=== PATIENT | male | born 1960 | race African-American/Black ===

== ENCOUNTER 2021-03-19 01:18 | Emergency (ER) | payer MEDICAID, SELFPAY ==
--- NOTE | ~2021-03-19 | XR_ITS ---
EXAMINATION: XR CHEST CLINICAL INFORMATION: Cough COMPARISON: 05/24/2020 TECHNIQUE: Frontal view of the chest was obtained. FINDINGS: Normal symmetric lung volumes. No parenchymal consolidation. No pleural effusion. No pneumothorax. Cardiomediastinal silhouette and pulmonary vascularity are within normal limits. No acute osseous abnormalities. XR/XR chest 1V IMPRESSION: Unremarkable examination.
--- NOTE | ~2021-03-19 | CT_ITS ---
EXAMINATION: CT HEAD WITHOUT CONTRAST CT CERVICAL SPINE WITHOUT CONTRAST CLINICAL INFORMATION: Fall COMPARISON: CT brain dated 05/24/2020 TECHNIQUE: Multidetector CT imaging of the head and cervical spine was performed without the use of intravenous contrast. Multiplanar reformats are reviewed. This CT examination was performed using dose optimization techniques as appropriate, variously including the following: *Automated exposure control *Adjustment of mA and/or kV according to patient size (this includes techniques or standardized protocols for targeted exams where dose is matched to indication/reason for exam; i.e. extremities or head) *Use of iterative reconstruction technique DLP: 1244 mGy-cm. FINDINGS: There is no evidence of acute intracranial hemorrhage or territorial infarction. No abnormal mass effect or midline shift is seen. Bach to white matter differentiation is well preserved. No extra-axial fluid collections are identified. The ventricles are normal in size. There is no abnormal attenuation within the brain parenchyma. The osseous structures and soft tissues are normal. The mastoid air cells and visualized portions of the paranasal sinuses are well-aerated. Atlantooccipital alignment is maintained. The vertebral bodies and posterior elements align normally. No acute fracture or subluxation. Vertebral body heights are maintained.Endplate osteophytes associated discogenic degenerative disease, loss of disc space height and sclerosis of the vertebral body endplates noted from C3 to C6. The cervicomedullary junction and spinal cord are grossly unremarkable. The paraspinal soft tissues are unremarkable. There is a bulla at the right lung apex. CT/CT cervical spine wo con IMPRESSION: No acute intracranial pathology. No cervical spine fracture or malalignment.
--- NOTE | ~2021-03-19 | CT_ITS ---
EXAMINATION: CT HEAD WITHOUT CONTRAST CT CERVICAL SPINE WITHOUT CONTRAST CLINICAL INFORMATION: Fall COMPARISON: CT brain dated 05/24/2020 TECHNIQUE: Multidetector CT imaging of the head and cervical spine was performed without the use of intravenous contrast. Multiplanar reformats are reviewed. This CT examination was performed using dose optimization techniques as appropriate, variously including the following: *Automated exposure control *Adjustment of mA and/or kV according to patient size (this includes techniques or standardized protocols for targeted exams where dose is matched to indication/reason for exam; i.e. extremities or head) *Use of iterative reconstruction technique DLP: 1244 mGy-cm. FINDINGS: There is no evidence of acute intracranial hemorrhage or territorial infarction. No abnormal mass effect or midline shift is seen. Bach to white matter differentiation is well preserved. No extra-axial fluid collections are identified. The ventricles are normal in size. There is no abnormal attenuation within the brain parenchyma. The osseous structures and soft tissues are normal. The mastoid air cells and visualized portions of the paranasal sinuses are well-aerated. Atlantooccipital alignment is maintained. The vertebral bodies and posterior elements align normally. No acute fracture or subluxation. Vertebral body heights are maintained.Endplate osteophytes associated discogenic degenerative disease, loss of disc space height and sclerosis of the vertebral body endplates noted from C3 to C6. The cervicomedullary junction and spinal cord are grossly unremarkable. The paraspinal soft tissues are unremarkable. There is a bulla at the right lung apex. CT/CT head/brain wo con IMPRESSION: No acute intracranial pathology. No cervical spine fracture or malalignment.
--- NOTE | 2021-03-19 01:25 | ECG_ITS ---
Test Reason : FALL Blood Pressure : / mmHG Vent. Rate : 064 BPM Atrial Rate : 064 BPM P-R Int : 212 ms QRS Dur : 104 ms QT Int : 394 ms P-R-T Axes : 065 059 077 degrees QTc Int : 406 ms Sinus rhythm with 1st degree A-V block with Premature atrial complexes Nonspecific ST and T wave abnormality Abnormal ECG When compared with ECG of 13-FEB-2015 17:28, Premature atrial complexes are now Present DC interval has increased Criteria for Septal infarct are no longer Present T wave inversion no longer evident in Lateral leads Referred By: Deirdre Neff Electronically Signed By:Sam Layne
[2021-03-19 01:36] VITALS: BP 134/70; BP 142/78; PULSE 60; PULSE 63; RESP 15; TEMP 36.6; O2SAT 95; O2SAT 97; BMI 21.9
[2021-03-19 02:05] LABS: MANUAL DIFF FLAG NO
[2021-03-19 02:06] LABS: Basophils Absolute Auto 0.1 X10*3/uL (0.0-0.2); Basophils Percent Auto 0.6 % (0-2); Eosinophils Absolute Auto 0.5 X10*3/uL (0.0-0.4); Eosinophils Percent Auto 5.6 % (0-4); Hematocrit 38.1 % (42-52); Hemoglobin 11.3 g/dl (14.0-18.0); Imm Gran Abs Auto 0.03 X10*3/uL (0.00-0.03); Imm Gran Pct Auto 0.4 % (0.0-0.4); Lymphocytes Absolute Auto 4.3 X10*3/uL (1.2-4.9); Lymphocytes Percent Auto 53.2 % (20-40); Mean Corpuscular HGB Conc 29.7 g/dl (31.0-36.0); Mean Corpuscular Hemoglobin 23.7 pg (27.0-33.0); Mean Corpuscular Volume 79.9 fL (80-98); Monocytes Absolute Auto 0.8 X10*3/uL (0.1-1.2); Monocytes Percent Auto 9.5 % (2-11); Neutrophils Absolute Auto 2.5 X10*3/uL (2.0-8.3); Neutrophils Percent Auto 30.7 % (45-73); Platelet Count 168 X10*3/uL (160-400); Red Blood Count 4.77 X10*6/uL (4.60-5.80); Red Cell Distribution Width 14.6 % (11.0-16.0)
[2021-03-19 02:12] LABS: Prothrombin Time 12.1 SEC (10.8-13.0)
[2021-03-19 02:30] VITALS: BP 122/86; PULSE 60; RESP 14; O2SAT 96
[2021-03-19 02:36] LABS: Magnesium 2.1 mg/dL (1.6-2.6)
[2021-03-19 02:38] LABS: Alanine Aminotransferase 9 U/L (0-40); Albumin Level 3.4 g/dL (3.5-5.0); Alkaline Phosphatase 46 U/L (39-117); Anion Gap 10 (12-20); Aspartate Amino Transferase 12 U/L (5-37); Bilirubin Total 0.4 mg/dL (0.0-1.0); Blood Urea Nitrogen 22 mg/dL (9-16); Calcium 8.9 mg/dL (8.4-10.2); Carbon Dioxide 30 mmol/L (22-29); Chloride 111 mmol/L (96-108); Creatinine Clr Calc Pharmacy 55.6; Estimated Glomerular Filt Rate 49; Glucose Random 89 mg/dL (60-115); Potassium 4.3 mmol/L (3.3-5.1); Sodium 147 mmol/L (135-145); Total Protein 6.1 g/dL (6.5-8.0)
--- NOTE | 2021-03-19 02:41 | ED.FALL ---
HPI - Fall General Chief Complaint: Fall Stated Complaint: SEIZURE AND FALL Time Seen by Provider: 03/19/21 01:25 Source: patient, EMS and other Mode of arrival: EMS History of Present Illness HPI Narrative: 60-year-old male brought in via EMS from [facility] with reports that patient fell and questionable seizure activity as they felt the patient was slow to respond although no abnormal movements are reported. Patient's roommate states that he was returning from the bathroom when the patient fell. On questioning, the patient is unable to recall the circumstances regarding the event and is known to have seizure history as well as baseline dementia. Currently, patient denies any headache, chest discomfort, abdominal pain. Related Data Allergies Allergy/AdvReac Type Severity Reaction Status Date / Time No Known Allergies Allergy Unverified 07/27/20 17:22 [No Known Allergies*] Review of Systems Review of Systems: Pertinent positives and negatives as stated in HPI. [facility] Past Medical History Source: nursing notes reviewed Medical History Anemia Cardiomegaly Chronic kidney disease Constipation Dementia Diabetes Eating disorder Extrapyramidal and movement disorder GERD (gastroesophageal reflux disease) Glaucoma Hyperlipemia Hypothyroid Schizophrenia Seizures Social History Social History Advance Directives: No Advance Directives Information Provided: No Physical Exam Vital Signs: Vital Signs: Last Vital Signs Temp 97.9 F 03/19/21 01:36 Pulse 60 03/19/21 02:30 Resp 14 03/19/21 02:30 BP 122/86 03/19/21 02:30 Pulse Ox 96 03/19/21 02:30 Body Mass Index 21.9 VITAL SIGNS: Reviewed. GENERAL: Chronically ill, in no acute distress. HEAD: Normocephalic/atraumatic EYES: PERRLA, EOMI NOSE: Nares patent bilateral OROPHARYNX: no oral lesions noted, posterior pharynx clear, dry mucosa NECK: C-collar in place, no adenopathy LUNGS: Normal breath sounds. No adventitious sounds or accessory muscle use. SpO2<95> CARDIOVASCULAR: Regular rate and rhythm without noted murmurs, no JVD or lower extremity edema. ABDOMEN: Soft, non-tender, non-distended with bowel sounds. MUSCULOSKELETAL: No tenderness, deformities, or effusions noted on gross inspection. EXTREMITIES: No cyanosis, clubbing or edema. SKIN: Inspection of the skin reveals no rashes, ulcerations, jaundice, pallor, or petechiae. NEUROLOGIC: Alert and oriented x 1. Strength and sensation to light touch were grossly intact x 4. Course Course Course Narrative: 60-year-old male with multiple comorbidities and clinical findings consistent with seizure-like activity as there are no noted injuries to extremities or intraoral findings. Patient does appear to be clinically dry. Of all investigations there are no acute findings to include CT scan of head and neck negative for acute injury. [facility] level remains subtherapeutic and this will be communicated with the [facility] facility. Otherwise, the valproic acid level is within therapeutic range. Suspect that patient has inadequate water intake and received 1 L of IV fluids. Patient subsequently discharged back to the [address] Reevaluation(s) Reevaluation #1: C-collar removed after review of CT c-spine imaging that demonstrated no acute findings and exam was without midline tenderness on palpation or on ROM. No focal neurological deficits to suggest spinal cord injury. Time: 03:05 MDM - Fall Lab Data Result diagrams: 03/19/21 02:01 03/19/21 02:01 Labs: Lab Results 03/19/21 03/19/21 03/19/21 Range/Units 02:01 02:01 02:02 WBC 8.0 (4.8-10.8) X10*3/uL RBC 4.77 (4.60-5.80) X10*6/uL Hgb 11.3 L (14.0-18.0) g/dl Hct 38.1 L (42-52) % MCV 79.9 L (80-98) fL MCH 23.7 L (27.0-33.0) pg MCHC 29.7 L (31.0-36.0) g/dl RDW 14.6 (11.0-16.0) % Plt Count 168 (160-400) X10*3/uL MPV 10.0 (9.4-12.4) fL Immature Gran % (Auto) 0.4 (0.0-0.4) % Neut % (Auto) 30.7 L (45-73) % Lymph % (Auto) 53.2 H (20-40) % [place] % (Auto) 9.5 (2-11) % Eos % (Auto) 5.6 H (0-4) % Baso % (Auto) 0.6 (0-2) % Lymph # (Auto) 4.3 (1.2-4.9) X10*3/uL [place] # (Auto) 0.8 (0.1-1.2) X10*3/uL Eos # (Auto) 0.5 H (0.0-0.4) X10*3/uL Baso # (Auto) 0.1 (0.0-0.2) X10*3/uL Abs Immat Gran (auto) 0.03 (0.00-0.03) X10*3/uL Absolute Neuts (auto) 2.5 (2.0-8.3) X10*3/uL Absolute Nucleated RBC 0.000 (0.0-0.012) X10*3/uL Nucleated RBC % (auto) 0.0 (0.0-0.2) /100WBC PT 12.1 (10.8-13.0) SEC INR 1.0 (0.9-1.1) Sodium 147 H (135-145) mmol/L Potassium 4.3 (3.3-5.1) mmol/L Chloride 111 H (96-108) mmol/L Carbon Dioxide 30 H (22-29) mmol/L Anion Gap 10 L (12-20) BUN 22 H (9-16) mg/dL Creatinine 1.45 H (0.5-1.4) mg/dL Estim Creat Clear Calc 55.6 Estimated GFR 49 Random Glucose 89 (60-115) mg/dL Calcium 8.9 (8.4-10.2) mg/dL Magnesium (1.6-2.6) mg/dL Total Bilirubin 0.4 (0.0-1.0) mg/dL AST 12 (5-37) U/L ALT 9 (0-40) U/L Alkaline Phosphatase 46 (39-117) U/L Total Protein 6.1 L (6.5-8.0) g/dL Albumin 3.4 L (3.5-5.0) g/dL TSH 2.89 (0.32-4.0) uIU/mL Urine Color Urine Appearance Urine pH (5.0-8.0) Ur Specific [place] (1.005-1.025) Urine Protein (NEG-TRACE) MG/DL Urine Glucose (UA) (NEG) MG/DL Urine Ketones (NEG) MG/DL Urine Blood (NEG) Urine Nitrite (NEG) Ur Leukocyte Esterase (NEG) Valproic Acid (50.0-100.0) mcg/mL [facility] (0.60-1.20) mmol/L 03/19/21 03/19/21 03/19/21 Range/Units 02:02 02:02 02:02 WBC (4.8-10.8) X10*3/uL RBC (4.60-5.80) X10*6/uL Hgb (14.0-18.0) g/dl Hct (42-52) % MCV (80-98) fL MCH (27.0-33.0) pg MCHC (31.0-36.0) g/dl RDW (11.0-16.0) % Plt Count (160-400) X10*3/uL MPV (9.4-12.4) fL Immature Gran % (Auto) (0.0-0.4) % Neut % (Auto) (45-73) % Lymph % (Auto) (20-40) % [place] % (Auto) (2-11) % Eos % (Auto) (0-4) % Baso % (Auto) (0-2) % Lymph # (Auto) (1.2-4.9) X10*3/uL [place] # (Auto) (0.1-1.2) X10*3/uL Eos # (Auto) (0.0-0.4) X10*3/uL Baso # (Auto) (0.0-0.2) X10*3/uL Abs Immat Gran (auto) (0.00-0.03) X10*3/uL Absolute Neuts (auto) (2.0-8.3) X10*3/uL Absolute Nucleated RBC (0.0-0.012) X10*3/uL Nucleated RBC % (auto) (0.0-0.2) /100WBC PT (10.8-13.0) SEC INR (0.9-1.1) Sodium (135-145) mmol/L Potassium (3.3-5.1) mmol/L Chloride (96-108) mmol/L Carbon Dioxide (22-29) mmol/L Anion Gap (12-20) BUN (9-16) mg/dL Creatinine (0.5-1.4) mg/dL Estim Creat Clear Calc Estimated GFR Random Glucose (60-115) mg/dL Calcium (8.4-10.2) mg/dL Magnesium 2.1 (1.6-2.6) mg/dL Total Bilirubin (0.0-1.0) mg/dL AST (5-37) U/L ALT (0-40) U/L Alkaline Phosphatase (39-117) U/L Total Protein (6.5-8.0) g/dL Albumin (3.5-5.0) g/dL TSH (0.32-4.0) uIU/mL Urine Color Urine Appearance Urine pH (5.0-8.0) Ur Specific [place] (1.005-1.025) Urine Protein (NEG-TRACE) MG/DL Urine Glucose (UA) (NEG) MG/DL Urine Ketones (NEG) MG/DL Urine Blood (NEG) Urine Nitrite (NEG) Ur Leukocyte Esterase (NEG) Valproic Acid 69.1 (50.0-100.0) mcg/mL [facility] 0.40 L (0.60-1.20) mmol/L 03/19/21 Range/Units 04:47 WBC (4.8-10.8) X10*3/uL RBC (4.60-5.80) X10*6/uL Hgb (14.0-18.0) g/dl Hct (42-52) % MCV (80-98) fL MCH (27.0-33.0) pg MCHC (31.0-36.0) g/dl RDW (11.0-16.0) % Plt Count (160-400) X10*3/uL MPV (9.4-12.4) fL Immature Gran % (Auto) (0.0-0.4) % Neut % (Auto) (45-73) % Lymph % (Auto) (20-40) % [place] % (Auto) (2-11) % Eos % (Auto) (0-4) % Baso % (Auto) (0-2) % Lymph # (Auto) (1.2-4.9) X10*3/uL [place] # (Auto) (0.1-1.2) X10*3/uL Eos # (Auto) (0.0-0.4) X10*3/uL Baso # (Auto) (0.0-0.2) X10*3/uL Abs Immat Gran (auto) (0.00-0.03) X10*3/uL Absolute Neuts (auto) (2.0-8.3) X10*3/uL Absolute Nucleated RBC (0.0-0.012) X10*3/uL Nucleated RBC % (auto) (0.0-0.2) /100WBC PT (10.8-13.0) SEC INR (0.9-1.1) Sodium (135-145) mmol/L Potassium (3.3-5.1) mmol/L Chloride (96-108) mmol/L Carbon Dioxide (22-29) mmol/L Anion Gap (12-20) BUN (9-16) mg/dL Creatinine (0.5-1.4) mg/dL Estim Creat Clear Calc Estimated GFR Random Glucose (60-115) mg/dL Calcium (8.4-10.2) mg/dL Magnesium (1.6-2.6) mg/dL Total Bilirubin (0.0-1.0) mg/dL AST (5-37) U/L ALT (0-40) U/L Alkaline Phosphatase (39-117) U/L Total Protein (6.5-8.0) g/dL Albumin (3.5-5.0) g/dL TSH (0.32-4.0) uIU/mL Urine Color YELLOW Urine Appearance CLEAR Urine pH 6.0 (5.0-8.0) Ur Specific [place] 1.015 (1.005-1.025) Urine Protein NEG (NEG-TRACE) MG/DL Urine Glucose (UA) NEG (NEG) MG/DL Urine Ketones NEG (NEG) MG/DL Urine Blood NEG (NEG) Urine Nitrite NEG (NEG) Ur Leukocyte Esterase NEG (NEG) Valproic Acid (50.0-100.0) mcg/mL [facility] (0.60-1.20) mmol/L ECG Data Attestation: I personally reviewed and interpreted this ECG as follows: Prior ECG tracings: available for review (02/13/2015 no acute changes on comparison) Interpretation: Sinus rhythm with first-degree AV block, HR-64, no evidence of acute ischemia, QTC within normal limits, GA-[id number] Discharge Plan Discharge Clinical Impression: Fall, Dehydration Patient Disposition: [facility] Instructions: Dehydration (ED), Fall Prevention for Older Adults (ED) Additional Instructions: 1. Recommend medication review for those that may contribute to increase risk of falls as there was no evidence of arrhythmia, infection, anemia noted on this workup. 2. Primary care provider should re-evaluate the patient within the next 1-2 days. Return to emergency department for any acute worsening of symptoms. Referrals: Celestine Beckman DO [Primary Care Provider] - 2 days (Re-evaluation in patient having frequent falls.)
[2021-03-19 02:42] LABS: Valproate 69.1 mcg/mL (50.0-100.0)
[2021-03-19 02:57] LABS: Thyroid Stimulating Hormone 2.89 uIU/mL (0.32-4.0)
[2021-03-19] MEDS: 0.9 % Sodium Chloride 1,000 ML 999 ML IV (03:18)
[2021-03-19 04:55] LABS: Appearance Urine CLEAR; Color Urine YELLOW; Glucose Urine UA NEG (NEG); Leukocyte Esterase Urine NEG (NEG); Nitrite Urine NEG (NEG); Specific Gravity - Urine 1.015 (1.005-1.025); UACC Culture Trigger NO; Urine Blood NEG (NEG); Urine Ketones NEG (NEG); Urine Protein NEG (NEG-TRACE)
[2021-03-19 05:02] VITALS: BP 122/74; PULSE 52; RESP 14; TEMP 36.6; O2SAT 99
--- NOTE | 2021-03-19 05:12 | PC.NURSE ---
Preparing for transfer back to [facility] via ambulance. Will continue to monitor.
== END 2021-03-19 06:23 | disposition skilled nursing facility (03) ==
PROVIDERS: Emergency Provider Student in an Organized Health Care Education/Training Program; PCP Hospitalist
DX: E86.0 Dehydration (principal); Z91.81 History of falling; E11.22 Type 2 diabetes mellitus with diabetic chronic kidney disease; N18.9 Chronic kidney disease, unspecified; E78.5 Hyperlipidemia, unspecified; F03.90 Unspecified dementia, unspecified severity, without behavioral disturbance, psychotic disturbance, mood disturbance, and anxiety
CPT/HCPCS: 36415; 70450; 71045; 72125; 80053; 80164; 80178; 81003; 83735; 84443; 85025; 85610; 93005; 96360; 99285

== ENCOUNTER 2021-04-30 13:50 | Emergency (ER) | payer MEDICAID, SELFPAY ==
--- NOTE | ~2021-04-30 | XR_ITS ---
EXAMINATION: XR CHEST CLINICAL INFORMATION: Fall. COMPARISON: Chest x-ray 03/19/2021 TECHNIQUE: Frontal view of the chest was obtained. FINDINGS: Lungs are clear. No pulmonary vascular congestion. There is no pleural effusion. The heart size is normal. The cardiac and mediastinal contours are normal. There are multilevel degenerative changes of dorsal spine. XR/XR chest 1V IMPRESSION: Unremarkable examination.
--- NOTE | ~2021-04-30 | XR_ITS ---
EXAMINATION: XR KNEE, RIGHT CLINICAL INFORMATION: Fall. COMPARISON: None TECHNIQUE: Four views of the right knee. FINDINGS: Bones and soft tissues are normal. No fracture or joint effusion. Alignment is anatomic. Joint spaces are well maintained. No abnormal soft tissue calcification. XR/XR knee RT 4V IMPRESSION: Normal right knee.
--- NOTE | ~2021-04-30 | CT_ITS ---
EXAMINATION: CT BRAIN AND CT CERVICAL SPINE WITHOUT CONTRAST. CLINICAL INFORMATION: Status post fall COMPARISON: None TECHNIQUE: 5 mm thin axial and reformatted 2 mm thin sagittal and coronal images of brain were obtained. 3 mm thin axial and 2 mm thin sagittal and coronal images of cervical spine were obtained. DLP [id number] FINDINGS: Brain: There is no acute intra-axial, extra-axial bleed, masses or midline shift. There is no acute infarction in evolution. The lateral ventricles are symmetrical in size and configuration without enlargement.. The green to white matter differentiation is maintained normal. Lung windows reveal no calvarial abnormality. There is mild mucoperiosteal thickening right frontal and middle ethmoid sinus.. The mastoid air cells are well-aerated. Cervical spine: There is mild straightening of cervical lordosis. The vertebral heights, alignment are normal. There is loss of C3-C4, C4-C5, C5-C6 disc heights. There is moderate ventral spondylosis. The craniovertebral junction and the C1-C2 alignment is normal. No visible acute fracture, dislocation or subluxation seen. Prevertebral and paravertebral soft tissues are normal. The lung apices are clear. The small bullae in the right upper lobe. CT/CT head/brain wo con IMPRESSION: No acute intracranial process seen. Mild central cerebral volume loss. Chronic right ethmoid and frontal sinusitis. No visible acute fracture, dislocation or lytic process seen. There are degenerative disc changes with endplate sclerosis and moderate ventral spondylosis C3-C4, C4-C5 and C5-C6 disc levels.
--- NOTE | ~2021-04-30 | CT_ITS ---
EXAMINATION: CT BRAIN AND CT CERVICAL SPINE WITHOUT CONTRAST. CLINICAL INFORMATION: Status post fall COMPARISON: None TECHNIQUE: 5 mm thin axial and reformatted 2 mm thin sagittal and coronal images of brain were obtained. 3 mm thin axial and 2 mm thin sagittal and coronal images of cervical spine were obtained. DLP 1318 FINDINGS: Brain: There is no acute intra-axial, extra-axial bleed, masses or midline shift. There is no acute infarction in evolution. The lateral ventricles are symmetrical in size and configuration without enlargement.. The green to white matter differentiation is maintained normal. Lung windows reveal no calvarial abnormality. There is mild mucoperiosteal thickening right frontal and middle ethmoid sinus.. The mastoid air cells are well-aerated. Cervical spine: There is mild straightening of cervical lordosis. The vertebral heights, alignment are normal. There is loss of C3-C4, C4-C5, C5-C6 disc heights. There is moderate ventral spondylosis. The craniovertebral junction and the C1-C2 alignment is normal. No visible acute fracture, dislocation or subluxation seen. Prevertebral and paravertebral soft tissues are normal. The lung apices are clear. The small bullae in the right upper lobe. CT/CT cervical spine wo con IMPRESSION: No acute intracranial process seen. Mild central cerebral volume loss. Chronic right ethmoid and frontal sinusitis. No visible acute fracture, dislocation or lytic process seen. There are degenerative disc changes with endplate sclerosis and moderate ventral spondylosis C3-C4, C4-C5 and C5-C6 disc levels.
--- NOTE | ~2021-04-30 | XR_ITS ---
EXAMINATION: XR HIP, RIGHT CLINICAL INFORMATION: Fall. COMPARISON: None TECHNIQUE: Frontal view of pelvis Two views of the right hip. FINDINGS: No fracture of pelvis. No fracture or dislocation of hips. Joint spaces of hips are normal. Sacroiliac joints and symphysis pubis are normal. XR/XR hip RT min 2V IMPRESSION: Normal pelvis and hips.
--- NOTE | 2021-04-30 13:51 | ED.AMS ---
HPI - Altered Mental Status General Chief Complaint: General Medical Stated Complaint: PT NOT ACTING LIKE SELF/A BIT OFF PER SNF Time Seen by Provider: 04/30/21 13:51 Source: patient and EMS Mode of arrival: EMS Limitations: altered mental status (dementia and schizophrenia) History of Present Illness MD complaint: altered mental status and decreased responsiveness Onset (ago): day(s) (?this weekend per staff to EMS) Timing confirmed by: caregiver Severity: moderate Consistency of symptoms: getting Worse Context: history of similar presentation and trauma (did reportedly fall and may have hurt R knee this ) Associated symptoms: other (decreased talking or asking for things) Related Data Home Medications Medication Instructions Recorded Confirmed acetaminophen 650 mg PO Q4H PRN 04/30/21 04/30/21 amlodipine 10 mg PO DAILY 04/30/21 04/30/21 aspirin 81 mg PO DAILY 04/30/21 04/30/21 bisacodyl 5 mg PO Q3H 04/30/21 04/30/21 carvedilol 25 mg PO BID 04/30/21 04/30/21 clozapine [Clozaril] 300 mg PO BEDTIME 04/30/21 04/30/21 divalproex 1,500 mg PO BEDTIME 04/30/21 04/30/21 ferrous sulfate 325 mg PO BID 04/30/21 04/30/21 hydralazine 100 mg PO TID 04/30/21 04/30/21 hydroxyzine HCl 50 mg IM Q6H PRN 04/30/21 04/30/21 insulin glargine [Lantus Solostar 8 unit SUBCUT BEDTIME 04/30/21 04/30/21 U-100 Insulin] lactulose 30 ml PO DAILY 04/30/21 04/30/21 lactulose 60 ml PO BEDTIME 04/30/21 04/30/21 levothyroxine 200 mcg PO DAILY@0630 04/30/21 04/30/21 lithium carbonate 225 mg PO DAILY 04/30/21 04/30/21 lithium carbonate 300 mg PO BEDTIME 04/30/21 04/30/21 pregabalin [Lyrica] 400 mg PO BID 04/30/21 04/30/21 sennosides-docusate sodium [Senna 1 tab-cap PO BID 04/30/21 04/30/21 Plus] trazodone 50 mg PO BEDTIME 04/30/21 04/30/21 Allergies Allergy/AdvReac Type Severity Reaction Status Date / Time NSAIDS (Non-Steroidal Allergy Unknown Verified 04/30/21 14:02 Anti-Inflamma Review of Systems Review of Systems: ROS unable to be obtained due to altered mental status FOR[facility]LY [facility] Past Medical History Attestation statement: The following information was validated with the patient. Medical History Anemia Cardiomegaly Chronic kidney disease Constipation Dementia Diabetes Eating disorder Extrapyramidal and movement disorder GERD (gastroesophageal reflux disease) Glaucoma Hyperlipemia Hypothyroid Schizophrenia Seizures Social History Social History Alcohol intake: unknown Patient Tobacco Use Status: Current everyday Tobacco user Use of substances other than those prescribed or required for medical reasons: Unknown Advance Directives: No Advance Directives Information Provided: No Physical Exam Vital Signs: Vital Signs: Last Vital Signs Temp 97.8 F 04/30/21 14:29 Pulse 78 04/30/21 14:29 Resp 20 04/30/21 14:29 BP 112/70 04/30/21 14:29 Pulse Ox 93 04/30/21 14:29 Body Mass Index 22.4 Appearance: Alert. Follows simple commands, grunts when asked questions. No acute distress. Eyes: Pupils equal, round and reactive to light. ENT: Pharynx normal. Neck: Normal inspection. Neck supple. CVS: Normal heart rate and rhythm. Pulses normal. Respiratory: No respiratory distress. Breath sounds normal. Abdomen: Soft and non-tender. Skin: Skin warm and dry. Normal skin color. Normal skin turgor. Extremities: No lower extremity edema. R knee cap appears deformed Neuro: follows commands makes noises like grunting. No motor deficit. No sensory deficit. Course Course Course Narrative: baseline CKD, no source of infection, no fracture, no ICH, tox reassuring - at this time no cause for his decline, he is now asking for food and talking to us, he seems at his baseline right now, no acute findings, stable for DC MDM - Altered Mental Status MDM Narrative Medical decision making narrative: 60 yo male with dementia, HTN, schizophrenia, seizures here with ?AMS and falls over weekend at this time will need labs, CXR, UA, CT head/neck for trauma, xrays of R knee and hip for fall, tox labs, dispo per results and findings after traumatic/toxic/infectious/metabolic workup Lab Data Result diagrams: 04/30/21 14:16 04/30/21 14:16 Labs: Lab Results 04/30/21 04/30/21 04/30/21 Range/Units 13:55 14:15 14:15 WBC (4.8-10.8) X10*3/uL RBC (4.60-5.80) X10*6/uL Hgb (14.0-18.0) g/dl Hct (42-52) % MCV (80-98) fL MCH (27.0-33.0) pg MCHC (31.0-36.0) g/dl RDW (11.0-16.0) % Plt Count (160-400) X10*3/uL MPV (9.4-12.4) fL Immature Gran % (Auto) (0.0-0.4) % Neut % (Auto) (45-73) % Lymph % (Auto) (20-40) % [place] % (Auto) (2-11) % Eos % (Auto) (0-4) % Baso % (Auto) (0-2) % Lymph # (Auto) (1.2-4.9) X10*3/uL [place] # (Auto) (0.1-1.2) X10*3/uL Eos # (Auto) (0.0-0.4) X10*3/uL Baso # (Auto) (0.0-0.2) X10*3/uL Abs Immat Gran (auto) (0.00-0.03) X10*3/uL Absolute Neuts (auto) (2.0-8.3) X10*3/uL Absolute Nucleated RBC (0.0-0.012) X10*3/uL Nucleated RBC % (auto) (0.0-0.2) /100WBC Sodium (135-145) mmol/L Potassium (3.3-5.1) mmol/L Chloride (96-108) mmol/L Carbon Dioxide (22-29) mmol/L Anion Gap (12-20) BUN (9-16) mg/dL Creatinine (0.5-1.4) mg/dL Estim Creat Clear Calc Estimated GFR POC Glucose 203 H (60-115) mg/dL Random Glucose (60-115) mg/dL Lactic Acid (0.5-2.0) mmol/L Calcium (8.4-10.2) mg/dL Magnesium (1.6-2.6) mg/dL Total Bilirubin (0.0-1.0) mg/dL Direct Bilirubin (0.0-0.5) mg/dL AST (5-37) U/L ALT (0-40) U/L Alkaline Phosphatase (39-117) U/L Ammonia 33 (13-55) umol/L Total Creatine Kinase (38-174) U/L Troponin I High Sens (<3.5-35.0) ng/L Total Protein (6.5-8.0) g/dL Albumin (3.5-5.0) g/dL Lipase (8-78) U/L TSH (0.32-4.0) uIU/mL Urine Color Urine Appearance Urine pH (5.0-8.0) Ur Specific [place] (1.005-1.025) Urine Protein (NEG-TRACE) MG/DL Urine Glucose (UA) (NEG) MG/DL Urine Ketones (NEG) MG/DL Urine Blood (NEG) Urine Nitrite (NEG) Ur Leukocyte Esterase (NEG) Urine RBC (0) /HPF Urine WBC (0-4) /HPF Ur Squamous Epith Cells /LPF Urine Bacteria /LPF Valproic Acid (50.0-100.0) mcg/mL Dubois 0.45 L (0.60-1.20) mmol/L COVID-19 (DAVIDSON) (Negative) COVID-19 Clin Com 04/30/21 04/30/21 04/30/21 Range/Units 14:16 14:16 14:16 WBC 7.7 (4.8-10.8) X10*3/uL RBC 5.03 (4.60-5.80) X10*6/uL Hgb 11.7 L (14.0-18.0) g/dl Hct 40.0 L (42-52) % MCV 79.5 L (80-98) fL MCH 23.3 L (27.0-33.0) pg MCHC 29.3 L (31.0-36.0) g/dl RDW 15.0 (11.0-16.0) % Plt Count 148 L (160-400) X10*3/uL MPV 12.1 (9.4-12.4) fL Immature Gran % (Auto) 0.4 (0.0-0.4) % Neut % (Auto) 50.9 (45-73) % Lymph % (Auto) 35.1 (20-40) % [place] % (Auto) 10.1 (2-11) % Eos % (Auto) 3.1 (0-4) % Baso % (Auto) 0.4 (0-2) % Lymph # (Auto) 2.7 (1.2-4.9) X10*3/uL [place] # (Auto) 0.8 (0.1-1.2) X10*3/uL Eos # (Auto) 0.2 (0.0-0.4) X10*3/uL Baso # (Auto) 0.0 (0.0-0.2) X10*3/uL Abs Immat Gran (auto) 0.03 (0.00-0.03) X10*3/uL Absolute Neuts (auto) 3.9 (2.0-8.3) X10*3/uL Absolute Nucleated RBC 0.000 (0.0-0.012) X10*3/uL Nucleated RBC % (auto) 0.0 (0.0-0.2) /100WBC Sodium 140 (135-145) mmol/L Potassium 5.1 (3.3-5.1) mmol/L Chloride 106 (96-108) mmol/L Carbon Dioxide 28 (22-29) mmol/L Anion Gap 11 L (12-20) BUN 29 H (9-16) mg/dL Creatinine 1.69 H (0.5-1.4) mg/dL Estim Creat Clear Calc 48.5 Estimated GFR 41 POC Glucose (60-115) mg/dL Random Glucose 179 H D (60-115) mg/dL Lactic Acid 1.2 (0.5-2.0) mmol/L Calcium 9.2 (8.4-10.2) mg/dL Magnesium 2.0 (1.6-2.6) mg/dL Total Bilirubin 0.3 (0.0-1.0) mg/dL Direct Bilirubin < 0.2 (0.0-0.5) mg/dL AST 11 (5-37) U/L ALT < 6 (0-40) U/L Alkaline Phosphatase 53 (39-117) U/L Ammonia (13-55) umol/L Total Creatine Kinase 64 (38-174) U/L Troponin I High Sens (<3.5-35.0) ng/L Total Protein 6.7 (6.5-8.0) g/dL Albumin 3.6 (3.5-5.0) g/dL Lipase 48 (8-78) U/L TSH 0.59 (0.32-4.0) uIU/mL Urine Color Urine Appearance Urine pH (5.0-8.0) Ur Specific [place] (1.005-1.025) Urine Protein (NEG-TRACE) MG/DL Urine Glucose (UA) (NEG) MG/DL Urine Ketones (NEG) MG/DL Urine Blood (NEG) Urine Nitrite (NEG) Ur Leukocyte Esterase (NEG) Urine RBC (0) /HPF Urine WBC (0-4) /HPF Ur Squamous Epith Cells /LPF Urine Bacteria /LPF Valproic Acid 62.3 (50.0-100.0) mcg/mL Dubois (0.60-1.20) mmol/L COVID-19 ([facility]VIDSON) (Negative) COVID-19 Clin Com 04/30/21 04/30/21 04/30/21 Range/Units 14:16 14:18 14:35 WBC (4.8-10.8) X10*3/uL RBC (4.60-5.80) X10*6/uL Hgb (14.0-18.0) g/dl Hct (42-52) % MCV (80-98) fL MCH (27.0-33.0) pg MCHC (31.0-36.0) g/dl RDW (11.0-16.0) % Plt Count (160-400) X10*3/uL MPV (9.4-12.4) fL Immature Gran % (Auto) (0.0-0.4) % Neut % (Auto) (45-73) % Lymph % (Auto) (20-40) % [place] % (Auto) (2-11) % Eos % (Auto) (0-4) % Baso % (Auto) (0-2) % Lymph # (Auto) (1.2-4.9) X10*3/uL [place] # (Auto) (0.1-1.2) X10*3/uL Eos # (Auto) (0.0-0.4) X10*3/uL Baso # (Auto) (0.0-0.2) X10*3/uL Abs Immat Gran (auto) (0.00-0.03) X10*3/uL Absolute Neuts (auto) (2.0-8.3) X10*3/uL Absolute Nucleated RBC (0.0-0.012) X10*3/uL Nucleated RBC % (auto) (0.0-0.2) /100WBC Sodium (135-145) mmol/L Potassium (3.3-5.1) mmol/L Chloride (96-108) mmol/L Carbon Dioxide (22-29) mmol/L Anion Gap (12-20) BUN (9-16) mg/dL Creatinine (0.5-1.4) mg/dL Estim Creat Clear Calc Estimated GFR POC Glucose (60-115) mg/dL Random Glucose (60-115) mg/dL Lactic Acid (0.5-2.0) mmol/L Calcium (8.4-10.2) mg/dL Magnesium (1.6-2.6) mg/dL Total Bilirubin (0.0-1.0) mg/dL Direct Bilirubin (0.0-0.5) mg/dL AST (5-37) U/L ALT (0-40) U/L Alkaline Phosphatase (39-117) U/L Ammonia (13-55) umol/L Total Creatine Kinase (38-174) U/L Troponin I High Sens 4.6 (<3.5-35.0) ng/L Total Protein (6.5-8.0) g/dL Albumin (3.5-5.0) g/dL Lipase (8-78) U/L TSH (0.32-4.0) uIU/mL Urine Color YELLOW Urine Appearance CLEAR Urine pH 6.0 (5.0-8.0) Ur Specific [place] 1.015 (1.005-1.025) Urine Protein 1+ H (NEG-TRACE) MG/DL Urine Glucose (UA) NEG (NEG) MG/DL Urine Ketones NEG (NEG) MG/DL Urine Blood NEG (NEG) Urine Nitrite NEG (NEG) Ur Leukocyte Esterase NEG (NEG) Urine RBC 0 (0) /HPF Urine WBC 0 (0-4) /HPF Ur Squamous Epith Cells NONE /LPF Urine Bacteria NONE /LPF Valproic Acid (50.0-100.0) mcg/mL Dubois (0.60-1.20) mmol/L COVID-19 (DAVIDSON) Negative (Negative) COVID-19 Clin Com See Note ECG Data ECG #1: Attestation: I personally reviewed and interpreted this ECG as follows: ECG interpretation date: 04/30/21 ECG interpretation time: 14:37 Interpretation: Rate: 77 Rhythm: NSR with 1st degree AVB Rose: normal LVH Normal P waves. 1st degree AVB Normal QRS complex. ST T wave : inverted I and aVL, V3-V6 no HAILEY qTC: normal prior studies: no acute ischemia no change from 2015 The study has been interpreted contemporaneously by me. . Discharge Plan Discharge Clinical Impression: Acute alteration in mental status Patient Disposition: Xfer SNF Transfer Details: [facility] Instructions: Altered Mental Status (ED) Additional Instructions: return to ED for any worsening symptoms or concerns HAD LABS, URINE, CHEST XRAY, RIGHT HIP AND RIGHT KNEE XRAYS, COVID SWAB, CT HEAD AND CT CERVICAL SPINE ALL WERE NEGATIVE DEPAKOTE LEVEL NORMAL LITHIUM LEVEL LOWER AT 0.45 IN OUR EMERGENCY DEPARTMENT HE STARTED TO ASK FOR FOOD, HE APPEARS AT HIS BASELINE NOW, AFEBRILE NO WBC COUNT, NO TRAUMATIC/INFECTIOUS/METABOLIC FINDINGS Prescriptions: No Action carvedilol 25 mg Tablet 25 mg PO BID RF: 0 acetaminophen 325 mg Tablet 650 mg PO Q4H PRN (Reason: Pain) RF: 0 trazodone 50 mg Tablet 50 mg PO BEDTIME RF: 0 clozapine [Clozaril] 100 mg Tablet 300 mg PO BEDTIME RF: 0 sennosides-docusate sodium [Senna Plus] 8.6-50 mg Tablet 1 tab-cap PO BID RF: 0 lithium carbonate 300 mg Tablet Extended Release 300 mg PO BEDTIME RF: 0 aspirin 81 mg Tablet,Delayed Release (Dr/Ec) 81 mg PO DAILY RF: 0 lithium carbonate 450 mg Tablet Extended Release 225 mg PO DAILY RF: 0 amlodipine 10 mg Tablet 10 mg PO DAILY RF: 0 hydralazine 100 mg Tablet 100 mg PO TID RF: 0 ferrous sulfate 325 mg (65 mg iron) Tablet 325 mg PO BID RF: 0 divalproex 500 mg Tablet Extended Release 24 Hr 1,500 mg PO BEDTIME RF: 0 levothyroxine 200 mcg Tablet 200 mcg PO DAILY@0630 RF: 0 bisacodyl 5 mg Tablet,Delayed Release (Dr/Ec) 5 mg PO Q3H RF: 0 hydroxyzine HCl 50 mg/mL Syringe 50 mg IM Q6H PRN (Reason: Agitation) RF: 0 lactulose 10 gram/15 mL Solution 60 ml PO BEDTIME RF: 0 lactulose 10 gram/15 mL Solution 30 ml PO DAILY RF: 0 pregabalin [Lyrica] 200 mg Capsule 400 mg PO BID RF: 0 Lantus Solostar U-100 Insulin 100 unit/mL (3 mL) Insulin Pen 8 unit SUBCUT BEDTIME RF: 0 Referrals: Celestine Beckman DO [Primary Care Provider] - 1 day
[2021-04-30 13:56] VITALS: BP 117/84; BP 141/78; PULSE 70; PULSE 78; RESP 16; TEMP 36.7; O2SAT 98; BMI 22.4
--- NOTE | 2021-04-30 14:06 | ECG_ITS ---
Test Reason : GENERAL MEDICINE Blood Pressure : / mmHG Vent. Rate : 077 BPM Atrial Rate : 077 BPM P-R Int : 202 ms QRS Dur : 092 ms QT Int : 360 ms P-R-T Axes : 050 051 098 degrees QTc Int : 407 ms Normal sinus rhythm Minimal voltage criteria for LVH, may be normal variant ST & T wave abnormality, consider anterolateral ischemia Abnormal ECG When compared with ECG of 19-MAR-2021 01:56, Premature atrial complexes are no longer Present T wave inversion now evident in Anterior leads Referred By: Kassidy Singh Electronically Signed By:Sam Layne
[2021-04-30 14:07] LABS: Glucose, Whole Blood 203 mg/dL (60-115)
[2021-04-30 14:24] LABS: MANUAL DIFF FLAG NO
[2021-04-30 14:29] VITALS: BP 112/70; PULSE 78; RESP 20; TEMP 36.6; O2SAT 93
[2021-04-30 14:33] LABS: Basophils Percent Auto 0.4 % (0-2); Eosinophils Absolute Auto 0.2 X10*3/uL (0.0-0.4); Eosinophils Percent Auto 3.1 % (0-4); Hemoglobin 11.7 g/dl (14.0-18.0); Imm Gran Abs Auto 0.03 X10*3/uL (0.00-0.03); Imm Gran Pct Auto 0.4 % (0.0-0.4); Lymphocytes Absolute Auto 2.7 X10*3/uL (1.2-4.9); Lymphocytes Percent Auto 35.1 % (20-40); Mean Corpuscular HGB Conc 29.3 g/dl (31.0-36.0); Mean Corpuscular Hemoglobin 23.3 pg (27.0-33.0); Mean Corpuscular Volume 79.5 fL (80-98); Mean Platelet Volume 12.1 fL (9.4-12.4); Monocytes Absolute Auto 0.8 X10*3/uL (0.1-1.2); Monocytes Percent Auto 10.1 % (2-11); Neutrophils Absolute Auto 3.9 X10*3/uL (2.0-8.3); Neutrophils Percent Auto 50.9 % (45-73); Platelet Count 148 X10*3/uL (160-400); Red Blood Count 5.03 X10*6/uL (4.60-5.80); White Blood Count 7.7 X10*3/uL (4.8-10.8)
--- NOTE | 2021-04-30 14:42 | PHA.MEDREC ---
Pharmacy Consult ? Medication Reconciliation Pharmacy has completed the medication reconciliation There are no remarkable issues to be addressed. Patient is on Clozaril and is active on the REM[facility] program. Confirmed with Mason Joseph patient last dose was 300mg at 1999 on 04/29/2021. Babs Webb, PharmD
[2021-04-30 14:43] LABS: IDNOW Serial# 9DD0AD1C
[2021-04-30 14:43] LABS: Glucose Urine UA NEG (NEG); Leukocyte Esterase Urine NEG (NEG); Nitrite Urine NEG (NEG); Specific Gravity - Urine 1.015 (1.005-1.025); Urine Blood NEG (NEG); Urine Ketones NEG (NEG); Urine Protein 1+ MG/DL (NEG-TRACE)
[2021-04-30 14:44] LABS: COVID-19 Test Negative (Negative)
[2021-04-30 14:45] LABS: Appearance Urine CLEAR; Color Urine YELLOW
[2021-04-30 14:47] LABS: Ammonia 33 umol/L (13-55)
[2021-04-30 14:49] LABS: Lithium 0.45 mmol/L (0.60-1.20)
[2021-04-30 14:51] LABS: Lactic Acid 1.2 mmol/L (0.5-2.0)
[2021-04-30 14:54] LABS: RBC Urine 0 /HPF (0); WBC Urine 0 /HPF (0-4)
[2021-04-30 14:57] LABS: Alanine Aminotransferase < 6 U/L (0-40); Albumin Level 3.6 g/dL (3.5-5.0); Alkaline Phosphatase 53 U/L (39-117); Anion Gap 11 (12-20); Aspartate Amino Transferase 11 U/L (5-37); Bilirubin Direct < 0.2 mg/dL (0.0-0.5); Bilirubin Total 0.3 mg/dL (0.0-1.0); Blood Urea Nitrogen 29 mg/dL (9-16); Calcium 9.2 mg/dL (8.4-10.2); Carbon Dioxide 28 mmol/L (22-29); Chloride 106 mmol/L (96-108); Creatinine Clr Calc Pharmacy 48.5; Estimated Glomerular Filt Rate 41; Glucose Random 179 mg/dL (60-115); Lipase 48 U/L (8-78); Potassium 5.1 mmol/L (3.3-5.1); Sodium 140 mmol/L (135-145); Total Protein 6.7 g/dL (6.5-8.0)
[2021-04-30 14:58] LABS: Valproate 62.3 mcg/mL (50.0-100.0)
[2021-04-30 14:59] LABS: Troponin-I High Sensitivity 4.6 ng/L (<3.5-35.0)
[2021-04-30] MEDS: 0.9 % Sodium Chloride 500 ML IV (15:08)
[2021-04-30 15:17] LABS: TSH reflex Free T4 0.59 uIU/mL (0.32-4.0)
--- NOTE | 2021-04-30 16:07 | PC.NURSE ---
Nurse to nurse given to [facility]- ambulance being booked by senior data warehouse developer. Patient ate a snack with no difficulties, denies any pain. Awaiting ambulance at this time.
== END 2021-04-30 16:36 | disposition skilled nursing facility (03) ==
PROVIDERS: Emergency Provider Emergency Medicine; PCP Hospitalist
DX: R41.82 Altered mental status, unspecified (principal); F20.9 Schizophrenia, unspecified; F03.90 Unspecified dementia, unspecified severity, without behavioral disturbance, psychotic disturbance, mood disturbance, and anxiety; E11.22 Type 2 diabetes mellitus with diabetic chronic kidney disease; N18.9 Chronic kidney disease, unspecified; Z79.4 Long term (current) use of insulin; Z79.899 Other long term (current) drug therapy; Z20.822 Contact with and (suspected) exposure to COVID-19
CPT/HCPCS: 36415; 51701; 70450; 71045; 72125; 73502; 73564; 80048; 80076; 80164; 80178; 81001; 82140; 82550; 82947; 83605; 83690; 83735; 84443; 84484; 85025; 87040; 87147; 87205; 87635; 93005; 96360; 99285

== ENCOUNTER 2021-09-19 07:46 | Outpatient (REF) | payer MEDICAID, SELFPAY ==
--- NOTE | ~2021-09-19 | CT_ITS ---
EXAMINATION: CT CHEST WITH CONTRAST CLINICAL INFORMATION: Pulmonary nodule COMPARISON: Previous chest x-ray most recent April 2021 TECHNIQUE: Multidetector volumetric CT imaging of the chest was obtained after the administration of 65 mL of Omnipaque 350 intravenous contrast without immediate adverse reactions. Axial MIP volume rendering provided. Sagittal and coronal reformatted images were obtained. This CT examination was performed using dose optimization techniques as appropriate, variously including the following: *Automated exposure control *Adjustment of mA and/or kV according to patient size (this includes techniques or standardized protocols for targeted exams where dose is matched to indication/reason for exam; i.e. extremities or head) *Use of iterative reconstruction technique DLP: 182 mGy-cm FINDINGS: LUNGS: Exam is limited due to artifact from respiratory motion. There is evidence of mild paraseptal emphysema. There is a 3 mm right upper lobe nodule axial image 47. There are small clustered peribronchial nodules in the left lower lobe likely related to bronchial soft tissue opacification for example measuring 2 and 3 mm axial image 101 and 102 series 7. Result 3 mm peripheral left lower lobe nodule axial image 149 series 7. MEDIASTINUM: There is mild wall thickening of the proximal and mid thoracic esophagus. The mediastinum is otherwise normal. PLEURA: There is no pleural effusion. No pleural mass or thickening. AXILLA: There are small bilateral axillary lymph nodes. No enlarged lymph nodes are seen. UPPER ABDOMEN: The liver may be low in attenuation. OSSEOUS STRUCTURES: There are degenerative changes of the spine. There are degenerative changes at the right first rib sternal articulation. CT/CT chest w con IMPRESSION: Very limited exam for pulmonary nodule identification due to artifact from respiratory motion. Mild emphysema. Small pulmonary nodules, largest measuring 3 mm or micronodules. According to the UPDATED 2017 Fleischner Society recommendations, the advised follow-up imaging for less than 6 mm nodule: Low risk, no chest CT follow-up and high risk, optional chest CT follow-up in one year. Wall thickening of the thoracic esophagus. Follow-up fluoroscopy exam or endoscopy should be considered if clinically indicated.
[2021-09-19] MEDS: iohexoL 350 MG/ML 100 ML INFUS..BTL IV (08:51)
== END 2021-09-19 07:47 | disposition home or self-care (01) ==
LOC: HO.CT 07:46
PROVIDERS: Visit Provider Hospitalist
DX: R91.1 Solitary pulmonary nodule (principal)
CPT/HCPCS: 71260; Q9967

== ENCOUNTER → 2022-07-24 11:55 | Outpatient (BNVA) | payer MEDICAID, SELFPAY | PROVIDERS: PCP Hospitalist; Referring Provider Hospitalist; Visit Provider Nurse Practitioner Family | DX: Z01.818 Encounter for other preprocedural examination (principal) | CPT/HCPCS: 99202 ==

== ENCOUNTER → 2022-12-11 13:51 | Outpatient (BNVA) | payer MEDICAID, SELFPAY | PROVIDERS: PCP Hospitalist; Visit Provider Internal Medicine | DX: I51.7 Cardiomegaly (principal); I51.89 Other ill-defined heart diseases; R94.31 Abnormal electrocardiogram [ECG] [EKG] | CPT/HCPCS: 93005; 99202 ==

== ENCOUNTER → 2022-12-23 11:04 | Outpatient (REF) | payer MEDICAID, SELFPAY ==
--- NOTE | 2022-12-23 11:09 | CA_ITS ---
Transthoracic Echocardiogram Patient (Last, First, Middle): Reza Arnold, Gender: Male Date of : 1960 Age: 62 Procedure Date: 12/23/2022 Procedure Type: Transthoracic Echocardiogram Location: OP Height: 182.88 cm Weight: kg BP: 134 / 78 mmHg Auctioneer Tobacco: LAUREN Referring MD: Fortino Hauser MD Symptoms: R94.31 - Abnormal electrocardiogram [ECG] [EKG] Study Quality: Technically Difficult ECG Rhythm: Undetermined-refused to leave electrodes on Conclusions: - LVEF probably normal based on limited images. - Valves poorly visualized. - Study markedly limited due to uncooperative patient. Findings Procedure Information The quality of the study was technically difficult. The study quality is limited by an uncooperative patient. Left Ventricle Normal left ventricular cavity size. There is normal left ventricular wall thickness. LVEF probably normal based on limited images. Right Ventricle The right ventricle was not well visualized. Atria Both atria are normal in size. Aortic Valve The aortic valve was not well visualized. Mitral Valve The mitral valve appears normal. There is no mitral valve stenosis. Pulmonic Valve The pulmonic valve is likely normal. Venous The inferior vena cava is normal in size and collapses greater than 50% with inspiration. Pericardium/Pleural There is no evidence of pericardial effusion. Prior Study Comparison No prior study available for comparison. Measurements 2D Linear Measurements IVSd: 0.99 0.6-0.9/0.6-1.0 cm LVIDd: 4.08 3.9-5.3/4.2-5.9 cm LVIDs: 2.50 2.0-3.6 cm LVPWd: 0.61 0.7-1.1 cm LA Diam: 2.60 2.7-3.8/3.0-4.0 cm LV Mass: 119.95 67-162/88-224 g LVOT Diam: 2.40 3.0+(-)1.3 cm LVOT LVOT Diam: 2.40 LVOT Area: 4.52 Tricuspid Valve RA Press: 3.00 Pulmonary Valve PV Pk Eliazar: 0.84 Peak PV Grad: 3.00 Updated in Other Vendor System with Status of Final Fortino Hauser MD electronically signed on 12/23/2022 4:47:03 PM with status of Final
== END ==
LOC: HO.CARD 11:04
PROVIDERS: Visit Provider Internal Medicine
DX: R94.31 Abnormal electrocardiogram [ECG] [EKG] (principal)
CPT/HCPCS: 93308

== ENCOUNTER 2023-01-23 07:45 | Outpatient (REF) | payer MEDICAID, SELFPAY ==
--- NOTE | ~2023-01-23 | CT_ITS ---
EXAMINATION: CT CHEST WITH CONTRAST CLINICAL INFORMATION: Solitary pulmonary nodule. COMPARISON: CT chest 09/19/2021. TECHNIQUE: Multidetector volumetric CT imaging of the chest was obtained after the administration of 65 mL of Omnipaque 350 intravenous contrast without immediate adverse reactions. Axial MIP volume rendering provided. Sagittal and coronal reformatted images were obtained. This CT examination was performed using dose optimization techniques as appropriate, variously including the following: *Automated exposure control *Adjustment of mA and/or kV according to patient size (this includes techniques or standardized protocols for targeted exams where dose is matched to indication/reason for exam; i.e. 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 LUNGS: The lungs are well expanded and clear of acute pneumonic process. There is a 3 mm nodule subpleural based right lower lobe axial image 81/6. No other pulmonary nodule visualized. Focal atelectatic changes are seen in the lingula. A few punctate calcifications measuring 1 mm are seen in right upper lobe. MEDIASTINUM: Heart size and the great vessels are normal caliber. The central trachea and the bronchi are widely patent. Thyroid lobes are symmetrical and unremarkable. No abnormal-sized mediastinal or hilar lymph node seen. PLEURA: There is no pleural effusion. No pleural mass or thickening. AXILLA: Small shotty lymph nodes are seen in bilateral axilla with the largest right axillary lymph node measuring 1 cm. The chest wall appears unremarkable. UPPER ABDOMEN: Visualized liver, spleen and pancreas is unremarkable. OSSEOUS STRUCTURES: There is mild exaggerated thoracic kyphosis with moderate ventral spondylosis in dorsal spine. No aggressive lytic or sclerotic process seen. CT/CT chest w IV con IMPRESSION: 3 mm nodule right lower lobe peripherally based. Previously described right upper lobe pulmonary nodule and clusters of nodules in the left lower lobe are not visualized at this time.3 Minimal atelectatic changes seen in the lingula.
[2023-01-23] MEDS: iohexoL 350 MG/ML 100 ML INFUS..BTL IV (08:31)
[2023-01-23 13:17] LABS: Creatinine POC 1.3 mg/dL (0.5-1.4); GFR POC > 60
== END 2023-01-23 07:46 | disposition home or self-care (01) ==
LOC: HO.CT 07:45
PROVIDERS: Visit Provider Hospitalist
DX: R91.1 Solitary pulmonary nodule (principal)
CPT/HCPCS: 71260; 82565; Q9967

== ENCOUNTER 2023-02-13 09:08 | Day surgery (SDC) | payer MEDICAID, SELFPAY ==
[2023-02-10 15:50] VITALS: BMI 23.6
--- NOTE | 2023-02-13 09:28 | MHC.SHP ---
Pre-Procedural Eval Section A Date of Service: 02/13/23 Section B Chief Complaint: Encounter for screening for malignant neoplasm of Relevant Family History (Specify if Yes): No Relevant Social History: Tobacco Use Present Medications: see Short Stay Collaborative assessment Medical History: Significant History (Anemia Cardiomegaly Chronic kidney disease Constipation Dementia Diabetes Eating disorder Extrapyramidal and movement disorder GERD (gastroesophageal reflux disease) Glaucoma Hyperlipemia Hypothyroid Schizophrenia Seizures) History of Previous Operations: No relevant previous surgery Allergies: Allergies Allergy/AdvReac Type Severity Reaction Status Date / Time NSAIDS (Non-Steroidal AdvReac Avoid-r/t Verified 02/10/23 15:49 Anti-Inflamma CKD Review of Systems Review of Systems Comment: unable to obtain due to dementia Exam Surgical H&P Exam: Normal: HEENT, Normal: Heart, Normal: Lungs, Normal: Extremities, Normal: Abdomen and Normal: Skin and Significant Findings: Neurological (dementia) Plan Diagnosis/Plan: Unchanged I have reviewed the history and physical and performed a pertinent physical examination on my patient. No changes have occurred unless specified. Time Spent With Patient Time: Total time managing care of this patient today ____ minutes.
[2023-02-13 09:56] VITALS: BP 132/72; PULSE 60; RESP 16; TEMP 36.4; O2SAT 100
--- NOTE | 2023-02-13 10:01 | W.PM.OPN ---
Operative Note Operative Note Date of Service: 02/13/23 Narrative: Operative Information Procedure Description: Colonoscopy Indication: screening Anesthesia: MAC COLONOSCOPY Instrument: Olympus variable stiffness pediatric scope 190L Colonoscopy Monitoring: Vital signs and clinical assessment, continuous EKG monitoring, Pulse oximetry, Carbon Dioxide monitoring and blood pressure monitoring were done throughout the procedure. Procedure: The patient was placed in the left lateral decubitis position and pre-procedure medications were administered. After a digital rectal examination of the ano-rectum, the video colonoscope was inserted into the rectum and advanced through the colon to the Rectum The rectum was full of solid stool so the procedure was aborted Impression and Post Procedure Diagnosis: unprepped colon Plan: reschedule, other option is cologuard if unable to do a prep, can also try osmoprep or solutab instead of PEG Above findings were reviewed with the patient and relevant handouts were provided if indicated.
[2023-02-13 10:03] LABS: Glucose, Whole Blood 179 mg/dL (60-115)
--- NOTE | 2023-02-13 10:05 | PC.NURSE ---
All intake completed via phone with Celena TILLMAN at [facility]. Celena verified patient has been NPO since midnight with medications taken today with a small sip of water only. No solid food all day yesterday, clear liquids only. Prep was finished yesterday and bowel output was last seen this morning by Celena which she stated was clear water . During intake, question of inverted T waves present on monitor. All VS WNL. Dr. Reyes made aware or rhythm and came to bedside. Last EKG and cardiac clearance note shown to him. Okay to proceed with procedure at this time, No new orders.
[2023-02-13] MEDS: Lactated Ringers 1,000 ML 80 ML IVCONT (10:25)
[2023-02-13 10:39] VITALS: BP 104/66; PULSE 58; RESP 24; TEMP 36.6; O2SAT 99
--- NOTE | 2023-02-13 10:39 | HO.ANESPROP2 ---
HPI - Anesthesia Eval Consult details Narrative: 62 M for [facility] Active Problems Active Problems: All Active Problems (Updated 02/07/23 @ 14:28 by Alicia Thurman RN) Abnormal EKG (Acute) Diastolic dysfunction (Acute) Cardiomegaly (Acute) Past Medical History Medical History Anemia Cardiomegaly Chronic kidney disease Constipation Dementia Diabetes Eating disorder Extrapyramidal and movement disorder GERD (gastroesophageal reflux disease) Glaucoma Hyperlipemia Hypothyroid Resides in intermediate facility Schizophrenia Seizures Family History Family history of problems with anesthesia: No Surgical History Surgical History Surgical history unknown History of Problems with Anesthesia: No Social History Social History Alcohol intake: unknown Patient Tobacco Use Status: Current everyday Tobacco user Are you DNR?: No Advance Directives: No Advance Directives Information Provided: Yes Advance Directives on File: No Meds Allergies Allergy/AdvReac Type Severity Reaction Status Date / Time NSAIDS (Non-Steroidal AdvReac Avoid-r/t Verified 02/13/23 09:45 Anti-Inflamma CKD Active Medications: Current Medications Lactated Ringer's (Lr) 1,000 mls @ 80 mls/hr IVCONT .[id number] OLLIE Last Admin: 02/13/23 10:25 Dose: 80 mls/hr Home Medications Medication Instructions Recorded Confirmed Last Taken Type acetaminophen 325 mg tablet 650 mg PO Q4H PRN Pain 04/30/21 02/10/23 Unknown History amlodipine 10 mg tablet 10 mg PO DAILY 04/30/21 02/10/23 02/13/23 07:30 History aspirin 81 mg tablet,delayed 81 mg PO DAILY 04/30/21 02/13/23 02/08/23 History release bisacodyl 5 mg tablet,delayed 5 mg PO .Q3DAYS PRN Constipation 04/30/21 02/10/23 Unknown History release carvedilol 25 mg tablet 25 mg PO BID 04/30/21 02/10/23 02/13/23 07:30 History clozapine 100 mg tablet (Clozaril) 200 mg PO BEDTIME 04/30/21 02/10/23 04/29/21 20:00 History divalproex 500 mg tablet,extended 1,500 mg PO BEDTIME 04/30/21 02/10/23 Unknown History release 24 hr ferrous sulfate 325 mg (65 mg 325 mg PO BID 04/30/21 02/13/23 02/08/23 History iron) tablet hydralazine 100 mg tablet 100 mg PO TID 04/30/21 02/10/23 02/13/23 07:30 History insulin glargine 100 unit/mL (3 8 unit subcut BEDTIME 04/30/21 02/13/23 02/11/23 History mL) subcutaneous pen (Lantus Solostar U-100 Insulin) lactulose 10 gram/15 mL oral 30 ml PO TID 04/30/21 02/10/23 Unknown History solution levothyroxine 200 mcg tablet 200 mcg PO DAILY@62904/30/21 02/10/23 02/13/23 07:30 History lithium carbonate 300 mg 300 mg PO BEDTIME 04/30/21 02/10/23 Unknown History tablet,extended release lithium carbonate 450 mg 225 mg PO DAILY@62904/30/21 02/10/23 02/13/23 07:30 History tablet,extended release pregabalin 200 mg capsule (Lyrica) 300 mg PO BID 04/30/21 02/10/23 02/13/23 07:30 History sennosides 8.6 mg-docusate sodium 1 tab-cap PO BID 04/30/21 02/10/23 Unknown History 50 mg tablet (Senna Plus) trazodone 50 mg tablet 50 mg PO BEDTIME 04/30/21 02/10/23 Unknown History dapagliflozin 10 mg tablet 10 mg PO QAM 12/11/22 02/10/23 Unknown History (Farxiga) glucagon 1 mg solution for 1 mg subcut Q15M PRN Hypoglycemia 12/11/22 02/10/23 Unknown History injection (GlucaGen HypoKit) sodium phosphates 19 gram-7 118 ml MS DAILY PRN Constipation 12/11/22 02/10/23 Unknown History gram/118 mL enema (Fleet Enema) atorvastatin 20 mg PO BEDTIME 02/10/23 02/10/23 Unknown History clozapine 100 mg tablet 100 mg PO DAILY@0630 02/10/23 02/10/23 02/13/23 07:30 History Exam Exam Date and Time: February 13, 2023 1039 Height,Weight and Vital Signs: Height 6 ft 1 in Weight 179 lb 0.75 oz Last Vital Signs Temp 97.6 F 02/13/23 09:56 Pulse 60 02/13/23 09:56 Resp 16 02/13/23 09:56 BP 132/72 02/13/23 09:56 Pulse Ox 100 02/13/23 09:56 O2 Del Method Room Air 02/13/23 09:56 Pertinent Lab Results Pertinent Lab Results: Laboratory Tests 02/13/23 10:00 POC Glucose 179 H Narrative Narrative: Secondary ST-T changes on EKG and rhythm strip. No new symptoms Airway Mallampati Class: Patient Non-Cooperative Denture: Upper and Lower Assessment and Plan Assessment Anesthesia Assessment: Anesthesia Plan Discussed and Chart Reviewed Final Anesthetic Review Family History of Problems with Anesthesia: No History of Problems with Anesthesia: No NPO: Yes ASA Class: III Final Preanesthetic Review: No Changes in Pt Med Stat, Meds/Allgs Chart Reviewed, Consent Obtained/Reviewed and Anes Risks/Benef Reviewed Patient Risk: Intermediate Procedure Risk: Low Anesthetic Plan Anesthetic Plan: MAC: Disposition: Standard PACU
[2023-02-13 10:55] VITALS: BP 137/82; PULSE 59; RESP 18; TEMP 36.4; O2SAT 99
== END 2023-02-13 11:08 | disposition home or self-care (01) ==
PROVIDERS: PCP Hospitalist; Visit Provider Internal Medicine Gastroenterology
PROC: 0DJD8ZZ Inspection of Lower Intestinal Tract, Via Natural or Artificial Opening Endoscopic (ICD-10-PCS; CPT 45378; principal; 2023-02-13 11:00)
DX: Z12.11 Encounter for screening for malignant neoplasm of colon (principal); E11.22 Type 2 diabetes mellitus with diabetic chronic kidney disease; N18.9 Chronic kidney disease, unspecified; Z53.09 Procedure and treatment not carried out because of other contraindication
CPT/HCPCS: 45378; 82947

== ENCOUNTER 2023-05-25 18:49 | Emergency (ER) | payer MEDICAID, SELFPAY ==
--- NOTE | ~2023-05-25 | XR_ITS ---
EXAMINATION: XR CHEST CLINICAL INFORMATION: Weakness COMPARISON: 04/30/2021 TECHNIQUE: Frontal view of the chest was obtained. FINDINGS: No significant abnormality is noted involving the heart, lungs, mediastinum, bony thorax or soft tissues. XR/XR chest 1V IMPRESSION: Unremarkable examination.
--- NOTE | ~2023-05-25 | CT_ITS ---
EXAMINATION: CT HEAD WITHOUT CONTRAST CLINICAL INFORMATION: Weakness. COMPARISON: CT head from 04/30/2021. TECHNIQUE: Contiguous axial imaging was performed from the skull base to vertex without intravenous administration of contrast. This CT examination was performed using dose optimization techniques as appropriate, variously including the following: *Automated exposure control. *Adjustment of mA and/or kV according to patient size (this includes techniques or standardized protocols for targeted exams where dose is matched to indication/reason for exam; i.e. extremities or head). *Use of iterative reconstruction technique. DLP: 615 mGy-cm FINDINGS: There is no evidence of acute intracranial hemorrhage or edematous territorial infarction. Bach-white matter differentiation is preserved. A few foci of hypoattenuation in the periventricular and deep white matter are consistent with mild microangiopathy. Proportional prominence of the ventricles and sulcal spaces without evidence of obstructive hydrocephalus. No abnormal mass effect or midline shift. No extra-axial fluid collections. No acute soft tissue or osseous abnormalities. The mastoid air cells and visualized paranasal sinuses are clear. CT/CT head/brain wo IV con IMPRESSION: 1. No evidence of acute intracranial hemorrhage or edematous territorial infarction. 2. Mild underlying microangiopathy and generalized cerebral volume loss.
[2023-05-25 19:09] VITALS: BP 150/80; PULSE 81; O2SAT 93
--- NOTE | 2023-05-25 19:14 | ECG_ITS ---
Test Reason : altered mental status Blood Pressure : / mmHG Vent. Rate : 074 BPM Atrial Rate : 074 BPM P-R Int : 208 ms QRS Dur : 092 ms QT Int : 356 ms P-R-T Axes : 057 050 099 degrees QTc Int : 395 ms Normal sinus rhythm Minimal voltage criteria for LVH, may be normal variant ( Sokolow-Joseph ) T wave abnormality, consider lateral ischemia Abnormal ECG When compared with ECG of 30-APR-2021 14:28, Biphasic T wave changes in the anteroseptal leads have improved. Referred By: Mireya Babcock Electronically Signed By:Sam Layne
[2023-05-25 19:15] VITALS: PULSE 78; RESP 18; O2SAT 98; BMI 23.1
[2023-05-25 19:51] LABS: MANUAL DIFF FLAG NO
[2023-05-25 19:56] LABS: Basophils Absolute Auto 0.1 X10*3/uL (0.0-0.2); Basophils Percent Auto 0.5 % (0-2); Eosinophils Absolute Auto 0.5 X10*3/uL (0.0-0.4); Hematocrit 43.1 % (42.0-52.0); Hemoglobin 12.6 g/dl (14.0-18.0); Imm Gran Abs Auto 0.03 X10*3/uL (0.00-0.03); Imm Gran Pct Auto 0.3 % (0.0-0.4); Lymphocytes Absolute Auto 3.7 X10*3/uL (1.2-4.9); Lymphocytes Percent Auto 35.4 % (20-40); Mean Corpuscular HGB Conc 29.2 g/dl (31.0-36.0); Mean Corpuscular Hemoglobin 23.1 pg (27.0-33.0); Mean Corpuscular Volume 79.1 fL (80.0-98.0); Mean Platelet Volume 10.7 fL (9.4-12.4); Monocytes Absolute Auto 1.1 X10*3/uL (0.1-1.2); Monocytes Percent Auto 10.4 % (2-11); Neutrophils Absolute Auto 5.1 x10*3/uL (2.0-8.3); Neutrophils Percent Auto 48.4 % (45-73); Platelet Count 141 X10*3/uL (160-400); Red Blood Count 5.45 X10*6/uL (4.60-5.80); Red Cell Distribution Width 15.9 % (11.0-16.0); White Blood Count 10.5 X10*3/uL (4.8-10.8)
[2023-05-25 20:47] LABS: Alanine Aminotransferase 11 U/L (0-40); Albumin Level 3.6 g/dL (3.5-5.0); Alkaline Phosphatase 45 U/L (39-117); Anion Gap 9 (12-20); Aspartate Amino Transferase 14 U/L (5-37); Bilirubin Direct < 0.2 mg/dL (0.0-0.5); Bilirubin Total 0.2 mg/dL (0.0-1.0); Blood Urea Nitrogen 14 mg/dL (9-16); Calcium 9.9 mg/dL (8.4-10.2); Carbon Dioxide 31 mmol/L (22-29); Chloride 109 mmol/L (96-108); Estimated Glomerular Filt Rate 47; Ethanol < 10 mg/dL; Glucose Random 143 mg/dL (60-115); Lipase 22 U/L (8-78); Magnesium 2.2 mg/dL (1.6-2.6); Potassium 4.2 mmol/L (3.3-5.1); Sodium 145 mmol/L (135-145); Total Protein 6.5 g/dL (6.5-8.0)
--- NOTE | 2023-05-25 20:50 | ED.GENADULT ---
HPI - General Adult General Chief complaint: Altered Mental Status Stated complaint: SI Time Seen by Provider: 05/25/23 20:02 Source: patient, RN notes reviewed, old records reviewed and other (assisted records from [facility]) Mode of arrival: EMS Limitations: other (Patient has dementia and is a very poor historian) History of Present Illness HPI narrative: 62-year-old male with past medical history significant for schizophrenia, type 2 diabetes, hypertension, hypothyroidism, hyper lipidemia, anemia, chronic kidney disease, dementia, congestive heart failure, GERD presents for evaluation of weakness. Patient arrives from [facility] for reports of weakness per care home staff. The patient offers no complaints and states that he feels well Apparently at his care home the patient has had increased weakness, poor balance and was seen talking to himself The patient specifically denies any pain, coughing, shortness of breath, nausea or vomiting He apparently had some recent medication changes but it is unclear which medications were changed Related Data Home Medications Medication Instructions Recorded Confirmed acetaminophen 325 mg tablet 650 mg PO Q4H PRN Pain 04/30/21 02/10/23 amlodipine 10 mg tablet 10 mg PO DAILY 04/30/21 02/10/23 aspirin 81 mg tablet,delayed 81 mg PO DAILY 04/30/21 02/13/23 release bisacodyl 5 mg tablet,delayed 5 mg PO .Q3DAYS PRN Constipation 04/30/21 02/10/23 release carvedilol 25 mg tablet 25 mg PO BID 04/30/21 02/10/23 clozapine 100 mg tablet (Clozaril) 200 mg PO BEDTIME 04/30/21 02/10/23 divalproex 500 mg tablet,extended 1,500 mg PO BEDTIME 04/30/21 02/10/23 release 24 hr ferrous sulfate 325 mg (65 mg 325 mg PO BID 04/30/21 02/13/23 iron) tablet hydralazine 100 mg tablet 100 mg PO TID 04/30/21 02/10/23 insulin glargine 100 unit/mL (3 8 unit subcut BEDTIME 04/30/21 02/13/23 mL) subcutaneous pen (Lantus Solostar U-100 Insulin) lactulose 10 gram/15 mL oral 30 ml PO TID 04/30/21 02/10/23 solution levothyroxine 200 mcg tablet 200 mcg PO DAILY@0630 21/21 04/03/23 lithium carbonate 300 mg 300 mg PO BEDTIME 04/30/21 02/10/23 tablet,extended release lithium carbonate 450 mg 225 mg PO DAILY@62904/30/21 02/10/23 tablet,extended release pregabalin 200 mg capsule (Lyrica) 300 mg PO BID 04/30/21 02/10/23 sennosides 8.6 mg-docusate sodium 1 tab-cap PO BID 04/30/21 02/10/23 50 mg tablet (Senna Plus) trazodone 50 mg tablet 50 mg PO BEDTIME 04/30/21 02/10/23 dapagliflozin propanediol 10 mg 10 mg PO QAM 12/11/22 02/10/23 tablet (Farxiga) glucagon 1 mg solution for 1 mg subcut Q15M PRN Hypoglycemia 12/11/22 02/10/23 injection (GlucaGen HypoKit) sodium phosphates 19 gram-7 118 ml ID DAILY PRN Constipation 12/11/22 02/10/23 gram/118 mL enema (Fleet Enema) atorvastatin 20 mg PO BEDTIME 02/10/23 02/10/23 clozapine 100 mg tablet 100 mg PO DAILY@62902/10/23 02/10/23 Allergies Allergy/AdvReac Type Severity Reaction Status Date / Time NSAIDS (Non-Steroidal AdvReac Avoid-r/t Verified 02/13/23 09:45 Anti-Inflamma CKD Review of Systems Constitutional: Constitutional: Reports as per HPI, Denies chills, Denies fatigue, Denies fever(s), Denies headache(s) and Reports weakness ENT: Denies headache(s) Cardiovascular: Cardiovascular: Denies chest pain and Denies dyspnea Respiratory: Respiratory: Denies cough and Denies dyspnea Gastrointestinal: Gastrointestinal: Denies abdominal pain, Denies constipation and Denies vomiting Genitourinary: Genitourinary: Denies difficulty urinating and Denies dysuria Neurologic: Denies headache(s), Denies focal weakness and Reports weakness Psychiatric: Psychiatric: Denies suicidal ideation Endocrine: Endocrine: Denies fatigue PMFSH Past Medical History Medical History Anemia Cardiomegaly Chronic kidney disease Constipation Dementia Diabetes Eating disorder Extrapyramidal and movement disorder GERD (gastroesophageal reflux disease) Glaucoma Hyperlipemia Hypothyroid Resides in group home facility Schizophrenia Seizures Surgical History Surgical history unknown Social History Social History Alcohol intake: unknown Patient Tobacco Use Status: Current everyday Tobacco user Use of substances other than those prescribed or required for medical reasons: Unknown Advance Directives: No Advance Directives Information Provided: No Physical Exam ED Vital Signs: Vital Signs - 24 hr 05/25/23 19:15 Pulse Rate 78 Respiratory Rate 18 Pulse Oximetry 98 Oxygen Delivery Method Room Air BMI result Body Mass Index 23.1 Const General: healthy appearing, comfortable, no acute distress, alert and awake Nutritional Appearance: well nourished HENNV Head: Yes normocephalic and Yes atraumatic Eyes Eyelids: Yes eyelids normal Conjunctivae: conjunctivae normal Sclerae: sclerae normal Corneas: corneas normal Pupils: Equal, round and reactive pupils present EOM: EOMs intact bilaterally Neck Neck: Yes full ROM Resp Effort & Inspection: normal respiratory effort, able to speak in complete sentences, no audible wheezes and not labored Auscultation: clear to auscultation bilaterally GI Inspection: No distended Palpation (GI): Soft to palpation, not firm, nontender, no guarding and not rigid Skin General skin exam: no rashes or lesions noted and elasticity normal Neuro Cranial nerves: Yes Equal, round and reactive pupils present and Yes Bilaterally intact EOM present Cognition (Neuro): normal cognition Extrem Other: Moving all extremities well without any obvious deformities Course Reevaluation(s) Reevaluation #1: Patient's workup is largely unremarkable, the patient has no complaints, still vital signs and an unremarkable workup. He is stable for discharge back to his nursing facility. Per nursing, the patient is also able to ambulate to the bathroom Time: 23:19 Medical Decision Making Medical Decision Making MDM Narrative: 62-year-old male with history of dementia among other the committees presents for evaluation reported weakness from his care home. He offers no complaints, but again is a poor historian. Will check basic labs, EKG, chest x-ray, UA and CT scan of brain to evaluate for metabolic pathology. Workup pending at this time Differential Diagnosis Weakness Failure to thrive UTI Dehydration DAKOTAH Pneumonia Metabolic abnormality Lab Data MDM Lab Attestation statement: I reviewed the patient's lab results. Patient has no leukocytosis with a white count 10.5, hemoglobin 12.6 and hematocrit 43.1 consistent his baseline no actually slightly above his baseline. His creatinine is 1.50 which is also consistent his baseline. Sodium potassium normal, chloride and CO2 of the slightly elevated above normal at 109 and 31 respectively. 05/25/23 19:47 05/25/23 19:47 Labs: Lab Results 05/25/23 05/25/23 05/25/23 Range/Units 19:47 19:47 23:01 WBC 10.5 (4.8-10.8) X10*3/uL RBC 5.45 (4.60-5.80) X10*6/uL Hgb 12.6 L (14.0-18.0) g/dl Hct 43.1 (42.0-52.0) % MCV 79.1 L (80.0-98.0) fL MCH 23.1 L (27.0-33.0) pg MCHC 29.2 L (31.0-36.0) g/dl RDW 15.9 (11.0-16.0) % Plt Count 141 L (160-400) X10*3/uL MPV 10.7 (9.4-12.4) fL Immature Gran % (Auto) 0.3 (0.0-0.4) % Neut % (Auto) 48.4 (45-73) % Lymph % (Auto) 35.4 (20-40) % [place] % (Auto) 10.4 (2-11) % Eos % (Auto) 5.0 H (0-4) % Baso % (Auto) 0.5 (0-2) % Lymph # (Auto) 3.7 (1.2-4.9) X10*3/uL [place] # (Auto) 1.1 (0.1-1.2) X10*3/uL Eos # (Auto) 0.5 H (0.0-0.4) X10*3/uL Baso # (Auto) 0.1 (0.0-0.2) X10*3/uL Abs Immat Gran (auto) 0.03 (0.00-0.03) X10*3/uL Absolute Neuts (auto) 5.1 (2.0-8.3) x10*3/uL Absolute Nucleated RBC 0.000 (0.0-0.012) X10*3/uL Nucleated RBC % (auto) 0.0 (0.0-0.2) /100WBC Sodium 145 (135-145) mmol/L Potassium 4.2 (3.3-5.1) mmol/L Chloride 109 H (96-108) mmol/L Carbon Dioxide 31 H (22-29) mmol/L Anion Gap 9 L (12-20) BUN 14 (9-16) mg/dL Creatinine 1.50 H (0.5-1.4) mg/dL Estim Creat Clear Calc TNP Estimated GFR 47 Random Glucose 143 H (60-115) mg/dL Calcium 9.9 D (8.4-10.2) mg/dL Magnesium 2.2 (1.6-2.6) mg/dL Total Bilirubin 0.2 (0.0-1.0) mg/dL Direct Bilirubin < 0.2 (0.0-0.5) mg/dL AST 14 (5-37) U/L ALT 11 (0-40) U/L Alkaline Phosphatase 45 (39-117) U/L Total Protein 6.5 (6.5-8.0) g/dL Albumin 3.6 (3.5-5.0) g/dL Lipase 22 (8-78) U/L Urine Color Yellow Urine Appearance Clear Urine pH 7.5 (5.0-9.0) Ur Specific [place] 1.010 (1.005-1.025) Urine Protein Negative (Neg-Trace) mg/dL Urine Glucose (UA) 500 H (Negative) mg/dL Urine Ketones Negative (Negative) mg/dL Urine Blood Negative (Negative) Urine Nitrite Negative (Negative) Ur Leukocyte Esterase Negative (Negative) Ethyl Alcohol < 10 mg/dL Discharge Plan Discharge Clinical Impression: Weakness Patient Disposition: Home, Self-Care Instructions: Weakness (ED) Additional Instructions: Your workup in the emergency department today was reassuring. This includes your CT scan, x-ray, EKG and blood work as well as a urine sample Follow-up with your primary doctor Prescriptions: No Action carvedilol 25 mg Tablet 25 mg PO BID acetaminophen 325 mg Tablet 650 mg PO Q4H PRN (Reason: Pain) trazodone 50 mg Tablet 50 mg PO BEDTIME clozapine [Clozaril] 100 mg Tablet 200 mg PO BEDTIME sennosides-docusate sodium [Senna Plus] 8.6-50 mg Tablet 1 tab-cap PO BID lithium carbonate 300 mg Tablet Extended Release 300 mg PO BEDTIME aspirin 81 mg Tablet,Delayed Release (Dr/Ec) 81 mg PO DAILY lithium carbonate 450 mg Tablet Extended Release 225 mg PO DAILY@0630 amlodipine 10 mg Tablet 10 mg PO DAILY hydralazine 100 mg Tablet 100 mg PO TID ferrous sulfate 325 mg (65 mg iron) Tablet 325 mg PO BID divalproex 500 mg Tablet Extended Release 24 Hr 1,500 mg PO BEDTIME levothyroxine 200 mcg Tablet 200 mcg PO DAILY@0630 bisacodyl 5 mg Tablet,Delayed Release (Dr/Ec) 5 mg PO .Q3DAYS PRN (Reason: Constipation) lactulose 10 gram/15 mL Solution 30 ml PO TID pregabalin [Lyrica] 200 mg Capsule 300 mg PO BID insulin glargine [Lantus Solostar U-100 Insulin] 100 unit/mL (3 mL) Insulin Pen 8 unit SUBCUT BEDTIME atorvastatin 20 mg PO BEDTIME clozapine 100 mg Tablet 100 mg PO DAILY@0630 Farxiga 10 mg tablet 10 mg PO QAM Fleet Enema 19-7 gram/118 mL enema 118 ml ID DAILY PRN (Reason: Constipation) GlucaGen HypoKit 1 mg recon soln 1 mg subcut Q15M PRN (Reason: Hypoglycemia) Rx Instructions: until target blood sugar attained
--- NOTE | 2023-05-25 21:27 | PC.NURSE ---
pt arrives via ems- per ems here for increased weakness/altered mental/med change. VSS here. airway intact. incontinent of urine- cleaned and new clothes/sheets.
--- NOTE | 2023-05-25 23:03 | PC.NURSE ---
Pt able to follow instructions, conversing with nursing. Pt urinating into urinal, aware of plan to await results. Pt denies pain/discomfort @ this time. [facility] updated regarding plan of care.
[2023-05-25 23:07] LABS: Appearance Urine Clear; Color Urine Yellow; Glucose Urine UA 500 mg/dL (Negative); Leukocyte Esterase Urine Negative (Negative); Nitrite Urine Negative (Negative); PH 7.5 (5.0-9.0); Urine Blood Negative (Negative); Urine Ketones Negative (Negative); Urine Protein Negative (Neg-Trace)
[2023-05-25 23:19] LABS: Amphetamine Screen Urine Not Detected (Not Detect); Barbiturates, Urine Not Detected (Not Detect); Benzodiazepines Screen Urine Not Detected (Not Detect); Cannabinoid Screen Urine Not Detected (Not Detect); Cocaine Screen Urine Not Detected (Not Detect); Fentanyl, urine Not Detected (Not Detect); Opiate Screen Urine Not Detected (Not Detect); Phencyclidine Screen Urine Not Detected (Not Detect)
[2023-05-25 23:21] VITALS: BP 159/91; PULSE 72; RESP 16; O2SAT 93
--- NOTE | 2023-05-25 23:43 | PC.NURSE ---
RN to RN report given to [facility]. Awaiting EMS transport.
--- NOTE | 2023-05-26 00:32 | MHC.EDTECH ---
call out to [facility] at 0100 to book BLS transport back to SNF
== END 2023-05-26 02:49 | disposition home or self-care (01) ==
PROVIDERS: Physician Assistant Medical; Emergency Provider Emergency Medicine; PCP Hospitalist
DX: R41.82 Altered mental status, unspecified (principal); R45.851 Suicidal ideations; F25.9 Schizoaffective disorder, unspecified; E11.9 Type 2 diabetes mellitus without complications; R94.31 Abnormal electrocardiogram [ECG] [EKG]; R30.0 Dysuria; Z79.899 Other long term (current) drug therapy; F17.200 Nicotine dependence, unspecified, uncomplicated; Z71.6 Tobacco abuse counseling
CPT/HCPCS: 36415; 51702; 70450; 71045; 80053; 80307; 81003; 82248; 83690; 83735; 85025; 93005; 99284

== ENCOUNTER → 2023-05-25 19:14 | Outpatient (BNV) | payer MEDICAID, SELFPAY | PROVIDERS: Emergency Provider Emergency Medicine; PCP Hospitalist; Visit Provider Internal Medicine Cardiovascular Disease | DX: R94.31 Abnormal electrocardiogram [ECG] [EKG] (principal) | CPT/HCPCS: 93010 ==

== ENCOUNTER 2023-09-19 06:54 | Inpatient (IN) | payer MEDICAID, SELFPAY ==
[2023-09-19] VITALS (13 sets, daily range): BP systolic 108–157; BP diastolic 50–86; PULSE 85–99; RESP 13–20; TEMP 36.4–38.4; O2SAT 94–100; BMI 21.1
--- NOTE | ~2023-09-19 | CT_ITS ---
EXAMINATION: CT HEAD WITHOUT CONTRAST CLINICAL INFORMATION: Minimally responsive COMPARISON: None available. TECHNIQUE: Contiguous axial imaging was performed from the skull base to vertex without intravenous administration of contrast. This CT examination was performed using dose optimization techniques as appropriate, variously including the following: *Automated exposure control *Adjustment of mA and/or kV according to patient size (this includes techniques or standardized protocols for targeted exams where dose is matched to indication/reason for exam; i.e. extremities or head) *Use of iterative reconstruction technique DLP: 719 mGy-cm FINDINGS: There is mild atrophy. No evolving infarct, mass lesion, mass effect, midline shift, hemorrhage or extra-axial fluid collections are identified. Intraorbital structures are unremarkable. Sinuses and mastoids are free of disease. Left nasal spur. Bony structures are intact. Question small left occipital/parietal soft tissue injury. CT/CT head/brain wo IV con IMPRESSION: No acute intracranial pathology. Volume loss. Question small posterior scalp soft tissue injury.
--- NOTE | ~2023-09-19 | XR_ITS ---
EXAMINATION: XR CHEST CLINICAL INFORMATION: Chest pain COMPARISON: 05/25/2023 TECHNIQUE: Frontal view of the chest was obtained. FINDINGS: Slightly elevated left hemidiaphragm is stable. Heart, mediastinum, pulmonary vessels and lung maria within normal limits. Multilevel osteophytes. XR/XR chest 1V IMPRESSION: No acute cardiopulmonary disease or interval change.
--- NOTE | ~2023-09-19 | NM_ITS ---
PULMONARY PERFUSION ONLY STUDY: CLINICAL INDICATION: Significant hypoxia. PROCEDURE: Following the intravenous administration of 4.0 millicuries technetium 99m MAA, images of the chest were obtained in multiple projections using a gamma scintiphotographic camera. Please note that the study is technically limited since both arms were by the patient's side seen on all the views (patient has history of dementia, unable to move the arms out of the field of view at the time of obtaining images). COMPARISON: Chest radiograph done on the same day. The chest radiograph done earlier today shows bilateral clear lung maria. PERFUSION IMAGES: There are no segmental perfusion defect identified on either side. NM/NM pul perfusion IMPRESSION: Based on perfusion only modified PIOPED 2 criteria, pulmonary thromboembolism is considered absent.
--- NOTE | 2023-09-19 07:07 | ECG_ITS ---
Test Reason : unresponsive Blood Pressure : / mmHG Vent. Rate : 085 BPM Atrial Rate : 085 BPM P-R Int : 188 ms QRS Dur : 084 ms QT Int : 374 ms P-R-T Axes : 059 057 111 degrees QTc Int : 445 ms Normal sinus rhythm Minimal voltage criteria for LVH, may be normal variant ( Sokolow-Joseph ) T wave abnormality, consider lateral ischemia Abnormal ECG When compared with ECG of 25-MAY-2023 19:24, Inverted T waves have replaced nonspecific T wave abnormality in Anterior leads Referred By: Didi Sharif Electronically Signed By:JUANITA VALADEZ MD
[2023-09-19] MEDS: 0.9 % Sodium Chloride 500 ML 999 ML IV (07:15)
[2023-09-19 07:36] LABS: Venous Blood Gas Refer to POC result
[2023-09-19 07:36] LABS: VBG Base Excess 4.4 mmol/L; VBG HCO3 31 mmol/L (22-26); VBG pCO2 58 mmHg; VBG pH 7.34 (7.32-7.43); VBG pO2 31 mmHg
[2023-09-19 07:36] LABS: Basophils Percent Auto 0.2 % (0-2); Hematocrit 44.3 % (42.0-52.0); Hemoglobin 13.1 g/dl (14.0-18.0); Imm Gran Abs Auto 0.13 X10*3/uL (0.00-0.03); Lymphocytes Absolute Auto 1.7 X10*3/uL (1.2-4.9); Lymphocytes Percent Auto 13.1 % (20-40); MANUAL DIFF FLAG SCAN; Mean Corpuscular HGB Conc 29.6 g/dl (31.0-36.0); Mean Corpuscular Hemoglobin 23.7 pg (27.0-33.0); Mean Corpuscular Volume 80.3 fL (80.0-98.0); Mean Platelet Volume 12.4 fL (9.4-12.4); Monocytes Absolute Auto 1.9 X10*3/uL (0.1-1.2); Monocytes Percent Auto 14.5 % (2-11); Neutrophils Absolute Auto 9.2 x10*3/uL (2.0-8.3); Neutrophils Percent Auto 71.2 % (45-73); Red Blood Count 5.52 X10*6/uL (4.60-5.80); Red Cell Distribution Width 15.1 % (11.0-16.0); SCAN SMEAR FLAG 1; White Blood Count 12.9 X10*3/uL (4.8-10.8)
[2023-09-19 07:37] LABS: Platelet Count 93 X10*3/uL (160-400)
--- NOTE | 2023-09-19 07:43 | ED_ITS ---
HPI - General Adult General Chief complaint: Altered Mental Status Stated complaint: unresponsive Time Seen by Provider: 09/19/23 07:05 Source: EMS Mode of arrival: EMS Limitations: altered mental status History of Present Illness HPI narrative: Male presents from [facility] unresponsive and oxygen of 79 on RA. Patient was given tylenol prior to arrival Onset (ago): hour(s) Severity: moderate Related Data Home Medications Medication Instructions Recorded Confirmed acetaminophen 325 mg tablet 650 mg PO Q4H PRN Pain 04/30/21 02/10/23 amlodipine 10 mg tablet 10 mg PO DAILY 04/30/21 02/10/23 aspirin 81 mg tablet,delayed 81 mg PO DAILY 04/30/21 02/13/23 release bisacodyl 5 mg tablet,delayed 5 mg PO .Q3DAYS PRN Constipation 04/30/21 02/10/23 release carvedilol 25 mg tablet 25 mg PO BID 04/30/21 02/10/23 clozapine 100 mg tablet (Clozaril) 200 mg PO BEDTIME 04/30/21 02/10/23 divalproex 500 mg tablet,extended 1,500 mg PO BEDTIME 04/30/21 02/10/23 release 24 hr ferrous sulfate 325 mg (65 mg 325 mg PO BID 04/30/21 02/13/23 iron) tablet hydralazine 100 mg tablet 100 mg PO TID 04/30/21 02/10/23 insulin glargine 100 unit/mL (3 8 unit subcut BEDTIME 04/30/21 02/13/23 mL) subcutaneous pen (Lantus Solostar U-100 Insulin) lactulose 10 gram/15 mL oral 30 ml PO TID 04/30/21 02/10/23 solution levothyroxine 200 mcg tablet 200 mcg PO DAILY@62904/30/21 02/10/23 lithium carbonate 300 mg 300 mg PO BEDTIME 04/30/21 02/10/23 tablet,extended release lithium carbonate 450 mg 225 mg PO DAILY@62904/30/21 02/10/23 tablet,extended release pregabalin 200 mg capsule (Lyrica) 300 mg PO BID 04/30/21 02/10/23 sennosides 8.6 mg-docusate sodium 1 tab-cap PO BID 04/30/21 02/10/23 50 mg tablet (Senna Plus) trazodone 50 mg tablet 50 mg PO BEDTIME 04/30/21 02/10/23 dapagliflozin propanediol 10 mg 10 mg PO QAM 12/11/22 02/10/23 tablet (Farxiga) glucagon 1 mg solution for 1 mg subcut Q15M PRN Hypoglycemia 12/11/22 02/10/23 injection (GlucaGen HypoKit) sodium phosphates 19 gram-7 118 ml [place] DAILY PRN Constipation 12/11/22 02/10/23 gram/118 mL enema (Fleet Enema) atorvastatin 20 mg PO BEDTIME 02/10/23 02/10/23 clozapine 100 mg tablet 100 mg PO DAILY@0630 02/10/23 02/10/23 Allergies Allergy/AdvReac Type Severity Reaction Status Date / Time NSAIDS (Non-Steroidal AdvReac Avoid-r/t Verified 09/19/23 07:11 Anti-Inflamma CKD Review of Systems 2 Review of Systems: Yes Unobtainable due to mental status PMFSH Past Medical History Medical History Resides in long term facility Constipation GERD (gastroesophageal reflux disease) Cardiomegaly Extrapyramidal and movement disorder Eating disorder Chronic kidney disease Glaucoma Schizophrenia Anemia Hyperlipemia Hypothyroid Seizures Diabetes Dementia Surgical History Hx of colonoscopy Surgical history unknown Social History Social History Alcohol intake: unknown Patient Tobacco Use Status: Current everyday Tobacco user Advance Directives: No Physical Exam ED Vital Signs: Vital Signs - 24 hr 09/19/23 07:07 09/19/23 08:19 Temperature 101.2 F H 98.6 F Pulse Rate 85 90 Respiratory Rate 20 18 Blood Pressure 109/73 127/78 Pulse Oximetry 100 98 Oxygen Delivery Method Non-Rebreather Mask Room Air BMI result Body Mass Index 21.1 Const Other: frail elderly male, minimally arousable Limitations: altered mental status HENMT Head: Yes normal to inspection Ears: external ears normal General nose exam: Normal external nose present Mouth: Normal oral and palatal mucosa present and oropharynx normal Throat: Yes posterior oropharynx normal Eyes General: appearance normal, both eyes and all related structures Neck Neck: Yes normal visual inspection Chest Chest palpation & inspection: normal inspection of the chest Resp Auscultation: clear to auscultation bilaterally Cardio Jugular venous distension: no JVD Rate: regular rate Rhythm: regular rhythm Heart sounds: S1 normal heart sound present and S2 normal heart sound present GI Inspection: Yes normal to inspection Palpation (GI): Soft to palpation, nontender and No hepatosplenomegaly present Auscultation: normal bowel sounds General: Yes no CVA tenderness Back/Spine/Pelvis Back: no CVA tenderness Skin General skin exam: no rashes or lesions noted Neuro Other: withdraws to pain Extrem General: Yes normal to inspection Psych Other: unable to assess due to lethargy Course Reevaluation(s) Reevaluation #1: Patient is not septic, he has a UTI and fever will admit Time: 08:29 Reevaluation #2: I spent 40 minutes of critical care, with interventions, assessments, speaking to patient, consultants, and family. Time: 08:29 Medications Administered Generic Name Dose Route Start Last Admin Trade Name Freq PRN Reason Stop Dose Admin Sodium Chloride 2,238 mls @ 2,238 mls/hr 09/19/23 07:35 09/19/23 08:02 Ns 30 ml/kg infuse over 1 hr (2238 ml) 09/19/23 08:34 2,238 mls/hr IV Administration .Q1H STA Discontinued Medications Generic Name Dose Route Start Last Admin Trade Name Freq PRN Reason Stop Dose Admin Sodium Chloride 500 mls @ 999 mls/hr 09/19/23 07:15 09/19/23 08:04 Ns IV 09/19/23 07:45 Infused .Q31M OLLIE Infusion Ceftriaxone Sodium 2 gm/ 50 mls @ 100 mls/hr 09/19/23 07:12 09/19/23 08:02 Sodium Chloride IV 09/19/23 07:41 100 mls/hr ONCE ONE Administration Medical Decision Making Differential Diagnosis Differential Diagnoses: The differential diagnosis associated with the presentation includes (sepsis, UTI, pneumonia, covid were all considered) Admission/Observation Consideration of admission/observation: Escalation of care including admission/observation considered (upon arrival patient was immediately considered for admission) Consult Healthcare Provider Management of the patient was discussed with: Hospitalist Lab Data MDM Lab Attestation statement: I reviewed the patient's lab results. (Elevated WBC, elevated BUN and creatinine, UTI) 09/19/23 07:26 09/19/23 07:26 Labs: Lab Results 09/19/23 09/19/23 09/19/23 Range/Units 07:26 07:31 07:38 WBC 12.9 H (4.8-10.8) X10*3/uL RBC 5.52 (4.60-5.80) X10*6/uL Hgb 13.1 L (14.0-18.0) g/dl Hct 44.3 (42.0-52.0) % MCV 80.3 (80.0-98.0) fL MCH 23.7 L (27.0-33.0) pg MCHC 29.6 L (31.0-36.0) g/dl RDW 15.1 (11.0-16.0) % Plt Count 93 L D (160-400) X10*3/uL MPV 12.4 (9.4-12.4) fL Immature Gran % (Auto) 1.0 H (0.0-0.4) % Neut % (Auto) 71.2 (45-73) % Lymph % (Auto) 13.1 L (20-40) % Nicholas % (Auto) 14.5 H (2-11) % Eos % (Auto) 0.0 (0-4) % Baso % (Auto) 0.2 (0-2) % Lymph # (Auto) 1.7 (1.2-4.9) X10*3/uL [place] # (Auto) 1.9 H (0.1-1.2) X10*3/uL Eos # (Auto) 0.0 (0.0-0.4) X10*3/uL Baso # (Auto) 0.0 (0.0-0.2) X10*3/uL Abs Immat Gran (auto) 0.13 H (0.00-0.03) X10*3/uL Absolute Neuts (auto) 9.2 H (2.0-8.3) x10*3/uL Absolute Nucleated RBC 0.000 (0.0-0.012) X10*3/uL Nucleated RBC % (auto) 0.0 (0.0-0.2) /100WBC Smear Tech's Comments VERIFIED Hold Blue Top SEE NOTE VBG pH 7.34 (7.32-7.43) VBG pCO2 58 mmHg VBG pO2 31 mmHg VBG HCO3 31 H (22-26) mmol/L VBG O2 Saturation 40.0 % VBG Base Excess 4.4 mmol/L Sodium 147 H (135-145) mmol/L Potassium 4.5 (3.3-5.1) mmol/L Chloride 109 H (96-108) mmol/L Carbon Dioxide 31 H (22-29) mmol/L Anion Gap 12 (12-20) BUN 29 H (9-16) mg/dL Creatinine 2.65 H (0.5-1.4) mg/dL Estim Creat Clear Calc 30.1 Estimated GFR 25 Random Glucose 120 H (60-115) mg/dL Lactic Acid 1.8 (0.5-2.0) mmol/L Calcium 9.7 (8.4-10.2) mg/dL Total Bilirubin 0.5 (0.0-1.0) mg/dL Direct Bilirubin 0.2 (0.0-0.5) mg/dL AST 30 (5-37) U/L ALT 20 (0-40) U/L Alkaline Phosphatase 49 (39-117) U/L Ammonia 21 (13-55) umol/L Troponin I High Sens 10.0 (<3.5-35.0) ng/L Total Protein 7.2 (6.5-8.0) g/dL Albumin 3.6 (3.5-5.0) g/dL Hold Yellow Top See Note Urine Color Urine Appearance Urine pH (5.0-9.0) Ur Specific [place] (1.005-1.025) Urine Protein (Neg-Trace) mg/dL Urine Glucose (UA) (Negative) mg/dL Urine Ketones (Negative) mg/dL Urine Blood (Negative) Urine Nitrite (Negative) Ur Leukocyte Esterase (Negative) Urine RBC (0-2) /HPF Urine WBC (0-5) /HPF Urine WBC Clumps Ur Squamous Epith Cells (0-2) /HPF Urine Bacteria (None Seen) Hyaline Casts (0-2) /LPF Urine Opiates Screen (Not Detect) Urine Fentanyl Screen (Not Detect) Ur Barbiturates Screen (Not Detect) Valproic Acid 84.2 (50.0-100.0) mcg/mL Ur Phencyclidine Scrn (Not Detect) Ur Amphetamines Screen (Not Detect) U Benzodiazepines Scrn (Not Detect) Urine Cocaine Screen (Not Detect) U Marijuana (THC) Screen (Not Detect) Influenza Type A (PCR) NEGATIVE (Negative) Influenza Type B (PCR) NEGATIVE (Negative) RSV RNA Qual (PCR) NEGATIVE (Negative) SARS-CoV-2 RNA (RT-PCR) NEGATIVE (Negative) 09/19/23 Range/Units 07:52 WBC (4.8-10.8) X10*3/uL RBC (4.60-5.80) X10*6/uL Hgb (14.0-18.0) g/dl Hct (42.0-52.0) % MCV (80.0-98.0) fL MCH (27.0-33.0) pg MCHC (31.0-36.0) g/dl RDW (11.0-16.0) % Plt Count (160-400) X10*3/uL MPV (9.4-12.4) fL Immature Gran % (Auto) (0.0-0.4) % Neut % (Auto) (45-73) % Lymph % (Auto) (20-40) % [place] % (Auto) (2-11) % Eos % (Auto) (0-4) % Baso % (Auto) (0-2) % Lymph # (Auto) (1.2-4.9) X10*3/uL [place] # (Auto) (0.1-1.2) X10*3/uL Eos # (Auto) (0.0-0.4) X10*3/uL Baso # (Auto) (0.0-0.2) X10*3/uL Abs Immat Gran (auto) (0.00-0.03) X10*3/uL Absolute Neuts (auto) (2.0-8.3) x10*3/uL Absolute Nucleated RBC (0.0-0.012) X10*3/uL Nucleated RBC % (auto) (0.0-0.2) /100WBC Smear Tech's Comments Hold Blue Top VBG pH (7.32-7.43) VBG pCO2 mmHg VBG pO2 mmHg VBG HCO3 (22-26) mmol/L VBG O2 Saturation % VBG Base Excess mmol/L Sodium (135-145) mmol/L Potassium (3.3-5.1) mmol/L Chloride (96-108) mmol/L Carbon Dioxide (22-29) mmol/L Anion Gap (12-20) BUN (9-16) mg/dL Creatinine (0.5-1.4) mg/dL Estim Creat Clear Calc Estimated GFR Random Glucose (60-115) mg/dL Lactic Acid (0.5-2.0) mmol/L Calcium (8.4-10.2) mg/dL Total Bilirubin (0.0-1.0) mg/dL Direct Bilirubin (0.0-0.5) mg/dL AST (5-37) U/L ALT (0-40) U/L Alkaline Phosphatase (39-117) U/L Ammonia (13-55) umol/L Troponin I High Sens (<3.5-35.0) ng/L Total Protein (6.5-8.0) g/dL Albumin (3.5-5.0) g/dL Hold Yellow Top Urine Color Yellow Urine Appearance Turbid Urine pH 5.5 (5.0-9.0) Ur Specific [place] 1.020 (1.005-1.025) Urine Protein 30 (1+) H (Neg-Trace) mg/dL Urine Glucose (UA) >=1000 H (Negative) mg/dL Urine Ketones Trace (Negative) mg/dL Urine Blood Small (1+) H (Negative) Urine Nitrite Negative (Negative) Ur Leukocyte Esterase Moderate (2+) H (Negative) Urine RBC 6-10 H (0-2) /HPF Urine WBC >50 H (0-5) /HPF Urine WBC Clumps Present Ur Squamous Epith Cells 3-5 (0-2) /HPF Urine Bacteria 4+ (None Seen) Hyaline Casts >20 (0-2) /LPF Urine Opiates Screen Not Detected (Not Detect) Urine Fentanyl Screen Not Detected (Not Detect) Ur Barbiturates Screen Not Detected (Not Detect) Valproic Acid (50.0-100.0) mcg/mL Ur Phencyclidine Scrn Not Detected (Not Detect) Ur Amphetamines Screen Not Detected (Not Detect) U Benzodiazepines Scrn Not Detected (Not Detect) Urine Cocaine Screen Not Detected (Not Detect) U Marijuana (THC) Screen Not Detected (Not Detect) Influenza Type A (PCR) (Negative) Influenza Type B (PCR) (Negative) RSV RNA Qual (PCR) (Negative) SARS-CoV-2 RNA (RT-PCR) (Negative) Independent Interpretation I performed an independent interpretation of an: EKG (sinus 85, LVH with correlating st twave changes laterally) and Plain X-Ray (non infiltrate) Independent Historian Clinical information obtained from an independent historian. History obtained from or confirmed by: EMS Tests considered The following testing was considered but not selected: Head CT considered due to lethargy but patient with likely encephalopathy secondary to infection Chronic Conditions Patient?s care impacted by: Other (CHF) Discharge Plan Discharge Clinical Impression: Fever, Altered mental status, Urinary tract infection Patient Disposition: Admitted As Inpatient
[2023-09-19 07:44] LABS: Ammonia 21 umol/L (13-55)
[2023-09-19 07:47] LABS: Lactic Acid 1.8 mmol/L (0.5-2.0)
[2023-09-19 07:52] LABS: Alanine Aminotransferase 20 U/L (0-40); Albumin Level 3.6 g/dL (3.5-5.0); Alkaline Phosphatase 49 U/L (39-117); Anion Gap 12 (12-20); Aspartate Amino Transferase 30 U/L (5-37); Bilirubin Direct 0.2 mg/dL (0.0-0.5); Bilirubin Total 0.5 mg/dL (0.0-1.0); Blood Urea Nitrogen 29 mg/dL (9-16); Calcium 9.7 mg/dL (8.4-10.2); Carbon Dioxide 31 mmol/L (22-29); Chloride 109 mmol/L (96-108); Creatinine Clr Calc Pharmacy 30.1; Estimated Glomerular Filt Rate 25; Glucose Random 120 mg/dL (60-115); Potassium 4.5 mmol/L (3.3-5.1); Sodium 147 mmol/L (135-145); Total Protein 7.2 g/dL (6.5-8.0)
[2023-09-19 07:53] LABS: Valproate 84.2 mcg/mL (50.0-100.0)
[2023-09-19 07:54] LABS: SLIDE REVIEW VERIFIED
[2023-09-19 08:02] LABS: Appearance Urine Turbid; Color Urine Yellow; Glucose Urine UA >=1000 mg/dL (Negative); Leukocyte Esterase Urine Moderate (2+) (Negative); Nitrite Urine Negative (Negative); PH 5.5 (5.0-9.0); UMIC TRIGGER UACC YES; Urine Blood Small (1+) (Negative); Urine Ketones Trace mg/dL (Negative); Urine Protein 30 (1+) mg/dL (Neg-Trace)
[2023-09-19] MEDS: cefTRIAXone sodium 2 GM in 0.9 % Sodium Chloride 50 ML IV (08:02)
[2023-09-19 08:09] LABS: Amphetamine Screen Urine Not Detected (Not Detect); Barbiturates, Urine Not Detected (Not Detect); Benzodiazepines Screen Urine Not Detected (Not Detect); Cannabinoid Screen Urine Not Detected (Not Detect); Cocaine Screen Urine Not Detected (Not Detect); Fentanyl, urine Not Detected (Not Detect); Opiate Screen Urine Not Detected (Not Detect); Phencyclidine Screen Urine Not Detected (Not Detect)
[2023-09-19 08:17] LABS: Bacteria Urine 4+ (None Seen); Hyaline Casts Urine >20 /LPF (0-2); UACC Culture Trigger YES; WBC Clumps Urine Present; WBC Urine >50 /HPF (0-5)
[2023-09-19 08:22] LABS: Influenza A PCR NEGATIVE (Negative); Influenza B PCR NEGATIVE (Negative); Resp Syncy Virus RNA Qual PCR NEGATIVE (Negative); SARS COV2 PCR INHOUSE NEGATIVE (Negative)
--- NOTE | 2023-09-19 10:57 | P.HPHOSP_ITS ---
History of Present Illness Date of Service: 09/19/23 Chief Complaint: found down This is a 62 year old male who is a resident of [facility] and is rome in by ambulance to the ED. The patient is currently altered and hence history is obtained from the ED phsycian, RN and notes sent from SNF. Apparently, the patient was found on the day of admission and was minimally resonsive, was hypoxic in the 70s with reported pin point pupils. Hence he was sent to ED. Per ED RN, the patient is conversant at baseline, otherwise rest of baseline unclear. Patients work up revealed DAKOTAH and UTI. He remains hypoxic but his cxr is without any acute findings. He has been given IV fluids, IV rocephin and tylenol. He remains on supplemental oxygen. Review of Systems 2 Review of Systems: unable to review due to mental status [facility] Medical History Resides in [place] [facility] Constipation GERD (gastroesophageal reflux disease) Cardiomegaly Extrapyramidal and movement disorder Eating disorder Chronic kidney disease Glaucoma Schizophrenia Anemia Hyperlipemia Hypothyroid Seizures Diabetes Dementia Surgical History Hx of colonoscopy Surgical history unknown Social History Alcohol intake: unknown Patient Tobacco Use Status: Tobacco use Unknown Advance Directives: No Nutrition Risks: No Nutritional Risk Meds Allergies Allergy/AdvReac Type Severity Reaction Status Date / Time NSAIDS (Non-Steroidal AdvReac Avoid-r/t Verified 09/19/23 07:11 Anti-Inflamma CKD Active Medications: Current Medications Sodium Chloride (Ns) 1,000 mls @ 200 mls/hr IVCONT .Q5H OLLIE Stop: 09/19/23 13:29 Home Medications Medication Instructions Recorded Confirmed Last Taken Type acetaminophen 325 mg tablet 650 mg PO Q4H PRN Fever Or Pain 04/30/21 09/19/23 Unknown History amlodipine 10 mg tablet 10 mg PO DAILY 04/30/21 09/19/23 02/13/23 07:30 History aspirin 81 mg tablet,delayed 81 mg PO DAILY 04/30/21 09/19/23 02/08/23 History release bisacodyl 5 mg tablet,delayed 5 mg PO .Q3DAYS PRN Constipation 04/30/21 09/19/23 Unknown History release carvedilol 25 mg tablet 25 mg PO BID 04/30/21 09/19/23 02/13/23 07:30 History clozapine 100 mg tablet (Clozaril) 200 mg PO BEDTIME 04/30/21 09/19/23 04/29/21 20:00 History divalproex 500 mg tablet,extended 1,000 mg PO BEDTIME 04/30/21 09/19/23 Unknown History release 24 hr ferrous sulfate 325 mg (65 mg 325 mg PO BID 04/30/21 09/19/23 02/08/23 History iron) tablet hydralazine 100 mg tablet 100 mg PO TID 04/30/21 09/19/23 02/13/23 07:30 History insulin glargine 100 unit/mL (3 8 unit subcut BEDTIME 04/30/21 09/19/23 02/11/23 History mL) subcutaneous pen (Lantus Solostar U-100 Insulin) lactulose 10 gram/15 mL oral 30 ml PO TID 04/30/21 09/19/23 Unknown History solution lithium carbonate 300 mg 300 mg PO BEDTIME 04/30/21 09/19/23 Unknown History tablet,extended release lithium carbonate 450 mg 225 mg PO DAILY@0630 04/30/21 09/19/23 02/13/23 07:30 History tablet,extended release pregabalin 200 mg capsule (Lyrica) 300 mg PO BID 04/30/21 09/19/23 02/13/23 07:30 History sennosides 8.6 mg-docusate sodium 1 tab PO BID 04/30/21 09/19/23 Unknown History 50 mg tablet (Senna Plus) trazodone 50 mg tablet 50 mg PO BEDTIME 04/30/21 09/19/23 Unknown History dapagliflozin propanediol 10 mg 10 mg PO QAM 12/11/22 09/19/23 Unknown History tablet (Farxiga) glucagon 1 mg solution for 1 mg subcut Q15M PRN Hypoglycemia 12/11/22 09/19/23 Unknown History injection (GlucaGen HypoKit) sodium phosphates 19 gram-7 118 ml [place] DAILY PRN Constipation 12/11/22 09/19/23 Unknown History gram/118 mL enema (Fleet Enema) atorvastatin 20 mg tablet 20 mg PO BEDTIME 02/10/23 09/19/23 Unknown History clozapine 100 mg tablet 100 mg PO QAM 02/10/23 09/19/23 02/13/23 07:30 History bisacodyl 10 mg rectal suppository 10 mg VA DAILY PRN Constipation 09/19/23 09/19/23 Unknown History divalproex 250 mg tablet,extended 250 mg PO BEDTIME 09/19/23 09/19/23 Unknown History release 24 hr levothyroxine 100 mcg tablet 100 mcg PO DAILY@0630 09/19/23 09/19/23 Unknown History sennosides 8.6 mg tablet (senna) 8.6 mg PO DAILY PRN Constipation 09/19/23 09/19/23 Unknown History Physical Exam 2 Vital Signs and Narrative: Vital Signs: Last Vital Signs Temp 98.6 F 09/19/23 08:19 Pulse 90 09/19/23 08:19 Resp 18 09/19/23 08:19 BP 127/78 09/19/23 08:19 Pulse Ox 98 09/19/23 08:19 O2 Del Method Room Air 09/19/23 08:19 Oxygen Flow Rate 15 09/19/23 07:07 BMI result Body Mass Index 21.1 Const: Other: Constitutional - lethargic but opens eyes and has garbled speech with verbal stimuli Eyes - PERRLA, EOMI Cardiovascular - S1S2, RRR, No edema Respiratory - coarse sounds; no incrased work of breathing Gastrointestinal - NT / ND; +BS; No rebound or guarding - No CVA tenderness Extremities - no calf tenderness bilaterally, no swelling Musculoskeletal - Normal inspection Skin - Warm/Dry Neurological - lethargic and opens eyes to verbal stimuli; unable to follow basic commands Results Labs 09/19/23 07:26 09/19/23 07:26 Labs: Laboratory Results - last 24 hr 09/19/23 09/19/23 09/19/23 07:26 07:31 07:38 MCV 80.3 MCH 23.7 L MCHC 29.6 L RDW 15.1 Plt Count 93 L D MPV 12.4 Immature Gran % (Auto) 1.0 H Neut % (Auto) 71.2 Lymph % (Auto) 13.1 L [place] % (Auto) 14.5 H Eos % (Auto) 0.0 Baso % (Auto) 0.2 Lymph # (Auto) 1.7 [place] # (Auto) 1.9 H Eos # (Auto) 0.0 Baso # (Auto) 0.0 Abs Immat Gran (auto) 0.13 H Absolute Neuts (auto) 9.2 H Absolute Nucleated RBC 0.000 Nucleated RBC % (auto) 0.0 Smear Tech's Comments VERIFIED Hold Blue Top SEE NOTE VBG pH 7.34 VBG pCO2 58 VBG pO2 31 VBG HCO3 31 H VBG O2 Saturation 40.0 VBG Base Excess 4.4 Anion Gap 12 Estim Creat Clear Calc 30.1 Estimated GFR 25 Random Glucose 120 H Lactic Acid 1.8 Calcium 9.7 Total Bilirubin 0.5 Direct Bilirubin 0.2 AST 30 ALT 20 Alkaline Phosphatase 49 Ammonia 21 Total Protein 7.2 Albumin 3.6 Hold Yellow Top See Note Urine Color Urine Appearance Urine pH Ur Specific [place] Urine Protein Urine Glucose (UA) Urine Ketones Urine Blood Urine Nitrite Ur Leukocyte Esterase Urine RBC Urine WBC Urine WBC Clumps Ur Squamous Epith Cells Urine Bacteria Hyaline Casts Urine Opiates Screen Urine Fentanyl Screen Ur Barbiturates Screen Valproic Acid 84.2 Ur Phencyclidine Scrn Ur Amphetamines Screen U Benzodiazepines Scrn Urine Cocaine Screen U Marijuana (THC) Screen Influenza Type A (PCR) NEGATIVE Influenza Type B (PCR) NEGATIVE RSV RNA Qual (PCR) NEGATIVE SARS-CoV-2 RNA (RT-PCR) NEGATIVE 09/19/23 07:52 MCV MCH MCHC RDW Plt Count MPV Immature Gran % (Auto) Neut % (Auto) Lymph % (Auto) [place] % (Auto) Eos % (Auto) Baso % (Auto) Lymph # (Auto) [place] # (Auto) Eos # (Auto) Baso # (Auto) Abs Immat Gran (auto) Absolute Neuts (auto) Absolute Nucleated RBC Nucleated RBC % (auto) Smear Tech's Comments Hold Blue Top VBG pH VBG pCO2 VBG pO2 VBG HCO3 VBG O2 Saturation VBG Base Excess Anion Gap Estim Creat Clear Calc Estimated GFR Random Glucose Lactic Acid Calcium Total Bilirubin Direct Bilirubin AST ALT Alkaline Phosphatase Ammonia Total Protein Albumin Hold Yellow Top Urine Color Yellow Urine Appearance Turbid Urine pH 5.5 Ur Specific [place] 1.020 Urine Protein 30 (1+) H Urine Glucose (UA) >=1000 H Urine Ketones Trace Urine Blood Small (1+) H Urine Nitrite Negative Ur Leukocyte Esterase Moderate (2+) H Urine RBC 6-10 H Urine WBC >50 H Urine WBC Clumps Present Ur Squamous Epith Cells 3-5 Urine Bacteria 4+ Hyaline Casts >20 Urine Opiates Screen Not Detected Urine Fentanyl Screen Not Detected Ur Barbiturates Screen Not Detected Valproic Acid Ur Phencyclidine Scrn Not Detected Ur Amphetamines Screen Not Detected U Benzodiazepines Scrn Not Detected Urine Cocaine Screen Not Detected U Marijuana (THC) Screen Not Detected Influenza Type A (PCR) Influenza Type B (PCR) RSV RNA Qual (PCR) SARS-CoV-2 RNA (RT-PCR) Imaging Radiologist's Impressions: Impressions Chest X-Ray 09/19/23 07:46 IMPRESSION: No acute cardiopulmonary disease or interval change. Assessment and Plan (1) Altered mental status: Status: Acute Plan 62 yo M with a PMH of schizophrenia, DM type 2, HNT, hypothyroidism, anxiety, CKD3, Epilepsy, cardiomegaly, GERD and multiple others who is BIBA to [facility] ED after he was found at SNF overnight. He was minimally responsive with cocurrent hypoia. He will be admitted for further work up. 1. Acute toxic/metabolic encephalopathy Supsected multifactorial including Sepsis/UTI, hypoxia, DAKOTAH, hyponatremia To rule out intracranial pathology -- will start with CT scan Treat underlying issues. 2. Severe Sepsis secondary to UTI Has fever and leukocytosis; sever features include DAKOTAH, hypoxia and mental status changes given Rocephin in the ED, will continue follow culture data 3. Acute respiratory failure with hypoxia CXR without acute findings will need to rule out PE given his presentation -- unfortunately, has Dakotah and hence will need VQ scan -- ordered 4. DAKOTAH on CKD3 Baseline SCr around 1.5, presenting with 2.65 likely due to sepsis IVF check lithium levels 5. HyperNa d5-/2 trend 6. HTN hold oral meds for now 7. DM hold meds, using sliding scale 8. Seizures check depakote levels may need to give IV meds if unable to take PO 9. Cardiomyopathy start homemeds once able 10. Mood hold meds for now Full Code DVT pptx, subcut. heparin Has jaimie Mack - [phone] Patient with multiple actives issues including respiratory failure, encephalopathy, DAKOTAH, UTI Quality Stroke Does the patient have a stroke diagnosis?: No VTE Prior VTE?: No VTE Risk Level:: Medical - moderate - high VTE Device Contraindication: Treatment Not Indicated VTE Drug Contraindication: N/A - Med Ordered
--- NOTE | 2023-09-19 11:13 | PHA.MEDREC ---
Pharmacy Consult ? Medication Reconciliation Pharmacy has completed the medication reconciliation. Received faxed medication list from [facility] at [place] [phone] and medication list was updated.
[2023-09-19] MEDS: 0.9 % Sodium Chloride Flush 3 ML SYRINGE IVFLUSH (14:16)
[2023-09-19] MEDS: Heparin Sodium,Porcine 5,000 UNIT/ML VIAL 5000 UNIT SUBCUT ×2 (14:16→20:09)
[2023-09-19] MEDS: Dextrose 5 % and 0.45 % NaCl 1,000 ML 80 ML IVCONT (14:16)
[2023-09-19 17:01] LABS: Glucose, Whole Blood 142 mg/dL (60-115)
--- NOTE | 2023-09-19 18:02 | PC.NURSE ---
Upon arrival from ED pt noted to have facial drooping, minimally responsive, opens eyes and maintains eye contact for short period of time, - commands, shallow respirations, all vitals WNL, pt would fall back asleep soon after awakening, MD informed and assessed pt
[2023-09-19 20:29] LABS: Glucose, Whole Blood 137 mg/dL (60-115)
[2023-09-19 20:35] LABS: Valproate 60.9 mcg/mL (50.0-100.0)
[2023-09-20] MEDS: Dextrose 5 % and 0.45 % NaCl 1,000 ML 80 ML IVCONT ×2 (00:12→14:05)
[2023-09-20] MEDS: OLANZapine 10 MG VIAL 5 MG IM (00:41)
--- NOTE | 2023-09-20 03:54 | PC.NURSE ---
at 2300 patient became combative, pulled out his IVs and was trying to get out of bed. MD made aware and medication was ordered to help promote patient safety. once the patient had returned to a calm state a new iv was inserted and the tele monitor was put back on. patient then ripped out IV again and IV fluids are paused until a new Iv is able to be obtained which patient is resistant to.
[2023-09-20 04:00] VITALS: BP 135/78; PULSE 102; RESP 18; TEMP 36.8; O2SAT 100
[2023-09-20 07:05] LABS: Hematocrit 43.9 % (42.0-52.0); Hemoglobin 13.1 g/dl (14.0-18.0); Mean Corpuscular HGB Conc 29.8 g/dl (31.0-36.0); Mean Corpuscular Hemoglobin 23.7 pg (27.0-33.0); Mean Corpuscular Volume 79.5 fL (80.0-98.0); Red Blood Count 5.52 X10*6/uL (4.60-5.80); White Blood Count 10.9 X10*3/uL (4.8-10.8)
[2023-09-20 07:30] LABS: Alanine Aminotransferase 29 U/L (0-40); Albumin Level 3.2 g/dL (3.5-5.0); Alkaline Phosphatase 58 U/L (39-117); Anion Gap 13 (12-20); Aspartate Amino Transferase 62 U/L (5-37); Bilirubin Total 0.4 mg/dL (0.0-1.0); Blood Urea Nitrogen 33 mg/dL (9-16); Calcium 9.7 mg/dL (8.4-10.2); Carbon Dioxide 23 mmol/L (22-29); Chloride 118 mmol/L (96-108); Creatinine Clr Calc Pharmacy 46.9; Estimated Glomerular Filt Rate 41; Glucose Random 118 mg/dL (60-115); Potassium 4.3 mmol/L (3.3-5.1); Sodium 150 mmol/L (135-145); Total Protein 6.8 g/dL (6.5-8.0)
[2023-09-20 07:34] VITALS: BP 109/70; PULSE 100; RESP 18; TEMP 37.2; O2SAT 95
[2023-09-20 07:43] LABS: Glucose, Whole Blood 117 mg/dL (60-115)
[2023-09-20 08:15] LABS: Platelet Count 83 X10*3/uL (160-400)
--- NOTE | 2023-09-20 08:28 | MHC.CM.PN ---
Pt a LTC resident at [facility]. This CM left voicemail for pts guardian Jass Vernon at [phone] as pt with AMS. PCP: Dr. Celestine Beckman
[2023-09-20] MEDS: Heparin Sodium,Porcine 5,000 UNIT/ML VIAL 5000 UNIT SUBCUT ×2 (10:08→20:03)
[2023-09-20] MEDS: cefTRIAXone sodium 1 GM in 0.9 % Sodium Chloride 50 ML IV (10:08)
[2023-09-20] MEDS: 0.9 % Sodium Chloride Flush 3 ML SYRINGE IVFLUSH ×2 (10:08→17:00)
[2023-09-20 11:19] LABS: Glucose, Whole Blood 131 mg/dL (60-115)
[2023-09-20 11:37] VITALS: BP 141/79; PULSE 97; RESP 18; TEMP 37.2; O2SAT 94
--- NOTE | 2023-09-20 11:51 | HO.PM.IMPN ---
Subjective Subjective Date of Service: 09/20/23 Review of Systems Follow-up toxic metabolic encephalopathy secondary to UTI Mostly nonverbal Physical Exam Vital Signs: Vital Signs: Last Vital Signs Temp 99.0 F 09/20/23 11:37 Pulse 97 09/20/23 11:37 Resp 18 09/20/23 11:37 BP 141/79 H 09/20/23 11:37 Pulse Ox 94 09/20/23 11:37 O2 Del Method Room Air 09/20/23 11:37 O2 Flow Rate 3.5 09/19/23 19:59 Oxygen Flow Rate 15 09/19/23 07:07 BMI result Body Mass Index 21.1 Appearing in no acute distress lung sounds are clear to auscultation heart regular rate rhythm, clear S1, S2 positive bowel sounds neuro patient is alert, nonverbal Objective Data Active Medications Acetaminophen (Acetaminophen Supp 650 Mg Supp.Rect) 650 mg [place] Q6H PRN PRN Reason: Pain, Mild (Pain Scale 1-3) Heparin Sodium (Porcine) (Heparin Sodium,Porcine 5,000 Unit/Ml Vial) 5,000 unit SUBCUT Q8H [facility] Last Admin: 09/20/23 10:08 Dose: 5,000 unit Documented By: STEVE Dextrose/Sodium Chloride (D51/2ns) 1,000 mls @ 80 mls/hr IVCONT .[id number] [facility] Last Infusion: 09/20/23 08:09 Dose: 80 mls/hr Documented By: LESLY Ceftriaxone Sodium 1 gm/ (Sodium Chloride) 50 mls @ 100 mls/hr IV Q24H [facility] Last Infusion: 09/20/23 11:24 Dose: Infused Documented By: STEVE Sodium Chloride (0.9 % Sodium Chloride Flush 3 Ml Syringe) 3 ml IVFLUSH QSHIFT [facility] Last Admin: 09/20/23 10:08 Dose: 3 ml Documented By: STEVE Labs 09/20/23 06:10 09/20/23 06:10 Labs: Laboratory Results - last 24 hr 09/19/23 09/19/23 09/19/23 16:55 19:58 20:20 MCV MCH MCHC RDW Plt Count MPV Absolute Nucleated RBC Nucleated RBC % (auto) Anion Gap Estim Creat Clear Calc Estimated GFR POC Glucose 142 H 137 H Random Glucose Calcium Total Bilirubin AST ALT Alkaline Phosphatase Total Protein Albumin Valproic Acid 60.9 [place] 0.60 09/20/23 09/20/23 09/20/23 06:10 07:34 11:11 MCV 79.5 L MCH 23.7 L MCHC 29.8 L RDW 15.0 Plt Count 83 L MPV Not Reportable Absolute Nucleated RBC 0.000 Nucleated RBC % (auto) 0.0 Anion Gap 13 Estim Creat Clear Calc 46.9 Estimated GFR 41 POC Glucose 117 H 131 H Random Glucose 118 H Calcium 9.7 Total Bilirubin 0.4 AST 62 H ALT 29 Alkaline Phosphatase 58 Total Protein 6.8 Albumin 3.2 L Valproic Acid [place] Microbiology Microbiology Results: Microbiology 09/19/23 Unknown Blood Culture - Preliminary Blood - Venous No growth after 24 hours. 09/19/23 07:26 Blood Culture - Preliminary Blood - Venous No growth after 24 hours. Assessment and Plan (1) Urinary tract infection: Status: Acute (2) Altered mental status: Status: Acute Plan 62 yo M with a PMH of schizophrenia, DM type 2, HNT, hypothyroidism, anxiety, CKD3, Epilepsy, cardiomegaly, GERD and multiple others who is [place] [facility] [place] he was found at SNF overnight. He was minimally responsive with cocurrent hypoia. He will be admitted for further work up. Acute toxic/metabolic encephalopathy secondary to UTI multifactorial including Sepsis/UTI, hypoxia, DAKOTAH, hyponatremia head CT negative for acute abnormality Continue IV Rocephin Follow urine cultures Speech and swallow evaluation pending Severe Sepsis secondary to UTI. Resolved fever and leukocytosis; severe features include DAKOTAH, hypoxia and mental status changes given Rocephin in the ED, will continue follow culture Acute respiratory failure with hypoxia. Resolved CXR without acute findings V/Q scan negative for pulmonary embolism DAKOTAH on CKD3 Baseline SCr around 1.5, presenting with 2.65 Creatinine 1.70 today likely due to sepsis continueIVF lithium level within normal limits HyperNa d5-1/2 trend HTN hold oral meds for now DM type 2 sliding scale Seizures check depakote levels may need to give IV meds if unable to take PO Cardiomyopathy start homemeds once able Mood hold meds for now Full Code Attending Dr. Haskins DVT pptx, subcut. heparin Has jaimie Mack - [phone] Patient with multiple actives issues including respiratory failure, encephalopathy, DAKOTAH, UTI Quality Stroke Does the patient have a stroke diagnosis?: No VTE Prior VTE?: No VTE Risk Level:: Medical - moderate - high VTE Device Contraindication: Treatment Not Indicated VTE Drug Contraindication: N/A - Med Ordered
[2023-09-20 15:17] VITALS: BP 150/72; PULSE 86; RESP 19; TEMP 36.3; O2SAT 94
[2023-09-20 16:11] LABS: Glucose, Whole Blood 133 mg/dL (60-115)
[2023-09-20 18:57] VITALS: BP 165/77; PULSE 87; RESP 19; TEMP 36.8; O2SAT 97
[2023-09-20 20:45] LABS: Glucose, Whole Blood 129 mg/dL (60-115)
[2023-09-20 23:39] VITALS: BP 148/62; PULSE 81; RESP 18; TEMP 36.2; O2SAT 92
[2023-09-21] VITALS (7 sets, daily range): BP systolic 114–177; BP diastolic 67–87; PULSE 65–82; RESP 16–20; TEMP 36.2–37; O2SAT 92–100
[2023-09-21] MEDS: Dextrose 5 % and 0.45 % NaCl 1,000 ML 80 ML IVCONT (01:14)
[2023-09-21] MEDS: 0.9 % Sodium Chloride Flush 3 ML SYRINGE IVFLUSH ×2 (01:14→21:38)
[2023-09-21] MEDS: Heparin Sodium,Porcine 5,000 UNIT/ML VIAL 5000 UNIT SUBCUT ×3 (03:02→21:21)
[2023-09-21 06:29] LABS: Anion Gap 11 (12-20); Blood Urea Nitrogen 33 mg/dL (9-16); Calcium 9.7 mg/dL (8.4-10.2); Carbon Dioxide 25 mmol/L (22-29); Chloride 120 mmol/L (96-108); Creatinine Clr Calc Pharmacy 49.2; Estimated Glomerular Filt Rate 43; Glucose Random 160 mg/dL (60-115); Potassium 4.1 mmol/L (3.3-5.1); Sodium 152 mmol/L (135-145)
--- NOTE | 2023-09-21 06:40 | PC.NURSE ---
Assumed care of patient midnight 11/12. See shift assessments for full details. High falls risk precautions in place including camera.
[2023-09-21] MEDS: Dextrose 5 % 1,000 ML 100 ML IVCONT ×2 (07:45→18:10)
[2023-09-21] MEDS: cefTRIAXone sodium 1 GM in 0.9 % Sodium Chloride 50 ML IV (07:45)
--- NOTE | 2023-09-21 10:17 | P.PNIM_ITS ---
Subjective Subjective Date of Service: 09/21/23 Review of Systems Follow-up toxic metabolic encephalopathy secondary to UTI Mostly nonverbal Physical Exam 2 Vital Signs: Vital Signs: Last Vital Signs Temp 97.1 F 09/21/23 08:00 Pulse 76 09/21/23 08:00 Resp 16 09/21/23 08:00 BP 155/83 H 09/21/23 08:00 Pulse Ox 94 09/21/23 08:00 O2 Del Method Room Air 09/21/23 03:08 O2 Flow Rate 3.5 09/19/23 19:59 Oxygen Flow Rate 15 09/19/23 07:07 BMI result Body Mass Index 21.1 Appearing in no acute distress lung sounds are clear to auscultation heart regular rate rhythm positive bowel sounds neuro patient is alert, nonverbal Objective Data Active Medications Acetaminophen (Acetaminophen Supp 650 Mg Supp.Rect) 650 mg [place] Q6H PRN PRN Reason: Pain, Mild (Pain Scale 1-3) Heparin Sodium (Porcine) (Heparin Sodium,Porcine 5,000 Unit/Ml Vial) 5,000 unit SUBCUT Q8H [facility] Last Admin: 09/21/23 03:02 Dose: 5,000 unit Documented By: AMINA Ceftriaxone Sodium 1 gm/ (Sodium Chloride) 50 mls @ 100 mls/hr IV Q24H [facility] Last Infusion: 09/21/23 08:30 Dose: Infused Documented By: OTIS Dextrose (D5w) 1,000 mls @ 100 mls/hr IVCONT .Q10H [facility] Last Admin: 09/21/23 07:45 Dose: 100 mls/hr Documented By: OTIS Sodium Chloride (0.9 % Sodium Chloride Flush 3 Ml Syringe) 3 ml IVFLUSH QSHIFT [facility] Last Admin: 09/21/23 07:44 Dose: Not Given Documented By: OTIS Non-Admin Reason: IV Running Labs 09/20/23 06:10 09/21/23 05:55 Labs: Laboratory Results - last 24 hr 09/20/23 09/20/23 09/20/23 11:11 16:07 20:41 Hold Purple Top Anion Gap Estim Creat Clear Calc Estimated GFR POC Glucose 131 H 133 H 129 H Random Glucose Calcium 09/21/23 05:55 Hold Purple Top SEE NOTE Anion Gap 11 L Estim Creat Clear Calc 49.2 Estimated GFR 43 POC Glucose Random Glucose 160 H Calcium 9.7 Microbiology Microbiology Results: Microbiology 09/19/23 07:26 Blood Culture - Preliminary Blood - Venous No growth after 48 hours. 09/19/23 Unknown Urine Culture - Final Urine Catheterized - Straight Catheter Klebsiella pneumoniae 09/19/23 Unknown Blood Culture - Preliminary Blood - Venous No growth after 24 hours. Assessment and Plan (1) Urinary tract infection: Status: Acute (2) Altered mental status: Status: Acute Plan 62 yo M with a PMH of schizophrenia, DM type 2, HNT, hypothyroidism, anxiety, CKD3, Epilepsy, cardiomegaly, GERD and multiple others who is BIB[place] to [facility] after he was found at SNF overnight. He was minimally responsive with concurrent hypoxia. He will be admitted for further work up. Acute toxic/metabolic encephalopathy multifactorial including Sepsis/UTI, hypoxia, DAKOTAH, hyponatremia head CT negative for acute abnormality Severe sepsis secondary to Klebsiella UTI fever and leukocytosis; severe features include DAKOTAH, hypoxia and mental status changes Continue IV Rocephin blood cx neg Possible dysphagia Nursing swallow evaluation>passed formal speech and swallow eval pending HyperNa Has been NPO, likely from hypovolemia D5W recheck Na this afternoon Acute respiratory failure with hypoxia. Resolved CXR without acute findings V/Q scan negative for pulmonary embolism DAKOTAH on CKD3 Baseline SCr around 1.5, presenting with 2.65 Creatinine 1.62 today likely due to sepsis continue IVF lithium level within normal limits HTN amlodipine DM type 2 sliding scale Seizures depakote level 60.9 continue home meds Cardiomyopathy bb, asa, statin Mood continue Full Code Attending Dr. Haskins DVT pptx, subcut. heparin [facility] [phone] Patient with multiple actives issues including respiratory failure, encephalopathy, DAKOTAH, UTI that cannot be treated at a less acute setting Quality Stroke Does the patient have a stroke diagnosis?: No VTE Prior VTE?: No VTE Risk Level:: Medical - moderate - high VTE Device Contraindication: Treatment Not Indicated VTE Drug Contraindication: N/A - Med Ordered
[2023-09-21 11:50] LABS: Glucose, Whole Blood 96 mg/dL (60-115)
[2023-09-21] MEDS: Levothyroxine Sodium 100 MCG TABLET PO (11:59)
[2023-09-21] MEDS: amLODIPine Besylate 10 MG TABLET PO (11:59)
[2023-09-21] MEDS: Aspirin Enteric Coated 81 MG TABLET.DR PO (11:59)
[2023-09-21] MEDS: Pregabalin 150 MG CAPSULE 300 MG PO ×2 (12:00→21:22)
[2023-09-21] MEDS: Sennosides/Docusate Sodium TABLET 1 TAB PO ×2 (12:00→21:23)
[2023-09-21] MEDS: carvediloL 25 MG TABLET PO ×2 (12:00→21:23)
[2023-09-21] MEDS: Lithium Carbonate ER 450 MG TABLET.ER 225 MG PO (12:00)
[2023-09-21] MEDS: hydrALAZINE HCl 50 MG TABLET 100 MG PO ×3 (12:00→21:23)
[2023-09-21] MEDS: Lactulose 20 GM/30 ML SOLUTION PO ×3 (12:01→21:23)
[2023-09-21 13:09] LABS: Sodium 152 mmol/L (135-145)
[2023-09-21] MEDS: cloZAPine 100 MG TABLET PO (14:31)
[2023-09-21 16:24] LABS: Glucose, Whole Blood 164 mg/dL (60-115)
[2023-09-21 20:28] LABS: Glucose, Whole Blood 146 mg/dL (60-115)
[2023-09-21] MEDS: Lithium Carbonate ER 300 MG TABLET.ER PO (21:21)
[2023-09-21] MEDS: Atorvastatin Calcium 20 MG TABLET PO (21:22)
[2023-09-21] MEDS: traZODone HCL 50 MG TABLET PO (21:23)
[2023-09-21] MEDS: Insulin Glargine,Hum.rec.anlog 100 UNIT/ML 10 ML VIAL 8 UNIT SUBCUT (21:23)
[2023-09-21] MEDS: cloZAPine 100 MG TABLET 200 MG PO (21:23)
[2023-09-21] MEDS: Ferrous Sulfate 324 MG TABLET.DR PO (21:23)
[2023-09-22 03:22] VITALS: BP 115/68; PULSE 71; RESP 17; TEMP 37.1; O2SAT 97
[2023-09-22] MEDS: Dextrose 5 % 1,000 ML 100 ML IVCONT (03:33)
[2023-09-22] MEDS: Heparin Sodium,Porcine 5,000 UNIT/ML VIAL 5000 UNIT SUBCUT (03:33)
[2023-09-22] MEDS: Lithium Carbonate ER 450 MG TABLET.ER 225 MG PO (05:39)
[2023-09-22] MEDS: Levothyroxine Sodium 100 MCG TABLET PO (05:39)
[2023-09-22 07:12] LABS: Glucose, Whole Blood 143 mg/dL (60-115)
[2023-09-22 07:19] VITALS: BP 141/76; PULSE 73; RESP 20; TEMP 36.8; O2SAT 93
[2023-09-22 07:32] LABS: Anion Gap 9 (12-20); Blood Urea Nitrogen 27 mg/dL (9-16); Calcium 9.5 mg/dL (8.4-10.2); Carbon Dioxide 29 mmol/L (22-29); Chloride 116 mmol/L (96-108); Creatinine Clr Calc Pharmacy 51.8; Estimated Glomerular Filt Rate 46; Glucose Random 172 mg/dL (60-115); Potassium 4.2 mmol/L (3.3-5.1); Sodium 150 mmol/L (135-145)
--- NOTE | 2023-09-22 08:52 | PM.DS ---
DS: Providers Provider Date of Service: 09/22/23 Date of admission: 09/19/23 11:23 Primary care physician: Celestine Beckman DO DS: Diagnosis Discharge Diagnosis (1) Urinary tract infection: Status: Acute (2) Altered mental status: Status: Acute DS: Summary Hospital Course Hospital Course: History and physical as per admitting provider. This is a 62 year old male who is a resident of [facility] and is rome in by ambulance to the ED. The patient is currently altered and hence history is obtained from the ED phsycian, RN and notes sent from SNF. Apparently, the patient was found on the day of admission and was minimally resonsive, was hypoxic in the 70s with reported pin point pupils. Hence he was sent to ED. Per ED RN, the patient is conversant at baseline, otherwise rest of baseline unclear. Patients work up revealed DAKOTAH and UTI. He remains hypoxic but his cxr is without any acute findings. He has been given IV fluids, IV rocephin and tylenol. He remains on supplemental oxygen. 62-year-old man presenting from [facility] with acute toxic metabolic encephalopathy secondary to severe sepsis from Klebsiella UTI. Patient initially was hypoxic but given supplemental oxygen and reversed fairly quickly. He was treated with IV Rocephin for Klebsiella UTI. Patient has had no further episodes of fever and blood cultures have been negative. He did have an episode of hypernatremia likely because he had been NPO due to the encephalopathy. Patient is now eating and drinking and he was treated with D5W and sodium is trending down. Plan is for patient to have sodium checked in 2 days at [facility]. He does have a history of CKD stage 3 and did have a bump in his creatinine initially presenting at 2.65 but creatinine did trend down to his baseline of 1.5. Plan will be to transfer patient back to [facility] today. Hypertension. Stable blood pressure. Continue amlodipine Diabetes mellitus type 2. Continue medications Seizure disorder. Depakote level 60.9. Continue home medications History of cardiomyopathy. Continue beta-winter, aspirin and statin Mental health. Continue medications Time Attestation Discharge coordination time: Greater than 30 minutes Quality: Safe Use of Opioids Does Pt have an Active Cancer Diagnosis on the Problem List?: No Quality: Stroke Does the patient have a stroke diagnosis?: No Physical Exam Vital Signs: Vital Signs: Last Vital Signs Temp 98.3 F 09/22/23 07:19 Pulse 73 09/22/23 07:19 Resp 20 09/22/23 07:19 BP 141/76 H 09/22/23 07:19 Pulse Ox 93 09/22/23 07:19 O2 Del Method Room Air 09/22/23 07:19 O2 Flow Rate 3.5 09/19/23 19:59 Oxygen Flow Rate 15 09/19/23 07:07 BMI result Body Mass Index 21.1 Appearing in no acute distress head is normocephalic atraumatic eyes pupils are PERRLA sclera is anicteric mouth throat mucous membranes are intact and moist neck is supple no lymphadenopathy, no JVD noted lung sounds are clear to auscultation heart regular rate rhythm, clear S1, S2 positive bowel sounds, abdomen is soft, nontender neuro patient is alert, some verbal communication but minimal, history of TBI DS: Data Data Completed and Pending Labs on day of discharge: Laboratory Results - last 24 hr 09/21/23 09/21/23 09/21/23 11:00 12:54 16:11 Hold Purple Top Sodium 152 H Potassium Chloride Carbon Dioxide Anion Gap BUN Creatinine Estim Creat Clear Calc Estimated GFR POC Glucose 96 164 H Random Glucose Calcium 09/21/23 09/22/23 09/22/23 20:12 07:03 07:06 Hold Purple Top Sodium 150 H Potassium 4.2 Chloride 116 H Carbon Dioxide 29 Anion Gap 9 L BUN 27 H Creatinine 1.54 H Estim Creat Clear Calc 51.8 Estimated GFR 46 POC Glucose 146 H 143 H Random Glucose 172 H Calcium 9.5 09/22/23 07:12 Hold Purple Top SEE NOTE Sodium Potassium Chloride Carbon Dioxide Anion Gap BUN Creatinine Estim Creat Clear Calc Estimated GFR POC Glucose Random Glucose Calcium Preliminary micro results at discharge 09/19/23 Unknown Blood Culture - Preliminary Blood - Venous No growth after 48 hours. 09/19/23 07:26 Blood Culture - Preliminary Blood - Venous No growth after 48 hours. Discharge Plan Discharge Anticipated Discharge Date/Time: 09/22/23 08:48 Patient Disposition: Xfer Other Discharge Diagnosis: Acute toxic metabolic encephalopathy Severe sepsis Klebsiella UTI Hypernatremia Acute respiratory failure with hypoxia DAKOTAH on CKD 3 Referrals: [facility] [Outside] - 1 Week Celestine Beckman DO [Primary Care Provider] - 1 Week Discharge Medications: New cefuroxime axetil 500 mg tablet 500 mg PO BID Qty: 10 0RF Continued carvedilol 25 mg Tablet 25 mg PO BID acetaminophen 325 mg Tablet 650 mg PO Q4H PRN (Reason: Fever Or Pain) trazodone 50 mg Tablet 50 mg PO BEDTIME clozapine [Clozaril] 100 mg Tablet 200 mg PO BEDTIME sennosides-docusate sodium [Senna Plus] 8.6-50 mg Tablet 1 tab PO BID lithium carbonate 300 mg Tablet Extended Release 300 mg PO BEDTIME aspirin 81 mg Tablet,Delayed Release (Dr/Ec) 81 mg PO DAILY lithium carbonate 450 mg Tablet Extended Release 225 mg PO DAILY@0630 amlodipine 10 mg Tablet 10 mg PO DAILY hydralazine 100 mg Tablet 100 mg PO TID ferrous sulfate 325 mg (65 mg iron) Tablet 325 mg PO BID divalproex 500 mg Tablet Extended Release 24 Hr 1,000 mg PO BEDTIME bisacodyl 5 mg Tablet,Delayed Release (Dr/Ec) 5 mg PO .Q3DAYS PRN (Reason: Constipation) lactulose 10 gram/15 mL Solution 30 ml PO TID pregabalin [Lyrica] 200 mg Capsule 300 mg PO BID insulin glargine [Lantus Solostar U-100 Insulin] 100 unit/mL (3 mL) Insulin Pen 8 unit SUBCUT BEDTIME atorvastatin 20 mg Tablet 20 mg PO BEDTIME clozapine 100 mg Tablet 100 mg PO QAM divalproex 250 mg Tablet Extended Release 24 Hr 250 mg PO BEDTIME Patient Comments: TOTAL DAILY DOSE IS 1250MG levothyroxine 100 mcg Tablet 100 mcg PO DAILY@0630 bisacodyl 10 mg Suppository 10 mg LA DAILY PRN (Reason: Constipation) sennosides [senna] 8.6 mg Tablet 8.6 mg PO DAILY PRN (Reason: Constipation) Farxiga 10 mg tablet 10 mg PO QAM Fleet Enema 19-7 gram/118 mL enema 118 ml LA DAILY PRN (Reason: Constipation) GlucaGen HypoKit 1 mg recon soln 1 mg subcut Q15M PRN (Reason: Hypoglycemia) Rx Instructions: until target blood sugar attained Discharge Orders: Discharge Order (Routine); Ordered 09/22/23 Ordered By: Cher Singer Diet: Advance to usual diet Activity on Discharge: As tolerated Stand Alone Forms: Patient Portal Discharge page Other Ambulatory Orders: Basic Metabolic Panel (Routine) Timeframe: 2 Days Facility: [facility] - Location: Laboratory Ordered By: Cher Singer Care Plan Goals: complete resolution of symptoms Health Concerns: Acute toxic metabolic encephalopathy Severe sepsis Klebsiella UTI Hypernatremia Acute respiratory failure with hypoxia DAKOTAH on CKD 3 Plan of Treatment: Transfer back to [facility] Take all medications as prescribed Assessment: see discharge summary
[2023-09-22] MEDS: cefTRIAXone sodium 1 GM in 0.9 % Sodium Chloride 50 ML IV (09:13)
[2023-09-22] MEDS: Lactulose 20 GM/30 ML SOLUTION PO (09:14)
[2023-09-22] MEDS: Pregabalin 150 MG CAPSULE 300 MG PO (09:16)
[2023-09-22] MEDS: Aspirin Enteric Coated 81 MG TABLET.DR PO (09:20)
[2023-09-22] MEDS: Sennosides/Docusate Sodium TABLET 1 TAB PO (09:20)
[2023-09-22] MEDS: carvediloL 25 MG TABLET PO (09:21)
[2023-09-22] MEDS: amLODIPine Besylate 10 MG TABLET PO (09:22)
[2023-09-22] MEDS: hydrALAZINE HCl 50 MG TABLET 100 MG PO (09:22)
[2023-09-22] MEDS: Ferrous Sulfate 324 MG TABLET.DR PO (09:24)
[2023-09-22] MEDS: Empagliflozin 10 MG TABLET PO (09:24)
--- NOTE | 2023-09-22 10:14 | MHC.CM.PN ---
Pt is medically cleared for discharged today, back to [facility]. Transport set up at 12pm via BLS today. Pts guardian Jass was called by this CM and notified.
[2023-09-22 10:54] LABS: Glucose, Whole Blood 203 mg/dL (60-115)
[2023-09-22 11:11] VITALS: BP 129/70; PULSE 76; RESP 18; TEMP 36.7; O2SAT 94
[2023-09-22] MEDS: cloZAPine 100 MG TABLET PO (12:00)
== END 2023-09-22 12:30 | disposition other institution (70) | DRG 720 ==
LOC: HO.ED 08:34 → HO.EDOVER 11:27 → HO.IMC 15:57
PROVIDERS: Emergency Medicine Emergency Medical Services; Admitting Provider Family Medicine; Emergency Provider Emergency Medicine; PCP Hospitalist; Visit Provider Nurse Practitioner Acute Care
DX: A41.9 Sepsis, unspecified organism (principal); J96.01 Acute respiratory failure with hypoxia; G92.8 Other toxic encephalopathy; N17.9 Acute kidney failure, unspecified; E03.9 Hypothyroidism, unspecified; N39.0 Urinary tract infection, site not specified; R65.20 Severe sepsis without septic shock; N18.30 Chronic kidney disease, stage 3 unspecified; E87.0 Hyperosmolality and hypernatremia; I12.9 Hypertensive chronic kidney disease with stage 1 through stage 4 chronic kidney disease, or unspecified chronic kidney disease; E11.22 Type 2 diabetes mellitus with diabetic chronic kidney disease; G40.909 Epilepsy, unspecified, not intractable, without status epilepticus; B96.1 Klebsiella pneumoniae [K. pneumoniae] as the cause of diseases classified elsewhere; F41.9 Anxiety disorder, unspecified; I42.9 Cardiomyopathy, unspecified; E86.1 Hypovolemia; E78.5 Hyperlipidemia, unspecified; F20.9 Schizophrenia, unspecified; Z20.822 Contact with and (suspected) exposure to COVID-19; Z79.4 Long term (current) use of insulin; Z79.82 Long term (current) use of aspirin; Z79.890 Hormone replacement therapy; Z79.899 Other long term (current) drug therapy
CPT/HCPCS: 0241U; 36415; 70450; 71045; 78580; 80048; 80053; 80076; 80164; 80178; 80307; 81001; 82140; 82803; 82947; 83605; 84295; 84484; 85025; 85027; 87040; 87086; 87088; 87186; 93005; 99285; A9540; C1758; J0696; J1644; J2359

== ENCOUNTER → 2023-09-19 11:23 | Outpatient (BNV) | payer MEDICAID, SELFPAY | PROVIDERS: Admitting Provider Family Medicine; Emergency Provider Emergency Medicine; PCP Hospitalist; Visit Provider Family Medicine | DX: R41.82 Altered mental status, unspecified (principal) | CPT/HCPCS: 99223; 99232; 99239 ==

== ENCOUNTER 2023-12-08 08:02 | Outpatient (REF) | payer MEDICAID, SELFPAY ==
--- NOTE | ~2023-12-08 | CT_ITS ---
EXAMINATION: CT CHEST WITH CONTRAST CLINICAL INFORMATION: 3 mm lung nodule COMPARISON: 01/23/2023, 09/19/2021 TECHNIQUE: Multidetector volumetric CT imaging of the chest was obtained after the administration of 50 mL of Omnipaque 350 intravenous contrast without immediate adverse reactions. Axial MIP volume rendering provided. Sagittal and coronal reformatted images were obtained. This CT examination was performed using dose optimization techniques as appropriate, variously including the following: *Automated exposure control *Adjustment of mA and/or kV according to patient size (this includes techniques or standardized protocols for targeted exams where dose is matched to indication/reason for exam; i.e. extremities or head) *Use of iterative reconstruction technique DLP: 147 mGy-cm FINDINGS: LUNGS: Right lower lobe subpleural 3 mm nodule is unchanged (8:80). No new or enlarging pulmonary nodule. Central airways are patent. PLEURA: No pleural effusion. MEDIASTINUM: No cardiomegaly. Aorta and pulmonary artery are normal in caliber. No mediastinal or hilar adenopathy. No hilar lymphadenopathy. CORONARY ARTERY CALCIFICATION: No coronary artery calcification appreciated. CHEST WALL/AXILLA: No axillary or internal mammary lymphadenopathy. UPPER ABDOMEN: Unremarkable. OSSEOUS STRUCTURES: Degenerative changes of the thoracic spine. CT/CT chest w IV con IMPRESSION: Right lower lobe subpleural 3 mm nodule is unchanged. No new or enlarging pulmonary nodule.
[2023-12-08] MEDS: iohexoL 350 MG/ML 100 ML INFUS..BTL 65 ML IV (09:03)
[2023-12-09 06:50] LABS: Creatinine POC 0.9 mg/dL (0.5-1.4); GFR POC > 60
== END 2023-12-08 08:03 | disposition home or self-care (01) ==
LOC: HO.CT 08:02
PROVIDERS: PCP Hospitalist; Visit Provider Hospitalist
DX: R91.1 Solitary pulmonary nodule (principal)
CPT/HCPCS: 71260; 82565; Q9967

== ENCOUNTER 2024-01-05 10:54 | Emergency (ER) | payer MEDICAID, SELFPAY ==
--- NOTE | ~2024-01-05 | CT_ITS ---
EXAMINATION: CT brain and CT cervical spine without contrast. CLINICAL INDICATION: Head strike on before meals. COMPARISON: CT brain 05/25/2023. TECHNIQUE: 5 mm thin axial and reformatted 2 mm thin sagittal coronal images of brain were obtained. Subsequently axial 3 minutes thin and reformatted 2 mm thin sagittal coronal images of cervical spine were obtained. DLP 2227. FINDINGS: BRAIN: There is no acute intra-axial, extra-axial bleed, masses or midline shift. There is no acute infarction in evolution. The lateral ventricles are symmetrical in size and configuration but moderately enlarged. There is mild periventricular hypodensity in both cerebral hemispheres. Bone windows reveal no calvarial abnormality. No scalp soft tissue abnormality seen. There is minimal mucoperiosteal thickening left maxillary sinus. Rest the paranasal sinuses are clear. Cervical spine: On sagittal reconstructed images there is maintained cervical lordosis. There is loss of C3-C4, C4-C5, C5-C6 disc level with irregular endplate changes and Schmorl's node. Rest the disc levels, cranial vertebral junction and the C1-C2 alignment is normal. There is no visible acute fracture, dislocation or subluxation seen. No bony erosive changes. No acute fracture or dislocation. The prevertebral and paravertebral soft tissues are normal. The airways widely patent. The lung apices are clear thyroid lobes are symmetrical and normal. CT/CT cervical spine wo IV con IMPRESSION: 1. No acute intracranial process seen. 2. Age-related cerebral volume loss with chronic small vessel ischemic changes. 3. There is no acute fracture, dislocation or subluxation in cervical spine. There are degenerative disc changes C3-C4 through C5-C6 disc levels.
--- NOTE | ~2024-01-05 | CT_ITS ---
EXAMINATION: CT brain and CT cervical spine without contrast. CLINICAL INDICATION: Head strike on before meals. COMPARISON: CT brain 05/25/2023. TECHNIQUE: 5 mm thin axial and reformatted 2 mm thin sagittal coronal images of brain were obtained. Subsequently axial 3 minutes thin and reformatted 2 mm thin sagittal coronal images of cervical spine were obtained. DLP 2227. FINDINGS: BRAIN: There is no acute intra-axial, extra-axial bleed, masses or midline shift. There is no acute infarction in evolution. The lateral ventricles are symmetrical in size and configuration but moderately enlarged. There is mild periventricular hypodensity in both cerebral hemispheres. Bone windows reveal no calvarial abnormality. No scalp soft tissue abnormality seen. There is minimal mucoperiosteal thickening left maxillary sinus. Rest the paranasal sinuses are clear. Cervical spine: On sagittal reconstructed images there is maintained cervical lordosis. There is loss of C3-C4, C4-C5, C5-C6 disc level with irregular endplate changes and Schmorl's node. Rest the disc levels, cranial vertebral junction and the C1-C2 alignment is normal. There is no visible acute fracture, dislocation or subluxation seen. No bony erosive changes. No acute fracture or dislocation. The prevertebral and paravertebral soft tissues are normal. The airways widely patent. The lung apices are clear thyroid lobes are symmetrical and normal. CT/CT head/brain wo IV con IMPRESSION: 1. No acute intracranial process seen. 2. Age-related cerebral volume loss with chronic small vessel ischemic changes. 3. There is no acute fracture, dislocation or subluxation in cervical spine. There are degenerative disc changes C3-C4 through C5-C6 disc levels.
--- NOTE | 2024-01-05 10:57 | ECG_ITS ---
Test Reason : FALL Blood Pressure : / mmHG Vent. Rate : 060 BPM Atrial Rate : 060 BPM P-R Int : 232 ms QRS Dur : 098 ms QT Int : 394 ms P-R-T Axes : 053 041 089 degrees QTc Int : 394 ms Sinus rhythm with 1st degree A-V block Minimal voltage criteria for LVH, may be normal variant ( Sokolow-Joseph ) Cannot rule out Anterior infarct , age undetermined Abnormal ECG When compared with ECG of 19-SEP-2023 08:01, IA interval has increased Nonspecific T wave abnormality has replaced inverted T waves in Anterior leads Referred By: Diana Patel Electronically Signed By:ANDRE LYN
[2024-01-05 11:05] VITALS: BP 132/90; PULSE 67; O2SAT 97
--- NOTE | 2024-01-05 11:06 | ED_ITS ---
HPI - Fall General Chief Complaint: Fall Stated Complaint: [facility]WIT FALL FROM [facility] PER EMS Time Seen by Provider: 01/05/24 10:57 Source: patient, EMS and RN notes reviewed Mode of arrival: ambulatory Limitations: no limitations History of Present Illness HPI Narrative: This is a 63-year-old male, with a past medical history of GERD, cardiomegaly, schizophrenia, anemia, hyperlipidemia, hypothyroidism, diabetes, and dementia who is a resident of [facility], who was brought in via EMS due to unwitnessed fall with head strike. Patient is alert and oriented to his self. Unable to report details of why he is here, he appears confused, which is his baseline. MD complaint: fall Onset (ago): hour(s) Prolonged down time: unclear Symptoms prior to fall: none Related Data Home Medications Medication Instructions Recorded Confirmed acetaminophen 325 mg tablet 650 mg PO Q4H PRN Fever Or Pain 04/30/21 09/19/23 amlodipine 10 mg tablet 10 mg PO DAILY 04/30/21 09/19/23 aspirin 81 mg tablet,delayed 81 mg PO DAILY 04/30/21 09/19/23 release bisacodyl 5 mg tablet,delayed 5 mg PO .Q3DAYS PRN Constipation 04/30/21 09/19/23 release carvedilol 25 mg tablet 25 mg PO BID 04/30/21 09/19/23 clozapine 100 mg tablet (Clozaril) 200 mg PO BEDTIME 04/30/21 09/19/23 divalproex 500 mg tablet,extended 1,000 mg PO BEDTIME 04/30/21 09/19/23 release 24 hr ferrous sulfate 325 mg (65 mg 325 mg PO BID 04/30/21 09/19/23 iron) tablet hydralazine 100 mg tablet 100 mg PO TID 04/30/21 09/19/23 insulin glargine 100 unit/mL (3 8 unit subcut BEDTIME 04/30/21 09/19/23 mL) subcutaneous pen (Lantus Solostar U-100 Insulin) lactulose 10 gram/15 mL oral 30 ml PO TID 04/30/21 09/19/23 solution lithium carbonate 300 mg 300 mg PO BEDTIME 04/30/21 09/19/23 tablet,extended release lithium carbonate 450 mg 225 mg PO DAILY@0630 04/30/21 09/19/23 tablet,extended release pregabalin 200 mg capsule (Lyrica) 300 mg PO BID 04/30/21 09/19/23 sennosides 8.6 mg-docusate sodium 1 tab PO BID 04/30/21 09/19/23 50 mg tablet (Senna Plus) trazodone 50 mg tablet 50 mg PO BEDTIME 04/30/21 09/19/23 dapagliflozin propanediol 10 mg 10 mg PO QAM 12/11/22 09/19/23 tablet (Farxiga) glucagon 1 mg solution for 1 mg subcut Q15M PRN Hypoglycemia 12/11/22 09/19/23 injection (GlucaGen HypoKit) sodium phosphates 19 gram-7 118 ml IN DAILY PRN Constipation 12/11/22 09/19/23 gram/118 mL enema (Fleet Enema) atorvastatin 20 mg tablet 20 mg PO BEDTIME 02/10/23 09/19/23 clozapine 100 mg tablet 100 mg PO QAM 02/10/23 09/19/23 bisacodyl 10 mg rectal suppository 10 mg IN DAILY PRN Constipation 09/19/23 09/19/23 divalproex 250 mg tablet,extended 250 mg PO BEDTIME 09/19/23 09/19/23 release 24 hr levothyroxine 100 mcg tablet 100 mcg PO DAILY@0630 09/19/23 09/19/23 sennosides 8.6 mg tablet (senna) 8.6 mg PO DAILY PRN Constipation 09/19/23 09/19/23 Previous Rx's Medication Instructions Recorded cefuroxime axetil 500 mg tablet 500 mg PO BID #10 tabs 09/22/23 Allergies Allergy/AdvReac Type Severity Reaction Status Date / Time NSAIDS (Non-Steroidal AdvReac Avoid-r/t Verified 09/19/23 07:11 Anti-Inflamma CKD Review of Systems 2 Review of Systems: Yes all other systems are reviewed and are negative Constitutional: Constitutional: Reports as per [facility] Past Medical History Medical History Resides in longterm facility Constipation GERD (gastroesophageal reflux disease) Cardiomegaly Extrapyramidal and movement disorder Eating disorder Chronic kidney disease Glaucoma Schizophrenia Anemia Hyperlipemia Hypothyroid Seizures Diabetes Dementia Surgical History Hx of colonoscopy Surgical history unknown Social History Social History Household Members: Unknown / Unable to assess Unable to assess alcohol history related to: Unknown Alcohol intake: unknown Patient Tobacco Use Status: Tobacco use Unknown Smoked in Last 30 Days: Yes Advance Directives: No Advance Directives Information Provided: No service: No Physical Exam 2 Vital Signs: Vital Signs: Last Vital Signs Temp 98.0 F 01/05/24 13:56 Pulse 88 01/05/24 13:56 Resp 16 01/05/24 13:56 BP 178/82 H 01/05/24 13:56 Pulse Ox 98 01/05/24 13:56 O2 Del Method Room Air 01/05/24 13:56 BMI result Body Mass Index 23.6 Const: General: cooperative, comfortable and no acute distress O rientation/consciousness: patient oriented x3 Limitations: no limitations HEENT: Head: Yes normal to inspection, Yes normocephalic and Yes atraumatic Ears: hearing grossly normal bilaterally General nose exam: Normal external nose present Face and sinus: Yes normal facial exam Mouth: Normal oral and palatal mucosa present, oropharynx normal and moist mucous membranes Throat: Yes posterior oropharynx normal Eyes: General: appearance normal, both eyes and all related structures E yelids: Yes eyelids normal Conjunctivae: conjunctivae normal Sclerae: s clerae normal Pupils: Equal, round and reactive pupils present EOM: EOMs intact bilaterally Neck: Neck: Yes normal visual inspection, Yes full ROM and Yes no lymphadenopathy Lymphatic: no lymphadenopathy noted Chest: Chest palpation & inspection: normal inspection of the chest Resp: Effort & Inspection: normal respiratory effort and able to speak in complete sentences Auscultation: clear to auscultation bilaterally, no crackles, no rales, no rhonchi and no wheezes Cardio: Rate: regular rate Rhythm: regular rhythm Heart sounds: S1 normal heart sound present and S2 normal heart sound present GI: Inspection: Yes normal to inspection Skin: General skin exam: no rashes or lesions noted Trauma: no lacerations or abrasions Wounds: no wounds Neuro: General: patient oriented x3 and moves all extremities Cranial nerves: Yes Equal, round and reactive pupils present Extrem: General: Yes normal to inspection Right upper extremity: normal to inspection Left upper extremity: normal to inspection Right lower extremity: normal to inspection Left lower extremity: normal to inspection Course Reevaluation(s) Reevaluation #1: CT head and neck revealing no acute intracranial process. Degenerative disc disease seen at C3-C4 through C5-C6. All other labs still pending at this time. Time: 12:17 Reevaluation #2: No leukocytosis, hemoglobin around his baseline, creatinine 1.48 which is around his baseline, BUN 18, anion gap 8. Troponin less than 2.7, lipase 25, albumin 3.7. Patient's workup today unremarkable, discussed case with Dr. Beckman,, patient may return back to [facility]. Transfer of care initiated. Time: 13:19 Medical Decision Making Medical Decision Making [facility] Narrative: This is a 63-year-old male, presenting to the emergency department from [facility] via EMS, with complaints of unwitnessed fall with head strike. Dr. Beckman called in this expect requesting basic labs, and CT head and neck. If workup is negative, can be dispositioned back to [facility]. On arrival, patient mildly hypertensive at 175/110, he is alert, oriented to self only. This appears to be his baseline. Is nontoxic appearing, speaking in full sentences under no acute distress. Will obtain basic labs, EKG, CT head and neck. Differential Diagnosis Differential Diagnoses: The differential diagnosis associated with the presentation includes ICH, subdural Admission/Observation Consideration of admission/observation: Escalation of care including admission/observation considered Lab Data [facility] Lab Attestation statement: I reviewed the patient's lab results. 01/05/24 12:12 01/05/24 11:54 Labs: Lab Results 01/05/24 01/05/24 Range/Units 11:54 12:12 WBC 7.5 (4.8-10.8) X10*3/uL RBC 5.79 (4.60-5.80) X10*6/uL Hgb 13.6 L (14.0-18.0) g/dl Hct 48.1 (42.0-52.0) % MCV 83.1 (80.0-98.0) fL MCH 23.5 L (27.0-33.0) pg MCHC 28.3 L (31.0-36.0) g/dl RDW 15.6 (11.0-16.0) % Plt Count TNP MPV TNP Immature Gran % (Auto) 0.3 (0.0-0.4) % Neut % (Auto) 45.3 (45-73) % Lymph % (Auto) 39.8 (20-40) % Barton % (Auto) 7.3 (2-11) % Eos % (Auto) 6.5 H (0-4) % Baso % (Auto) 0.8 (0-2) % Lymph # (Auto) 3.0 (1.2-4.9) X10*3/uL Barton # (Auto) 0.6 (0.1-1.2) X10*3/uL Eos # (Auto) 0.5 H (0.0-0.4) X10*3/uL Baso # (Auto) 0.1 (0.0-0.2) X10*3/uL Abs Immat Gran (auto) 0.02 (0.00-0.03) X10*3/uL Absolute Neuts (auto) 3.4 (2.0-8.3) x10*3/uL Absolute Nucleated RBC 0.000 (0.0-0.012) X10*3/uL Nucleated RBC % (auto) 0.0 (0.0-0.2) /100WBC Smear Tech's Comments VERIFIED PT 11.8 (11.1-13.3) SEC INR 1.0 (0.9-1.1) APTT 34.9 (26.0-36.8) SEC Sodium 142 (135-145) mmol/L Potassium 4.4 (3.3-5.1) mmol/L Chloride 111 H (96-108) mmol/L Carbon Dioxide 27 (22-29) mmol/L Anion Gap 8 L (12-20) BUN 18 H (9-16) mg/dL Creatinine 1.48 H (0.5-1.4) mg/dL Estim Creat Clear Calc 55.3 Estimated GFR 48 Random Glucose 129 H (60-115) mg/dL Calcium 9.3 (8.4-10.2) mg/dL Magnesium 2.3 (1.6-2.6) mg/dL Total Bilirubin 0.3 (0.0-1.0) mg/dL AST 13 (5-37) U/L ALT 11 (0-40) U/L Alkaline Phosphatase 61 (39-117) U/L Troponin I High Sens < 2.7 D (<3.5-35.0) ng/L Total Protein 7.3 (6.5-8.0) g/dL Albumin 3.7 (3.5-5.0) g/dL Lipase 25 (8-78) U/L Independent Interpretation I performed an independent interpretation of an: EKG Interpretation: EKG normal sinus rhythm at a ventricular rate of 85 beats per minute, first- degree AV block noted, this was also seen on previous. Similar appearing EKG from previous when compared to EKG performed on September 19, 2023 Radiology Impression Discussion of test interpretation with radiology: I have reviewed the radiologist's reading. Radiologist Impression: EXAMINATION: CT brain and CT cervical spine without contrast. CLINICAL INDICATION: Head strike on before meals. COMPARISON: CT brain 05/25/2023. TECHNIQUE: 5 mm thin axial and reformatted 2 mm thin sagittal coronal images of brain were obtained. Subsequently axial 3 minutes thin and reformatted 2 mm thin sagittal coronal images of cervical spine were obtained. DLP 2227. FINDINGS: BRAIN: There is no acute intra-axial, extra-axial bleed, masses or midline shift. There is no acute infarction in evolution. The lateral ventricles are symmetrical in size and configuration but moderately enlarged. There is mild periventricular hypodensity in both cerebral hemispheres. Bone windows reveal no calvarial abnormality. No scalp soft tissue abnormality seen. There is minimal mucoperiosteal thickening left maxillary sinus. Rest the paranasal sinuses are clear. Cervical spine: On sagittal reconstructed images there is maintained cervical lordosis. There is loss of C3-C4, C4-C5, C5-C6 disc level with irregular endplate changes and Schmorl's node. Rest the disc levels, cranial vertebral junction and the C1-C2 alignment is normal. There is no visible acute fracture, dislocation or subluxation seen. No bony erosive changes. No acute fracture or dislocation. The prevertebral and paravertebral soft tissues are normal. The airways widely patent. The lung apices are clear thyroid lobes are symmetrical and normal. CT/CT head/brain wo IV con IMPRESSION: 1. No acute intracranial process seen. 2. Age-related cerebral volume loss with chronic small vessel ischemic changes. 3. There is no acute fracture, dislocation or subluxation in cervical spine. There are degenerative disc changes C3-C4 through C5-C6 disc levels. Dictated By: Mickey Jones MD Independent Historian Clinical information obtained from an independent historian. History obtained from or confirmed by: EMS and Other (Dr. Beckman - [facility] Physician/Labeling Associate) Discharge Plan Discharge Clinical Impression: Fall, Closed head injury Patient Disposition: er [facility] Transfer Details: [facility] Instructions: Head Injury (ED), Fall Prevention (ED) Additional Instructions: Reza was seen in the emergency department after having an unwitnessed fall.. CT head and neck unremarkable. Labs are reassuring. If any new or worsening symptoms occur including but not limited to chest pain, shortness of breath, changes in mentation, please return for re-evaluation. Prescriptions: No Action carvedilol 25 mg Tablet 25 mg PO BID acetaminophen 325 mg Tablet 650 mg PO Q4H PRN (Reason: Fever Or Pain) trazodone 50 mg Tablet 50 mg PO BEDTIME clozapine [Clozaril] 100 mg Tablet 200 mg PO BEDTIME sennosides-docusate sodium [Senna Plus] 8.6-50 mg Tablet 1 tab PO BID lithium carbonate 300 mg Tablet Extended Release 300 mg PO BEDTIME aspirin 81 mg Tablet,Delayed Release (Dr/Ec) 81 mg PO DAILY lithium carbonate 450 mg Tablet Extended Release 225 mg PO DAILY@0630 amlodipine 10 mg Tablet 10 mg PO DAILY hydralazine 100 mg Tablet 100 mg PO TID ferrous sulfate 325 mg (65 mg iron) Tablet 325 mg PO BID divalproex 500 mg Tablet Extended Release 24 Hr 1,000 mg PO BEDTIME bisacodyl 5 mg Tablet,Delayed Release (Dr/Ec) 5 mg PO .Q3DAYS PRN (Reason: Constipation) lactulose 10 gram/15 mL Solution 30 ml PO TID pregabalin [Lyrica] 200 mg Capsule 300 mg PO BID insulin glargine [Lantus Solostar U-100 Insulin] 100 unit/mL (3 mL) Insulin Pen 8 unit SUBCUT BEDTIME atorvastatin 20 mg Tablet 20 mg PO BEDTIME clozapine 100 mg Tablet 100 mg PO QAM divalproex 250 mg Tablet Extended Release 24 Hr 250 mg PO BEDTIME Patient Comments: TOTAL DAILY DOSE IS 1250MG levothyroxine 100 mcg Tablet 100 mcg PO DAILY@0630 bisacodyl 10 mg Suppository 10 mg IN DAILY PRN (Reason: Constipation) sennosides [senna] 8.6 mg Tablet 8.6 mg PO DAILY PRN (Reason: Constipation) cefuroxime axetil 500 mg tablet 500 mg PO BID Qty: 10 0RF Farxiga 10 mg tablet 10 mg PO QAM Fleet Enema 19-7 gram/118 mL enema 118 ml IN DAILY PRN (Reason: Constipation) GlucaGen HypoKit 1 mg recon soln 1 mg subcut Q15M PRN (Reason: Hypoglycemia) Rx Instructions: until target blood sugar attained
[2024-01-05 11:34] VITALS: BP 175/110; PULSE 86; RESP 16; O2SAT 98; BMI 23.6
[2024-01-05 12:05] LABS: Prothrombin Time 11.8 SEC (11.1-13.3)
[2024-01-05 12:07] LABS: Partial Thromboplastin Time 34.9 SEC (26.0-36.8)
[2024-01-05 12:13] LABS: Alanine Aminotransferase 11 U/L (0-40); Albumin Level 3.7 g/dL (3.5-5.0); Alkaline Phosphatase 61 U/L (39-117); Anion Gap 8 (12-20); Aspartate Amino Transferase 13 U/L (5-37); Bilirubin Total 0.3 mg/dL (0.0-1.0); Blood Urea Nitrogen 18 mg/dL (9-16); Calcium 9.3 mg/dL (8.4-10.2); Carbon Dioxide 27 mmol/L (22-29); Chloride 111 mmol/L (96-108); Creatinine Clr Calc Pharmacy 55.3; Estimated Glomerular Filt Rate 48; Glucose Random 129 mg/dL (60-115); Lipase 25 U/L (8-78); Magnesium 2.3 mg/dL (1.6-2.6); Potassium 4.4 mmol/L (3.3-5.1); Sodium 142 mmol/L (135-145); Total Protein 7.3 g/dL (6.5-8.0)
[2024-01-05 12:19] LABS: Basophils Absolute Auto 0.1 X10*3/uL (0.0-0.2); Basophils Percent Auto 0.8 % (0-2); Eosinophils Absolute Auto 0.5 X10*3/uL (0.0-0.4); Eosinophils Percent Auto 6.5 % (0-4); Hematocrit 48.1 % (42.0-52.0); Hemoglobin 13.6 g/dl (14.0-18.0); Imm Gran Abs Auto 0.02 X10*3/uL (0.00-0.03); Imm Gran Pct Auto 0.3 % (0.0-0.4); Lymphocytes Percent Auto 39.8 % (20-40); MANUAL DIFF FLAG SCAN; Mean Corpuscular HGB Conc 28.3 g/dl (31.0-36.0); Mean Corpuscular Hemoglobin 23.5 pg (27.0-33.0); Mean Corpuscular Volume 83.1 fL (80.0-98.0); Monocytes Absolute Auto 0.6 X10*3/uL (0.1-1.2); Monocytes Percent Auto 7.3 % (2-11); Neutrophils Absolute Auto 3.4 x10*3/uL (2.0-8.3); Neutrophils Percent Auto 45.3 % (45-73); PLT CLUMP 1; Red Blood Count 5.79 X10*6/uL (4.60-5.80); Red Cell Distribution Width 15.6 % (11.0-16.0); SCAN SMEAR FLAG 1
[2024-01-05 12:56] LABS: White Blood Count 7.5 X10*3/uL (4.8-10.8)
[2024-01-05 12:57] LABS: SLIDE REVIEW VERIFIED
--- NOTE | 2024-01-05 13:00 | PC.NURSE ---
pt is alert but confused at baseline, was able to state that he was at [place] but not able to state the month or year, skin appropriate for ethnicity, respirations even and unlabored, pt coming from [facility] for a unwitnessed fall, pt is currently incontinent of urine, pt cleaned up and hospital attire applied, pt denies pain at this time
[2024-01-05 13:06] LABS: Troponin-I High Sensitivity < 2.7 ng/L (<3.5-35.0)
[2024-01-05 13:49] VITALS: RESP 18
[2024-01-05 13:56] VITALS: BP 178/82; PULSE 88; RESP 16; TEMP 36.7; O2SAT 98
--- NOTE | 2024-01-05 16:18 | PC.NURSE ---
report given to Sherri at [facility] facility, estimated eta for ems is 1830
--- NOTE | 2024-01-05 16:30 | PC.NURSE ---
pt was accompanied to the bathroom by Rn, while on the way back from the bathroom pt's right leg gave out and pt was assisted to the ground, no head strike, no loc. pt was assisted in to a wheelchair and back to bed, vs stable
[2024-01-05 16:39] VITALS: BP 148/92; PULSE 74; RESP 16; TEMP 36.8; O2SAT 92
== END 2024-01-05 18:51 ==
PROVIDERS: Physician Assistant Medical; Emergency Provider Emergency Medicine
DX: S09.90XA Unspecified injury of head, initial encounter (principal); E11.22 Type 2 diabetes mellitus with diabetic chronic kidney disease; N18.9 Chronic kidney disease, unspecified; F03.90 Unspecified dementia, unspecified severity, without behavioral disturbance, psychotic disturbance, mood disturbance, and anxiety; W19.XXXA Unspecified fall, initial encounter; Y93.9 Activity, unspecified; Y92.129 Unspecified place in nursing home as the place of occurrence of the external cause; Y99.9 Unspecified external cause status
CPT/HCPCS: 36415; 70450; 72125; 80053; 83690; 83735; 84484; 85025; 85610; 85730; 93005; 99284

== ENCOUNTER → 2024-01-05 10:57 | Outpatient (BNV) | payer MEDICAID, SELFPAY | PROVIDERS: Emergency Provider Emergency Medicine; Visit Provider Internal Medicine | DX: I44.0 Atrioventricular block, first degree (principal); R94.31 Abnormal electrocardiogram [ECG] [EKG] | CPT/HCPCS: 93010 ==

== ENCOUNTER 2024-01-12 09:10 | Inpatient (IN) | payer MEDICAID, SELFPAY ==
[2024-01-12] VITALS (10 sets, daily range): BP systolic 117–144; BP diastolic 83–100; PULSE 84–107; RESP 14–22; TEMP 36.6–38.8; O2SAT 92–100
--- NOTE | ~2024-01-12 | XR_ITS ---
EXAMINATION: XR CHEST CLINICAL INFORMATION: Weakness. COMPARISON: 09/19/2023 TECHNIQUE: Frontal view of the chest was obtained. FINDINGS: The lungs are moderately expanded. No focal consolidation. No pleural effusion. Cardiac silhouette is unchanged. XR/XR chest 1V IMPRESSION: No acute abnormality.
--- NOTE | ~2024-01-12 | CT_ITS ---
EXAMINATION: CT HEAD WITHOUT CONTRAST CLINICAL INFORMATION: Altered mental status. COMPARISON: 01/05/2024 and 09/19/2023 and 05/25/2023 TECHNIQUE: Contiguous axial imaging was performed from the skull base to vertex without intravenous administration of contrast. This CT examination was performed using dose optimization techniques as appropriate, variously including the following: *Automated exposure control *Adjustment of mA and/or kV according to patient size (this includes techniques or standardized protocols for targeted exams where dose is matched to indication/reason for exam; i.e. extremities or head) *Use of iterative reconstruction technique DLP: 752 mGy-cm FINDINGS: Limited study due to motion artifact. There is no evidence of acute intracranial hemorrhage or large territorial infarction. No mass effect or midline shift is seen. No extra-axial fluid collections are identified. The ventricles are sulci are prominent in keeping with involutional changes. Patchy periventricular and deep white matter hypoattenuation is consistent with mild small vessel ischemic changes. The calvarium is intact. Mucosal thickening of the left maxillary sinus. Mastoid air cells are clear. CT/CT head/brain wo IV con IMPRESSION: No acute intracranial pathology.
--- NOTE | 2024-01-12 09:13 | ECG_ITS ---
Test Reason : WEAKNESS Blood Pressure : / mmHG Vent. Rate : 106 BPM Atrial Rate : 106 BPM P-R Int : 160 ms QRS Dur : 076 ms QT Int : 314 ms P-R-T Axes : 060 038 175 degrees QTc Int : 417 ms Sinus tachycardia T wave abnormality, consider lateral ischemia Abnormal ECG When compared with ECG of 05-JAN-2024 12:16, MN interval has decreased Vent. rate has increased BY [address] no longer elevated in Anterior leads Inverted T waves have replaced nonspecific T wave abnormality in Anterior leads Referred By: Deloris Singh Electronically Signed By:Sam Layne
[2024-01-12 09:42] LABS: MANUAL DIFF FLAG NO
[2024-01-12] MEDS: Albuterol Sulfate 2.5 MG, Albuterol/Iprat 2.5/0.5MG 3 ML 3 ML INHALE (09:42)
--- NOTE | 2024-01-12 09:45 | PC.NURSE ---
Per MD Singh, no IVF bolus to be given at this time.
--- NOTE | 2024-01-12 09:46 | ED.NEUROSD ---
HPI - Neuro Symptoms/Deficit General Chief Complaint: Neuro Symptoms/Deficit Stated Complaint: AMS SINCE X5 DAYS,+COVID ,FROM SNF Time Seen by Provider: 01/12/24 09:12 Source: EMS and old records reviewed Mode of arrival: EMS Limitations: altered mental status History of Present Illness HPI Narrative: 63 yo male with PMH of klebsiella UTI, CKD, seizures, HTN, DM2, cardiomyopathy comes from [facility] facility after being diagnosed with COVID . Per staff he has been altered since then. He has a worsening cough and malodorous urine. EMS found him 80% on RA. He is pulling at lines and tubes he is squeezing hands on arrival and scratching his own nose but not speaking. RN at facility states no paxlovid started. He is a FULL CODE. Onset (ago): day(s) (5) Timing confirmed by: caregiver History of same: Yes Severity: moderate Quality: weak Relieving factors: none Exacerbating factors: none Context: gradual onset On Anticoagulants: No Associated symptoms: cough, loss of appetite, malaise and shortness of breath Treatments Prior to Arrival: none Related Data Home Medications Medication Instructions Recorded Confirmed acetaminophen 325 mg tablet 650 mg PO Q4H PRN Fever Or Pain 04/30/21 01/12/24 amlodipine 10 mg tablet 10 mg PO QAM 04/30/21 01/12/24 aspirin 81 mg tablet,delayed 81 mg PO QAM 04/30/21 01/12/24 release bisacodyl 5 mg tablet,delayed 5 mg PO Q72H PRN Constipation 04/30/21 01/12/24 release carvedilol 25 mg tablet 25 mg PO BID 04/30/21 01/12/24 clozapine 100 mg tablet (Clozaril) 200 mg PO DAILY 04/30/21 01/12/24 ferrous sulfate 325 mg (65 mg 325 mg PO BID 04/30/21 01/12/24 iron) tablet hydralazine 100 mg tablet 100 mg PO TID 04/30/21 01/12/24 insulin glargine 100 unit/mL (3 8 unit subcut BEDTIME 04/30/21 01/12/24 mL) subcutaneous pen (Lantus Solostar U-100 Insulin) lactulose 10 gram/15 mL oral 30 ml PO TID 04/30/21 01/12/24 solution lithium carbonate 300 mg 300 mg PO BEDTIME 04/30/21 01/12/24 tablet,extended release lithium carbonate 450 mg 225 mg PO DAILY@0630 04/30/21 01/12/24 tablet,extended release pregabalin 200 mg capsule (Lyrica) 300 mg PO BID 04/30/21 01/12/24 sennosides 8.6 mg-docusate sodium 1 tab PO BID 04/30/21 01/12/24 50 mg tablet (Senna Plus) trazodone 50 mg tablet 50 mg PO BEDTIME 04/30/21 01/12/24 dapagliflozin propanediol 10 mg 10 mg PO QAM 12/11/22 01/12/24 tablet (Farxiga) glucagon 1 mg solution for 1 mg subcut Q15M PRN Hypoglycemia 12/11/22 01/12/24 injection (GlucaGen HypoKit) sodium phosphates 19 gram-7 118 ml CA DAILY PRN Constipation 12/11/22 01/12/24 gram/118 mL enema (Fleet Enema) atorvastatin 20 mg tablet 20 mg PO BEDTIME 02/10/23 01/12/24 clozapine 100 mg tablet 100 mg PO QAM 02/10/23 01/12/24 bisacodyl 10 mg rectal suppository 10 mg CA DAILY PRN Constipation 09/19/23 01/12/24 divalproex 250 mg tablet,extended 500 mg PO BEDTIME 09/19/23 01/12/24 release 24 hr sennosides 8.6 mg tablet (senna) 8.6 mg PO DAILY PRN Constipation 09/19/23 01/12/24 levothyroxine 112 mcg tablet 112 mcg PO QAM 01/12/24 01/12/24 Allergies Allergy/AdvReac Type Severity Reaction Status Date / Time NSAIDS (Non-Steroidal AdvReac Avoid-r/t Verified 09/19/23 07:11 Anti-Inflamma CKD Review of Systems Review of Systems: ROS unable to be obtained due to altered mental status [facility] Past Medical History Source: old records reviewed Medical History Resides in residential facility Constipation GERD (gastroesophageal reflux disease) Cardiomegaly Extrapyramidal and movement disorder Eating disorder Chronic kidney disease Glaucoma Schizophrenia Anemia Hyperlipemia Hypothyroid Seizures Diabetes Dementia Surgical History Hx of colonoscopy Surgical history unknown Social History Social History Household Members: Unknown / Unable to assess Unable to assess alcohol history related to: Unknown Alcohol intake: unknown Patient Tobacco Use Status: Tobacco use Unknown Advance Directives: Yes Advance Directives on File: Yes Advance Directives Date on File: 04/30/21 service: No Physical Exam Vital Signs: Vital Signs: Last Vital Signs Temp 100.6 F H 01/12/24 14:53 Pulse 90 01/12/24 14:53 Resp 14 01/12/24 14:53 BP 134/83 01/12/24 14:53 Pulse Ox 99 01/12/24 14:53 O2 Del Method Nasal Cannula 01/12/24 14:53 O2 Flow Rate 4 01/12/24 14:53 BMI result Body Mass Index 0.0 Appearance: Somnolent squeezes hands, pulled off NRB from EMS, scratches nose on his own, withdraws from pain. Mild acute distress. Eyes: Pupils equal, round and reactive to light. ENT: Pharynx dry MM Neck: Normal inspection. Neck supple. CVS: tachycardic heart rate and rhythm. Pulses normal. Respiratory:Mild resp distress - retractions. He has coarse lung sounds throughout with very productive cough - deep suction by RT - 97% on 5L NC Abdomen: Soft and non-tender. Skin: Skin warm and dry. Normal skin color. Normal skin turgor. Extremities: No lower extremity edema. Neuro: not able to full participate but the patient is withdrawing from pain, uses both hands to scratch his nose, moans Medications Administered Discontinued Medications Generic Name Dose Route Start Last Admin Trade Name Freq PRN Reason Stop Dose Admin Acetaminophen 650 mg 01/12/24 10:38 01/12/24 11:43 Acetaminophen Supp 650 Mg Supp.Rect CA 01/12/24 10:39 650 mg ONCE ONE Administration Albuterol Sulfate 2.5 mg/ 0 mg 01/12/24 09:40 01/12/24 09:42 Albuterol/Ipratropium 3 ml INHALE 01/12/24 09:41 1 dose ONCE ONE Administration Dexamethasone Sodium Phosphate 6 mg 01/12/24 09:22 01/12/24 09:53 Dexamethasone Sod Phosphate 4 Mg/Ml Vial IVPUSH 01/12/24 09:23 6 mg ONCE ONE Administration Ceftriaxone Sodium 1 gm/ 50 mls @ 100 mls/hr 01/12/24 09:22 01/12/24 10:23 Sodium Chloride IV 01/12/24 09:51 Infused ONCE ONE Infusion Sodium Chloride 500 mls @ 500 mls/hr 01/12/24 09:45 01/12/24 10:23 Ns IV 01/12/24 10:44 Infused .Q1H OLLIE Infusion Sodium Chloride 1,000 mls @ 100 mls/hr 01/12/24 10:15 01/12/24 13:04 Ns IVCONT 100 mls/hr .Q10H OLLIE Administration Medical Decision Making Medical Decision Making [facility] Narrative: 63 yo male with PMH of klebsiella UTI, CKD, seizures, HTN, DM2, cardiomyopathy here with c/o COVID since now with encephalopathy coarse productive cough and was 80% on RA - we did deep suction and he is now 97% on 5L NC. He has hx of same in past with infections and needing admission - labs, CT head for ICH, cultures, empiric ceftriaxone, given hypoxia IV dexamethasone ordered, CXR for pneumonia, Planned admit Differential Diagnosis Differential Diagnoses: The differential diagnosis associated with the presentation includes COVID encephalopathy, UTI, pneumonia Admission/Observation Consideration of admission/observation: Escalation of care including admission/observation considered admit given encephalopathy and new O2 needs Consult Healthcare Provider Management of the patient was discussed with: Hospitalist Lab Data [facility] Lab Attestation statement: I reviewed the patient's lab results. 01/12/24 09:35 01/12/24 09:35 Labs: Lab Results 01/12/24 01/12/24 01/12/24 Range/Units 09:35 09:40 10:39 WBC 8.8 (4.8-10.8) X10*3/uL RBC 6.37 H (4.60-5.80) X10*6/uL Hgb 14.7 (14.0-18.0) g/dl Hct 51.0 (42.0-52.0) % MCV 80.1 (80.0-98.0) fL MCH 23.1 L (27.0-33.0) pg MCHC 28.8 L (31.0-36.0) g/dl RDW 14.6 (11.0-16.0) % Plt Count 100 L (160-400) X10*3/uL MPV 11.4 (9.4-12.4) fL Immature Gran % (Auto) 0.2 (0.0-0.4) % Neut % (Auto) 72.3 (45-73) % Lymph % (Auto) 13.6 L (20-40) % [place] % (Auto) 13.0 H (2-11) % Eos % (Auto) 0.7 (0-4) % Baso % (Auto) 0.2 (0-2) % Lymph # (Auto) 1.2 (1.2-4.9) X10*3/uL [place] # (Auto) 1.2 (0.1-1.2) X10*3/uL Eos # (Auto) 0.1 (0.0-0.4) X10*3/uL Baso # (Auto) 0.0 (0.0-0.2) X10*3/uL Abs Immat Gran (auto) 0.02 (0.00-0.03) X10*3/uL Absolute Neuts (auto) 6.4 (2.0-8.3) x10*3/uL Absolute Nucleated RBC 0.000 (0.0-0.012) X10*3/uL Nucleated RBC % (auto) 0.0 (0.0-0.2) /100WBC PT 12.9 (11.1-13.3) SEC INR 1.1 (0.9-1.1) VBG pH 7.33 (7.32-7.43) VBG pCO2 50 mmHg VBG pO2 37 mmHg VBG HCO3 27 H (22-26) mmol/L VBG O2 Saturation 53.0 % VBG Base Excess 0.4 mmol/L Sodium 152 H (135-145) mmol/L Potassium 4.7 (3.3-5.1) mmol/L Chloride 116 H (96-108) mmol/L Carbon Dioxide 29 (22-29) mmol/L Anion Gap 12 (12-20) BUN 57 H (9-16) mg/dL Creatinine 2.30 H (0.5-1.4) mg/dL Estim Creat Clear Calc TNP Estimated GFR 29 Random Glucose 162 H (60-115) mg/dL Lactic Acid 1.6 (0.5-2.0) mmol/L Calcium 9.4 (8.4-10.2) mg/dL Magnesium 2.7 H (1.6-2.6) mg/dL Total Bilirubin 0.4 (0.0-1.0) mg/dL Direct Bilirubin 0.2 (0.0-0.5) mg/dL AST 19 (5-37) U/L ALT 12 (0-40) U/L Alkaline Phosphatase 55 (39-117) U/L Total Creatine Kinase 539 H (38-174) U/L Troponin I High Sens 8.1 D (<3.5-35.0) ng/L B-Natriuretic Peptide < 10 (<100) pg/mL Total Protein 7.7 (6.5-8.0) g/dL Albumin 3.6 (3.5-5.0) g/dL Lipase 22 (8-78) U/L Procalcitonin 0.53 ng/mL TSH 0.22 L (0.32-4.0) uIU/mL Urine Color Yellow Urine Appearance Clear Urine pH 5.5 (5.0-9.0) Ur Specific [place] 1.020 (1.005-1.025) Urine Protein Trace (Neg-Trace) mg/dL Urine Glucose (UA) >=1000 H (Negative) mg/dL Urine Ketones Negative (Negative) mg/dL Urine Blood Negative (Negative) Urine Nitrite Negative (Negative) Ur Leukocyte Esterase Negative (Negative) Urine RBC 0-2 (0-2) /HPF Urine WBC 0-5 (0-5) /HPF Ur Squamous Epith Cells 0-2 (0-2) /HPF Urine Bacteria None Seen (None Seen) Hyaline Casts 0-2 (0-2) /LPF Valproic Acid 53.0 (50.0-100.0) mcg/mL [place] 0.98 (0.60-1.20) mmol/L COVID-19 (DAVIDSON) (Negative) COVID-19 Clin Com 01/12/24 Range/Units 10:40 WBC (4.8-10.8) X10*3/uL RBC (4.60-5.80) X10*6/uL Hgb (14.0-18.0) g/dl Hct (42.0-52.0) % MCV (80.0-98.0) fL MCH (27.0-33.0) pg MCHC (31.0-36.0) g/dl RDW (11.0-16.0) % Plt Count (160-400) X10*3/uL MPV (9.4-12.4) fL Immature Gran % (Auto) (0.0-0.4) % Neut % (Auto) (45-73) % Lymph % (Auto) (20-40) % [place] % (Auto) (2-11) % Eos % (Auto) (0-4) % Baso % (Auto) (0-2) % Lymph # (Auto) (1.2-4.9) X10*3/uL [place] # (Auto) (0.1-1.2) X10*3/uL Eos # (Auto) (0.0-0.4) X10*3/uL Baso # (Auto) (0.0-0.2) X10*3/uL Abs Immat Gran (auto) (0.00-0.03) X10*3/uL Absolute Neuts (auto) (2.0-8.3) x10*3/uL Absolute Nucleated RBC (0.0-0.012) X10*3/uL Nucleated RBC % (auto) (0.0-0.2) /100WBC PT (11.1-13.3) SEC INR (0.9-1.1) VBG pH (7.32-7.43) VBG pCO2 mmHg VBG pO2 mmHg VBG HCO3 (22-26) mmol/L VBG O2 Saturation % VBG Base Excess mmol/L Sodium (135-145) mmol/L Potassium (3.3-5.1) mmol/L Chloride (96-108) mmol/L Carbon Dioxide (22-29) mmol/L Anion Gap (12-20) BUN (9-16) mg/dL Creatinine (0.5-1.4) mg/dL Estim Creat Clear Calc Estimated GFR Random Glucose (60-115) mg/dL Lactic Acid (0.5-2.0) mmol/L Calcium (8.4-10.2) mg/dL Magnesium (1.6-2.6) mg/dL Total Bilirubin (0.0-1.0) mg/dL Direct Bilirubin (0.0-0.5) mg/dL AST (5-37) U/L ALT (0-40) U/L Alkaline Phosphatase (39-117) U/L Total Creatine Kinase (38-174) U/L Troponin I High Sens (<3.5-35.0) ng/L B-Natriuretic Peptide (<100) pg/mL Total Protein (6.5-8.0) g/dL Albumin (3.5-5.0) g/dL Lipase (8-78) U/L Procalcitonin ng/mL TSH (0.32-4.0) uIU/mL Urine Color Urine Appearance Urine pH (5.0-9.0) Ur Specific [place] (1.005-1.025) Urine Protein (Neg-Trace) mg/dL Urine Glucose (UA) (Negative) mg/dL Urine Ketones (Negative) mg/dL Urine Blood (Negative) Urine Nitrite (Negative) Ur Leukocyte Esterase (Negative) Urine RBC (0-2) /HPF Urine WBC (0-5) /HPF Ur Squamous Epith Cells (0-2) /HPF Urine Bacteria (None Seen) Hyaline Casts (0-2) /LPF Valproic Acid (50.0-100.0) mcg/mL [place] (0.60-1.20) mmol/L COVID-19 (DAVIDSON) Positive A (Negative) COVID-19 Clin Com See Note Independent Interpretation I performed an independent interpretation of an: EKG, Plain X-Ray (no pneumonia) and CT Scan (no ICH) Interpretation: Rate: 106 Rhythm: sinus tach [place]: normal Normal P waves. Normal TIFFANIE. Normal QRS complex. ST T wave : inverted t waves V3-V6, no HAILEY qTC: 417 prior studies: no change from priors The study has been interpreted contemporaneously by me. . Radiology Impression Discussion of test interpretation with radiology: I have reviewed the radiologist's reading. Independent Historian Clinical information obtained from an independent historian. History obtained from or confirmed by: EMS External Record Review External record reviewed: Inpatient record Critical Care Time Critical Care Time Critical Care Time: Yes Total Critical Care Time: 45 Attestation: sepsis protocol, hypoxia treatment, review of records I attest to this time spent taking care of the patient Discharge Plan Discharge Clinical Impression: COVID-19, Hypoxia, 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, Acute kidney injury superimposed on chronic kidney disease, Acute hypernatremia Patient Disposition: Admitted As Inpatient
[2024-01-12 09:47] LABS: VBG Base Excess 0.4 mmol/L; VBG HCO3 27 mmol/L (22-26); VBG pCO2 50 mmHg; VBG pH 7.33 (7.32-7.43); VBG pO2 37 mmHg
[2024-01-12 09:47] LABS: Venous Blood Gas Refer to POC result
[2024-01-12 09:47] LABS: Basophils Percent Auto 0.2 % (0-2); Eosinophils Absolute Auto 0.1 X10*3/uL (0.0-0.4); Eosinophils Percent Auto 0.7 % (0-4); Hemoglobin 14.7 g/dl (14.0-18.0); Imm Gran Abs Auto 0.02 X10*3/uL (0.00-0.03); Imm Gran Pct Auto 0.2 % (0.0-0.4); Lymphocytes Absolute Auto 1.2 X10*3/uL (1.2-4.9); Lymphocytes Percent Auto 13.6 % (20-40); Mean Corpuscular HGB Conc 28.8 g/dl (31.0-36.0); Mean Corpuscular Hemoglobin 23.1 pg (27.0-33.0); Mean Corpuscular Volume 80.1 fL (80.0-98.0); Mean Platelet Volume 11.4 fL (9.4-12.4); Monocytes Absolute Auto 1.2 X10*3/uL (0.1-1.2); Neutrophils Absolute Auto 6.4 x10*3/uL (2.0-8.3); Neutrophils Percent Auto 72.3 % (45-73); Platelet Count 100 X10*3/uL (160-400); Red Blood Count 6.37 X10*6/uL (4.60-5.80); Red Cell Distribution Width 14.6 % (11.0-16.0); White Blood Count 8.8 X10*3/uL (4.8-10.8)
[2024-01-12 09:48] LABS: INTERNATIONAL NORM RATIO 1.1 (0.9-1.1); Prothrombin Time 12.9 SEC (11.1-13.3)
[2024-01-12 09:51] LABS: Lithium 0.98 mmol/L (0.60-1.20)
[2024-01-12] MEDS: cefTRIAXone sodium 1 GM in 0.9 % Sodium Chloride 50 ML IV (09:53)
[2024-01-12] MEDS: dexAMETHasone sod phosphate 4 MG/ML VIAL 6 MG IVPUSH (09:53)
[2024-01-12] MEDS: 0.9 % Sodium Chloride 500 ML IV (09:53)
[2024-01-12 09:54] LABS: Lactic Acid 1.6 mmol/L (0.5-2.0)
[2024-01-12 10:03] LABS: B Type Natriuretic Peptide < 10 pg/mL (<100)
[2024-01-12 10:05] LABS: Alanine Aminotransferase 12 U/L (0-40); Albumin Level 3.6 g/dL (3.5-5.0); Alkaline Phosphatase 55 U/L (39-117); Anion Gap 12 (12-20); Aspartate Amino Transferase 19 U/L (5-37); Bilirubin Direct 0.2 mg/dL (0.0-0.5); Bilirubin Total 0.4 mg/dL (0.0-1.0); Blood Urea Nitrogen 57 mg/dL (9-16); Calcium 9.4 mg/dL (8.4-10.2); Carbon Dioxide 29 mmol/L (22-29); Chloride 116 mmol/L (96-108); Estimated Glomerular Filt Rate 29; Glucose Random 162 mg/dL (60-115); Lipase 22 U/L (8-78); Magnesium 2.7 mg/dL (1.6-2.6); Potassium 4.7 mmol/L (3.3-5.1); Sodium 152 mmol/L (135-145); Total Protein 7.7 g/dL (6.5-8.0); Troponin-I High Sensitivity 8.1 ng/L (<3.5-35.0)
[2024-01-12 10:20] LABS: Procalcitonin 0.53 ng/mL; Thyroid Stimulating Hormone 0.22 uIU/mL (0.32-4.0)
--- NOTE | 2024-01-12 10:46 | PC.NURSE ---
MD Singh made aware of rectal temp 101.7 and straight cath total of 700cc urine.
[2024-01-12 10:52] LABS: Appearance Urine Clear; Color Urine Yellow; Glucose Urine UA >=1000 mg/dL (Negative); Leukocyte Esterase Urine Negative (Negative); Nitrite Urine Negative (Negative); PH 5.5 (5.0-9.0); UMIC TRIGGER UACC YES; Urine Blood Negative (Negative); Urine Ketones Negative (Negative); Urine Protein Trace mg/dL (Neg-Trace)
[2024-01-12 10:58] LABS: Bacteria Urine None Seen (None Seen); Hyaline Casts Urine 0-2 /LPF (0-2); RBC Urine 0-2 /HPF (0-2); Squamous Epithelial Cell Urine 0-2 /HPF (0-2); WBC Urine 0-5 /HPF (0-5)
[2024-01-12 11:08] LABS: COVID-19 Test Positive (Negative); IDNOW Serial# 152EDE1D
[2024-01-12] MEDS: Acetaminophen Supp 650 MG SUPP.RECT PR (11:43)
[2024-01-12] MEDS: 0.9 % Sodium Chloride 1,000 ML 100 ML IVCONT (13:04)
--- NOTE | 2024-01-12 13:09 | P.HPHOSP_ITS ---
History of Present Illness Date of Service: 01/12/24 Attending physician on admission: Celestine Beckman Chief Complaint: ams 63 year old male with history of unspecified dementia nonverbal at baseline, schizophrenia, LOLI/movement disorder, hypothyroidism, insulin dependent type 2 diabetes, unspecified seizure, glaucoma, GERD presented to the ED from [facility] earlier today for evaluation of altered mental status, hypoxia. Pt was diagnosed with COVID-19 on . However, this morning found hypoxic in the 80s and transferred to ED for further evaluation. On arrival, pt febriel to 101.5, tachycardic to 106, tachypenic to 22. No hypotension. Weaned from nonrebreather to 4L supplemental O2 via NC. No leukocytosis. Creat 1.30, baseline around 1.6, BUN 57. Na 152, Cl 116. Glucose 162. Lactic acid 1.6. Toal CK 539. Trop 8.1, BNP below detectable limits. PCT 0.53. UA unremarkable. Valproic acid level 53. Ruma 0.98. Covid-19 positive. In the ED, started on IV NS, given 6mg decadron, 1g ctx and albtuerol. Review of Systems 2 Review of Systems: Yes Unobtainable due to mental status [facility] Medical History Resides in correction facility Constipation GERD (gastroesophageal reflux disease) Cardiomegaly Extrapyramidal and movement disorder Eating disorder Chronic kidney disease Glaucoma Schizophrenia Anemia Hyperlipemia Hypothyroid Seizures Diabetes Dementia Surgical History Hx of colonoscopy Surgical history unknown Social History Household Members: Unknown / Unable to assess Unable to assess alcohol history related to: Unknown Alcohol intake: unknown Patient Tobacco Use Status: Tobacco use Unknown Advance Directives: Yes Advance Directives on File: Yes Advance Directives Date on File: 04/30/21 service: No Meds Allergies Allergy/AdvReac Type Severity Reaction Status Date / Time NSAIDS (Non-Steroidal AdvReac Avoid-r/t Verified 09/19/23 07:11 Anti-Inflamma CKD Active Medications: Current Medications Acetaminophen (Acetaminophen Supp 650 Mg Supp.Rect) 650 mg RI Q6H PRN PRN Reason: Pain, Mild, fever Dexamethasone Sodium Phosphate (Dexamethasone Sod Phosphate 4 Mg/Ml Vial) 6 mg IVPUSH DAILY [facility] Guaifenesin (Guaifenesin 200 Mg/10 Ml 10 Ml Liquid) 10 ml PO Q4H PRN PRN Reason: Cough Heparin Sodium (Porcine) (Heparin Sodium,Porcine 5,000 Unit/Ml Vial) 5,000 unit SUBCUT Q12H [facility] Sodium Chloride (Ns) 1,000 mls @ 100 mls/hr IVCONT .Q10H [facility] Last Admin: 01/12/24 13:04 Dose: 100 mls/hr Ondansetron HCl (Ondansetron Hcl 4 Mg/2 Ml Vial) 4 mg IVPUSH Q8H PRN PRN Reason: Nausea and Vomiting Senna (Sennosides 8.6 Mg Tablet) 17.2 mg PO BEDTIME PRN PRN Reason: Constipation Sodium Chloride (0.9 % Sodium Chloride Flush 3 Ml Syringe) 3 ml IVFLUSH QSHIFT [facility] Home Medications Medication Instructions Recorded Confirmed Last Taken Type acetaminophen 325 mg tablet 650 mg PO Q4H PRN Fever Or Pain 04/30/21 09/19/23 Unknown History amlodipine 10 mg tablet 10 mg PO DAILY 04/30/21 09/19/23 02/13/23 07:30 History aspirin 81 mg tablet,delayed 81 mg PO DAILY 04/30/21 09/19/23 02/08/23 History release bisacodyl 5 mg tablet,delayed 5 mg PO .Q3DAYS PRN Constipation 04/30/21 09/19/23 Unknown History release carvedilol 25 mg tablet 25 mg PO BID 04/30/21 09/19/23 02/13/23 07:30 History clozapine 100 mg tablet (Clozaril) 200 mg PO BEDTIME 04/30/21 09/19/23 04/29/21 20:00 History divalproex 500 mg tablet,extended 1,000 mg PO BEDTIME 04/30/21 09/19/23 Unknown History release 24 hr ferrous sulfate 325 mg (65 mg 325 mg PO BID 04/30/21 09/19/23 02/08/23 History iron) tablet hydralazine 100 mg tablet 100 mg PO TID 04/30/21 09/19/23 02/13/23 07:30 History insulin glargine 100 unit/mL (3 8 unit subcut BEDTIME 04/30/21 09/19/23 02/11/23 History mL) subcutaneous pen (Lantus Solostar U-100 Insulin) lactulose 10 gram/15 mL oral 30 ml PO TID 04/30/21 09/19/23 Unknown History solution lithium carbonate 300 mg 300 mg PO BEDTIME 04/30/21 09/19/23 Unknown History tablet,extended release lithium carbonate 450 mg 225 mg PO DAILY@0604/30/21 09/19/23 02/13/23 07:30 History tablet,extended release pregabalin 200 mg capsule (Lyrica) 300 mg PO BID 04/30/21 09/19/23 02/13/23 07:30 History sennosides 8.6 mg-docusate sodium 1 tab PO BID 04/30/21 09/19/23 Unknown History 50 mg tablet (Senna Plus) trazodone 50 mg tablet 50 mg PO BEDTIME 04/30/21 09/19/23 Unknown History dapagliflozin propanediol 10 mg 10 mg PO QAM 12/11/22 09/19/23 Unknown History tablet (Farxiga) glucagon 1 mg solution for 1 mg subcut Q15M PRN Hypoglycemia 12/11/22 09/19/23 Unknown History injection (GlucaGen HypoKit) sodium phosphates 19 gram-7 118 ml RI DAILY PRN Constipation 12/11/22 09/19/23 Unknown History gram/118 mL enema (Fleet Enema) atorvastatin 20 mg tablet 20 mg PO BEDTIME 02/10/23 09/19/23 Unknown History clozapine 100 mg tablet 100 mg PO QAM 02/10/23 09/19/23 02/13/23 07:30 History bisacodyl 10 mg rectal suppository 10 mg RI DAILY PRN Constipation 09/19/23 09/19/23 Unknown History divalproex 250 mg tablet,extended 250 mg PO BEDTIME 09/19/23 09/19/23 Unknown History release 24 hr levothyroxine 100 mcg tablet 100 mcg PO DAILY@0630 09/19/23 09/19/23 Unknown History sennosides 8.6 mg tablet (senna) 8.6 mg PO DAILY PRN Constipation 09/19/23 09/19/23 Unknown History Physical Exam 2 Vital Signs and Narrative: Vital Signs: Last Vital Signs Temp 101.7 F H 01/12/24 10:24 Pulse 94 01/12/24 12:30 Resp 20 01/12/24 12:30 BP 140/87 H 01/12/24 12:30 Pulse Ox 100 01/12/24 12:30 O2 Del Method Nasal Cannula 01/12/24 12:30 O2 Flow Rate 2 01/12/24 12:30 BMI result Body Mass Index 0.0 Constitutional - Awake and weak appearing No apparent distress Eyes - PERRLA, EOMI Cardiovascular - S1S2, RRR, No edema Respiratory - Normal lung expansion, Normal respiratory effort, No respiratory distress, expiratory wheezing Gastrointestinal - NT / ND; +BS; No rebound or guarding Extremities - no calf tenderness bilaterally, no swelling Skin - Warm/Dry Neurological - Awake & disoriented, nonverbal Psychological - Appropriate affect Results Labs 01/12/24 09:35 01/12/24 09:35 Labs: Laboratory Results - last 24 hr 01/12/24 01/12/24 01/12/24 09:35 09:40 10:39 MCV 80.1 MCH 23.1 L MCHC 28.8 L RDW 14.6 Plt Count 100 L MPV 11.4 Immature Gran % (Auto) 0.2 Neut % (Auto) 72.3 Lymph % (Auto) 13.6 L [place] % (Auto) 13.0 H Eos % (Auto) 0.7 Baso % (Auto) 0.2 Lymph # (Auto) 1.2 [place] # (Auto) 1.2 Eos # (Auto) 0.1 Baso # (Auto) 0.0 Abs Immat Gran (auto) 0.02 Absolute Neuts (auto) 6.4 Absolute Nucleated RBC 0.000 Nucleated RBC % (auto) 0.0 PT 12.9 INR 1.1 VBG pH 7.33 VBG pCO2 50 VBG pO2 37 VBG HCO3 27 H VBG O2 Saturation 53.0 VBG Base Excess 0.4 Anion Gap 12 Estim Creat Clear Calc TNP Estimated GFR 29 Random Glucose 162 H Lactic Acid 1.6 Calcium 9.4 Magnesium 2.7 H Total Bilirubin 0.4 Direct Bilirubin 0.2 AST 19 ALT 12 Alkaline Phosphatase 55 Total Creatine Kinase 539 H Troponin I High Sens 8.1 D B-Natriuretic Peptide < 10 Total Protein 7.7 Albumin 3.6 Lipase 22 Procalcitonin 0.53 TSH 0.22 L Urine Color Yellow Urine Appearance Clear Urine pH 5.5 Ur Specific [place] 1.020 Urine Protein Trace Urine Glucose (UA) >=1000 H Urine Ketones Negative Urine Blood Negative Urine Nitrite Negative Ur Leukocyte Esterase Negative Urine RBC 0-2 Urine WBC 0-5 Ur Squamous Epith Cells 0-2 Urine Bacteria None Seen Hyaline Casts 0-2 Valproic Acid 53.0 Ruma 0.98 COVID-19 (DAVIDSON) COVID-19 Clin Com 01/12/24 10:40 MCV MCH MCHC RDW Plt Count MPV Immature Gran % (Auto) Neut % (Auto) Lymph % (Auto) [place] % (Auto) Eos % (Auto) Baso % (Auto) Lymph # (Auto) [place] # (Auto) Eos # (Auto) Baso # (Auto) Abs Immat Gran (auto) Absolute Neuts (auto) Absolute Nucleated RBC Nucleated RBC % (auto) PT INR VBG pH VBG pCO2 VBG pO2 VBG HCO3 VBG O2 Saturation VBG Base Excess Anion Gap Estim Creat Clear Calc Estimated GFR Random Glucose Lactic Acid Calcium Magnesium Total Bilirubin Direct Bilirubin AST ALT Alkaline Phosphatase Total Creatine Kinase Troponin I High Sens B-Natriuretic Peptide Total Protein Albumin Lipase Procalcitonin TSH Urine Color Urine Appearance Urine pH Ur Specific [place] Urine Protein Urine Glucose (UA) Urine Ketones Urine Blood Urine Nitrite Ur Leukocyte Esterase Urine RBC Urine WBC Ur Squamous Epith Cells Urine Bacteria Hyaline Casts Valproic Acid Ruma COVID-19 (DAVIDSON) Positive A COVID-19 Clin Com See Note Imaging Radiologist's Impressions: Impressions Chest X-Ray 01/12/24 09:25 IMPRESSION: No acute abnormality. Head CT 01/12/24 11:46 IMPRESSION: No acute intracranial pathology. Assessment and Plan (1) Acute hypernatremia: Status: Acute (2) Acute kidney injury superimposed on chronic kidney disease: Status: Acute (3) Hypoxia: Status: Acute (4) COVID-19: Status: Acute Plan 63 year old male with history of unspecified dementia nonverbal at baseline, schizophrenia, LOLI/movement disorder, hypothyroidism, insulin dependent type 2 diabetes, unspecified seizure, glaucoma, GERD presented to the ED from [facility] earlier today for evaluation of altered mental status, hypoxia. Pt will be admitted for management of COVID-19 with hypoxia, initially diagnosed . #COVID-19 with acute hypoxemic respiratory failure and viral sepsis -initial dx -febrile to 101.5, tachycardic, tachypneic. DAKOTAH due to hypovolemia not severe sepsis. No severe sepsis/shock -Initiate IV remdesivir (initiated 01/11) -6 mg IV decadron (initiated 01/11) -symptomatic management -Airborne contact precautions #Acute kidney injury- likely prerenal r/t poor PO intake -creat 2.3, baseline 1.6. BUN 57 -Continue IVF -avoid nephrotoxins -follow renal function/lytes #Acute hyperosmolar hypernatremia- due to hypovolemia -initiate hypotonic fluids -follow lytes #Unspecified dementia -discussed with Dr. Beckman, mentation appears baseline, no acute encephalopathy of admission #Insulin dependent type 2 diabetes without hyperglycemia -diabetic diet, poc glucose -dose adjusted basal insulin, humalog on ss #HTN hold oral meds for now #Unspecified seizure disorder -valproic acid level therapeutic -continue home meds #Hypothyroidism -continue synthroid #Unspecified Cardiomyopathy -continue home meds #schizophrenia/mood disorder -continue home meds Full Code DVT pptx, subcut. heparin [phone] Patient requires inpt stay for at least 2 midnights for management of COVID-19 with hypoxia and dakotah requiring iv remdesivir, supplemental O2, and IVF with close monitoring of renal function/lytes and vital signs Quality Stroke Does the patient have a stroke diagnosis?: No VTE Prior VTE?: No VTE Risk Level:: Medical - moderate - high VTE Device Contraindication: Treatment Not Indicated VTE Drug Contraindication: N/A - Med Ordered
--- NOTE | 2024-01-12 14:46 | PHA.MEDREC ---
Pharmacy Consult ? Medication Reconciliation Pharmacy has completed the medication reconciliation based on med list from [facility] in [place].
[2024-01-12] MEDS: Remdesivir 200 MG in 0.9 % Sodium Chloride 210 ML 105 MG IV (15:51)
[2024-01-12] MEDS: Heparin Sodium,Porcine 5,000 UNIT/ML VIAL 5000 UNIT SUBCUT (15:54)
--- NOTE | 2024-01-12 16:02 | PC.NURSE ---
Tool over care at 3pm from danny Moffett placed, pt had complete bed change, medicated per mar, new Iv placed. Pt placed on monitor.
--- NOTE | 2024-01-12 16:08 | PC.NURSE ---
pt full assist, unable to communicate, pt does not appear to be in any pain, no moaning or groaning, Ice pack placed in groin to decrease naveen temp, repositioned for comfort.
[2024-01-12 17:59] LABS: Glucose, Whole Blood 158 mg/dL (60-115)
[2024-01-12] MEDS: Insulin Lispro 100 UNIT/ML 3 ML VIAL SUBCUT ×2 (18:08→21:02)
[2024-01-12] MEDS: Dextrose 5 % 1,000 ML 150 ML IVCONT (18:09)
[2024-01-12 20:53] LABS: Glucose, Whole Blood 200 mg/dL (60-115)
[2024-01-12] MEDS: Ferrous Sulfate 324 MG TABLET.DR PO (21:00)
[2024-01-12] MEDS: Divalproex Sodium ER 500 MG TAB.ER.24H PO (21:00)
[2024-01-12] MEDS: hydrALAZINE HCl 50 MG TABLET 100 MG PO (21:00)
[2024-01-12] MEDS: Lactulose 20 GM/30 ML SOLUTION PO (21:01)
[2024-01-12] MEDS: Lithium Carbonate ER 300 MG TABLET.ER PO (21:01)
[2024-01-12] MEDS: traZODone HCL 50 MG TABLET PO (21:01)
[2024-01-12] MEDS: Sennosides/Docusate Sodium TABLET 1 TAB PO (21:01)
[2024-01-12] MEDS: carvediloL 25 MG TABLET PO (21:01)
[2024-01-12] MEDS: Atorvastatin Calcium 20 MG TABLET PO (21:01)
[2024-01-12] MEDS: Insulin Glargine,Hum.rec.anlog 100 UNIT/ML 10 ML VIAL 6 UNIT SUBCUT (21:01)
[2024-01-12] MEDS: Pregabalin 150 MG CAPSULE 300 MG PO (21:08)
--- NOTE | 2024-01-12 23:28 | PC.NURSE ---
Admit for management of Covid ( remdisivir) , hypoxia, supp 02, monitor renal function. ( DAKOTAH possible from poor PO intake). Came from [facility] with hypoxia ( sating 80s on RA upon arrival- on 4L 02) , AMS . Pt had temp 99.2 now afebrile. PMH- dementia, schizophrenia, DM2, seizures. 22 2 AC
[2024-01-13] VITALS (17 sets, daily range): BP systolic 114–166; BP diastolic 71–97; PULSE 62–78; RESP 10–18; TEMP 36.3–37.4; O2SAT 81–100
[2024-01-13] MEDS: Heparin Sodium,Porcine 5,000 UNIT/ML VIAL 5000 UNIT SUBCUT ×3 (01:07→23:12)
[2024-01-13] MEDS: Dextrose 5 % 1,000 ML 150 ML IVCONT ×2 (03:56→11:59)
[2024-01-13] MEDS: Lithium Carbonate ER 450 MG TABLET.ER 225 MG PO (05:51)
[2024-01-13] MEDS: Levothyroxine Sodium 112 MCG TABLET PO (05:51)
[2024-01-13 06:35] LABS: Hematocrit 48.6 % (42.0-52.0); Hemoglobin 14.1 g/dl (14.0-18.0); Mean Corpuscular Hemoglobin 23.3 pg (27.0-33.0); Mean Corpuscular Volume 80.3 fL (80.0-98.0); Red Blood Count 6.05 X10*6/uL (4.60-5.80); White Blood Count 6.6 X10*3/uL (4.8-10.8)
[2024-01-13 06:36] LABS: Platelet Count 91 X10*3/uL (160-400)
[2024-01-13 06:45] LABS: Anion Gap 11 (12-20); Blood Urea Nitrogen 57 mg/dL (9-16); Calcium 9.5 mg/dL (8.4-10.2); Carbon Dioxide 27 mmol/L (22-29); Chloride 117 mmol/L (96-108); Estimated Glomerular Filt Rate 36; Glucose Random 169 mg/dL (60-115); Sodium 150 mmol/L (135-145)
[2024-01-13 07:41] LABS: Glucose, Whole Blood 161 mg/dL (60-115)
[2024-01-13] MEDS: Lactulose 20 GM/30 ML SOLUTION PO ×3 (08:50→22:46)
[2024-01-13] MEDS: hydrALAZINE HCl 50 MG TABLET 100 MG PO ×3 (08:51→22:47)
[2024-01-13] MEDS: Sennosides/Docusate Sodium TABLET 1 TAB PO ×2 (08:52→22:46)
[2024-01-13] MEDS: Ferrous Sulfate 324 MG TABLET.DR PO ×2 (08:52→22:47)
[2024-01-13] MEDS: amLODIPine Besylate 10 MG TABLET PO (08:52)
[2024-01-13] MEDS: Aspirin Enteric Coated 81 MG TABLET.DR PO (08:52)
[2024-01-13] MEDS: carvediloL 25 MG TABLET PO ×2 (08:53→22:47)
[2024-01-13] MEDS: Pregabalin 150 MG CAPSULE 300 MG PO ×2 (08:53→22:46)
[2024-01-13] MEDS: Empagliflozin 10 MG TABLET PO (08:53)
[2024-01-13] MEDS: dexAMETHasone sod phosphate 4 MG/ML VIAL 6 MG IVPUSH (08:53)
[2024-01-13] MEDS: cloZAPine 100 MG TABLET PO (08:53)
--- NOTE | 2024-01-13 09:03 | PC.NURSE ---
Assumed care of patient at 0700, patient found to be without his o2 cannula on, IV removed. patient placed back on oxygen cannula, 20# IV placed in the right AC, patient has D5W running at 150ml/hr. patient medicated per JAN, takes meds whole with water, patient insulin held due to patient not wanting to eat breakfast. patient awake and alert, minimally verbal, able to ask for water. respirations equal and unlabored, currently on 4l nc, patient skin dry and intact, delgado in place. patient repositioned in bed
--- NOTE | 2024-01-13 10:12 | MHC.CM.PN ---
CM spoke with Guardian/Kira at listed # to be sure that Kira is aware of Patient's admission.Patient is a LTC Resident of [facility] and a [facility] bed hold. Returning to LTC is the goal and CM has initiated and will follow for dc planning.
--- NOTE | 2024-01-13 10:19 | PC.NURSE ---
patient placed in soft restraints, order obtained by inpatient provider due to patient ripping IVS out, taking oxygen off.
--- NOTE | 2024-01-13 12:03 | PC.NURSE ---
1000ml yellow clear urine emptied from delgado
[2024-01-13 13:20] LABS: Anion Gap 10 (12-20); Blood Urea Nitrogen 59 mg/dL (9-16); Carbon Dioxide 25 mmol/L (22-29); Chloride 114 mmol/L (96-108); Estimated Glomerular Filt Rate 38; Glucose Random 217 mg/dL (60-115); Potassium 4.6 mmol/L (3.3-5.1); Sodium 144 mmol/L (135-145)
[2024-01-13] MEDS: Remdesivir 100 MG in 0.9 % Sodium Chloride 230 ML 115 MG IV (14:10)
[2024-01-13 15:47] LABS: Glucose, Whole Blood 219 mg/dL (60-115)
[2024-01-13] MEDS: vancomycin HCL 1,000 MG, vancomycin HCL 750 MG in 0.9 % Sodium Chloride 500 ML 267.5 MG IV (16:53)
--- NOTE | 2024-01-13 16:56 | PM.EVENT ---
Event Note Date of Service: 01/15/24 Event Note: Chart reviewed Full consult to follow Time Spent With Patient Time: Total time managing care of this patient today ____ minutes.
--- NOTE | 2024-01-13 18:18 | P.PNIM_ITS ---
Subjective Subjective Date of Service: 01/14/24 Interval History: Nonverbal, hyponatremia,? Bacteremia Review of Systems Patient ask for water mostly and does not answer many questions no fevers Physical Exam 2 Vital Signs: Vital Signs: Last Vital Signs Temp 97.7 F 01/13/24 16:55 Pulse 65 01/13/24 16:55 Resp 10 L 01/13/24 16:55 BP 114/75 01/13/24 16:55 Pulse Ox 97 01/13/24 16:55 O2 Del Method Nasal Cannula 01/13/24 16:55 O2 Flow Rate 4 01/13/24 16:55 BMI result Body Mass Index 0.0 Appearance: awake , nonverbal. cvs: rrr, [id number] . res: air entry fair ,has few scattered cracles at bases. abd: no rebound or guarding ,nt, bs present. ext pulses present , no cyanosis . neuro: axo3 , nonfocal. Objective Data Active Medications Acetaminophen (Acetaminophen Supp 650 Mg Supp.Rect) 650 mg WA Q6H PRN PRN Reason: Pain, Mild, fever Amlodipine Besylate (Amlodipine Besylate 10 Mg Tablet) 10 mg PO DAILY [facility]; Protocol Last Admin: 01/13/24 08:52 Dose: 10 mg Documented By: JANENE Aspirin (Aspirin Enteric Coated 81 Mg Tablet.) 81 mg PO DAILY [facility] Last Admin: 01/13/24 08:52 Dose: 81 mg Documented By: JANENE Atorvastatin Calcium (Atorvastatin Calcium 20 Mg Tablet) 20 mg PO BEDTIME [facility] Last Admin: 01/12/24 21:01 Dose: 20 mg Documented By: QING Bisacodyl (Bisacodyl 5 Mg Tablet.) 5 mg PO Q72H PRN PRN Reason: Constipation Bisacodyl (Bisacodyl 10 Mg Supp.Rect) 10 mg WA DAILY PRN PRN Reason: Constipation Carvedilol (Carvedilol 25 Mg Tablet) 25 mg PO BID [facility]; Protocol Last Admin: 01/13/24 08:53 Dose: 25 mg Documented By: JANENE Clozapine (Clozapine 100 Mg Tablet) 100 mg PO DAILY [facility] Last Admin: 01/13/24 08:53 Dose: 100 mg Documented By: JANENE Clozapine (Clozapine 100 Mg Tablet) 200 mg PO BEDTIME [facility] Dexamethasone Sodium Phosphate (Dexamethasone Sod Phosphate 4 Mg/Ml Vial) 6 mg IVPUSH DAILY [facility] Last Admin: 01/13/24 08:53 Dose: 6 mg Documented By: JANENE Dextrose (Dextrose 50 % 25 Gm/50 Ml Syringe) 25 gm IVPUSH Q15M PRN; Protocol PRN Reason: per Hypoglycemia Standing Ord. Divalproex Sodium (Divalproex Sodium Er 500 Mg Tab.Er.24h) 500 mg PO BEDTIME [facility] Last Admin: 01/12/24 21:00 Dose: 500 mg Documented By: QING Empagliflozin (Empagliflozin 10 Mg Tablet) 10 mg PO DAILY [facility] Last Admin: 01/13/24 08:53 Dose: 10 mg Documented By: JANENE Ferrous Sulfate (Ferrous Sulfate 324 Mg Tablet.Dr) 324 mg PO BID [facility] Last Admin: 01/13/24 08:52 Dose: 324 mg Documented By: JANENE Glucose (Glucose Gel 15 Gm Gel..Gram.) 15 gm PO Q15M PRN; Protocol PRN Reason: per Hypoglycemia Standing Ord. Guaifenesin (Guaifenesin 200 Mg/10 Ml 10 Ml Liquid) 10 ml PO Q4H PRN PRN Reason: Cough Heparin Sodium (Porcine) (Heparin Sodium,Porcine 5,000 Unit/Ml Vial) 5,000 unit SUBCUT Q12H [facility] Last Admin: 01/13/24 15:34 Dose: 5,000 unit Documented By: JANENE Hydralazine HCl (Hydralazine Hcl 50 Mg Tablet) 100 mg PO TID [facility]; Protocol Last Admin: 01/13/24 15:33 Dose: 100 mg Documented By: JANENE Remdesivir 100 mg/ Sodium (Chloride) 230 mls @ 115 mls/hr IV Q24H [facility] Stop: 01/16/24 15:59 Last Infusion: 01/13/24 16:20 Dose: Infused Documented By: JANENE Vancomycin HCl 1,000 mg/ (Sodium Chloride) 270 mls @ 270 mls/hr IV Q24H [facility] Insulin Glargine (Insulin Glargine,Hum.Rec.Anlog 100 Unit/Ml 10 Ml Vial) 6 unit SUBCUT BEDTIME [facility] Last Admin: 01/12/24 21:01 Dose: 6 unit Documented By: QING Insulin Human Lispro (Insulin Lispro 100 Unit/Ml 3 Ml Vial) 0 unit SUBCUT QIDACHS [facility]; Protocol Lactulose (Lactulose 20 Gm/30 Ml Solution) 20 gm PO TID [facility] Last Admin: 01/13/24 15:33 Dose: 20 gm Documented By: JANENE Levothyroxine Sodium (Levothyroxine Sodium 112 Mcg Tablet) 112 mcg PO DAILY@0600 [facility] Last Admin: 01/13/24 05:51 Dose: 112 mcg Documented By: QING [place] Carbonate ([place] Carbonate Er 300 Mg Tablet.Er) 300 mg PO BEDTIME [facility] Last Admin: 01/12/24 21:01 Dose: 300 mg Documented By: QING [place] Carbonate ([place] Carbonate Er 450 Mg Tablet.Er) 225 mg PO DAILY@0630 [facility] Last Admin: 01/13/24 05:51 Dose: 225 mg Documented By: QING Ondansetron HCl (Ondansetron Hcl 4 Mg/2 Ml Vial) 4 mg IVPUSH Q8H PRN PRN Reason: Nausea and Vomiting Pharmacy Consult (Consult Rx Vancomycin Dosing) 1 each MISCELLANE DAILY PRN PRN Reason: Consult order Pregabalin (Pregabalin 150 Mg Capsule) 300 mg PO BID [facility] Last Admin: 01/13/24 08:53 Dose: 300 mg Documented By: JANENE Senna (Sennosides 8.6 Mg Tablet) 17.2 mg PO BEDTIME PRN PRN Reason: Constipation Senna (Sennosides 8.6 Mg Tablet) 8.6 mg PO DAILY PRN PRN Reason: Constipation Senna/Docusate Sodium (Sennosides/Docusate Sodium Tablet) 1 tab PO BID [facility] Last Admin: 01/13/24 08:52 Dose: 1 tab Documented By: JANENE Sodium Biphosphate/Sodium Phosphate (Sodium Phosphate,[place]-Dibasic 133 Ml Enema) 118 ml WA DAILY PRN PRN Reason: Constipation Sodium Chloride (0.9 % Sodium Chloride Flush 3 Ml Syringe) 3 ml IVFLUSH QSHIFT [facility] Last Admin: 01/13/24 16:03 Dose: Not Given Documented By: JANENE Non-Admin Reason: IV Running Trazodone HCl (Trazodone Hcl 50 Mg Tablet) 50 mg PO BEDTIME [facility] Last Admin: 01/12/24 21:01 Dose: 50 mg Documented By: QING Labs 01/13/24 05:45 01/14/24 05:21 Labs: Laboratory Results - last 24 hr 01/12/24 01/13/24 01/13/24 20:49 05:45 07:37 MCV 80.3 MCH 23.3 L MCHC 29.0 L RDW 15.0 Plt Count 91 L MPV Not Reportable Absolute Nucleated RBC 0.000 Nucleated RBC % (auto) 0.0 Anion Gap 11 L Estim Creat Clear Calc TNP Estimated GFR 36 POC Glucose 200 H 161 H Random Glucose 169 H Calcium 9.5 01/13/24 01/13/24 13:02 14:08 MCV MCH MCHC RDW Plt Count MPV Absolute Nucleated RBC Nucleated RBC % (auto) Anion Gap 10 L Estim Creat Clear Calc TNP Estimated GFR 38 POC Glucose 219 H Random Glucose 217 H Calcium 9.0 Microbiology Microbiology Results: Microbiology 01/12/24 09:52 Blood Culture - Preliminary Blood - Venous No growth after 24 hours. 01/12/24 09:36 Blood Culture - Preliminary Blood - Venous Prelim: GPC Gram Stain only Assessment and Plan (1) Acute hypernatremia: Status: Acute (2) Acute kidney injury superimposed on chronic kidney disease: Status: Acute Plan 63 year old male with history of unspecified dementia nonverbal at baseline, schizophrenia, LOLI/movement disorder, hypothyroidism, insulin dependent type 2 diabetes, unspecified seizure, glaucoma, GERD presented to the ED from [facility] earlier today for evaluation of altered mental status, hypoxia. Pt will be admitted for management of COVID-19 with hypoxia, initially diagnosed . COVID-19 with acute hypoxemic respiratory failure and viral sepsis -initial dx Initiate IV remdesivir and IV decadron (initiated 01/11) symptomatic management,Airborne contact precautions Acute kidney injury- likely prerenal r/t poor PO intake improved to baseline with hydration,avoid nephrotoxins -follow renal function/lytes Acute hyperosmolar hypernatremia- due to hypovolemia improved stop ivf moniter bmp in evening nephro eval Unspecified dementia-mentation appears baseline, no acute encephalopathy of admission Insulin dependent type 2 diabetes without hyperglycemia -diabetic diet, poc glucose -dose adjusted basal insulin, humalog on ss HTN-hold oral meds for now Unspecified seizure disorder -valproic acid level therapeutic -continue home meds Hypothyroidism-continue synthroid Unspecified Cardiomyopathy-continue home meds schizophrenia/mood disorder-continue home meds Full Code DVT pptx, subcut. heparin Has guardian - Kira Mack - [phone] ongoing inpatient need for management of COVID-19 with hypoxia and jaylen requiring iv remdesivir, supplemental O2, and IVF with close monitoring of renal function/lytes and vital signs Quality Stroke Does the patient have a stroke diagnosis?: No VTE Prior VTE?: No VTE Risk Level:: Medical - moderate - high VTE Device Contraindication: Treatment Not Indicated VTE Drug Contraindication: N/A - Med Ordered
[2024-01-13 18:56] LABS: Glucose, Whole Blood 148 mg/dL (60-115)
[2024-01-13 20:57] LABS: Glucose, Whole Blood 211 mg/dL (60-115)
[2024-01-13 21:34] LABS: Anion Gap 11 (12-20); Blood Urea Nitrogen 55 mg/dL (9-16); Calcium 9.4 mg/dL (8.4-10.2); Carbon Dioxide 27 mmol/L (22-29); Chloride 114 mmol/L (96-108); Estimated Glomerular Filt Rate 36; Glucose Random 198 mg/dL (60-115); Potassium 4.5 mmol/L (3.3-5.1); Sodium 147 mmol/L (135-145)
[2024-01-13] MEDS: Lithium Carbonate ER 300 MG TABLET.ER PO (22:47)
[2024-01-13] MEDS: Atorvastatin Calcium 20 MG TABLET PO (22:47)
[2024-01-13] MEDS: traZODone HCL 50 MG TABLET PO (22:48)
[2024-01-13] MEDS: Divalproex Sodium ER 500 MG TAB.ER.24H PO (22:48)
[2024-01-13] MEDS: Insulin Glargine,Hum.rec.anlog 100 UNIT/ML 10 ML VIAL 6 UNIT SUBCUT (22:48)
[2024-01-13] MEDS: Insulin Lispro 100 UNIT/ML 3 ML VIAL SUBCUT (22:48)
[2024-01-13] MEDS: 0.9 % Sodium Chloride Flush 3 ML SYRINGE IVFLUSH (22:49)
[2024-01-13] MEDS: cloZAPine 100 MG TABLET 200 MG PO (22:49)
[2024-01-14] MEDS: Dextrose 5 % 1,000 ML 75 ML IVCONT (01:46)
[2024-01-14 03:23] VITALS: BP 126/74; PULSE 62; RESP 16; TEMP 36.5; O2SAT 98
[2024-01-14] MEDS: Lithium Carbonate ER 450 MG TABLET.ER 225 MG PO (05:52)
[2024-01-14] MEDS: Levothyroxine Sodium 112 MCG TABLET PO (05:52)
[2024-01-14 06:10] LABS: Estimated Glomerular Filt Rate 43
[2024-01-14 07:22] VITALS: BP 127/71; PULSE 68; RESP 20; TEMP 36.3; O2SAT 99
[2024-01-14 07:34] LABS: Glucose, Whole Blood 143 mg/dL (60-115)
[2024-01-14 07:43] LABS: Sodium 145 mmol/L (135-145)
[2024-01-14] MEDS: Ferrous Sulfate 324 MG TABLET.DR PO ×2 (09:39→21:13)
[2024-01-14] MEDS: Sennosides/Docusate Sodium TABLET 1 TAB PO ×2 (09:39→21:13)
[2024-01-14] MEDS: hydrALAZINE HCl 50 MG TABLET 100 MG PO ×3 (09:39→21:13)
[2024-01-14] MEDS: dexAMETHasone sod phosphate 4 MG/ML VIAL 6 MG IVPUSH (09:40)
[2024-01-14] MEDS: carvediloL 25 MG TABLET PO ×2 (09:40→21:13)
[2024-01-14] MEDS: amLODIPine Besylate 10 MG TABLET PO (09:40)
[2024-01-14] MEDS: Pregabalin 150 MG CAPSULE 300 MG PO ×2 (09:40→21:13)
[2024-01-14] MEDS: Aspirin Enteric Coated 81 MG TABLET.DR PO (09:40)
[2024-01-14] MEDS: Empagliflozin 10 MG TABLET PO (09:40)
[2024-01-14] MEDS: cloZAPine 100 MG TABLET PO (09:40)
[2024-01-14] MEDS: 0.9 % Sodium Chloride Flush 3 ML SYRINGE IVFLUSH ×3 (09:41→21:15)
[2024-01-14] MEDS: Lactulose 20 GM/30 ML SOLUTION PO ×3 (09:42→21:13)
[2024-01-14 10:33] LABS: Osmolality, Serum 326 mosm/kg (281-305)
[2024-01-14 11:16] VITALS: BP 143/79; PULSE 69; RESP 18; TEMP 36.8; O2SAT 98
[2024-01-14 11:42] LABS: Glucose, Whole Blood 207 mg/dL (60-115)
[2024-01-14] MEDS: Insulin Lispro 100 UNIT/ML 3 ML VIAL SUBCUT ×3 (12:16→21:13)
[2024-01-14] MEDS: Heparin Sodium,Porcine 5,000 UNIT/ML VIAL 5000 UNIT SUBCUT (12:16)
[2024-01-14 13:14] LABS: Potassium Urine Random 14.8 mmol/L; Sodium Urine Random < 20.0 mmol/L
[2024-01-14 13:29] LABS: Osmolality Urine 435 mosm/kg (373-1093)
[2024-01-14] MEDS: Remdesivir 100 MG in 0.9 % Sodium Chloride 230 ML 115 MG IV (13:58)
--- NOTE | 2024-01-14 14:35 | P.PNIM_ITS ---
Subjective Subjective Date of Service: 01/14/24 Interval History: nonverbal, hypernatremia. Review of Systems seems somewhat improving more awake no fevers or chills Physical Exam 2 Vital Signs: Vital Signs: Last Vital Signs Temp 98.2 F 01/14/24 11:16 Pulse 69 01/14/24 11:16 Resp 18 01/14/24 11:16 BP 143/79 H 01/14/24 11:16 Pulse Ox 98 01/14/24 11:16 O2 Del Method Nasal Cannula 01/14/24 11:16 O2 Flow Rate 3 01/14/24 11:16 BMI result Body Mass Index 0.0 Appearance: awake , nonverbal. cvs: rrr, [id number] . res: air entry fair ,has few scattered cracles at bases. abd: no rebound or guarding ,nt, bs present. ext pulses present , no cyanosis . neuro: axo3 , nonfocal. Objective Data Active Medications Acetaminophen (Acetaminophen Supp 650 Mg Supp.Rect) 650 mg AL Q6H PRN PRN Reason: Pain, Mild, fever Amlodipine Besylate (Amlodipine Besylate 10 Mg Tablet) 10 mg PO DAILY [facility]; Protocol Last Admin: 01/14/24 09:40 Dose: 10 mg Documented By: STIVEN Aspirin (Aspirin Enteric Coated 81 Mg Tablet.) 81 mg PO DAILY [facility] Last Admin: 01/14/24 09:40 Dose: 81 mg Documented By: STIVEN Atorvastatin Calcium (Atorvastatin Calcium 20 Mg Tablet) 20 mg PO BEDTIME [facility] Last Admin: 01/13/24 22:47 Dose: 20 mg Documented By: STEVE Bisacodyl (Bisacodyl 5 Mg Tablet.) 5 mg PO Q72H PRN PRN Reason: Constipation Bisacodyl (Bisacodyl 10 Mg Supp.Rect) 10 mg AL DAILY PRN PRN Reason: Constipation Carvedilol (Carvedilol 25 Mg Tablet) 25 mg PO BID [facility]; Protocol Last Admin: 01/14/24 09:40 Dose: 25 mg Documented By: STIVEN Clozapine (Clozapine 100 Mg Tablet) 100 mg PO DAILY [facility] Last Admin: 01/14/24 09:40 Dose: 100 mg Documented By: STIVEN Clozapine (Clozapine 100 Mg Tablet) 200 mg PO BEDTIME [facility] Last Admin: 01/13/24 22:49 Dose: 200 mg Documented By: STEVE Dexamethasone Sodium Phosphate (Dexamethasone Sod Phosphate 4 Mg/Ml Vial) 6 mg IVPUSH DAILY [facility] Last Admin: 01/14/24 09:40 Dose: 6 mg Documented By: STIVEN Dextrose (Dextrose 50 % 25 Gm/50 Ml Syringe) 25 gm IVPUSH Q15M PRN; Protocol PRN Reason: per Hypoglycemia Standing Ord. Divalproex Sodium (Divalproex Sodium Er 500 Mg Tab.Er.24h) 500 mg PO BEDTIME [facility] Last Admin: 01/13/24 22:48 Dose: 500 mg Documented By: STEVE Empagliflozin (Empagliflozin 10 Mg Tablet) 10 mg PO DAILY [facility] Last Admin: 01/14/24 09:40 Dose: 10 mg Documented By: STIVEN Ferrous Sulfate (Ferrous Sulfate 324 Mg Tablet.Dr) 324 mg PO BID [facility] Last Admin: 01/14/24 09:39 Dose: 324 mg Documented By: STIVEN Glucose (Glucose Gel 15 Gm Gel..Gram.) 15 gm PO Q15M PRN; Protocol PRN Reason: per Hypoglycemia Standing Ord. Guaifenesin (Guaifenesin 200 Mg/10 Ml 10 Ml Liquid) 10 ml PO Q4H PRN PRN Reason: Cough Heparin Sodium (Porcine) (Heparin Sodium,Porcine 5,000 Unit/Ml Vial) 5,000 unit SUBCUT Q12H [facility] Last Admin: 01/14/24 12:16 Dose: 5,000 unit Documented By: STIVEN Hydralazine HCl (Hydralazine Hcl 50 Mg Tablet) 100 mg PO TID [facility]; Protocol Last Admin: 01/14/24 09:39 Dose: 100 mg Documented By: STIVEN Remdesivir 100 mg/ Sodium (Chloride) 230 mls @ 115 mls/hr IV Q24H [facility] Stop: 01/16/24 15:59 Last Admin: 01/14/24 13:58 Dose: 115 mls/hr Documented By: STIVEN Insulin Glargine (Insulin Glargine,Hum.Rec.Anlog 100 Unit/Ml 10 Ml Vial) 6 unit SUBCUT BEDTIME [facility] Last Admin: 01/13/24 22:48 Dose: 6 unit Documented By: STEVE Insulin Human Lispro (Insulin Lispro 100 Unit/Ml 3 Ml Vial) 0 unit SUBCUT QIDACHS [facility]; Protocol Last Admin: 01/14/24 12:16 Dose: 4 unit Documented By: STIVEN Lactulose (Lactulose 20 Gm/30 Ml Solution) 20 gm PO TID [facility] Last Admin: 01/14/24 09:42 Dose: 20 gm Documented By: STIVEN Levothyroxine Sodium (Levothyroxine Sodium 112 Mcg Tablet) 112 mcg PO DAILY@0600 [facility] Last Admin: 01/14/24 05:52 Dose: 112 mcg Documented By: STEVE [place] Carbonate ([place] Carbonate Er 300 Mg Tablet.Er) 300 mg PO BEDTIME [facility] Last Admin: 01/13/24 22:47 Dose: 300 mg Documented By: STEVE [place] Carbonate ([place] Carbonate Er 450 Mg Tablet.Er) 225 mg PO DAILY@0630 [facility] Last Admin: 01/14/24 05:52 Dose: 225 mg Documented By: STEVE Ondansetron HCl (Ondansetron Hcl 4 Mg/2 Ml Vial) 4 mg IVPUSH Q8H PRN PRN Reason: Nausea and Vomiting Pharmacy Consult (Consult Rx Vancomycin Dosing) 1 each MISCELLANE DAILY PRN PRN Reason: Consult order Pregabalin (Pregabalin 150 Mg Capsule) 300 mg PO BID [facility] Last Admin: 01/14/24 09:40 Dose: 300 mg Documented By: STIVEN Senna (Sennosides 8.6 Mg Tablet) 17.2 mg PO BEDTIME PRN PRN Reason: Constipation Senna (Sennosides 8.6 Mg Tablet) 8.6 mg PO DAILY PRN PRN Reason: Constipation Senna/Docusate Sodium (Sennosides/Docusate Sodium Tablet) 1 tab PO BID [facility] Last Admin: 01/14/24 09:39 Dose: 1 tab Documented By: STIVEN Sodium Biphosphate/Sodium Phosphate (Sodium Phosphate,[place]-Dibasic 133 Ml Enema) 118 ml AL DAILY PRN PRN Reason: Constipation Sodium Chloride (0.9 % Sodium Chloride Flush 3 Ml Syringe) 3 ml IVFLUSH QSHIFT [facility] Last Admin: 01/14/24 13:59 Dose: 3 ml Documented By: STIVEN Trazodone HCl (Trazodone Hcl 50 Mg Tablet) 50 mg PO BEDTIME [facility] Last Admin: 01/13/24 22:48 Dose: 50 mg Documented By: STEVE Labs 01/13/24 05:45 01/14/24 05:21 Labs: Laboratory Results - last 24 hr 01/13/24 01/13/24 01/13/24 14:08 18:52 20:49 Hold Purple Top Anion Gap Estim Creat Clear Calc Estimated GFR POC Glucose 219 H 148 H 211 H Random Glucose Osmolality Calcium Urine Osmolality Ur Random Sodium Ur Random Potassium 01/13/24 01/14/24 01/14/24 21:05 05:21 07:25 Hold Purple Top SEE NOTE Anion Gap 11 L Estim Creat Clear Calc TNP TNP Estimated GFR 36 43 POC Glucose 143 H Random Glucose 198 H Osmolality Calcium 9.4 Urine Osmolality Ur Random Sodium Ur Random Potassium 01/14/24 01/14/24 01/14/24 09:22 11:15 12:30 Hold Purple Top Anion Gap Estim Creat Clear Calc Estimated GFR POC Glucose 207 H Random Glucose Osmolality 326 H Calcium Urine Osmolality 435 Ur Random Sodium < 20.0 Ur Random Potassium 14.8 Microbiology Microbiology Results: Microbiology 01/12/24 09:52 Blood Culture - Preliminary Blood - Venous No growth after 48 hours. 01/12/24 09:36 Blood Culture - Preliminary Blood - Venous Coag negative Staphylococcus Assessment and Plan (1) Acute hypernatremia: Status: Acute (2) Acute kidney injury superimposed on chronic kidney disease: Status: Acute Plan 63 year old male with history of unspecified dementia nonverbal at baseline, schizophrenia, LOLI/movement disorder, hypothyroidism, insulin dependent type 2 diabetes, unspecified seizure, glaucoma, GERD presented to the ED from [facility] earlier today for evaluation of altered mental status, hypoxia. Pt will be admitted for management of COVID-19 with hypoxia, initially diagnosed . COVID-19 with acute hypoxemic respiratory failure and viral sepsis -initial dx Initiate IV remdesivir and IV decadron (initiated 01/11) symptomatic management,Airborne contact precautions Acute kidney injury- likely prerenal r/t poor PO intake improved to baseline with hydration,avoid nephrotoxins -follow renal function/lytes Acute hyperosmolar hypernatremia- due to hypovolemia improved on ivf moniter bmp in evening nephro eval Unspecified dementia-mentation appears near baseline, no acute encephalopathy of admission Insulin dependent type 2 diabetes without hyperglycemia -diabetic diet, poc glucose -dose adjusted basal insulin, humalog on ss HTN-hold oral meds for now Unspecified seizure disorder -valproic acid level therapeutic -continue home meds Hypothyroidism-continue synthroid Unspecified Cardiomyopathy-continue home meds schizophrenia/mood disorder-continue home meds Full Code DVT pptx, subcut. heparin Has guardian - Kira Saueradelina - [phone] ongoing inpatient need for management of COVID-19 with hypoxia and jaylen requiring iv remdesivir, supplemental O2, and IVF with close monitoring of renal function/lytes and vital signs Quality Stroke Does the patient have a stroke diagnosis?: No VTE Prior VTE?: No VTE Risk Level:: Medical - moderate - high VTE Device Contraindication: Treatment Not Indicated VTE Drug Contraindication: N/A - Med Ordered
--- NOTE | 2024-01-14 15:09 | MHC.CM.PN ---
EMR reviewed and per MD rounds, pt is not medically cleared for D/C due to management for covid-19 infection.
[2024-01-14 15:17] LABS: Chloride Urine Random < 20.0 mmol/L
[2024-01-14 15:31] VITALS: BP 119/77; PULSE 70; RESP 16; TEMP 36.2; O2SAT 99
[2024-01-14 15:49] LABS: Glucose, Whole Blood 207 mg/dL (60-115)
--- NOTE | 2024-01-14 17:15 | PC.NURSE ---
per MD order, delgado cath removed at 1715. due to void at 2315 today to 0115 01/15/24
[2024-01-14 19:11] VITALS: BP 121/75; PULSE 71; RESP 20; TEMP 36.3; O2SAT 97
--- NOTE | 2024-01-14 19:43 | P.CONNP_ITS ---
History of Present Illness Reason for Consult Consult date: 01/14/24 Chief Complaint Chief complaint: covid, hypoxia History of Present Illness Narrative: 63 year old male with history of unspecified dementia nonverbal at baseline, schizophrenia, LOLI/movement disorder, hypothyroidism, insulin dependent type 2 diabetes, unspecified seizure, glaucoma, GERD presented to the ED from [facility] for evaluation of altered mental status & hypoxia. He was admitted for management of COVID-19 with hypoxia, initially diagnosed . He was initiated on IV remdesivir and IV decadron (initiated 01/11), symptomatic management with Airborne contact precautions. He had hypernatremia and DAKOTAH. Nephrology was consulted to assist in his clinical care during his current hospital stay Review of Systems Review of Systems Yes Unobtainable due to mental condition PMFSH Past Medical History Medical History Resides in long-term facility Constipation GERD (gastroesophageal reflux disease) Cardiomegaly Extrapyramidal and movement disorder Eating disorder Chronic kidney disease Glaucoma Schizophrenia Anemia Hyperlipemia Hypothyroid Seizures Diabetes Dementia Surgical History Surgical History Hx of colonoscopy Surgical history unknown Social History Social History Household Members: Other Housing: [facility] Unable to assess alcohol history related to: Unable to respond Alcohol intake: unknown Patient Tobacco Use Status: Tobacco use Unknown Smoked in Last 30 Days: No Use of substances other than those prescribed or required for medical reasons: Unknown Currently Displaying Signs/Symptoms of Drug Intoxication Withdrawal: No Advance Directives: Yes Advance Directives on File: Yes Advance Directives Date on File: 04/30/21 Do you have thoughts of harming others: None Do you have a plan to hurt others: No Plan Recently lost weight without trying: Unsure How much weight loss: Unsure Nutrition Risks: On aspiration precautions Poor oral hygiene: Yes service: No Meds Allergies Allergy/AdvReac Type Severity Reaction Status Date / Time NSAIDS (Non-Steroidal AdvReac Avoid-r/t Verified 09/19/23 07:11 Anti-Inflamma CKD Active Medications: Current Medications Acetaminophen (Acetaminophen Supp 650 Mg Supp.Rect) 650 mg [place] Q6H PRN PRN Reason: Pain, Mild, fever Amlodipine Besylate (Amlodipine Besylate 10 Mg Tablet) 10 mg PO DAILY [facility]; Protocol Last Admin: 01/14/24 09:40 Dose: 10 mg Aspirin (Aspirin Enteric Coated 81 Mg Tablet.) 81 mg PO DAILY [facility] Last Admin: 01/14/24 09:40 Dose: 81 mg Atorvastatin Calcium (Atorvastatin Calcium 20 Mg Tablet) 20 mg PO BEDTIME [facility] Last Admin: 01/13/24 22:47 Dose: 20 mg Bisacodyl (Bisacodyl 5 Mg Tablet.) 5 mg PO Q72H PRN PRN Reason: Constipation Bisacodyl (Bisacodyl 10 Mg Supp.Rect) 10 mg [place] DAILY PRN PRN Reason: Constipation Carvedilol (Carvedilol 25 Mg Tablet) 25 mg PO BID [facility]; Protocol Last Admin: 01/14/24 09:40 Dose: 25 mg Clozapine (Clozapine 100 Mg Tablet) 100 mg PO DAILY [facility] Last Admin: 01/14/24 09:40 Dose: 100 mg Clozapine (Clozapine 100 Mg Tablet) 200 mg PO BEDTIME [facility] Last Admin: 01/13/24 22:49 Dose: 200 mg Dexamethasone Sodium Phosphate (Dexamethasone Sod Phosphate 4 Mg/Ml Vial) 6 mg IVPUSH DAILY [facility] Last Admin: 01/14/24 09:40 Dose: 6 mg Dextrose (Dextrose 50 % 25 Gm/50 Ml Syringe) 25 gm IVPUSH Q15M PRN; Protocol PRN Reason: per Hypoglycemia Standing Ord. Divalproex Sodium (Divalproex Sodium Er 500 Mg Tab.Er.24h) 500 mg PO BEDTIME [facility] Last Admin: 01/13/24 22:48 Dose: 500 mg Empagliflozin (Empagliflozin 10 Mg Tablet) 10 mg PO DAILY [facility] Last Admin: 01/14/24 09:40 Dose: 10 mg Ferrous Sulfate (Ferrous Sulfate 324 Mg Tablet.) 324 mg PO BID [facility] Last Admin: 01/14/24 09:39 Dose: 324 mg Glucose (Glucose Gel 15 Gm Gel..Gram.) 15 gm PO Q15M PRN; Protocol PRN Reason: per Hypoglycemia Standing Ord. Guaifenesin (Guaifenesin 200 Mg/10 Ml 10 Ml Liquid) 10 ml PO Q4H PRN PRN Reason: Cough Heparin Sodium (Porcine) (Heparin Sodium,Porcine 5,000 Unit/Ml Vial) 5,000 unit SUBCUT Q12H [facility] Last Admin: 01/14/24 12:16 Dose: 5,000 unit Hydralazine HCl (Hydralazine Hcl 50 Mg Tablet) 100 mg PO TID [facility]; Protocol Last Admin: 01/14/24 15:57 Dose: 100 mg Remdesivir 100 mg/ Sodium (Chloride) 230 mls @ 115 mls/hr IV Q24H [facility] Stop: 01/16/24 15:59 Last Infusion: 01/14/24 16:00 Dose: Infused Insulin Glargine (Insulin Glargine,Hum.Rec.Anlog 100 Unit/Ml 10 Ml Vial) 6 unit SUBCUT BEDTIME [facility] Last Admin: 01/13/24 22:48 Dose: 6 unit Insulin Human Lispro (Insulin Lispro 100 Unit/Ml 3 Ml Vial) 0 unit SUBCUT QIDACHS [facility]; Protocol Last Admin: 01/14/24 17:04 Dose: 4 unit Lactulose (Lactulose 20 Gm/30 Ml Solution) 20 gm PO TID [facility] Last Admin: 01/14/24 15:57 Dose: 20 gm Levothyroxine Sodium (Levothyroxine Sodium 112 Mcg Tablet) 112 mcg PO DAILY@0600 [facility] Last Admin: 01/14/24 05:52 Dose: 112 mcg [place] Carbonate ([place] Carbonate Er 300 Mg Tablet.Er) 300 mg PO BEDTIME [facility] Last Admin: 01/13/24 22:47 Dose: 300 mg [place] Carbonate ([place] Carbonate Er 450 Mg Tablet.Er) 225 mg PO DAILY@0630 [facility] Last Admin: 01/14/24 05:52 Dose: 225 mg Ondansetron HCl (Ondansetron Hcl 4 Mg/2 Ml Vial) 4 mg IVPUSH Q8H PRN PRN Reason: Nausea and Vomiting Pharmacy Consult (Consult Rx Vancomycin Dosing) 1 each [place]ISCE[place]ANE DAILY PRN PRN Reason: Consult order Pregabalin (Pregabalin 150 Mg Capsule) 300 mg PO BID [facility] Last Admin: 01/14/24 09:40 Dose: 300 mg Senna (Sennosides 8.6 Mg Tablet) 17.2 mg PO BEDTIME PRN PRN Reason: Constipation Senna (Sennosides 8.6 Mg Tablet) 8.6 mg PO DAILY PRN PRN Reason: Constipation Senna/Docusate Sodium (Sennosides/Docusate Sodium Tablet) 1 tab PO BID [facility] Last Admin: 01/14/24 09:39 Dose: 1 tab Sodium Biphosphate/Sodium Phosphate (Sodium Phosphate,[place]-Dibasic 133 Ml Enema) 118 ml [place] DAILY PRN PRN Reason: Constipation Sodium Chloride (0.9 % Sodium Chloride Flush 3 Ml Syringe) 3 ml IVFLUSH QSHIFT [facility] Last Admin: 01/14/24 13:59 Dose: 3 ml Trazodone HCl (Trazodone Hcl 50 Mg Tablet) 50 mg PO BEDTIME [facility] Last Admin: 01/13/24 22:48 Dose: 50 mg Home Medications Medication Instructions Recorded Confirmed Last Taken Type acetaminophen 325 mg tablet 650 mg PO Q4H PRN Fever Or Pain 04/30/21 01/12/24 Unknown History amlodipine 10 mg tablet 10 mg PO QAM 04/30/21 01/12/24 02/13/23 07:30 History aspirin 81 mg tablet,delayed 81 mg PO QAM 04/30/21 01/12/24 02/08/23 History release bisacodyl 5 mg tablet,delayed 5 mg PO Q72H PRN Constipation 04/30/21 01/12/24 Unknown History release carvedilol 25 mg tablet 25 mg PO BID 04/30/21 01/12/24 02/13/23 07:30 History clozapine 100 mg tablet (Clozaril) 200 mg PO DAILY 04/30/21 01/12/24 04/29/21 20:00 History ferrous sulfate 325 mg (65 mg 325 mg PO BID 04/30/21 01/12/24 02/08/23 History iron) tablet hydralazine 100 mg tablet 100 mg PO TID 04/30/21 01/12/24 02/13/23 07:30 History insulin glargine 100 unit/mL (3 8 unit subcut BEDTIME 04/30/21 01/12/24 02/11/23 History mL) subcutaneous pen (Lantus Solostar U-100 Insulin) lactulose 10 gram/15 mL oral 30 ml PO TID 04/30/21 01/12/24 Unknown History solution lithium carbonate 300 mg 300 mg PO BEDTIME 04/30/21 01/12/24 Unknown History tablet,extended release lithium carbonate 450 mg 225 mg PO DAILY@0630 04/30/21 01/12/24 02/13/23 07:30 History tablet,extended release pregabalin 200 mg capsule (Lyrica) 300 mg PO BID 04/30/21 01/12/24 02/13/23 07:30 History sennosides 8.6 mg-docusate sodium 1 tab PO BID 04/30/21 01/12/24 Unknown History 50 mg tablet (Senna Plus) trazodone 50 mg tablet 50 mg PO BEDTIME 04/30/21 01/12/24 Unknown History dapagliflozin propanediol 10 mg 10 mg PO QAM 12/11/22 01/12/24 Unknown History tablet (Farxiga) glucagon 1 mg solution for 1 mg subcut Q15M PRN Hypoglycemia 12/11/22 01/12/24 Unknown History injection (GlucaGen HypoKit) sodium phosphates 19 gram-7 118 ml [place] DAILY PRN Constipation 12/11/22 01/12/24 Unknown History gram/118 mL enema (Fleet Enema) atorvastatin 20 mg tablet 20 mg PO BEDTIME 02/10/23 01/12/24 Unknown History clozapine 100 mg tablet 100 mg PO QAM 02/10/23 01/12/24 02/13/23 07:30 History bisacodyl 10 mg rectal suppository 10 mg [place] DAILY PRN Constipation 09/19/23 01/12/24 Unknown History divalproex 250 mg tablet,extended 500 mg PO BEDTIME 09/19/23 01/12/24 Unknown History release 24 hr sennosides 8.6 mg tablet (senna) 8.6 mg PO DAILY PRN Constipation 09/19/23 01/12/24 Unknown History levothyroxine 112 mcg tablet 112 mcg PO QAM 01/12/24 01/12/24 Unknown History Physical Exam Vital Signs: Last Vital Signs Temp 97.4 F 01/14/24 19:11 Pulse 71 01/14/24 19:11 Resp 20 01/14/24 19:11 BP 121/75 01/14/24 19:11 Pulse Ox 97 01/14/24 19:11 O2 Del Method Nasal Cannula 01/14/24 19:11 O2 Flow Rate 3 01/14/24 19:11 BMI result Body Mass Index 0.0 Const General: no acute distress HEENT Head: Yes normocephalic Mouth: Normal oral and palatal mucosa present Eyes EOM: EOMs intact bilaterally Neck Neck: Yes supple Resp Auscultation: diminished lung sounds Cardio Jugular venous distension: no JVD Rate: regular rate Heart sounds: Murmur heart sound present GI Palpation (GI): Soft to palpation Auscultation: normal bowel sounds General: Yes no CVA tenderness Back/Spine/Pelvis Back: no CVA tenderness Skin General skin exam: no rashes or lesions noted Neuro General: moves all extremities Extrem General: Yes no pedal edema Results Lab Results 01/13/24 05:45 01/14/24 05:21 Lab results: Chemistry 01/12/24 01/13/24 01/13/24 09:35 05:45 13:02 Sodium 152 H 150 H 144 Potassium 4.7 5.0 4.6 Carbon Dioxide 29 27 25 BUN 57 H 57 H 59 H Creatinine 2.30 H 1.91 H 1.79 H Calcium 9.4 9.5 9.0 01/13/24 01/14/24 21:05 05:21 Sodium 147 H 145 Potassium 4.5 Carbon Dioxide 27 BUN 55 H Creatinine 1.89 H 1.63 H Calcium 9.4 Hematology 01/12/24 01/13/24 09:35 05:45 WBC 8.8 6.6 Hgb 14.7 14.1 Plt Count 100 L 91 L Urinalysis 01/12/24 10:39 Urine Color Yellow Urine Appearance Clear Urine pH 5.5 Ur Specific Levasy 1.020 Urine Protein Trace Urine Glucose (UA) >=1000 H Urine Ketones Negative Urine Blood Negative Urine Nitrite Negative Ur Leukocyte Esterase Negative Urine RBC 0-2 Urine WBC 0-5 Ur Squamous Epith Cells 0-2 Hyaline Casts 0-2 Urine Studies 01/14/24 12:30 Urine Osmolality 435 Assessment and Plan (1) Acute kidney injury superimposed on chronic kidney disease: Status: Acute Plan Had DAKOTAH due to compromise in renal perfusion and tubular injury. Has COVID now. Has CKD 3 at baseline. NO reason to suspect obstructive uropathy, AIN or GN. Serum sodium improved with free water. Renal function settling to his baseline. C/W current supportive care for now. Shall closely follow along during his current hospital stay. Procedures Date of Service Date of Service: 01/14/24
[2024-01-14 19:45] LABS: Glucose, Whole Blood 211 mg/dL (60-115)
[2024-01-14] MEDS: Lithium Carbonate ER 300 MG TABLET.ER PO (21:13)
[2024-01-14] MEDS: Atorvastatin Calcium 20 MG TABLET PO (21:13)
[2024-01-14] MEDS: Insulin Glargine,Hum.rec.anlog 100 UNIT/ML 10 ML VIAL 6 UNIT SUBCUT (21:14)
[2024-01-14] MEDS: cloZAPine 100 MG TABLET 200 MG PO (21:15)
[2024-01-14 23:18] VITALS: BP 127/73; PULSE 67; RESP 18; TEMP 36.4; O2SAT 98
[2024-01-14] MEDS: Divalproex Sodium Sprinkles 125 MG CAP.DR.SPR 250 MG PO (23:59)
[2024-01-15 03:12] VITALS: BP 126/74; PULSE 70; RESP 18; TEMP 36.2; O2SAT 96
[2024-01-15] MEDS: Levothyroxine Sodium 112 MCG TABLET PO (05:56)
[2024-01-15] MEDS: Lithium Carbonate ER 450 MG TABLET.ER 225 MG PO (05:56)
[2024-01-15 06:44] LABS: Creatinine Clr Calc Pharmacy 49.8; Estimated Glomerular Filt Rate 49
[2024-01-15 07:18] VITALS: BP 131/79; PULSE 65; RESP 20; TEMP 35.8; O2SAT 97
[2024-01-15 07:31] LABS: Glucose, Whole Blood 122 mg/dL (60-115)
[2024-01-15] MEDS: Empagliflozin 10 MG TABLET PO (07:34)
[2024-01-15] MEDS: dexAMETHasone sod phosphate 4 MG/ML VIAL 6 MG IVPUSH (07:34)
[2024-01-15] MEDS: Lactulose 20 GM/30 ML SOLUTION PO ×2 (07:34→14:41)
[2024-01-15] MEDS: Divalproex Sodium Sprinkles 125 MG CAP.DR.SPR 250 MG PO (07:35)
[2024-01-15] MEDS: carvediloL 25 MG TABLET PO (07:35)
[2024-01-15] MEDS: hydrALAZINE HCl 50 MG TABLET 100 MG PO ×2 (07:35→14:41)
[2024-01-15] MEDS: Pregabalin 150 MG CAPSULE 300 MG PO (07:35)
[2024-01-15] MEDS: Aspirin Enteric Coated 81 MG TABLET.DR PO (07:35)
[2024-01-15] MEDS: cloZAPine 100 MG TABLET PO (07:35)
[2024-01-15] MEDS: Sennosides/Docusate Sodium TABLET 1 TAB PO (07:35)
[2024-01-15] MEDS: amLODIPine Besylate 10 MG TABLET PO (07:35)
[2024-01-15] MEDS: Ferrous Sulfate 324 MG TABLET.DR PO (07:36)
[2024-01-15 07:58] VITALS: TEMP 36.7
[2024-01-15] MEDS: 0.9 % Sodium Chloride Flush 3 ML SYRINGE IVFLUSH ×2 (07:58→14:41)
--- NOTE | 2024-01-15 09:20 | P.PNNP_ITS ---
Subjective Subjective Date of Service: 01/15/24 Interval history: Events noted nonverbal, Physical Exam 2 Vital Signs: Vital Signs: Last Vital Signs Temp 98.0 F 01/15/24 07:58 Pulse 65 01/15/24 07:18 Resp 20 01/15/24 07:18 BP 131/79 01/15/24 07:18 Pulse Ox 97 01/15/24 07:18 O2 Del Method Nasal Cannula 01/15/24 07:18 O2 Flow Rate 3 01/15/24 07:18 BMI result Body Mass Index 0.0 Const: General: no acute distress HEENT: Head: Yes normocephalic Mouth: Normal oral and palatal mucosa present Eyes: EOM: EOMs intact bilaterally Neck: Neck: Yes supple Resp: Auscultation: diminished lung sounds Cardio: Jugular venous distension: no JVD Rate: regular rate Heart sounds: Murmur heart sound present GI: Palpation (GI): Soft to palpation Auscultation: normal bowel sounds : General: Yes no CVA tenderness Back/Spine/Pelvis: Back: no CVA tenderness Skin: General skin exam: no rashes or lesions noted Neuro: General: moves all extremities Extrem: General: Yes no pedal edema Objective Data Labs 01/13/24 05:45 01/15/24 05:33 Labs: Laboratory Results - last 24 hr 01/14/24 01/14/24 01/14/24 09:22 11:15 12:30 Hold Purple Top Creatinine Estim Creat Clear Calc Estimated GFR POC Glucose 207 H Osmolality 326 H Urine Osmolality 435 Ur Random Sodium < 20.0 Ur Random Potassium 14.8 Ur Random Chloride < 20.0 01/14/24 01/14/24 01/15/24 15:35 19:41 05:33 Hold Purple Top SEE NOTE Creatinine 1.44 H Estim Creat Clear Calc 49.8 Estimated GFR 49 POC Glucose 207 H 211 H Osmolality Urine Osmolality Ur Random Sodium Ur Random Potassium Ur Random Chloride 01/15/24 07:21 Hold Purple Top Creatinine Estim Creat Clear Calc Estimated GFR POC Glucose 122 H Osmolality Urine Osmolality Ur Random Sodium Ur Random Potassium Ur Random Chloride Microbiology Microbiology Results: Microbiology 01/12/24 09:36 Blood - Venous Blood Culture - Final Coag negative Staphylococcus 01/12/24 09:52 Blood - Venous Blood Culture - Preliminary No growth after 48 hours. Procedures Date of Service Date of Service: 01/15/24 Assessment & Plan Assessment and plan (1) Acute kidney injury superimposed on chronic kidney disease: Status: Acute Plan DAKOTAH due to compromise in renal perfusion and tubular injury. Has COVID now. Has CKD 3 at baseline. NO reason to suspect obstructive uropathy, AIN or GN. Serum sodium improved with free water. Renal function settling to his baseline. C/W current supportive care for now. Shall closely follow along during his current hospital stay. Time Spent With Patient Time: Total time managing care of this patient today ____ minutes. Progress Note: Quality Stroke Does the patient have a stroke diagnosis?: No
--- NOTE | 2024-01-15 10:32 | MHC.CM.PN ---
updated guardianship papers received and uploaded to chart and added to paper chart. Guardian is Kira Mack.
[2024-01-15 11:21] VITALS: BP 111/58; PULSE 65; RESP 18; TEMP 37.1; O2SAT 94
[2024-01-15 11:26] LABS: Glucose, Whole Blood 170 mg/dL (60-115)
[2024-01-15] MEDS: Insulin Lispro 100 UNIT/ML 3 ML VIAL SUBCUT (12:15)
[2024-01-15] MEDS: Remdesivir 100 MG in 0.9 % Sodium Chloride 230 ML IV (12:28)
--- NOTE | 2024-01-15 14:56 | HO.PM.IMPN ---
Subjective Subjective Date of Service: 01/15/24 Interval History: nonverbal, hypernatremia. Physical Exam Vital Signs: Vital Signs: Last Vital Signs Temp 98.7 F 01/15/24 11:21 Pulse 65 01/15/24 11:21 Resp 18 01/15/24 11:21 BP 111/58 L 01/15/24 11:21 Pulse Ox 94 01/15/24 11:21 O2 Del Method Nasal Cannula 01/15/24 11:21 O2 Flow Rate 1 01/15/24 11:21 BMI result Body Mass Index 0.0 Objective Data Active Medications Acetaminophen (Acetaminophen Supp 650 Mg Supp.Rect) 650 mg [place] Q6H PRN PRN Reason: Pain, Mild, fever Amlodipine Besylate (Amlodipine Besylate 10 Mg Tablet) 10 mg PO DAILY [facility]; Protocol Last Admin: 01/15/24 07:35 Dose: 10 mg Documented By: BECKIE Aspirin (Aspirin Enteric Coated 81 Mg Tablet.) 81 mg PO DAILY [facility] Last Admin: 01/15/24 07:35 Dose: 81 mg Documented By: BECKIE Atorvastatin Calcium (Atorvastatin Calcium 20 Mg Tablet) 20 mg PO BEDTIME [facility] Last Admin: 01/14/24 21:13 Dose: 20 mg Documented By: ROHAN Bisacodyl (Bisacodyl 5 Mg Tablet.) 5 mg PO Q72H PRN PRN Reason: Constipation Bisacodyl (Bisacodyl 10 Mg Supp.Rect) 10 mg [place] DAILY PRN PRN Reason: Constipation Carvedilol (Carvedilol 25 Mg Tablet) 25 mg PO BID [facility]; Protocol Last Admin: 01/15/24 07:35 Dose: 25 mg Documented By: BECKIE Clozapine (Clozapine 100 Mg Tablet) 100 mg PO DAILY [facility] Last Admin: 01/15/24 07:35 Dose: 100 mg Documented By: BECKIE Clozapine (Clozapine 100 Mg Tablet) 200 mg PO BEDTIME [facility] Last Admin: 01/14/24 21:15 Dose: 200 mg Documented By: ROHAN Dexamethasone Sodium Phosphate (Dexamethasone Sod Phosphate 4 Mg/Ml Vial) 6 mg IVPUSH DAILY [facility] Last Admin: 01/15/24 07:34 Dose: 6 mg Documented By: BECKIE Dextrose (Dextrose 50 % 25 Gm/50 Ml Syringe) 25 gm IVPUSH Q15M PRN; Protocol PRN Reason: per Hypoglycemia Standing Ord. Divalproex Sodium (Divalproex Sodium Sprinkles 125 Mg ) 250 mg PO BID [facility] Last Admin: 01/15/24 07:35 Dose: 250 mg Documented By: BECKIE Empagliflozin (Empagliflozin 10 Mg Tablet) 10 mg PO DAILY [facility] Last Admin: 01/15/24 07:34 Dose: 10 mg Documented By: BECKIE Ferrous Sulfate (Ferrous Sulfate 324 Mg ) 324 mg PO BID [facility] Last Admin: 01/15/24 07:36 Dose: 324 mg Documented By: BECKIE Glucose (Glucose Gel 15 Gm Gel..Gram.) 15 gm PO Q15M PRN; Protocol PRN Reason: per Hypoglycemia Standing Ord. Guaifenesin (Guaifenesin 200 Mg/10 Ml 10 Ml Liquid) 10 ml PO Q4H PRN PRN Reason: Cough Hydralazine HCl (Hydralazine Hcl 50 Mg Tablet) 100 mg PO TID [facility]; Protocol Last Admin: 01/15/24 14:41 Dose: 100 mg Documented By: BECKIE Remdesivir 100 mg/ Sodium (Chloride) 230 mls @ 115 mls/hr IV Q24H [facility] Stop: 01/16/24 15:59 Last Infusion: 01/15/24 14:50 Dose: Infused Documented By: BECKIE Insulin Glargine (Insulin Glargine,Hum.Rec.Anlog 100 Unit/Ml 10 Ml Vial) 6 unit SUBCUT BEDTIME [facility] Last Admin: 01/14/24 21:14 Dose: 6 unit Documented By: ROHAN Insulin Human Lispro (Insulin Lispro 100 Unit/Ml 3 Ml Vial) 0 unit SUBCUT QIDACHS [facility]; Protocol Last Admin: 01/15/24 12:15 Dose: 2 unit Documented By: BECKIE Lactulose (Lactulose 20 Gm/30 Ml Solution) 20 gm PO TID [facility] Last Admin: 01/15/24 14:41 Dose: 20 gm Documented By: BECKIE Levothyroxine Sodium (Levothyroxine Sodium 112 Mcg Tablet) 112 mcg PO DAILY@0600 [facility] Last Admin: 01/15/24 05:56 Dose: 112 mcg Documented By: ROHAN Force Carbonate ([place] Carbonate Er 300 Mg Tablet.Er) 300 mg PO BEDTIME [facility] Last Admin: 01/14/24 21:13 Dose: 300 mg Documented By: ROHAN Force Carbonate ([place] Carbonate Er 450 Mg Tablet.Er) 225 mg PO DAILY@0630 [facility] Last Admin: 01/15/24 05:56 Dose: 225 mg Documented By: ROHAN Ondansetron HCl (Ondansetron Hcl 4 Mg/2 Ml Vial) 4 mg IVPUSH Q8H PRN PRN Reason: Nausea and Vomiting Pharmacy Consult (Consult Rx Vancomycin Dosing) 1 each [place]IS[place]ANE DAILY PRN PRN Reason: Consult order Pregabalin (Pregabalin 150 Mg Capsule) 300 mg PO BID [facility] Last Admin: 01/15/24 07:35 Dose: 300 mg Documented By: BECKIE Senna (Sennosides 8.6 Mg Tablet) 17.2 mg PO BEDTIME PRN PRN Reason: Constipation Senna (Sennosides 8.6 Mg Tablet) 8.6 mg PO DAILY PRN PRN Reason: Constipation Senna/Docusate Sodium (Sennosides/Docusate Sodium Tablet) 1 tab PO BID [facility] Last Admin: 01/15/24 07:35 Dose: 1 tab Documented By: BECKIE Sodium Biphosphate/Sodium Phosphate (Sodium Phosphate,[place]-Dibasic 133 Ml Enema) 118 ml [place] DAILY PRN PRN Reason: Constipation Sodium Chloride (0.9 % Sodium Chloride Flush 3 Ml Syringe) 3 ml IVFLUSH QSHIFT [facility] Last Admin: 01/15/24 14:41 Dose: 3 ml Documented By: BECKIE Trazodone HCl (Trazodone Hcl 50 Mg Tablet) 50 mg PO BEDTIME [facility] Last Admin: 01/14/24 22:29 Dose: Not Given Documented By: ROHAN Non-Admin Reason: Patient Asleep Labs 01/13/24 05:45 01/15/24 05:33 Labs: Laboratory Results - last 24 hr 01/14/24 01/14/24 01/14/24 12:30 15:35 19:41 Hold Purple Top Estim Creat Clear Calc Estimated GFR POC Glucose 207 H 211 H Ur Random Chloride < 20.0 01/15/24 01/15/24 01/15/24 05:33 07:21 11:20 Hold Purple Top SEE NOTE Estim Creat Clear Calc 49.8 Estimated GFR 49 POC Glucose 122 H 170 H Ur Random Chloride Microbiology Microbiology Results: Microbiology 01/12/24 09:36 Blood Culture - Final Blood - Venous Coag negative Staphylococcus 01/12/24 09:52 Blood Culture - Preliminary Blood - Venous No growth after 48 hours. Quality Stroke Does the patient have a stroke diagnosis?: No VTE Prior VTE?: No VTE Risk Level:: Medical - moderate - high VTE Device Contraindication: Treatment Not Indicated VTE Drug Contraindication: N/A - Med Ordered
[2024-01-15 15:35] VITALS: BP 132/78; PULSE 70; RESP 18; TEMP 36.5; O2SAT 93
--- NOTE | 2024-01-15 15:35 | MHC.CM.PN ---
Addendum entered by Madison Wyatt 01/15/24 16:03: DC summary sent to [facility] via fax at [phone]. Original Note: Pt has been medically cleared to return to [facility] Jake, guardian Kira Mack informed today via telephone of transfer, he will go via ambulance this afternoon.
--- NOTE | 2024-01-15 15:49 | PM.DS ---
DS: Providers Provider Date of Service: 01/15/24 Date of admission: 01/12/24 13:01 Date of discharge: 01/15/24 Primary care physician: Celestine Beckman DO Consults: 01/13/24 15:44 Consult to Nephrology Routine Consulting Provider: [facility] Reason for consultation: [place],hypernatremia Has provider been notified: No Attending physician on discharge: Petrona Dillard Discharging clinician: Petrona Dillard DS: Diagnosis Discharge Diagnosis (1) Acute kidney injury superimposed on chronic kidney disease: Status: Acute (2) Acute hypernatremia: Status: Acute (3) Hypoxia: Status: Acute DS: Summary Hospital Course Hospital Course: HPI: 63 year old male with history of unspecified dementia nonverbal at baseline, schizophrenia, LOLI/movement disorder, hypothyroidism, insulin dependent type 2 diabetes, unspecified seizure, glaucoma, GERD presented to the ED from [facility] earlier today for evaluation of altered mental status, hypoxia. Pt was diagnosed with COVID-19 on . However, this morning found hypoxic in the 80s and transferred to ED for further evaluation. On arrival, pt febriel to 101.5, tachycardic to 106, tachypenic to 22. No hypotension. Weaned from nonrebreather to 4L supplemental O2 via NC. No leukocytosis. Creat 1.30, baseline around 1.6, BUN 57. Na 152, Cl 116. Glucose 162. Lactic acid 1.6. Toal CK 539. Trop 8.1, BNP below detectable limits. PCT 0.53. UA unremarkable. Valproic acid level 53. [place] 0.98. Covid-19 positive. In the ED, started on IV NS, given 6mg decadron, 1g ctx and albtuerol. Hospital course: Patient was admitted for hypoxemic respiratory failure secondary to viral sepsis and COVID: Patient was started on steroids, remdesivir-seems to be improved, not hypoxic. cxr and head ct negative. Hypernatremia and D[place] on CKD: Possibly related to decreased p.o. intake and free water deficit: Patient is hydrated-creatinine seems to be improved to baseline. Follow-up renal function and electrolytes out patiently.patient is nonverbal and menatl status seems at baseline. Patient primary provider at SNF . Patient will be going to SNF. Assessment and plan coordination time spent 50 minute. Time Attestation Total time managing care of this patient today: 50 mintues. Discharge Coordination Time (in mins): 50 min Quality: Safe Use of Opioids Does Pt have an Active Cancer Diagnosis on the Problem List?: No Quality: Stroke Does the patient have a stroke diagnosis?: No Physical Exam Vital Signs: Vital Signs: Last Vital Signs Temp 97.7 F 01/15/24 15:35 Pulse 70 01/15/24 15:35 Resp 18 01/15/24 15:35 BP 132/78 01/15/24 15:35 Pulse Ox 93 01/15/24 15:35 O2 Del Method Room Air 01/15/24 15:35 O2 Flow Rate 1 01/15/24 11:21 BMI result Body Mass Index 0.0 Appearance: awake , nonverbal. cvs: rrr, [id number] . res: air entry fair ,has few scattered cracles at bases. abd: no rebound or guarding ,nt, bs present. ext pulses present , no cyanosis . neuro: axo3 , nonfocal. DS: Data Data Completed and Pending Labs on day of discharge: Laboratory Results - last 24 hr 01/14/24 01/14/24 01/15/24 15:35 19:41 05:33 Hold Purple Top SEE NOTE Creatinine 1.44 H Estim Creat Clear Calc 49.8 Estimated GFR 49 POC Glucose 207 H 211 H 01/15/24 01/15/24 07:21 11:20 Hold Purple Top Creatinine Estim Creat Clear Calc Estimated GFR POC Glucose 122 H 170 H Preliminary micro results at discharge 01/12/24 09:52 Blood Culture - Preliminary Blood - Venous No growth after 48 hours. Imaging Chest x-ray: Radiologist's impression: ITS Impressions Chest X-Ray 01/12/24 09:25 IMPRESSION: No acute abnormality. Head CT 01/12/24 11:46 IMPRESSION: No acute intracranial pathology. Discharge Plan Discharge Anticipated Discharge Date/Time: 01/15/24 15:44 Patient Disposition: Xfer SNF Discharge Diagnosis: Hypernatremia, hypoxemia with COVID. Referrals: [facility] [Outside] - 1 Week Celestine Beckman DO [Primary Care Provider] - 1 Week Discharge Medications: Continued carvedilol 25 mg Tablet 25 mg PO BID acetaminophen 325 mg Tablet 650 mg PO Q4H PRN (Reason: Fever Or Pain) trazodone 50 mg Tablet 50 mg PO BEDTIME clozapine [Clozaril] 100 mg Tablet 200 mg PO DAILY sennosides-docusate sodium [Senna Plus] 8.6-50 mg Tablet 1 tab PO BID lithium carbonate 300 mg Tablet Extended Release 300 mg PO BEDTIME aspirin 81 mg Tablet,Delayed Release (Dr/Ec) 81 mg PO QAM lithium carbonate 450 mg Tablet Extended Release 225 mg PO DAILY@0630 amlodipine 10 mg Tablet 10 mg PO QAM hydralazine 100 mg Tablet 100 mg PO TID ferrous sulfate 325 mg (65 mg iron) Tablet 325 mg PO BID bisacodyl 5 mg Tablet,Delayed Release (Dr/Ec) 5 mg PO Q72H PRN (Reason: Constipation) lactulose 10 gram/15 mL Solution 30 ml PO TID pregabalin [Lyrica] 200 mg Capsule 300 mg PO BID insulin glargine [Lantus Solostar U-100 Insulin] 100 unit/mL (3 mL) Insulin Pen 8 unit SUBCUT BEDTIME atorvastatin 20 mg Tablet 20 mg PO BEDTIME clozapine 100 mg Tablet 100 mg PO QAM divalproex 250 mg Tablet Extended Release 24 Hr 500 mg PO BEDTIME bisacodyl 10 mg Suppository 10 mg ID DAILY PRN (Reason: Constipation) sennosides [senna] 8.6 mg Tablet 8.6 mg PO DAILY PRN (Reason: Constipation) levothyroxine 112 mcg Tablet 112 mcg PO QAM Farxiga 10 mg tablet 10 mg PO QAM Fleet Enema 19-7 gram/118 mL enema 118 ml ID DAILY PRN (Reason: Constipation) GlucaGen HypoKit 1 mg recon soln 1 mg subcut Q15M PRN (Reason: Hypoglycemia) Rx Instructions: until target blood sugar attained Discharge Orders: Discharge Order (Routine); Ordered 01/15/24 Ordered By: Petrona Dillard Diet: Advance to usual diet Activity on Discharge: As tolerated Stand Alone Forms: Patient Portal Discharge page Care Plan Goals: Patient was admitted for hypoxemic respiratory failure secondary to viral sepsis and COVID: Patient was started on steroids, remdesivir-seems to be improved, not hypoxic. Hypernatremia and [place] on CKD: Possibly related to decreased p.o. intake and free water deficit: Patient is hydrated-creatinine seems to be improved to baseline. Follow-up renal function and electrolytes out patiently. Patient will be going to SNF. Patient primary provider at SNF aware about plan . Health Concerns: as above. Plan of Treatment: as above. Assessment: as above.
[2024-01-15 16:37] LABS: Glucose, Whole Blood 165 mg/dL (60-115)
== END 2024-01-15 16:44 | disposition skilled nursing facility (03) | DRG 720 ==
LOC: HO.ED 10:04 → HO.EDOVER 13:09 → HO.IMC 01-13 19:12
PROVIDERS: Admitting Provider Physician Assistant; Emergency Provider Emergency Medicine; PCP Hospitalist; Visit Provider Internal Medicine
DX: A41.89 Other specified sepsis (principal); J96.01 Acute respiratory failure with hypoxia; N17.0 Acute kidney failure with tubular necrosis; U07.1 COVID-19; F03.90 Unspecified dementia, unspecified severity, without behavioral disturbance, psychotic disturbance, mood disturbance, and anxiety; E87.0 Hyperosmolality and hypernatremia; G40.909 Epilepsy, unspecified, not intractable, without status epilepticus; F20.9 Schizophrenia, unspecified; I42.9 Cardiomyopathy, unspecified; N18.30 Chronic kidney disease, stage 3 unspecified; E11.22 Type 2 diabetes mellitus with diabetic chronic kidney disease; E86.1 Hypovolemia; E03.9 Hypothyroidism, unspecified; Z79.4 Long term (current) use of insulin; Z79.82 Long term (current) use of aspirin; Z79.890 Hormone replacement therapy; Z79.899 Other long term (current) drug therapy
CPT/HCPCS: 36415; 70450; 71045; 80048; 80076; 80164; 80178; 81001; 82436; 82550; 82565; 82803; 82947; 83605; 83690; 83735; 83880; 83930; 83935; 84133; 84145; 84295; 84300; 84443; 84484; 85025; 85027; 85610; 87040; 87147; 87205; 87635; 93005; 94640; 99285; C1758; J0248; J0696; J1100; J1644; J3370

== ENCOUNTER → 2024-01-12 09:13 | Outpatient (BNV) | payer MEDICAID, SELFPAY | PROVIDERS: Admitting Provider Physician Assistant; Emergency Provider Emergency Medicine; PCP Hospitalist; Visit Provider Internal Medicine Cardiovascular Disease | DX: R00.0 Tachycardia, unspecified (principal) | CPT/HCPCS: 93010 ==

== ENCOUNTER → 2024-01-12 13:01 | Outpatient (BNV) | payer MEDICAID, SELFPAY | PROVIDERS: Admitting Provider Physician Assistant; Emergency Provider Emergency Medicine; PCP Hospitalist; Visit Provider Internal Medicine Nephrology | DX: N17.9 Acute kidney failure, unspecified (principal); N18.9 Chronic kidney disease, unspecified | CPT/HCPCS: 99223; 99232; 99499 ==

== ENCOUNTER → 2024-01-12 13:01 | Outpatient (BNV) | payer MEDICAID, SELFPAY | PROVIDERS: Admitting Provider Physician Assistant; Emergency Provider Emergency Medicine; PCP Hospitalist; Visit Provider Internal Medicine | DX: E87.0 Hyperosmolality and hypernatremia (principal); N17.9 Acute kidney failure, unspecified; N18.9 Chronic kidney disease, unspecified; R09.02 Hypoxemia; U07.1 COVID-19 | CPT/HCPCS: 99223; 99232; 99239 ==

== ENCOUNTER 2024-01-20 21:32 | Inpatient (IN) | payer MEDICAID, SELFPAY ==
--- NOTE | ~2024-01-20 | XR_ITS ---
EXAMINATION: XR CHEST CLINICAL INFORMATION: Central line placement. COMPARISON: Previous of the same day. TECHNIQUE: Frontal view of the chest was obtained. FINDINGS: The cardiomediastinal silhouette is stable. Endotracheal tube remains in adequate position. A gastric tube extends below the diaphragm. Tip of the gastric tube is not seen. A right approach central line tip overlies the central mediastinum at the level of T8. A left lower lung field infiltrate is again seen. A faint right lung base likely is also again seen. There is no evidence for pneumothorax. The bony structures and soft tissues are unremarkable. XR/XR chest 1V IMPRESSION: Right approach central line tip overlies the central mediastinum at the level of T8. The exact location is difficult to determine. The current apparent position may be positional. Left lower lung field infiltrates and faint right lung base infiltrates without significant change. Gastric and endotracheal tubes remain in place.
--- NOTE | ~2024-01-20 | CT_ITS ---
EXAMINATION: CT ANGIOGRAM OF THE CHEST WITH AND WITHOUT CONTRAST (CT PULMONARY ANGIOGRAM FOR PE) CLINICAL INFORMATION: Reason for Exam Hypoxia, ?PE, s/p TNK COMPARISON: Previous chest x-ray most recent 01/21/[address] November 2019 TECHNIQUE: Prior to contrast administration, noncontrast localization images were obtained. Subsequently, multidetector volumetric imaging was performed from the thoracic inlet to below the diaphragms following the administration of 65 mL Omnipaque 350 intravenous contrast. No contrast reaction reported Sagittal, coronal, and MIP oblique sagittal reformatted images were obtained on the CT workstation, uploaded to PACS, and reviewed. This CT examination was performed using dose optimization techniques as appropriate, variously including the following: *Automated exposure control *Adjustment of mA and/or kV according to patient size (this includes techniques or standardized protocols for targeted exams where dose is matched to indication/reason for exam; i.e. extremities or head) *Use of iterative reconstruction technique Total exam dose-length product 190 mGy-cm FINDINGS: QUALITY OF STUDY/CONTRAST BOLUS: Satisfactory. PULMONARY ARTERIES: No pulmonary emboli. THORACIC AORTA: No aneurysm. LUNG: Bilateral lower lobe consolidation with air bronchograms suggestive of pneumonia. There is also increased peribronchial attenuation in the right upper lobe. Endotracheal tube 4.6 cm above the nuria. PLEURA: No pneumothorax. Small bilateral pleural effusions. MEDIASTINUM: Normal heart size. No pericardial effusion. Small mediastinal lymph nodes.. No evidence of septal bowing or right heart strain. Question location of right central line. The right neck medial to the right internal jugular vein and tip of the line projects over the top of the aortic arch. Arterial location of line is suspected. Correlation with blood flow back from catheter or blood gas recommended. CORONARY ARTERY CALCIFICATION: None visualized on this study. CHEST WALL/AXILLA: No axillary or internal mammary lymphadenopathy. OSSEOUS STRUCTURES: Degenerative changes of the spine. UPPER ABDOMEN: Enterogastric tube in the stomach. No reflux of contrast into the hepatic veins to suggest elevated right heart pressures. CT/CT angio chest PE protocol IMPRESSION: No evidence of pulmonary embolism. Bilateral lower lobe pneumonia and airways disease in the right upper lobe. Uncertain location of right neck central line which may be arterial. Correlation with blood flow back from the line or blood gas recommended. VTE: Negative Findings will be communicated by the [place] workflow patient registration clerk
--- NOTE | ~2024-01-20 | XR_ITS ---
EXAMINATION: XR CHEST CLINICAL INFORMATION: Pneumonia. COMPARISON: Chest radiograph dated 01/12/2024. TECHNIQUE: Frontal view of the chest was obtained. FINDINGS: The heart is normal in size. There is a subtle left lower lobe opacity, not convincingly seen on the prior examination for which pneumonia is suspected. There is no pneumothorax or large pleural effusion. No acute osseous abnormality. XR/XR chest 1V IMPRESSION: There is a subtle left lower lobe opacity, not convincingly seen on the prior examination for which pneumonia is suspected.
--- NOTE | ~2024-01-20 | CT_ITS ---
EXAMINATION: CT HEAD WITHOUT CONTRAST CLINICAL INFORMATION: Encephalopathy. Baseline dementia. COMPARISON: CT head dated 01/12/2024. TECHNIQUE: Contiguous axial imaging was performed from the skull base to vertex without intravenous administration of contrast. This CT examination was performed using dose optimization techniques as appropriate, variously including the following: *Automated exposure control *Adjustment of mA and/or kV according to patient size (this includes techniques or standardized protocols for targeted exams where dose is matched to indication/reason for exam; i.e. extremities or head) *Use of iterative reconstruction technique DLP: 1732 mGy-cm FINDINGS: The evaluation is somewhat limited secondary to motion artifact. Within the confines of the examination there is no intracranial hemorrhage or evidence of acute/subacute cerebral or cerebellar infarction. There is no midline shift or mass effect. Evaluation for extra-axial surface collections is markedly limited. None are visualized, however. The ventricles are normal in size. The orbits are within normal limits. There is no depressed skull fracture. There is mild mucosal thickening within the left maxillary sinus. The mastoid air cells are clear. CT/CT head/brain wo IV con IMPRESSION: Limited evaluation secondary to motion artifact. Within the confines of the examination there is no acute intracranial abnormality, however.
--- NOTE | ~2024-01-20 | XR_ITS ---
EXAMINATION: XR CHEST CLINICAL INFORMATION: NG tube placement. COMPARISON: Chest radiograph 01/21/2024, CT chest 01/23/2024. TECHNIQUE: Frontal view of the chest was obtained. FINDINGS: ET tube remains in place about 5 cm above the nuria. An NG tube is present with its tip in the gastric antrum. Heart size is normal. Bibasilar opacities are present, right greater than left consistent with infiltrate. At the time of the prior study, a right pleural effusion was probably present along with bibasilar opacities but worse on the left which appear somewhat improved at this time. XR/XR chest 1V IMPRESSION: NG tube with tip in gastric antrum. Bibasilar infiltrates, right greater than left.
--- NOTE | ~2024-01-20 | XR_ITS ---
EXAMINATION: XR CHEST CLINICAL INFORMATION: Endotracheal and nasogastric tube placement. COMPARISON: 01/19/2022 TECHNIQUE: Frontal view of the chest was obtained. FINDINGS: The cardiomediastinal silhouette is stable. There is an endotracheal tube in good position above the nuria. A gastric tube extends below the diaphragm with side port appearing to be at the gastroesophageal junction. There is a left lower lung field infiltrate. There is a faint right lower lung field opacity. The upper lung maria are clear. The bony structures and soft tissues are unremarkable XR/XR chest 1V IMPRESSION: 1. Endotracheal tube in good position. 2. The gastric tube extends below the diaphragm with side port appearing to be at the gastroesophageal junction. 3. Left lower lung field infiltrate and faint right lower lung field opacity possibly pleural fluid and/or infiltrate/atelectasis..
--- NOTE | 2024-01-20 21:48 | ECG_ITS ---
Test Reason : AMS Blood Pressure : / mmHG Vent. Rate : 081 BPM Atrial Rate : 081 BPM P-R Int : 164 ms QRS Dur : 094 ms QT Int : 378 ms P-R-T Axes : 066 060 133 degrees QTc Int : 439 ms Normal sinus rhythm Minimal voltage criteria for LVH, may be normal variant ( Sokolow-Joseph ) T wave abnormality, consider lateral ischemia Abnormal ECG When compared with ECG of 12-JAN-2024 09:34, No significant change was found Referred By: Liat Kim Electronically Signed By:ITZEL ELLIS MD
[2024-01-20 21:50] VITALS: BP 108/70; PULSE 70; O2SAT 92
[2024-01-20 21:52] VITALS: BP 110/80; PULSE 80; RESP 18; TEMP 37.9; O2SAT 92; BMI 20.8
[2024-01-20 21:56] LABS: Glucose, Whole Blood 321 mg/dL (60-115)
--- NOTE | 2024-01-20 22:13 | ED_ITS ---
HPI - General Adult General Chief complaint: Dyspnea Stated complaint: WEAKNESS LETHARGIC Time Seen by Provider: 01/20/24 21:38 Source: EMS Mode of arrival: EMS Limitations: altered mental status History of Present Illness HPI narrative: Patient comes to the emergency room from [facility] for low O2. According to the staff at [facility], patient is more lethargic than usual. Usually at baseline patient is able to make his needs no, patient is able to use his wheelchair by himself. Today, patient is to lethargic, sleeping most of the time, only opens his eyes when his name is called. According to EMS, the staff reported that patient's oxygen saturation was 84% on room air, staff started him on 6 L of nasal cannula which improved the oxygen saturation to 90-92%. According to EMS, the staff at [facility] reported that throughout the day patient has been getting multiple doses/L of D5 normal saline Related Data Home Medications Medication Instructions Recorded Confirmed acetaminophen 325 mg tablet 650 mg PO Q4H PRN Fever Or Pain 04/30/21 01/12/24 amlodipine 10 mg tablet 10 mg PO QAM 04/30/21 01/12/24 aspirin 81 mg tablet,delayed 81 mg PO QAM 04/30/21 01/12/24 release bisacodyl 5 mg tablet,delayed 5 mg PO Q72H PRN Constipation 04/30/21 01/12/24 release carvedilol 25 mg tablet 25 mg PO BID 04/30/21 01/12/24 clozapine 100 mg tablet (Clozaril) 200 mg PO DAILY 04/30/21 01/12/24 ferrous sulfate 325 mg (65 mg 325 mg PO BID 04/30/21 01/12/24 iron) tablet hydralazine 100 mg tablet 100 mg PO TID 04/30/21 01/12/24 insulin glargine 100 unit/mL (3 8 unit subcut BEDTIME 04/30/21 01/12/24 mL) subcutaneous pen (Lantus Solostar U-100 Insulin) lactulose 10 gram/15 mL oral 30 ml PO TID 04/30/21 01/12/24 solution lithium carbonate 300 mg 300 mg PO BEDTIME 04/30/21 01/12/24 tablet,extended release lithium carbonate 450 mg 225 mg PO DAILY@0630 06/21/21 03/04/24 tablet,extended release pregabalin 200 mg capsule (Lyrica) 300 mg PO BID 04/30/21 01/12/24 sennosides 8.6 mg-docusate sodium 1 tab PO BID 04/30/21 01/12/24 50 mg tablet (Senna Plus) trazodone 50 mg tablet 50 mg PO BEDTIME 04/30/21 01/12/24 dapagliflozin propanediol 10 mg 10 mg PO QAM 12/11/22 01/12/24 tablet (Farxiga) glucagon 1 mg solution for 1 mg subcut Q15M PRN Hypoglycemia 12/11/22 01/12/24 injection (GlucaGen HypoKit) sodium phosphates 19 gram-7 118 ml NV DAILY PRN Constipation 12/11/22 01/12/24 gram/118 mL enema (Fleet Enema) atorvastatin 20 mg tablet 20 mg PO BEDTIME 02/10/23 01/12/24 clozapine 100 mg tablet 100 mg PO QAM 02/10/23 01/12/24 bisacodyl 10 mg rectal suppository 10 mg NV DAILY PRN Constipation 09/19/23 01/12/24 divalproex 250 mg tablet,extended 500 mg PO BEDTIME 09/19/23 01/12/24 release 24 hr sennosides 8.6 mg tablet (senna) 8.6 mg PO DAILY PRN Constipation 09/19/23 01/12/24 levothyroxine 112 mcg tablet 112 mcg PO QAM 01/12/24 01/12/24 Allergies Allergy/AdvReac Type Severity Reaction Status Date / Time NSAIDS (Non-Steroidal AdvReac Avoid-r/t Verified 09/19/23 07:11 Anti-Inflamma CKD Review of Systems 2 Review of Systems: Yes Unobtainable due to mental condition PMFSH Past Medical History Medical History Resides in alf facility Constipation GERD (gastroesophageal reflux disease) Cardiomegaly Extrapyramidal and movement disorder Eating disorder Chronic kidney disease Glaucoma Schizophrenia Anemia Hyperlipemia Hypothyroid Seizures Diabetes Dementia Surgical History Hx of colonoscopy Surgical history unknown Social History Social History Household Members: Other Housing: Retirement Unable to assess alcohol history related to: Unable to respond Alcohol intake: unknown Patient Tobacco Use Status: Tobacco use Unknown Advance Directives: Yes Advance Directives on File: Yes Advance Directives Date on File: 04/30/21 service: No Physical Exam ED Vital Signs: Vital Signs - 24 hr 01/20/24 21:52 01/21/24 00:51 Temperature 100.2 F Pulse Rate 80 77 Respiratory Rate 18 18 Blood Pressure 110/80 136/85 Pulse Oximetry 92 95 Oxygen Delivery Method Nasal Cannula BMI result Body Mass Index 20.8 Const Other: Appearance: Somnolent, arousable to name and falls back asleep Eyes: Pupils equal, minimally reactive to light, patient has cataracts ENT: Pharynx normal. Dry oral mucosa Neck: Normal inspection. Neck supple. No lymph nodes noted. No crepitus CVS: Normal heart rate and rhythm. Pulses normal. Normal S1 and S2 Respiratory: No respiratory distress. Breath sounds normal. No Wheezing. No rales Abdomen: Soft and nontender. No rigidity. No distention. Skin: Skin warm and dry. Normal skin color. Normal skin turgor. Extremities: No lower extremity edema. No Lacerations. No Rash Neuro: Unable to participating cranial nerve assessment Psych: calm, lethargic Medications Administered Generic Name Dose Route Start Last Admin Trade Name Freq PRN Reason Stop Dose Admin Vancomycin HCl 1,000 mg/ 535 mls @ 267.5 mls/hr 01/20/24 23:15 01/20/24 23:58 Vancomycin HCl 750 mg/ Sodium IV 01/21/24 01:14 267.5 mls/hr Chloride ONCE ONE Administration Propofol 1,000 mg in 100 mls @ 0 mls/hr 01/21/24 00:30 01/21/24 00:51 Diprivan IVCONT 30 mcg/kg/min .Q0M OLLIE 12.51 mls/hr Administration Protocol Per Protocol Discontinued Medications Generic Name Dose Route Start Last Admin Trade Name Freq PRN Reason Stop Dose Admin Etomidate 20 mg 01/21/24 00:23 01/21/24 00:37 Etomidate 20 Mg/10 Ml Vial IVPUSH 01/21/24 00:24 20 mg NOW STA Administration Piperacillin Sod/Tazobactam 50 mls @ 100 mls/hr 01/20/24 23:15 01/20/24 23:53 Sod 3.375 gm/ Sodium Chloride IV 01/20/24 23:44 100 mls/hr ONCE ONE Administration Rocuronium [place] 50 mg 01/21/24 00:23 01/21/24 00:38 Rocuronium [place] 50 Mg/5 Ml Vial IVPUSH 01/21/24 00:24 50 mg ONCE ONE Administration Procedures Intubation Intubation Type:: Endotracheal Tube Insertion Intubation Date:: 01/21/24 Intubation Time:: 00:25 Time out performed: Yes sedative: Etomidate Mg Given: 20 paralytic: Rocuronium Mg Given: 50 Laryngoscope: other (Blanco scope) ET Tube Size: 7.5 ET Tube Uncuffed: No Tube Secured Depth (cm): 24 Tube Secured Location: lips Tube Placement Confirmation: visualized tube passing through cords, equal breath sounds bilaterally and no breath sounds over epigastrium Patient Tolerated Procedure: well and no complications Intubation Complications: none Medical Decision Making Medical Decision Making MDM Narrative: My interpretation of labs: White blood cell count 15. Patient has hypernatremia of 151, patient has had hyponatremia in the past. Patient's creatinine is bumped from baseline. Glucose 356. Urinalysis negative for UTI, COVID positive it patient was noted to have black discoloration in the mouth. Guaiac test was heme negative -at this time 23:50, patient's x-rays became available. Patient likely has pneumonia. Patient has already been given antibiotics to cover for Hcap, patient was recently discharged from the hospital. patient now being given fluids. -I discussed the fluids and management with Dr. Morfin at this time, patient has hypernatremia, discussing between given half-normal saline, normal saline. At this time, we decided to give a bolus of normal saline, later throughout his hospitalization, patient will be switched to half-normal saline -patient being admitted the floor -patient was on 6 L saturating 100% on room air. Patient's nurse tried weaning him off oxygen. Patient's oxygen saturation dropped quickly to 70% on couple of L. Patient back to 6 L, saturating 98% Blood pressure remained stable -patient came in very lethargic, now patient is completely unresponsive. Patient was intubated. Patient needs now ICU care. -after patient was intubated, initially, oxygen saturation was in the high 90s. Suddenly, patient's oxygen dropped to the low 70s. Patient was ventilated via Ambu bag with no improvement. I discussed the patient with Dr. HARGROVE from the ICU, patient was given half dose of TNK, 17.5 mg. At this time, patient is too unstable to get a CTA of chest. Multiple bronchial lavage is were attempted. Past oxygen saturation obtained was 86%. Arterial blood gas shows a pH of 7.45, oxygen saturation 74 -patient being taken to the intensive care unit, bedside bronchoscopy will be attempted. Patient's heart rate remains in the mid 70s. Blood pressure in the mid 90s. However, patient was given an additional dose of 50 mg of propofol push, which slightly dropped the blood pressure to the high 80s, Levophed was started peripherally. Differential Diagnosis Differential Diagnoses: The differential diagnosis associated with the presentation includes (COPD,) Admission/Observation Consideration of admission/observation: Escalation of care including admission/observation considered Consult Healthcare Provider Management of the patient was discussed with: Hospitalist and [employer] Supervisor Lab Data MDM Lab Attestation statement: I reviewed the patient's lab results. 01/20/24 22:06 01/20/24 22:06 Labs: Lab Results 01/20/24 01/20/24 01/20/24 Range/Units 21:40 22:06 22:07 WBC 15.0 H (4.8-10.8) X10*3/uL RBC 6.06 H (4.60-5.80) X10*6/uL Hgb 13.9 L (14.0-18.0) g/dl Hct 47.9 (42.0-52.0) % MCV 79.0 L (80.0-98.0) fL MCH 22.9 L (27.0-33.0) pg MCHC 29.0 L (31.0-36.0) g/dl RDW 16.2 H (11.0-16.0) % Plt Count 211 D (160-400) X10*3/uL MPV 12.4 (9.4-12.4) fL Immature Gran % (Auto) 1.0 H (0.0-0.4) % Neut % (Auto) 64.3 (45-73) % Lymph % (Auto) 25.3 (20-40) % [place] % (Auto) 7.1 (2-11) % Eos % (Auto) 2.2 (0-4) % Baso % (Auto) 0.1 (0-2) % Lymph # (Auto) 3.8 (1.2-4.9) X10*3/uL [place] # (Auto) 1.1 (0.1-1.2) X10*3/uL Eos # (Auto) 0.3 (0.0-0.4) X10*3/uL Baso # (Auto) 0.0 (0.0-0.2) X10*3/uL Abs Immat Gran (auto) 0.15 H (0.00-0.03) X10*3/uL Absolute Neuts (auto) 9.6 H (2.0-8.3) x10*3/uL Absolute Nucleated RBC 0.020 H (0.0-0.012) X10*3/uL Nucleated RBC % (auto) 0.1 (0.0-0.2) /100WBC PT (11.1-13.3) SEC INR (0.9-1.1) aPTT Heparin Protocol (53-77.9) SEC VBG pH (7.32-7.43) VBG pCO2 mmHg VBG pO2 mmHg VBG HCO3 (22-26) mmol/L VBG O2 Saturation % VBG Base Excess mmol/L Sodium 151 H (135-145) mmol/L Potassium 4.8 (3.3-5.1) mmol/L Chloride 115 H (96-108) mmol/L Carbon Dioxide 27 (22-29) mmol/L Anion Gap 14 (12-20) BUN 39 H (9-16) mg/dL Creatinine 2.07 H (0.5-1.4) mg/dL Estim Creat Clear Calc 35.4 Estimated GFR 32 POC Glucose 321 H (60-115) mg/dL Random Glucose 356 H* (60-115) mg/dL Lactic Acid 1.8 (0.5-2.0) mmol/L Calcium 9.8 (8.4-10.2) mg/dL Magnesium 2.7 H (1.6-2.6) mg/dL Total Bilirubin 0.4 (0.0-1.0) mg/dL Direct Bilirubin 0.2 (0.0-0.5) mg/dL AST 15 (5-37) U/L ALT 17 (0-40) U/L Alkaline Phosphatase 96 (39-117) U/L Troponin I High Sens 4.6 (<3.5-35.0) ng/L B-Natriuretic Peptide < 10 (<100) pg/mL Total Protein 7.3 (6.5-8.0) g/dL Albumin 3.1 L (3.5-5.0) g/dL Lipase 45 (8-78) U/L TSH 0.38 (0.32-4.0) uIU/mL Urine Color Urine Appearance Urine pH (5.0-9.0) Ur Specific [place] (1.005-1.025) Urine Protein (Neg-Trace) mg/dL Urine Glucose (UA) (Negative) mg/dL Urine Ketones (Negative) mg/dL Urine Blood (Negative) Urine Nitrite (Negative) Ur Leukocyte Esterase (Negative) Urine RBC (0-2) /HPF Urine WBC (0-5) /HPF Ur Squamous Epith Cells (0-2) /HPF Urine Bacteria (None Seen) Hyaline Casts (0-2) /LPF Stool Occult Blood (NEGATIVE) Influenza Type A (PCR) NEGATIVE (Negative) Influenza Type B (PCR) NEGATIVE (Negative) RSV RNA Qual (PCR) NEGATIVE (Negative) SARS-CoV-2 RNA (RT-PCR) POSITIVE A (Negative) 01/20/24 01/20/24 01/20/24 Range/Units 22:14 22:19 23:04 WBC (4.8-10.8) X10*3/uL RBC (4.60-5.80) X10*6/uL Hgb (14.0-18.0) g/dl Hct (42.0-52.0) % MCV (80.0-98.0) fL MCH (27.0-33.0) pg MCHC (31.0-36.0) g/dl RDW (11.0-16.0) % Plt Count (160-400) X10*3/uL MPV (9.4-12.4) fL Immature Gran % (Auto) (0.0-0.4) % Neut % (Auto) (45-73) % Lymph % (Auto) (20-40) % [place] % (Auto) (2-11) % Eos % (Auto) (0-4) % Baso % (Auto) (0-2) % Lymph # (Auto) (1.2-4.9) X10*3/uL [place] # (Auto) (0.1-1.2) X10*3/uL Eos # (Auto) (0.0-0.4) X10*3/uL Baso # (Auto) (0.0-0.2) X10*3/uL Abs Immat Gran (auto) (0.00-0.03) X10*3/uL Absolute Neuts (auto) (2.0-8.3) x10*3/uL Absolute Nucleated RBC (0.0-0.012) X10*3/uL Nucleated RBC % (auto) (0.0-0.2) /100WBC PT 14.2 H (11.1-13.3) SEC INR 1.2 H (0.9-1.1) aPTT Heparin Protocol 29.2 L (53-77.9) SEC VBG pH 7.42 (7.32-7.43) VBG pCO2 45 mmHg VBG pO2 42 mmHg VBG HCO3 29 H (22-26) mmol/L VBG O2 Saturation 68.0 % VBG Base Excess 4.7 mmol/L Sodium (135-145) mmol/L Potassium (3.3-5.1) mmol/L Chloride (96-108) mmol/L Carbon Dioxide (22-29) mmol/L Anion Gap (12-20) BUN (9-16) mg/dL Creatinine (0.5-1.4) mg/dL Estim Creat Clear Calc Estimated GFR POC Glucose (60-115) mg/dL Random Glucose (60-115) mg/dL Lactic Acid (0.5-2.0) mmol/L Calcium (8.4-10.2) mg/dL Magnesium (1.6-2.6) mg/dL Total Bilirubin (0.0-1.0) mg/dL Direct Bilirubin (0.0-0.5) mg/dL AST (5-37) U/L ALT (0-40) U/L Alkaline Phosphatase (39-117) U/L Troponin I High Sens (<3.5-35.0) ng/L B-Natriuretic Peptide (<100) pg/mL Total Protein (6.5-8.0) g/dL Albumin (3.5-5.0) g/dL Lipase (8-78) U/L TSH (0.32-4.0) uIU/mL Urine Color Urine Appearance Urine pH (5.0-9.0) Ur Specific [place] (1.005-1.025) Urine Protein (Neg-Trace) mg/dL Urine Glucose (UA) (Negative) mg/dL Urine Ketones (Negative) mg/dL Urine Blood (Negative) Urine Nitrite (Negative) Ur Leukocyte Esterase (Negative) Urine RBC (0-2) /HPF Urine WBC (0-5) /HPF Ur Squamous Epith Cells (0-2) /HPF Urine Bacteria (None Seen) Hyaline Casts (0-2) /LPF Stool Occult Blood NEGATIVE (NEGATIVE) Influenza Type A (PCR) (Negative) Influenza Type B (PCR) (Negative) RSV RNA Qual (PCR) (Negative) SARS-CoV-2 RNA (RT-PCR) (Negative) 01/20/24 Range/Units 23:07 WBC (4.8-10.8) X10*3/uL RBC (4.60-5.80) X10*6/uL Hgb (14.0-18.0) g/dl Hct (42.0-52.0) % MCV (80.0-98.0) fL MCH (27.0-33.0) pg MCHC (31.0-36.0) g/dl RDW (11.0-16.0) % Plt Count (160-400) X10*3/uL MPV (9.4-12.4) fL Immature Gran % (Auto) (0.0-0.4) % Neut % (Auto) (45-73) % Lymph % (Auto) (20-40) % [place] % (Auto) (2-11) % Eos % (Auto) (0-4) % Baso % (Auto) (0-2) % Lymph # (Auto) (1.2-4.9) X10*3/uL [place] # (Auto) (0.1-1.2) X10*3/uL Eos # (Auto) (0.0-0.4) X10*3/uL Baso # (Auto) (0.0-0.2) X10*3/uL Abs Immat Gran (auto) (0.00-0.03) X10*3/uL Absolute Neuts (auto) (2.0-8.3) x10*3/uL Absolute Nucleated RBC (0.0-0.012) X10*3/uL Nucleated RBC % (auto) (0.0-0.2) /100WBC PT (11.1-13.3) SEC INR (0.9-1.1) aPTT Heparin Protocol (53-77.9) SEC VBG pH (7.32-7.43) VBG pCO2 mmHg VBG pO2 mmHg VBG HCO3 (22-26) mmol/L VBG O2 Saturation % VBG Base Excess mmol/L Sodium (135-145) mmol/L Potassium (3.3-5.1) mmol/L Chloride (96-108) mmol/L Carbon Dioxide (22-29) mmol/L Anion Gap (12-20) BUN (9-16) mg/dL Creatinine (0.5-1.4) mg/dL Estim Creat Clear Calc Estimated GFR POC Glucose (60-115) mg/dL Random Glucose (60-115) mg/dL Lactic Acid (0.5-2.0) mmol/L Calcium (8.4-10.2) mg/dL Magnesium (1.6-2.6) mg/dL Total Bilirubin (0.0-1.0) mg/dL Direct Bilirubin (0.0-0.5) mg/dL AST (5-37) U/L ALT (0-40) U/L Alkaline Phosphatase (39-117) U/L Troponin I High Sens (<3.5-35.0) ng/L B-Natriuretic Peptide (<100) pg/mL Total Protein (6.5-8.0) g/dL Albumin (3.5-5.0) g/dL Lipase (8-78) U/L TSH (0.32-4.0) uIU/mL Urine Color Yellow Urine Appearance Clear Urine pH 6.0 (5.0-9.0) Ur Specific [place] 1.025 (1.005-1.025) Urine Protein Negative (Neg-Trace) mg/dL Urine Glucose (UA) >=1000 H (Negative) mg/dL Urine Ketones Negative (Negative) mg/dL Urine Blood Negative (Negative) Urine Nitrite Negative (Negative) Ur Leukocyte Esterase Negative (Negative) Urine RBC 3-5 H (0-2) /HPF Urine WBC 0-5 (0-5) /HPF Ur Squamous Epith Cells 0-2 (0-2) /HPF Urine Bacteria None Seen (None Seen) Hyaline Casts 0-2 (0-2) /LPF Stool Occult Blood (NEGATIVE) Influenza Type A (PCR) (Negative) Influenza Type B (PCR) (Negative) RSV RNA Qual (PCR) (Negative) SARS-CoV-2 RNA (RT-PCR) (Negative) Independent Interpretation I performed an independent interpretation of an: EKG (My interpretation of EKG: Normal sinus rhythm, heart rate 81, no ST segment depression, T-wave inversions in V4 through V6 previously seen on EKG of 01/12/2024, QTC 439) and Plain X-Ray Radiology Impression Discussion of test interpretation with radiology: I have reviewed the radiologist's reading. Radiologist Impression: FINDINGS: The heart is normal in size. There is a subtle left lower lobe opacity, not convincingly seen on the prior examination for which pneumonia is suspected. There is no pneumothorax or large pleural effusion. No acute osseous abnormality. XR/XR chest 1V IMPRESSION: There is a subtle left lower lobe opacity, not convincingly seen on the prior examination for which pneumonia is suspected. Independent Historian Clinical information obtained from an independent historian. History obtained from or confirmed by: EMS External Record Review External record reviewed: Inpatient record Critical Care Time Critical Care Time Critical Care Time: Yes Total Critical Care Time: 120 Attestation: I have personally provided critical care time. Time includes review of lab data, radiology results, discussion with consultants, and monitoring for potential decompensation. Intervention performed as documented. Discharge Plan Discharge Clinical Impression: COVID, Acute kidney injury superimposed on CKD, Pneumonia, Acute hyperglycemia, Hypernatremia, Dehydration, Respiratory failure Patient Disposition: Admitted As Inpatient
[2024-01-20 22:17] LABS: MANUAL DIFF FLAG NO
[2024-01-20 22:19] LABS: Basophils Percent Auto 0.1 % (0-2); Eosinophils Absolute Auto 0.3 X10*3/uL (0.0-0.4); Eosinophils Percent Auto 2.2 % (0-4); Hematocrit 47.9 % (42.0-52.0); Hemoglobin 13.9 g/dl (14.0-18.0); Imm Gran Abs Auto 0.15 X10*3/uL (0.00-0.03); Lymphocytes Absolute Auto 3.8 X10*3/uL (1.2-4.9); Lymphocytes Percent Auto 25.3 % (20-40); Mean Corpuscular Hemoglobin 22.9 pg (27.0-33.0); Mean Platelet Volume 12.4 fL (9.4-12.4); Monocytes Absolute Auto 1.1 X10*3/uL (0.1-1.2); Monocytes Percent Auto 7.1 % (2-11); NRBC Pct Auto 0.1 /100WBC (0.0-0.2); Neutrophils Absolute Auto 9.6 x10*3/uL (2.0-8.3); Neutrophils Percent Auto 64.3 % (45-73); Platelet Count 211 X10*3/uL (160-400); Red Blood Count 6.06 X10*6/uL (4.60-5.80); Red Cell Distribution Width 16.2 % (11.0-16.0)
[2024-01-20 22:23] LABS: VBG Base Excess 4.7 mmol/L; VBG HCO3 29 mmol/L (22-26); VBG pCO2 45 mmHg; VBG pH 7.42 (7.32-7.43); VBG pO2 42 mmHg
[2024-01-20 22:24] LABS: OBS Int Ctl Valid YES; OBS1 NEGATIVE (NEGATIVE)
[2024-01-20 22:25] LABS: Venous Blood Gas Refer to POC result
[2024-01-20 22:37] LABS: Lactic Acid 1.8 mmol/L (0.5-2.0)
[2024-01-20 22:46] LABS: B Type Natriuretic Peptide < 10 pg/mL (<100)
[2024-01-20 22:50] LABS: Troponin-I High Sensitivity 4.6 ng/L (<3.5-35.0)
[2024-01-20 22:55] LABS: Alanine Aminotransferase 17 U/L (0-40); Albumin Level 3.1 g/dL (3.5-5.0); Alkaline Phosphatase 96 U/L (39-117); Anion Gap 14 (12-20); Aspartate Amino Transferase 15 U/L (5-37); Bilirubin Direct 0.2 mg/dL (0.0-0.5); Bilirubin Total 0.4 mg/dL (0.0-1.0); Blood Urea Nitrogen 39 mg/dL (9-16); Calcium 9.8 mg/dL (8.4-10.2); Carbon Dioxide 27 mmol/L (22-29); Chloride 115 mmol/L (96-108); Creatinine Clr Calc Pharmacy 35.4; Estimated Glomerular Filt Rate 32; Glucose Random 356 mg/dL (60-115); Lipase 45 U/L (8-78); Magnesium 2.7 mg/dL (1.6-2.6); Potassium 4.8 mmol/L (3.3-5.1); Sodium 151 mmol/L (135-145); Total Protein 7.3 g/dL (6.5-8.0)
[2024-01-20 22:57] LABS: Influenza A PCR NEGATIVE (Negative); Influenza B PCR NEGATIVE (Negative); Resp Syncy Virus RNA Qual PCR NEGATIVE (Negative); SARS COV2 PCR INHOUSE POSITIVE (Negative)
[2024-01-20 23:04] LABS: TSH reflex Free T4 0.38 uIU/mL (0.32-4.0)
[2024-01-20 23:16] LABS: Appearance Urine Clear; Color Urine Yellow; Glucose Urine UA >=1000 mg/dL (Negative); Leukocyte Esterase Urine Negative (Negative); Nitrite Urine Negative (Negative); Specific Gravity - Urine 1.025 (1.005-1.025); UMIC TRIGGER UACC YES; Urine Blood Negative (Negative); Urine Ketones Negative (Negative); Urine Protein Negative (Neg-Trace)
[2024-01-20 23:20] LABS: INTERNATIONAL NORM RATIO 1.2 (0.9-1.1); Prothrombin Time 14.2 SEC (11.1-13.3)
[2024-01-20 23:23] LABS: PTT Heparin Drip 29.2 SEC (53-77.9)
[2024-01-20 23:24] LABS: Bacteria Urine None Seen (None Seen); Hyaline Casts Urine 0-2 /LPF (0-2); Squamous Epithelial Cell Urine 0-2 /HPF (0-2); WBC Urine 0-5 /HPF (0-5)
[2024-01-20] MEDS: Piperacillin Sodium/Tazobactam 3.375 GM in 0.9 % Sodium Chloride 50 ML IV (23:53)
[2024-01-20] MEDS: vancomycin HCL 1,000 MG, vancomycin HCL 750 MG in 0.9 % Sodium Chloride 500 ML 267.5 MG IV (23:58)
[2024-01-21] VITALS (42 sets, daily range): BP systolic 90–164; BP diastolic 62–85; PULSE 54–77; RESP 15–18; TEMP 34.5–37.4; O2SAT 81–100; BMI 20.7
[2024-01-21] MEDS: Etomidate 20 MG/10 ML VIAL IVPUSH (00:37)
[2024-01-21] MEDS: Rocuronium Bromide 50 MG/5 ML VIAL IVPUSH (00:38)
[2024-01-21] MEDS: propofoL 1,000 MG/100 ML VIAL 12.51 MG IVCONT ×2 (00:51→10:36)
[2024-01-21 01:32] LABS: ABG Base Excess 4.8 mmol/L; ABG HCO3 29 mmol/L (22-26); ABG pCO2 41 mmHg (32-45); ABG pH 7.45 (7.35-7.45); ABG pO2 45 mmHg (83-108)
[2024-01-21 01:36] LABS: Phosphorus 3.5 mg/dL (2.7-4.5)
[2024-01-21] MEDS: Tenecteplase 50 MG/10 ML KIT 17.5 MG IVPUSH (01:52)
[2024-01-21] MEDS: Dextrose 5 % and 0.45 % NaCl 1,000 ML 999 ML IVCONT (03:00)
--- NOTE | 2024-01-21 03:07 | PC.NURSE ---
pt prepped for intubation: 0037 Etomidate 20MG administered 0038 Rocuronium 50mg administered 0038 HR76 BP96/63 SPO2 100% while intubating 0040 successfully intubated #7.5 22 @the lip +color change bilateral breath sounds (tube pulled back to 24 @ the lip), NG tube R nare 16FR 0042 90/69 73 21 SPO2 100% 0051 Propofol started at 30mcg/kg/min witnessed by Silvana Jenkins RN 0113 pt noted to desat 84%, RT at bedside, pt now being manually ventilated. HR78 BP137/92 0152 TNK 17.5mg administered 0216 Levophed 0.1mcg started per verbal from Rosas QUEVEDO BP87/58 HR 74 SPO2 80% on vent 0220 Levophed increased 0.2mcg BP83/60 HR73 SPO2 84% on vent several lavages occurred at bedside with picking machine operator and RT. picking machine operator asked that pt be brought to ICU immediately with report to be given at bedside. this RN called ICU to inform them of plan. pt moved to ICU. report given to PRIMO White at bedside.
[2024-01-21 03:10] LABS: Procalcitonin 0.19 ng/mL
[2024-01-21 03:11] LABS: Glucose, Whole Blood 262 mg/dL (60-115)
[2024-01-21 03:29] LABS: MANUAL DIFF FLAG NO
[2024-01-21 03:31] LABS: Basophils Percent Auto 0.1 % (0-2); Eosinophils Absolute Auto 0.4 X10*3/uL (0.0-0.4); Eosinophils Percent Auto 2.8 % (0-4); Hematocrit 42.1 % (42.0-52.0); Hemoglobin 12.4 g/dl (14.0-18.0); Imm Gran Abs Auto 0.12 X10*3/uL (0.00-0.03); Imm Gran Pct Auto 0.8 % (0.0-0.4); Lymphocytes Absolute Auto 4.3 X10*3/uL (1.2-4.9); Lymphocytes Percent Auto 28.8 % (20-40); Mean Corpuscular HGB Conc 29.5 g/dl (31.0-36.0); Mean Corpuscular Hemoglobin 23.4 pg (27.0-33.0); Mean Corpuscular Volume 79.3 fL (80.0-98.0); Mean Platelet Volume 11.4 fL (9.4-12.4); Monocytes Absolute Auto 0.7 X10*3/uL (0.1-1.2); Monocytes Percent Auto 4.9 % (2-11); NRBC Pct Auto 0.1 /100WBC (0.0-0.2); Neutrophils Absolute Auto 9.2 x10*3/uL (2.0-8.3); Neutrophils Percent Auto 62.6 % (45-73); Platelet Count 188 X10*3/uL (160-400); Red Blood Count 5.31 X10*6/uL (4.60-5.80); White Blood Count 14.8 X10*3/uL (4.8-10.8)
[2024-01-21 03:32] LABS: VBG Base Excess 0.7 mmol/L; VBG HCO3 26 mmol/L (22-26); VBG pCO2 48 mmHg; VBG pH 7.34 (7.32-7.43); VBG pO2 80 mmHg
[2024-01-21 03:33] LABS: Venous Blood Gas Refer to POC result
[2024-01-21] MEDS: Albuterol Sulfate 7.5 MG, Albuterol Sulfate (0.083%) 2.5 MG 10 MG INHALE (03:39)
[2024-01-21 03:41] LABS: Lactic Acid 0.9 mmol/L (0.5-2.0)
[2024-01-21 03:44] LABS: Valproate 44.5 mcg/mL (50.0-100.0)
[2024-01-21] MEDS: Pantoprazole Sodium 40 MG/10 ML VIAL IVPUSH (03:45)
[2024-01-21] MEDS: dexAMETHasone sod phosphate 4 MG/ML VIAL 6 MG IVPUSH (03:45)
[2024-01-21 03:51] LABS: Alanine Aminotransferase 14 U/L (0-40); Albumin Level 2.5 g/dL (3.5-5.0); Alkaline Phosphatase 74 U/L (39-117); Anion Gap 11 (12-20); Aspartate Amino Transferase 15 U/L (5-37); Bilirubin Total 0.4 mg/dL (0.0-1.0); Blood Urea Nitrogen 39 mg/dL (9-16); Calcium 8.4 mg/dL (8.4-10.2); Carbon Dioxide 26 mmol/L (22-29); Chloride 118 mmol/L (96-108); Creatinine Clr Calc Pharmacy 38.6; Estimated Glomerular Filt Rate 36; Glucose Random 449 mg/dL (60-115); Potassium 4.7 mmol/L (3.3-5.1); Sodium 150 mmol/L (135-145); Total Protein 5.8 g/dL (6.5-8.0)
[2024-01-21] MEDS: propofoL 1,000 MG/100 ML VIAL 16.68 MG IVCONT ×3 (03:52→21:05)
--- NOTE | 2024-01-21 04:07 | PM.CCHP ---
History of Present Illness Date of Service: 01/21/24 Attending physician on admission: Indigo Arnett Chief Complaint: Acute hypoxic respiratory failure 63-year-old patient with underlying history of unspecified dementia, schizophrenia, nonverbal, SP movement disorder, type 2 diabetes insulin dependent, seizure disorder, hypothyroidism, GERD, glaucoma, constipation, cardiomegaly with diastolic dysfunction ejection fraction of 50% per echo in 2022, eating disorder, chronic kidney disease stage 3 with baseline creatinine of 1.6, hyperlipidemia, recent admission and discharge from this hospital due to hypoxic respiratory failure in the setting of COVID-19 infection which also cause hypernatremia in the setting of acute kidney injury and dehydration who was treated in this hospital with albuterol nebs, Decadron, antibiotics and remdesivir, IV fluids among others.? Patient was discharged from this hospital on 01/15/2024 back to retirement facility where he resides. Patient was transferred from the nursing facility to the emergency room last night around 22:00 as the patient was noted to be lethargic weak and dyspneic, having low O2 saturations sleeping most of the time although opening his eyes upon calling his name.? Per report and according to EMS the patient's O2 sat there was 84% on room air and was placed on 6 L nasal cannula which improved his oxygen saturation to 90 and 92%, reportedly he had received approximately 700 cc the half normal saline at the facility, workup in the revealed a normotensive patient is satting 92% on 6 L nasal cannula with a fever of 100.2 but otherwise not hypotensive or tachycardic.? Initially his white count had been 15,000, Davis significant for a sodium of 151, chloride 115, BUN of 39 and creatinine of 2.07, random glucose 356 and lactic acid of 1.8.? Patient appeared to be fine initially and they gave him albuterol started him on some fluids, chest x-ray reveal left upper lobe infiltrates and the patient was started on vancomycin and Zosyn for possibility of pneumonia, however he quickly decompensated in the emergency room and went from satting almost 100% on 6 L nasal cannula to requiring emergent intubation for he had become obtunded.? Subsequently given after intubation the patient continued to deteriorate, they had trouble oxygenating him at which point we were involved directly intervened in the case. ?Immediate ABG obtained which reveal pH of 7.45, pCO2 41, PO2 of 45, HC03 29, base excess 4.8. In the ER, x-ray was reviewed, patient examined and seemed to have significant rhonchi on the right lower lobe as well as poor air movement despite of Ambu bag with an O2 sat of 53%, there was a lot of tension when trying to ventilate him through the bag, given his recent hospitalization and COVID infection the high suspicion of pulmonary embolism was raised and this was discussed with the ER physician whom I kindly asked to give half dose of TNK, then multiple saline lavages were done between me and respiratory therapy, patient was repositioned, endotracheal tube was pulled back 2 cm, vent settings were changed; propofol 50 mg IV push was given, Levophed started on subsequently the patient improved obtaining a sat between 86 and 90%, patient placed back on ventilator and transferred to the ICU. Review of Systems Review of Systems: Yes unobtainable due to endotracheal tube PMFSH Past Medical History Medical History [facility]ides in [facility] facility Constipation GERD (gastroesophageal reflux disease) Cardiomegaly Extrapyramidal and movement disorder Eating disorder Chronic kidney disease Glaucoma Schizophrenia Anemia Hyperlipemia Hypothyroid Seizures Diabetes Dementia Surgical History Surgical History Hx of colonoscopy Surgical history unknown Social History Social History Household Members: Unknown / Unable to assess Housing: Unknown / Unable to assess Unable to assess alcohol history related to: Unable to respond Alcohol intake: unknown Patient Tobacco Use Status: Tobacco use Unknown Use of substances other than those prescribed or required for medical reasons: Unable to respond Currently Displaying Signs/Symptoms of Drug Intoxication Withdrawal: No Advance Directives: Yes Advance Directives on File: Yes Advance Directives Date on File: 04/30/21 service: No Meds Allergies Allergy/AdvReac Type Severity Reaction Status Date / Time NSAIDS (Non-Steroidal AdvReac Avoid-r/t Verified 09/19/23 07:11 Anti-Inflamma CKD Active Medications: Current Medications Dextrose (Dextrose 50 % 25 Gm/50 Ml Syringe) 25 gm IVPUSH Q15M PRN; Protocol PRN Reason: per Hypoglycemia Standing Ord. Enoxaparin Sodium (Enoxaparin Sodium 80 Mg/0.8 Ml Syringe) 70 mg 1 mg/kg (70 mg) SUBCUT DAILY [facility] Glucose (Glucose Gel 15 Gm Gel..Gram.) 15 gm PO Q15M PRN; Protocol PRN Reason: per Hypoglycemia Standing Ord. Propofol (Diprivan) 1,000 mg in 100 mls @ 0 mls/hr IVCONT .Q0M [facility]; Protocol Last Admin: 01/21/24 03:52 Dose: 40 mcg/kg/min, 16.68 mls/hr Piperacillin Sod/Tazobactam (Sod 3.375 gm/ Sodium Chloride) 50 mls @ 100 mls/hr IV Q6H [facility] Dextrose/Sodium Chloride (D51/2ns) 1,000 mls @ 999 mls/hr IVCONT .Q1H1M [facility] Stop: 01/21/24 04:30 Last Admin: 01/21/24 03:00 Dose: 999 mls/hr Pharmacy Consult (Consult Rx Vancomycin Dosing) 1 each MISCELLANE DAILY PRN PRN Reason: Consult order Pharmacy Consult (Consult Rx Vancomycin Dosing) 1 each MISCELLANE DAILY PRN PRN Reason: Consult order Home Medications Medication Instructions Recorded Confirmed Last Taken Type acetaminophen 325 mg tablet 650 mg PO Q4H PRN Fever Or Pain 04/30/21 01/21/24 Unknown History amlodipine 10 mg tablet 10 mg PO DAILY 04/30/21 01/21/24 02/13/23 07:30 History aspirin 81 mg tablet,delayed 81 mg PO DAILY 04/30/21 01/21/24 02/08/23 History release bisacodyl 5 mg tablet,delayed 5 mg PO Q72H Constipation 04/30/21 01/21/24 Unknown History release carvedilol 25 mg tablet 25 mg PO BID 04/30/21 01/21/24 02/13/23 07:30 History clozapine 100 mg tablet (Clozaril) 200 mg PO DAILY 04/30/21 01/21/24 04/29/21 20:00 History ferrous sulfate 325 mg (65 mg 325 mg PO BID 04/30/21 01/21/24 02/08/23 History iron) tablet hydralazine 100 mg tablet 100 mg PO TID 04/30/21 01/21/24 02/13/23 07:30 History insulin glargine 100 unit/mL (3 8 unit subcut BEDTIME 04/30/21 01/21/24 02/11/23 History mL) subcutaneous pen (Lantus Solostar U-100 Insulin) lactulose 10 gram/15 mL oral 30 ml PO TID 04/30/21 01/21/24 Unknown History solution lithium carbonate 300 mg 300 mg PO BEDTIME 04/30/21 01/21/24 Unknown History tablet,extended release lithium carbonate 450 mg 225 mg PO DAILY@0630 04/30/21 01/21/24 02/13/23 07:30 History tablet,extended release sennosides 8.6 mg-docusate sodium 1 tab PO BID 04/30/21 01/21/24 Unknown History 50 mg tablet (Senna Plus) trazodone 50 mg tablet 50 mg PO BEDTIME 04/30/21 01/21/24 Unknown History dapagliflozin propanediol 10 mg 10 mg PO QAM 12/11/22 01/21/24 Unknown History tablet (Farxiga) glucagon 1 mg solution for 1 mg subcut Q15M PRN Hypoglycemia 12/11/22 01/21/24 Unknown History injection (GlucaGen HypoKit) sodium phosphates 19 gram-7 118 ml CA DAILY PRN Constipation 12/11/22 01/21/24 Unknown History gram/118 mL enema (Fleet Enema) atorvastatin 20 mg tablet 20 mg PO BEDTIME 02/10/23 01/21/24 Unknown History clozapine 100 mg tablet 100 mg PO DAILY 02/10/23 01/21/24 02/13/23 07:30 History bisacodyl 10 mg rectal suppository 10 mg CA DAILY PRN Constipation 09/19/23 01/21/24 Unknown History divalproex 250 mg tablet,extended 500 mg PO BEDTIME 09/19/23 01/21/24 Unknown History release 24 hr sennosides 8.6 mg tablet (senna) 8.6 mg PO DAILY PRN Constipation 09/19/23 01/21/24 Unknown History levothyroxine 112 mcg tablet 112 mcg PO DAILY@0600 01/12/24 01/21/24 Unknown History dextrose 40 % oral gel (Glucose 15 g PO Q15M PRN hypoglycemic 01/21/24 01/21/24 Unknown History Gel) protocol pregabalin 300 mg capsule 300 mg PO BID 01/21/24 01/21/24 Unknown History Physical Exam Vital Signs: Vital Signs: Last Vital Signs Temp 96.4 F L 01/21/24 03:52 Pulse 68 01/21/24 03:52 Resp 18 01/21/24 03:52 BP 126/77 01/21/24 03:52 Pulse Ox 99 01/21/24 03:52 O2 Del Method Mechanical Ventil ation 01/21/24 03:52 FiO2 100 01/21/24 03:52 BMI result Body Mass Index 20.8 Const: Other: Sepsis exam done at 01:35 am General: ?Sedated and intubated Skin:? Intact, no lesions, edema, erythema, clubbing or cyanosis.? No ulcers. HEENT:? Head is normocephalic, atraumatic, pupils equal round; no reactive to light bilaterally.? Buccal mucosa dry.? Neck supple, no bruits. Cardiac:? Clear S1-S2, no murmurs rubs or gallops. Pulmonary:? Diminished lung sounds bilaterally with very little air movement, significant rhonchi noted on the right lower lobe. Minimal wheezes, no crackles. Abdomen:? Slightly Protuberant, positive bowel sounds in all 4 quadrants.? Soft Musculoskeletal:? Passive range of motion of upper and lower extremities at the major joints showed no cogwheeling, no crepitus.? There is no leg edema or asymmetry. Neurologic:? As above, No focal deficits noted. Vascular:? 2+ pulses upper and lower extremities distally. ?Less than 3 seconds capillary refill of the finger and toes bilaterally upper and lower extremities Results Labs 01/21/24 04:35 01/21/24 04:35 Labs: Laboratory Results - last 24 hr 01/20/24 01/20/24 01/20/24 21:40 22:06 22:07 MCV 79.0 L MCH 22.9 L MCHC 29.0 L RDW 16.2 H Plt Count 211 D MPV 12.4 Immature Gran % (Auto) 1.0 H Neut % (Auto) 64.3 Lymph % (Auto) 25.3 [place] % (Auto) 7.1 Eos % (Auto) 2.2 Baso % (Auto) 0.1 Lymph # (Auto) 3.8 [place] # (Auto) 1.1 Eos # (Auto) 0.3 Baso # (Auto) 0.0 Abs Immat Gran (auto) 0.15 H Absolute Neuts (auto) 9.6 H Absolute Nucleated RBC 0.020 H Nucleated RBC % (auto) 0.1 PT INR aPTT Heparin Protocol O2 Saturation ABG pH at Pt Temp ABG pCO2 at Pt Temp ABG pO2 at Pt Temp ABG HCO3 ABG Base Excess (Actual) VBG pH VBG pCO2 VBG pO2 VBG HCO3 VBG O2 Saturation VBG Base Excess Anion Gap 14 Estim Creat Clear Calc 35.4 Estimated GFR 32 POC Glucose 321 H Random Glucose 356 H* Lactic Acid 1.8 Calcium 9.8 Phosphorus 3.5 Magnesium 2.7 H Total Bilirubin 0.4 Direct Bilirubin 0.2 AST 15 ALT 17 Alkaline Phosphatase 96 Troponin I High Sens 4.6 B-Natriuretic Peptide < 10 Total Protein 7.3 Albumin 3.1 L Lipase 45 Procalcitonin 0.19 TSH 0.38 Urine Color Urine Appearance Urine pH Ur Specific Bly Urine Protein Urine Glucose (UA) Urine Ketones Urine Blood Urine Nitrite Ur Leukocyte Esterase Urine RBC Urine WBC Ur Squamous Epith Cells Urine Bacteria Hyaline Casts Stool Occult Blood Valproic Acid [place] Influenza Type A (PCR) NEGATIVE Influenza Type B (PCR) NEGATIVE RSV RNA Qual (PCR) NEGATIVE SARS-CoV-2 RNA (RT-PCR) POSITIVE A 01/20/24 01/20/24 01/20/24 22:14 22:19 23:04 MCV MCH MCHC RDW Plt Count MPV Immature Gran % (Auto) Neut % (Auto) Lymph % (Auto) [place] % (Auto) Eos % (Auto) Baso % (Auto) Lymph # (Auto) [place] # (Auto) Eos # (Auto) Baso # (Auto) Abs Immat Gran (auto) Absolute Neuts (auto) Absolute Nucleated RBC Nucleated RBC % (auto) PT 14.2 H INR 1.2 H aPTT Heparin Protocol 29.2 L O2 Saturation ABG pH at Pt Temp ABG pCO2 at Pt Temp ABG pO2 at Pt Temp ABG HCO3 ABG Base Excess (Actual) VBG pH 7.42 VBG pCO2 45 VBG pO2 42 VBG HCO3 29 H VBG O2 Saturation 68.0 VBG Base Excess 4.7 Anion Gap Estim Creat Clear Calc Estimated GFR POC Glucose Random Glucose Lactic Acid Calcium Phosphorus Magnesium Total Bilirubin Direct Bilirubin AST ALT Alkaline Phosphatase Troponin I High Sens B-Natriuretic Peptide Total Protein Albumin Lipase Procalcitonin TSH Urine Color Urine Appearance Urine pH Ur Specific Bly Urine Protein Urine Glucose (UA) Urine Ketones Urine Blood Urine Nitrite Ur Leukocyte Esterase Urine RBC Urine WBC Ur Squamous Epith Cells Urine Bacteria Hyaline Casts Stool Occult Blood NEGATIVE Valproic Acid [place] Influenza Type A (PCR) Influenza Type B (PCR) RSV RNA Qual (PCR) SARS-CoV-2 RNA (RT-PCR) 01/20/24 01/21/24 01/21/24 23:07 01:24 02:52 MCV MCH MCHC RDW Plt Count MPV Immature Gran % (Auto) Neut % (Auto) Lymph % (Auto) [place] % (Auto) Eos % (Auto) Baso % (Auto) Lymph # (Auto) [place] # (Auto) Eos # (Auto) Baso # (Auto) Abs Immat Gran (auto) Absolute Neuts (auto) Absolute Nucleated RBC Nucleated RBC % (auto) PT INR aPTT Heparin Protocol O2 Saturation 74.0 ABG pH at Pt Temp 7.45 ABG pCO2 at Pt Temp 41 ABG pO2 at Pt Temp 45 L* ABG HCO3 29 H ABG Base Excess (Actual) 4.8 VBG pH VBG pCO2 VBG pO2 VBG HCO3 VBG O2 Saturation VBG Base Excess Anion Gap Estim Creat Clear Calc Estimated GFR POC Glucose 262 H Random Glucose Lactic Acid Calcium Phosphorus Magnesium Total Bilirubin Direct Bilirubin AST ALT Alkaline Phosphatase Troponin I High Sens B-Natriuretic Peptide Total Protein Albumin Lipase Procalcitonin TSH Urine Color Yellow Urine Appearance Clear Urine pH 6.0 Ur Specific Bly 1.025 Urine Protein Negative Urine Glucose (UA) >=1000 H Urine Ketones Negative Urine Blood Negative Urine Nitrite Negative Ur Leukocyte Esterase Negative Urine RBC 3-5 H Urine WBC 0-5 Ur Squamous Epith Cells 0-2 Urine Bacteria None Seen Hyaline Casts 0-2 Stool Occult Blood Valproic Acid [place] Influenza Type A (PCR) Influenza Type B (PCR) RSV RNA Qual (PCR) SARS-CoV-2 RNA (RT-PCR) 01/21/24 01/21/24 03:23 03:24 MCV 79.3 L MCH 23.4 L MCHC 29.5 L RDW 15.0 Plt Count 188 MPV 11.4 Immature Gran % (Auto) 0.8 H Neut % (Auto) 62.6 Lymph % (Auto) 28.8 [place] % (Auto) 4.9 Eos % (Auto) 2.8 Baso % (Auto) 0.1 Lymph # (Auto) 4.3 [place] # (Auto) 0.7 Eos # (Auto) 0.4 Baso # (Auto) 0.0 Abs Immat Gran (auto) 0.12 H Absolute Neuts (auto) 9.2 H Absolute Nucleated RBC 0.020 H Nucleated RBC % (auto) 0.1 PT INR aPTT Heparin Protocol O2 Saturation ABG pH at Pt Temp ABG pCO2 at Pt Temp ABG pO2 at Pt Temp ABG HCO3 ABG Base Excess (Actual) VBG pH 7.34 VBG pCO2 48 VBG pO2 80 VBG HCO3 26 VBG O2 Saturation 94.0 VBG Base Excess 0.7 Anion Gap 11 L Estim Creat Clear Calc 38.6 Estimated GFR 36 POC Glucose Random Glucose 449 H* Lactic Acid 0.9 Calcium 8.4 D Phosphorus Magnesium Total Bilirubin 0.4 Direct Bilirubin AST 15 ALT 14 Alkaline Phosphatase 74 Troponin I High Sens B-Natriuretic Peptide Total Protein 5.8 L Albumin 2.5 L Lipase Procalcitonin TSH Urine Color Urine Appearance Urine pH Ur Specific Bly Urine Protein Urine Glucose (UA) Urine Ketones Urine Blood Urine Nitrite Ur Leukocyte Esterase Urine RBC Urine WBC Ur Squamous Epith Cells Urine Bacteria Hyaline Casts Stool Occult Blood Valproic Acid 44.5 L [place] 0.80 Influenza Type A (PCR) Influenza Type B (PCR) RSV RNA Qual (PCR) SARS-CoV-2 RNA (RT-PCR) Imaging Radiologist's Impressions: Impressions Chest X-Ray 01/20/24 22:32 IMPRESSION: There is a subtle left lower lobe opacity, not convincingly seen on the prior examination for which pneumonia is suspected. Chest X-Ray 01/21/24 01:30 IMPRESSION: 1. Endotracheal tube in good position. 2. The gastric tube extends below the diaphragm with side port appearing to be at the gastroesophageal junction. 3. Left lower lung field infiltrate and faint right lower lung field opacity possibly pleural fluid and/or infiltrate/atelectasis.. Assessment and Plan (1) Respiratory failure: Status: Acute Plan ASSESSMENT : 1. Acute hypoxic respiratory failure 2. Bilateral nosocomial pneumonia with suspected mucus plug 3. Acute early sepsis in the setting of # 2 (given white count, hypoxia and infiltrate presence as well as mental status changes) 4. Recurrent acute on chronic hypernatremia due to volume depletion 5. Acute kidney injury 6. Clinical dehydration 7. Uncontrolled diabetes mellitus type 2 8. Hypoalbuminemia 9. COVID positive with symptomatology origin 2 weeks ago PLAN OF CARE: Will admit the patient to ICU, monitor vital signs, I and O's, continue with ventilation support current settings AC 400, 14, 12, 100%, goal is to titrate the PEEP down and eventually the FiO2. sputum culture Gram stain, waiting for blood cultures, continue with broad spectrum antibiotics including vancomycin and Zosyn with renally adjusted doses. ?Patient will continue with D5 half-normal saline slowly, he already received 4 L of IV fluid per ER report prior to arrival.? Repeat labs in the morning, insulin sliding scale, albumin replacement.? Central line will be placed as I assume he will need vasopressors. Given the recurrent hypoxia despite of oxygen supplementation, concern about underlying pulmonary embolism especially due to recent COVID infection hospitalization, will treat him empirically with Lovenox 1 milligram/kilogram every 24 hours while his renal function improves and the CTA of the chest is done or a nuclear study is performed. ?A small amount of wheezing, will give him bronchodilators scheduled. Will add procalcitonin, phosphorus, repeat lactic acid, will order a lithium and valproic acid levels. Formal echo, when patient is more stable consider V/Q scan to r/o PE or if renal function improves chest CTA. GI PROPHYLAXIS: ?Protonix IV DVT PROPHYLAXIS: ?Will start Lovenox 8 hours after TNK 1 milligram/kilogram every 24 hours (adjust as renal function improves) Clinical update 04:40 Patient seems to be doing well, we have been able to titrate his PEEP down his current vent settings are AC, 18, 450, 8, 90%, is on Levophed mainly due to propofol, he does have a map of 73; repeat laboratories showed no increasing his lactic acid, does show mild improvement of his sodium down to 150 (from 151), slight increase of his creatinine now 1.9. Will continue with D5 infusion slowly, and continue with the above plan. Critical care time used for critical evaluation of this patient, diagnosis, treatment and coordination of care, review her records and documentation TOTAL CRITICAL CARE TIME??150 MIN . discussion and coordination with consultants, completely separate from any procedures performed. Patient's care was discussed in detail with Dr. Arnett she is aware of all the above as well as the plan of care for this patient. ?
--- NOTE | 2024-01-21 04:07 | W.PM.CCHP ---
Procedures Date of Service Date of Service: 01/21/24 Central Line Placement Right IJ: Consent for Procedure: Emergent-no informed consent obtained (Patient has a guardian, not answering the phone) Time out performed: Yes Sterile Technique Used: Yes Patient placed on monitor/pulse ox: Yes MD prep: mask, gown and gloves Central line prep: Chlorhexidine scrub Ultrasound used for placement: Yes Central line lumen inserted: triple Post procedure: sutured in place, good blood return, all ports aspirated, flushed, capped and sterile dressing applied Post procedure x-ray: tip of catheter in good position and no pneumothorax seen Patient tolerated procedure: well and no complications Complications: none
[2024-01-21] MEDS: Dextrose 5 % 1,000 ML 75 ML IVCONT (04:31)
[2024-01-21] MEDS: Albumin Human 25 % 100 ML 133.3 ML IV ×4 (04:32→09:30)
[2024-01-21 04:46] LABS: VBG Base Excess 0.6 mmol/L; VBG HCO3 26 mmol/L (22-26); VBG pCO2 47 mmHg; VBG pH 7.35 (7.32-7.43); VBG pO2 94 mmHg
[2024-01-21 04:58] LABS: MANUAL DIFF FLAG NO
[2024-01-21 05:01] LABS: Basophils Percent Auto 0.2 % (0-2); Eosinophils Absolute Auto 0.4 X10*3/uL (0.0-0.4); Hematocrit 41.2 % (42.0-52.0); Imm Gran Abs Auto 0.14 X10*3/uL (0.00-0.03); Imm Gran Pct Auto 0.8 % (0.0-0.4); Lymphocytes Absolute Auto 3.5 X10*3/uL (1.2-4.9); Lymphocytes Percent Auto 19.6 % (20-40); Mean Corpuscular HGB Conc 29.1 g/dl (31.0-36.0); Mean Corpuscular Hemoglobin 23.4 pg (27.0-33.0); Mean Corpuscular Volume 80.3 fL (80.0-98.0); Mean Platelet Volume 11.5 fL (9.4-12.4); Monocytes Absolute Auto 0.8 X10*3/uL (0.1-1.2); Monocytes Percent Auto 4.5 % (2-11); Neutrophils Absolute Auto 12.9 x10*3/uL (2.0-8.3); Neutrophils Percent Auto 72.9 % (45-73); Platelet Count 171 X10*3/uL (160-400); Red Blood Count 5.13 X10*6/uL (4.60-5.80); White Blood Count 17.7 X10*3/uL (4.8-10.8)
[2024-01-21] MEDS: Norepinephrine Bitartrate/D5W 8 MG/250 ML PLAST..BAG 19.55 MG IV (05:05)
[2024-01-21 05:07] LABS: Venous Blood Gas Refer to POC result
[2024-01-21 05:09] LABS: Venous Blood Gas Refer to POC result
[2024-01-21 05:09] LABS: ABG Refer to POC result
[2024-01-21] MEDS: Insulin Lispro 100 UNIT/ML 3 ML VIAL 10 UNIT SUBCUT (05:10)
[2024-01-21 05:23] LABS: Alanine Aminotransferase 14 U/L (0-40); Albumin Level 2.4 g/dL (3.5-5.0); Alkaline Phosphatase 75 U/L (39-117); Anion Gap 9 (12-20); Aspartate Amino Transferase 14 U/L (5-37); Bilirubin Total 0.3 mg/dL (0.0-1.0); Blood Urea Nitrogen 38 mg/dL (9-16); Calcium 8.4 mg/dL (8.4-10.2); Carbon Dioxide 27 mmol/L (22-29); Chloride 117 mmol/L (96-108); Creatinine Clr Calc Pharmacy 37.8; Estimated Glomerular Filt Rate 35; Glucose Random 527 mg/dL (60-115); Potassium 4.8 mmol/L (3.3-5.1); Sodium 148 mmol/L (135-145); Total Protein 5.6 g/dL (6.5-8.0)
[2024-01-21] MEDS: Piperacillin Sodium/Tazobactam 3.375 GM in 0.9 % Sodium Chloride 50 ML IV ×3 (06:10→17:28)
--- NOTE | 2024-01-21 06:37 | PC.NURSE ---
Addendum entered by Lorenzo Lora RN 01/21/24 07:07: PATIENT ADMITTED TO 254-1 INSTEAD OF 262-1 PER ICU PA...PLANNED FOR CENTRAL LINE INSERTION...PROBABLE BRONCHOSCOPY Original Note: RECEIVED PATIENT FROM ER TO ICU 254-1 APPROX 02:50...PATIENT INTUBATED/SEDATED...PROPOFOL/LEVOPHED/VANCOMYCIN INFUSING FROM ADMINISTRATION IN ER DEPT VIA 3 PERIPHERAL IV SITES...#7.5 ETT @ 24CM...AC 18/TV 400/FIO2 100%/PEEP 12. SAO2 80%...NSR....COVID ISOLATION IN [place]....V[place] YELLOW URINE...BAGGED/LAVAGED FOR SMALL AMOUNT WHITE SPUTUM...PER ER REPORT PATIENT RECEIVED TNK 17.5 MG IV AT 01:52...ICU PA AT BEDSIDE...RIGHT JUGULAR TLC PLACED W/O INCIDENT...NO BLEEDING NOTED...PATIENT PLACED SUPINE 20 DEGREES WITH PILLOW BEHIND SHOULDER BLADES TO PARTIALNHYPER EXTEND THORAX...SAO2 SLOWLY IMPROVED AND UP TO 99% EVENTUALLY...SERIAL VENT CHANGES/WEANING ...CURRENTLY AC 18/TV 450/FIO2 90%/PEEP 8..SAO2 99%...ICU PA TO [facility] RT PERMORM SALINE LAVAGE ON DAY SHIFT...D51/2NS 1000 ML BOLUS GIVEN...STARTED D5W 75 CC/HR...INSULIN NOLOG 10 UNITS SC FOR ELEVATED GLUCOSE..FOR LANTUS SC 9AM..ALBUTEROL 10MG UPDRAFT GIVEN BY RT
--- NOTE | 2024-01-21 07:16 | PHA.PROG ---
Admission Date/Time: January 21, 2024 01:11 Indication: RESP Weight in k.4 kg Serum Creatinine - Last 168 Hours 01/20/24 01/21/24 01/21/24 22:06 03:24 04:35 Creatinine 2.07 H 1.90 H 1.94 H Estimated CrCl and GFR - Last 168 Hours 01/20/24 01/21/24 01/21/24 22:06 03:24 04:35 Estim Creat Clear Calc 35.4 38.6 37.8 Estimated GFR 32 36 35 Vancomycin Loading Dose: 1750 Current Vancomycin Dosing Regimen: 1000 Q 24H Vancomycin Monitoring using AUC goal of 400 - 600 range with trough as surrogate marker: 544 Date and Time for next Vancomycin Level to be drawn: 01/21 @ 2100 Pharmacist Comments on Vancomycin Plan: Vancomycin dosing will take advantage of NPTVX as a clinical decision support tool that uses Bayesian modeling to calculate individual patient's pharmacokinetic parameters and forecast the patient's drug concentration time course with the target goal AUC 24 range of 400 - 600 mg/L/hr.
[2024-01-21 07:37] LABS: Glucose, Whole Blood 420 mg/dL (60-115)
[2024-01-21] MEDS: Insulin Regular, Human 100 UNIT/ML 3 ML VIAL 10 UNIT IVPUSH (07:51)
[2024-01-21] MEDS: Enoxaparin Sodium 100 MG/ML SYRINGE SUBCUT (08:00)
[2024-01-21] MEDS: Insulin Regular/NS 100 UNIT/100 ML PLAST..BAG IVCONT (08:00)
[2024-01-21] MEDS: Albuterol/Iprat 2.5/0.5MG 3 ML AMPUL.NEB INHALE ×4 (08:21→20:15)
[2024-01-21 09:13] LABS: Glucose, Whole Blood 324 mg/dL (60-115)
--- NOTE | 2024-01-21 09:47 | MHC.CM.PN ---
PT IS CURRENTLY IN ICU ON VENTILATORY SUPPORT. PT IS A LTC RESIDENT AT [facility]. [facility] UPDATED VIA TELEPHONE AND RETURN REFERRAL SENT TO [facility] DP: RETURN TO [facility] VIA BLS . CM WILL CONTINUE TO FOLLOW FOR ANY CHANGE IN DC PLAN/NEEDS
[2024-01-21 10:20] LABS: Glucose, Whole Blood 235 mg/dL (60-115)
--- NOTE | 2024-01-21 10:28 | ECG_ITS ---
Test Reason : haile Blood Pressure : / mmHG Vent. Rate : 062 BPM Atrial Rate : 062 BPM P-R Int : 188 ms QRS Dur : 100 ms QT Int : 440 ms P-R-T Axes : 071 068 149 degrees QTc Int : 446 ms Normal sinus rhythm Minimal voltage criteria for LVH, may be normal variant ( Sokolow-Joseph ) Nonspecific T wave abnormality Abnormal ECG When compared to the previous EKG of No significant changes seen Referred By: Indigo Arnett Electronically Signed By:ITZEL ELLIS MD
[2024-01-21] MEDS: Levothyroxine Sodium 100 MCG/5 ML VIAL 55 MCG IVPUSH (10:31)
--- NOTE | 2024-01-21 10:41 | MHC.CLN ---
PT IS INTUBATED AND SEDATED PT WITH INCREASED NUTRITION RISK R/T PRESSURE INJURY PT IS CURRENTLY NPO IF TF NEEDED; RECOMMEND PROMOTE AT MAX GOAL RATE 70ML/HR WITH 120ML FREE WATER FLUSHES Q 4 HRS TO PROVIDE 1680KCALS (2009KCALS WITH SEDATION; 29KCALS/KG), 105G PROTEIN (1.5G/KG), 2129ML TOTAL FREE WATER FROM FORMULA AND FLUSHES (31ML/KG) TF WILL PROMOTE WOUND HEALING MONITOR TOLERANCE, RESIDUALS AND LYTES SEE ALSO FULL CLINICAL NUTRITION ASSESSMENT
--- NOTE | 2024-01-21 11:19 | PHA.MEDREC ---
Pharmacy Consult ? Medication Reconciliation Pharmacy has completed the medication reconciliation.med rec complete, list from [facility]
[2024-01-21 11:24] LABS: Magnesium 2.5 mg/dL (1.6-2.6); Phosphorus 2.9 mg/dL (2.7-4.5)
[2024-01-21 11:56] LABS: Glucose, Whole Blood 239 mg/dL (60-115)
[2024-01-21 11:56] LABS: Glucose, Whole Blood 232 mg/dL (60-115)
[2024-01-21 13:08] LABS: Glucose, Whole Blood 181 mg/dL (60-115)
[2024-01-21] MEDS: Insulin Glargine,Hum.rec.anlog 100 UNIT/ML 10 ML VIAL 15 UNIT SUBCUT (13:18)
[2024-01-21] MEDS: Insulin Lispro 100 UNIT/ML 3 ML VIAL SUBCUT (13:18)
[2024-01-21 17:40] LABS: Glucose, Whole Blood 134 mg/dL (60-115)
[2024-01-21 22:17] LABS: MANUAL DIFF FLAG NO
[2024-01-21 22:19] LABS: Basophils Percent Auto 0.1 % (0-2); Hematocrit 36.2 % (42.0-52.0); Imm Gran Abs Auto 0.09 X10*3/uL (0.00-0.03); Imm Gran Pct Auto 0.5 % (0.0-0.4); Lymphocytes Absolute Auto 2.1 X10*3/uL (1.2-4.9); Lymphocytes Percent Auto 11.4 % (20-40); Mean Corpuscular HGB Conc 30.4 g/dl (31.0-36.0); Mean Corpuscular Hemoglobin 23.5 pg (27.0-33.0); Mean Corpuscular Volume 77.4 fL (80.0-98.0); Mean Platelet Volume 11.2 fL (9.4-12.4); Monocytes Absolute Auto 0.6 X10*3/uL (0.1-1.2); Monocytes Percent Auto 3.4 % (2-11); Neutrophils Absolute Auto 15.4 x10*3/uL (2.0-8.3); Neutrophils Percent Auto 84.6 % (45-73); Platelet Count 156 X10*3/uL (160-400); Red Blood Count 4.68 X10*6/uL (4.60-5.80); Red Cell Distribution Width 14.8 % (11.0-16.0); White Blood Count 18.2 X10*3/uL (4.8-10.8)
[2024-01-21 22:42] LABS: Alanine Aminotransferase 10 U/L (0-40); Albumin Level 3.8 g/dL (3.5-5.0); Alkaline Phosphatase 58 U/L (39-117); Anion Gap 14 (12-20); Aspartate Amino Transferase 12 U/L (5-37); Bilirubin Total 0.5 mg/dL (0.0-1.0); Blood Urea Nitrogen 31 mg/dL (9-16); Calcium 10.3 mg/dL (8.4-10.2); Carbon Dioxide 26 mmol/L (22-29); Chloride 123 mmol/L (96-108); Creatinine Clr Calc Pharmacy 53.8; Estimated Glomerular Filt Rate 53; Glucose Random 103 mg/dL (60-115); Magnesium 2.4 mg/dL (1.6-2.6); Phosphorus 3.8 mg/dL (2.7-4.5); Potassium 4.2 mmol/L (3.3-5.1); Sodium 159 mmol/L (135-145); Total Protein 6.8 g/dL (6.5-8.0)
[2024-01-22] VITALS (33 sets, daily range): BP systolic 112–146; BP diastolic 68–89; PULSE 79–94; RESP 12–20; TEMP 34.6–38.5; O2SAT 89–98; BMI 20.7
[2024-01-22] MEDS: Piperacillin Sodium/Tazobactam 3.375 GM in 0.9 % Sodium Chloride 50 ML IV ×4 (00:01→17:37)
[2024-01-22] MEDS: propofoL 1,000 MG/100 ML VIAL 16.68 MG IVCONT ×2 (00:02→05:06)
[2024-01-22 00:44] LABS: Glucose, Whole Blood 88 mg/dL (60-115)
[2024-01-22] MEDS: Dextrose 5 % and 0.45 % NaCl 1,000 ML 80 ML IVCONT ×2 (01:00→12:53)
[2024-01-22 05:28] LABS: VBG Base Excess 2.2 mmol/L; VBG HCO3 24 mmol/L (22-26); VBG pCO2 30 mmHg; VBG pH 7.51 (7.32-7.43); VBG pO2 82 mmHg
[2024-01-22 05:28] LABS: Venous Blood Gas Refer to POC result
[2024-01-22 05:33] LABS: MANUAL DIFF FLAG NO
[2024-01-22 05:37] LABS: Basophils Percent Auto 0.2 % (0-2); Eosinophils Percent Auto 0.1 % (0-4); Hematocrit 38.7 % (42.0-52.0); Hemoglobin 11.7 g/dl (14.0-18.0); Imm Gran Pct Auto 0.5 % (0.0-0.4); Lymphocytes Absolute Auto 2.2 X10*3/uL (1.2-4.9); Lymphocytes Percent Auto 10.2 % (20-40); Mean Corpuscular HGB Conc 30.2 g/dl (31.0-36.0); Mean Corpuscular Hemoglobin 23.7 pg (27.0-33.0); Mean Corpuscular Volume 78.5 fL (80.0-98.0); Mean Platelet Volume 11.6 fL (9.4-12.4); Monocytes Absolute Auto 0.7 X10*3/uL (0.1-1.2); Monocytes Percent Auto 3.4 % (2-11); Neutrophils Absolute Auto 18.3 x10*3/uL (2.0-8.3); Neutrophils Percent Auto 85.6 % (45-73); Platelet Count 168 X10*3/uL (160-400); Red Blood Count 4.93 X10*6/uL (4.60-5.80); White Blood Count 21.4 X10*3/uL (4.8-10.8)
[2024-01-22 05:54] LABS: Anion Gap 13 (12-20); Blood Urea Nitrogen 31 mg/dL (9-16); Calcium 10.1 mg/dL (8.4-10.2); Carbon Dioxide 24 mmol/L (22-29); Chloride 123 mmol/L (96-108); Creatinine Clr Calc Pharmacy 47.5; Estimated Glomerular Filt Rate 46; Glucose Random 150 mg/dL (60-115); Potassium 4.2 mmol/L (3.3-5.1); Sodium 156 mmol/L (135-145)
[2024-01-22 06:13] LABS: Glucose, Whole Blood 167 mg/dL (60-115)
[2024-01-22] MEDS: Insulin Lispro 100 UNIT/ML 3 ML VIAL SUBCUT (06:31)
[2024-01-22] MEDS: Albuterol/Iprat 2.5/0.5MG 3 ML AMPUL.NEB INHALE ×4 (07:51→20:01)
[2024-01-22] MEDS: Insulin Glargine,Hum.rec.anlog 100 UNIT/ML 10 ML VIAL 15 UNIT SUBCUT (08:06)
[2024-01-22] MEDS: Enoxaparin Sodium 100 MG/ML SYRINGE SUBCUT (08:06)
--- NOTE | 2024-01-22 08:49 | PM.CCPN ---
Subjective Subjective Date of Service: 01/22/24 Interval History: no significant overnight events Critical Care Time (minutes): 90 Physical Exam Vital Signs: Vital Signs: Last Vital Signs Temp 100.4 F 01/22/24 08:00 Pulse 82 01/22/24 08:09 Resp 12 01/22/24 08:09 BP 122/73 01/22/24 08:00 Pulse Ox 93 01/22/24 08:00 O2 Del Method Mechanical Ventil ation 01/22/24 08:00 FiO2 50 01/22/24 08:00 BMI result Body Mass Index 20.7 Const: Other: intubated, sedated HEENT: Head: Yes normal to inspection, Yes normocephalic and Yes atraumatic Eyes: General: appearance normal, both eyes and all related structures Neck: Neck: Yes normal visual inspection, Yes full ROM, Yes no meningeal signs and Yes supple Chest: Chest palpation & inspection: normal inspection of the chest Resp: Other: some appreciable rhonchi; no appreciable rales, wheezing Cardio: Rate: regular rate Rhythm: regular rhythm GI: Inspection: Yes normal to inspection, No Abdominal wall edema and No distended Palpation (GI): Soft to palpation, not firm, nontender, no guarding and not rigid : Male General Exam: Yes normal external exam Skin: General skin exam: no rashes or lesions noted Neuro: General: tone normal, no meningeal signs and no focal motor deficits Extrem: General: Yes normal to inspection, Yes capillary refill normal and Yes no clubbing, cyanosis or edema Psych: Other: unable to assess Objective Data Labs 01/22/24 05:12 01/22/24 05:12 Labs: Laboratory Results - last 24 hr 01/21/24 01/21/24 01/21/24 09:09 10:17 10:57 WBC RBC Hgb Hct MCV MCH MCHC RDW Plt Count MPV Immature Gran % (Auto) Neut % (Auto) Lymph % (Auto) [place] % (Auto) Eos % (Auto) Baso % (Auto) Lymph # (Auto) [place] # (Auto) Eos # (Auto) Baso # (Auto) Abs Immat Gran (auto) Absolute Neuts (auto) Absolute Nucleated RBC Nucleated RBC % (auto) VBG pH VBG pCO2 VBG pO2 VBG HCO3 VBG O2 Saturation VBG Base Excess Sodium Potassium Chloride Carbon Dioxide Anion Gap BUN Creatinine Estim Creat Clear Calc Estimated GFR POC Glucose 324 H 235 H Random Glucose Calcium Phosphorus 2.9 Magnesium 2.5 Total Bilirubin AST ALT Alkaline Phosphatase Total Protein Albumin 01/21/24 01/21/24 01/21/24 11:19 11:51 13:04 WBC RBC Hgb Hct MCV MCH MCHC RDW Plt Count MPV Immature Gran % (Auto) Neut % (Auto) Lymph % (Auto) [place] % (Auto) Eos % (Auto) Baso % (Auto) Lymph # (Auto) [place] # (Auto) Eos # (Auto) Baso # (Auto) Abs Immat Gran (auto) Absolute Neuts (auto) Absolute Nucleated RBC Nucleated RBC % (auto) VBG pH VBG pCO2 VBG pO2 VBG HCO3 VBG O2 Saturation VBG Base Excess Sodium Potassium Chloride Carbon Dioxide Anion Gap BUN Creatinine Estim Creat Clear Calc Estimated GFR POC Glucose 232 H 239 H 181 H Random Glucose Calcium Phosphorus Magnesium Total Bilirubin AST ALT Alkaline Phosphatase Total Protein Albumin 01/21/24 01/21/24 01/22/24 17:36 22:11 00:38 WBC 18.2 H RBC 4.68 Hgb 11.0 L Hct 36.2 L MCV 77.4 L MCH 23.5 L MCHC 30.4 L RDW 14.8 Plt Count 156 L MPV 11.2 Immature Gran % (Auto) 0.5 H Neut % (Auto) 84.6 H Lymph % (Auto) 11.4 L [place] % (Auto) 3.4 Eos % (Auto) 0.0 Baso % (Auto) 0.1 Lymph # (Auto) 2.1 [place] # (Auto) 0.6 Eos # (Auto) 0.0 Baso # (Auto) 0.0 Abs Immat Gran (auto) 0.09 H Absolute Neuts (auto) 15.4 H Absolute Nucleated RBC 0.000 Nucleated RBC % (auto) 0.0 VBG pH VBG pCO2 VBG pO2 VBG HCO3 VBG O2 Saturation VBG Base Excess Sodium 159 H Potassium 4.2 Chloride 123 H Carbon Dioxide 26 Anion Gap 14 BUN 31 H Creatinine 1.36 Estim Creat Clear Calc 53.8 Estimated GFR 53 POC Glucose 134 H 88 Random Glucose 103 Calcium 10.3 H D Phosphorus 3.8 Magnesium 2.4 Total Bilirubin 0.5 AST 12 ALT 10 Alkaline Phosphatase 58 Total Protein 6.8 Albumin 3.8 01/22/24 01/22/24 01/22/24 05:12 05:19 06:06 WBC 21.4 H RBC 4.93 Hgb 11.7 L Hct 38.7 L MCV 78.5 L MCH 23.7 L MCHC 30.2 L RDW 15.0 Plt Count 168 MPV 11.6 Immature Gran % (Auto) 0.5 H Neut % (Auto) 85.6 H Lymph % (Auto) 10.2 L [place] % (Auto) 3.4 Eos % (Auto) 0.1 Baso % (Auto) 0.2 Lymph # (Auto) 2.2 [place] # (Auto) 0.7 Eos # (Auto) 0.0 Baso # (Auto) 0.0 Abs Immat Gran (auto) 0.10 H Absolute Neuts (auto) 18.3 H Absolute Nucleated RBC 0.000 Nucleated RBC % (auto) 0.0 VBG pH 7.51 H VBG pCO2 30 VBG pO2 82 VBG HCO3 24 VBG O2 Saturation 97.0 VBG Base Excess 2.2 Sodium 156 H Potassium 4.2 Chloride 123 H Carbon Dioxide 24 Anion Gap 13 BUN 31 H Creatinine 1.54 H Estim Creat Clear Calc 47.5 Estimated GFR 46 POC Glucose 167 H Random Glucose 150 H Calcium 10.1 Phosphorus Magnesium Total Bilirubin AST ALT Alkaline Phosphatase Total Protein Albumin Microbiology Microbiology Results: Microbiology 01/20/24 22:08 Blood - Venous Blood Culture - Preliminary No growth after 24 hours. 01/20/24 22:08 Blood - Venous Blood Culture - Preliminary No growth after 24 hours. Progress Note: A&P Assessment and plan (1) Respiratory failure: Status: Acute (2) Acute kidney injury superimposed on chronic kidney disease: Status: Acute (3) COVID-19: Status: Acute (4) Heart failure: Status: Acute Plan Patient is a 63 Y M with multiple comorbidities including advanced dementia, non-verbal at baseline, insulin-dependent diabetes mellitus, hypothyroidism, HFrEF, and chronic renal insufficiency, with recent hospitalization for COVID pneumonia, status post remdesivir/dexamethasone, discharged to nursing facility, re-presenting on 01/19 with encephalopathy, found to have acute hypoxic respiratory failure, intubated, and treated empirically for bacterial pneumonia and PE; ICU course c/b septic shock, acute on chronic renal insufficiency N: intubated, sedated w/ propofol gtt; wean as tolerated; advanced dementia, non-verbal CV: shock, likely septic shock, improving R: acute hypoxic respiratory failure, possibly d/t pneumonia +/- pulmonary embolism, s/p half-dose TNK; of note, guardian cannot be reached to consent for contrast; to attempt again today GI: no acute issues; NPO : acute on chronic renal insufficiency; to continue to monitor renal indices very closely H: c/f pulmonary embolism, s/p half-dose TNK, on treatment-dose enoxaparin ID: empiric vancomycin, zosyn for possible bacterial pneumonia E: insulin-dependent diabetes mellitus, c/b hyperglycemia P: no acute issues Quality Stroke Does the patient have a stroke diagnosis?: No VTE Prior VTE?: No VTE Risk Level:: Medical - moderate - high VTE Device Contraindication: N/A - Device Ordered VTE Drug Contraindication: N/A - Med Ordered
--- NOTE | 2024-01-22 10:41 | P.CDIM_ITS ---
PROVIDER RESPONSE TEXT: To clarify, the appropriate diagnosis supported by the clinical indicators: Pressure (decubitus) ulcer QUERY TEXT: PHYSICIAN'S DOCUMENTATION REQUEST Date of Query: 01/22/2024 09:56 AM EDT Patient Name: Reza Arnold Admit Date: 01/21/2024 Dear Indigo Arnett, A review of the medical record indicates additional documentation may be needed. Please review below and update the documentation accordingly. Clinical Indicators: Per Nursing Pressure Injury Assessment 01/21/24: stage 2 wound left buttock Based on the above, could you please provide further information regarding the ulcer/wound: Diabetic ulcer Pressure (decubitus) ulcer Traumatic wound Please specify the location and laterality of the ulcer/wound Other (explain) Clinically unable to determine (explain) Thank you, Adrianne Aguilar RN Use of terms such as suspected, likely, concern for, or probable (associated with a specific diagnosi s that is being evaluated, monitored, or treated as if it exists) are acceptable and can be coded in the inpatient se tting, when documented at the time of discharge. Please use your independent medical judgment in providing your response. THIS QUERY IS PART OF THE PERMANENT MEDICAL RECORD
[2024-01-22 12:01] LABS: Glucose, Whole Blood 146 mg/dL (60-115)
--- NOTE | 2024-01-22 12:02 | MHC.CM.PN ---
Pt continues on ventilatory support in ICU: Call placed to [facility] where pt resides as a LTC resident, to obtain an updated notice of guardian appointment: pt now has Kira Makc : scanned form in EMR lists prior appointee. No answer x 2. CM to attempt contact at later time. Pt will return to facility when medically cleared via BLS transport. CM to follow
--- NOTE | 2024-01-22 16:33 | HO.WOUND ---
Wound Consult: Initial 63yr old?[place] [facility] - See progress notes and H&P for detailed history.? Wound consult placed for Left Buttock.? Patient remains intubated at time of consultation. Repositioned with staff for assessment. Left Buttock / sacral area Etiology: ??Deep Tissue Injury In Evolution Present on Admission Measurements: see charting for detailed measurement Wound Bed: partial thickness tissue pale pink wound bed there is a central area of dark maroon purple tissue within wound bed - concern for evolution will monitor until wound bed declares itself Drainage / Odor: [place] yellow nonodorous drainage noted on foam dressing when removed Edges: ? irregular Joy wound: ?Darkly pigmented difficult to anish tissue noted - the right buttock is noted for previous injury - appears to be resolving at this time but was present on admission and suspect it was partial thickness tissue loss - there is no Induration, Fluctuance or Warmth noted Goals of Treatment: ? Continue to off load pressure with use of wedges and Triad cream and foam dressing to allow for moist wound healing and protect from friction and moisture Recommendations: 1. Turn and Reposition every 2 hours and as needed for patient comfort.? Use pillows or wedges to support off loading positions. 2. Off Load all bony prominences with use of pillows and heel boots if needed.? Apply Preventative foams where needed. ? 3. Monitor for incontinence and moisture control, use barrier creams when needed for prevention and treatment. 4. Provide adequate and supplemental nutrition.? 5. Order or Continue low air loss mattress. 6. When applicable maintain blood glucose levels per Providers order. 7. Left Buttocks - Cleanse with PH balance spray or wipes, pat dry. ?Apply thin layer of Triad to wound bed. Do not remove all of paste between applications as this may cause further skin damage.? Cover with foam dressing to aid in off loading and protection from friction. Re-consult wound care Nurse for wound deterioration or wound changes.
[2024-01-22 17:34] LABS: Glucose, Whole Blood 139 mg/dL (60-115)
[2024-01-22 19:47] LABS: Hemoglobin 11.6 g/dl (14.0-18.0); Mean Corpuscular HGB Conc 30.5 g/dl (31.0-36.0); Mean Corpuscular Hemoglobin 23.7 pg (27.0-33.0); Mean Corpuscular Volume 77.6 fL (80.0-98.0); Mean Platelet Volume 11.5 fL (9.4-12.4); Platelet Count 154 X10*3/uL (160-400); Red Cell Distribution Width 15.2 % (11.0-16.0); White Blood Count 23.2 X10*3/uL (4.8-10.8)
[2024-01-22 20:03] LABS: Alanine Aminotransferase 9 U/L (0-40); Albumin Level 3.4 g/dL (3.5-5.0); Alkaline Phosphatase 86 U/L (39-117); Anion Gap 13 (12-20); Aspartate Amino Transferase 13 U/L (5-37); Bilirubin Total 0.7 mg/dL (0.0-1.0); Blood Urea Nitrogen 30 mg/dL (9-16); Calcium 9.8 mg/dL (8.4-10.2); Carbon Dioxide 23 mmol/L (22-29); Chloride 125 mmol/L (96-108); Creatinine Clr Calc Pharmacy 49.4; Estimated Glomerular Filt Rate 48; Glucose Random 144 mg/dL (60-115); Potassium 4.1 mmol/L (3.3-5.1); Sodium 157 mmol/L (135-145); Total Protein 6.5 g/dL (6.5-8.0)
[2024-01-22 20:16] LABS: SLIDE REVIEW MANUAL DIFF
[2024-01-22 20:19] LABS: Lymphocytes Absolute Manual 2.1 X10*3/uL (1.2-4.9); Lymphocytes Percent Manual 9 % (20-40); Monocytes Absolute Manual 0.5 X10*3/uL (0.1-1.2); Monocytes Percent Manual 2 % (2-11); Neutrophils Percent Manual 89 % (45-73)
[2024-01-22 20:27] LABS: Target Cells 1+ (5-14) /OIF
[2024-01-22 20:29] LABS: Ovalocytes 1+ (5-14) /OIF; Platelet Estimate NORMAL (NORMAL); Platelet Morphology Comment NORMAL; RBC Morphology NOTED
[2024-01-22] MEDS: Dextrose 5 % 1,000 ML 75 ML IVCONT (20:50)
[2024-01-22 21:20] LABS: Vancomycin Trough 14.3 mcg/mL (10.0-20.0)
--- NOTE | 2024-01-22 21:29 | HE.PHANOTE ---
RE: VANCO DOSING Trough came back as 14.3 which is higher than predicted 12.8. Due to patient's poor renal function (but improving), continue the dose of 1000 mg q24h. Next random is scheduled for 01/23/24 @2100.
[2024-01-22] MEDS: vancomycin HCL 1,000 MG in 0.9 % Sodium Chloride 250 ML 270 MG IV ×2 (22:30)
[2024-01-23] VITALS (34 sets, daily range): BP systolic 96–132; BP diastolic 62–85; PULSE 74–98; RESP 14–79; TEMP 34.5–38.3; O2SAT 92–100; BMI 21.7
[2024-01-23 00:10] LABS: Glucose, Whole Blood 170 mg/dL (60-115)
[2024-01-23] MEDS: Piperacillin Sodium/Tazobactam 3.375 GM in 0.9 % Sodium Chloride 50 ML IV ×5 (00:16→22:32)
[2024-01-23] MEDS: Insulin Lispro 100 UNIT/ML 3 ML VIAL SUBCUT ×2 (00:18→12:13)
[2024-01-23 05:36] LABS: Glucose, Whole Blood 130 mg/dL (60-115)
[2024-01-23 05:48] LABS: MANUAL DIFF FLAG NO
[2024-01-23 05:56] LABS: Basophils Percent Auto 0.1 % (0-2); Eosinophils Percent Auto 0.2 % (0-4); Hematocrit 36.1 % (42.0-52.0); Hemoglobin 10.8 g/dl (14.0-18.0); Imm Gran Abs Auto 0.13 X10*3/uL (0.00-0.03); Imm Gran Pct Auto 0.6 % (0.0-0.4); Lymphocytes Absolute Auto 1.8 X10*3/uL (1.2-4.9); Lymphocytes Percent Auto 8.9 % (20-40); Mean Corpuscular HGB Conc 29.9 g/dl (31.0-36.0); Mean Corpuscular Hemoglobin 23.3 pg (27.0-33.0); Mean Corpuscular Volume 77.8 fL (80.0-98.0); Mean Platelet Volume 11.7 fL (9.4-12.4); Monocytes Absolute Auto 0.7 X10*3/uL (0.1-1.2); Monocytes Percent Auto 3.6 % (2-11); Neutrophils Absolute Auto 17.5 x10*3/uL (2.0-8.3); Neutrophils Percent Auto 86.6 % (45-73); Platelet Count 137 X10*3/uL (160-400); Red Blood Count 4.64 X10*6/uL (4.60-5.80); Red Cell Distribution Width 15.2 % (11.0-16.0); White Blood Count 20.2 X10*3/uL (4.8-10.8)
[2024-01-23 06:13] LABS: Magnesium 2.1 mg/dL (1.6-2.6); Phosphorus 3.3 mg/dL (2.7-4.5)
[2024-01-23] MEDS: Levothyroxine Sodium 100 MCG/5 ML VIAL 55 MCG IVPUSH (06:13)
[2024-01-23 06:30] LABS: Anion Gap 16 (12-20); Blood Urea Nitrogen 29 mg/dL (9-16); Calcium 9.5 mg/dL (8.4-10.2); Carbon Dioxide 21 mmol/L (22-29); Chloride 124 mmol/L (96-108); Creatinine Clr Calc Pharmacy 50.1; Estimated Glomerular Filt Rate 49; Glucose Random 138 mg/dL (60-115); Potassium 3.9 mmol/L (3.3-5.1); Sodium 157 mmol/L (135-145)
--- NOTE | 2024-01-23 08:11 | PM.CCPN ---
Subjective Subjective Date of Service: 01/23/24 Interval History: no significant overnight events Critical Care Time (minutes): 90 Physical Exam Vital Signs: Vital Signs: Last Vital Signs Temp 100.4 F 01/23/24 07:00 Pulse 97 01/23/24 07:00 Resp 18 01/23/24 07:00 BP 115/68 01/23/24 07:00 Pulse Ox 95 01/23/24 07:00 O2 Del Method Mechanical Ventil ation 01/23/24 07:00 FiO2 50 01/23/24 07:00 BMI result Body Mass Index 20.7 Const: Other: easily arousable with verbal stimulus General: no acute distress and well developed HEENT: Head: Yes normal to inspection, Yes normocephalic and Yes atraumatic Eyes: General: appearance normal, both eyes and all related structures Neck: Neck: Yes normal visual inspection, Yes full ROM, Yes no meningeal signs and Yes supple Resp: Other: some appreciable rhonchi; no appreciable rales, wheezing Effort & Inspection: normal respiratory effort Cardio: Rate: regular rate Rhythm: regular rhythm GI: Inspection: Yes normal to inspection, No Abdominal wall edema and No distended Palpation (GI): Soft to palpation, not firm, nontender, no guarding and not rigid : Male General Exam: Yes normal external exam Skin: General skin exam: no rashes or lesions noted Neuro: General: tone normal, moves all extremities, no meningeal signs and no focal motor deficits Extrem: General: Yes normal to inspection, Yes full ROM, Yes capillary refill normal and Yes no clubbing, cyanosis or edema Objective Data Labs 01/23/24 05:33 01/23/24 05:33 Labs: Laboratory Results - last 24 hr 01/22/24 01/22/24 01/22/24 11:51 17:29 19:39 WBC 23.2 H RBC 4.90 Hgb 11.6 L Hct 38.0 L MCV 77.6 L MCH 23.7 L MCHC 30.5 L RDW 15.2 Plt Count 154 L MPV 11.5 Immature Gran % (Auto) Cancelled Neut % (Auto) Cancelled Lymph % (Auto) Cancelled [place] % (Auto) Cancelled Eos % (Auto) Cancelled Baso % (Auto) Cancelled Lymph # (Auto) Cancelled [place] # (Auto) Cancelled Eos # (Auto) Cancelled Baso # (Auto) Cancelled Abs Immat Gran (auto) Cancelled Absolute Neuts (auto) Cancelled Absolute Nucleated RBC 0.000 Nucleated RBC % (auto) 0.0 Neutrophils % (Manual) 89 H Lymphocytes % (Manual) 9 L Monocytes % (Manual) 2 Abs Neuts (Manual) Not Reportable Lymphocytes # (Manual) 2.1 Monocytes # (Manual) 0.5 Platelet Estimate NORMAL Plt Morphology Comment NORMAL RBC Morphology NOTED Target Cells 1+ (5-14) Ovalocytes 1+ (5-14) Smear Tech's Comments MANUAL DIFF Sodium 157 H Potassium 4.1 Chloride 125 H Carbon Dioxide 23 Anion Gap 13 BUN 30 H Creatinine 1.48 H Estim Creat Clear Calc 49.4 Estimated GFR 48 POC Glucose 146 H 139 H Random Glucose 144 H Calcium 9.8 Phosphorus Magnesium Total Bilirubin 0.7 AST 13 ALT 9 Alkaline Phosphatase 86 Total Protein 6.5 Albumin 3.4 L Vancomycin Trough 01/22/24 01/22/24 01/23/24 20:57 23:59 05:33 WBC 20.2 H RBC 4.64 Hgb 10.8 L Hct 36.1 L MCV 77.8 L MCH 23.3 L MCHC 29.9 L RDW 15.2 Plt Count 137 L MPV 11.7 Immature Gran % (Auto) 0.6 H Neut % (Auto) 86.6 H Lymph % (Auto) 8.9 L [place] % (Auto) 3.6 Eos % (Auto) 0.2 Baso % (Auto) 0.1 Lymph # (Auto) 1.8 [place] # (Auto) 0.7 Eos # (Auto) 0.0 Baso # (Auto) 0.0 Abs Immat Gran (auto) 0.13 H Absolute Neuts (auto) 17.5 H Absolute Nucleated RBC 0.000 Nucleated RBC % (auto) 0.0 Neutrophils % (Manual) Lymphocytes % (Manual) Monocytes % (Manual) Abs Neuts (Manual) Lymphocytes # (Manual) Monocytes # (Manual) Platelet Estimate Plt Morphology Comment RBC Morphology Target Cells Ovalocytes Smear Tech's Comments Sodium 157 H Potassium 3.9 Chloride 124 H Carbon Dioxide 21 L Anion Gap 16 BUN 29 H Creatinine 1.46 H Estim Creat Clear Calc 50.1 Estimated GFR 49 POC Glucose 170 H 130 H Random Glucose 138 H Calcium 9.5 Phosphorus 3.3 Magnesium 2.1 Total Bilirubin AST ALT Alkaline Phosphatase Total Protein Albumin Vancomycin Trough 14.3 Microbiology Microbiology Results: Microbiology 01/20/24 22:08 Blood - Venous Blood Culture - Preliminary No growth after 48 hours. 01/20/24 22:08 Blood - Venous Blood Culture - Preliminary No growth after 48 hours. 01/22/24 05:35 Sputum - Suctioned Gram Stain - Final Progress Note: A&P Assessment and plan (1) Respiratory failure: Status: Acute (2) Pneumonia: Status: Acute (3) Acute kidney injury superimposed on chronic kidney disease: Status: Acute (4) Heart failure: Status: Acute Plan Patient is a 63 Y M with multiple comorbidities including advanced dementia, non-verbal at baseline, insulin-dependent diabetes mellitus, hypothyroidism, HFrEF, and chronic renal insufficiency, with recent hospitalization for COVID pneumonia, status post remdesivir/dexamethasone, discharged to nursing facility, re-presenting on 01/19 with encephalopathy, found to have acute hypoxic respiratory failure, intubated, and treated empirically for bacterial pneumonia and PE; ICU course c/b septic shock, acute on chronic renal insufficiency N: intubated, no longer sedated, though no appreciable purposeful movements; to follow-up CT H; advanced dementia, non-verbal CV: shock, likely septic shock, resolved R: acute hypoxic respiratory failure, possibly d/t pneumonia +/- pulmonary embolism, s/p half-dose TNK; of note, guardian cannot be reached to consent for contrast; to attempt again today GI: no acute issues; NPO : acute on chronic renal insufficiency; to continue to monitor renal indices very closely H: c/f pulmonary embolism, s/p half-dose TNK, on treatment-dose enoxaparin ID: empiric vancomycin, zosyn for possible bacterial pneumonia E: insulin-dependent diabetes mellitus, c/b hyperglycemia P: no acute issues Quality Stroke Does the patient have a stroke diagnosis?: No VTE Prior VTE?: No VTE Risk Level:: Medical - moderate - high VTE Device Contraindication: N/A - Device Ordered VTE Drug Contraindication: N/A - Med Ordered
[2024-01-23] MEDS: Albuterol/Iprat 2.5/0.5MG 3 ML AMPUL.NEB INHALE ×4 (08:22→19:37)
[2024-01-23 09:06] LABS: Glucose, Whole Blood 169 mg/dL (60-115)
[2024-01-23] MEDS: Insulin Glargine,Hum.rec.anlog 100 UNIT/ML 10 ML VIAL 15 UNIT SUBCUT (09:15)
[2024-01-23] MEDS: Dextrose 5 % 1,000 ML 75 ML IVCONT (09:15)
[2024-01-23] MEDS: Enoxaparin Sodium 100 MG/ML SYRINGE SUBCUT (09:15)
--- NOTE | 2024-01-23 11:03 | MHC.CLN ---
F/U PT REMAINS INTUBATED AND SEDATED PT WITH INCREASED NUTRITION RISK R/T PRESSURE INJURY PT IS CURRENTLY NPO DISCUSSED AT ROUNDS WITH MD-TF TO START RECOMMEND PROMOTE AT MAX GOAL RATE 70ML/HR WITH 120ML FREE WATER FLUSHES Q 4 HRS TO PROVIDE 1680KCALS (2010KCALS WITH SEDATION; 29KCALS/KG), 105G PROTEIN (1.5G/KG), 2129ML TOTAL FREE WATER FROM FORMULA AND FLUSHES (31ML/KG) TF WILL PROMOTE WOUND HEALING MONITOR TOLERANCE, RESIDUALS AND LYTES
[2024-01-23 11:44] LABS: Glucose, Whole Blood 176 mg/dL (60-115)
--- NOTE | 2024-01-23 13:53 | MHC.CM.PN ---
LTC pt from [facility] continues care in ICU - presently on ventilatory support: Calls placed to pt's guardian, Kira Mack x 2 requesting call back. CM received call : guardian reports pt does not have a HCP and is full code status. She is aware of his admission and will speak with ICU MD re: consents and updates. CM to follow for eventual return to SNF.
[2024-01-23] MEDS: iohexoL 350 MG/ML 100 ML INFUS..BTL IV (15:29)
[2024-01-23 17:56] LABS: Venous Blood Gas Refer to POC result
[2024-01-23 17:57] LABS: VBG Base Excess 0.9 mmol/L; VBG HCO3 24 mmol/L (22-26); VBG pCO2 32 mmHg; VBG pH 7.47 (7.32-7.43); VBG pO2 114 mmHg
[2024-01-23 18:05] LABS: Glucose, Whole Blood 128 mg/dL (60-115)
[2024-01-23 18:42] LABS: ABG Base Excess 0.3 mmol/L; ABG HCO3 23 mmol/L (22-26); ABG pCO2 32 mmHg (32-45); ABG pH 7.46 (7.35-7.45); ABG pO2 89 mmHg (83-108)
--- NOTE | 2024-01-23 19:04 | HO.SKINPHOTO ---
Location: left buttock Category: PI Stage: stage 2
[2024-01-23 21:28] LABS: Vancomycin Random 13.4 mcg/mL (15-20)
--- NOTE | 2024-01-23 21:32 | HE.PHANOTE ---
re vanco trough was 13.4, correlates to an AUC of 460. Continue current dose, next level due 01/24 @2100 Mendel
[2024-01-23] MEDS: HYDROmorphone HCl 0.5 MG/0.5 ML SYRINGE IVPUSH (22:30)
[2024-01-23] MEDS: vancomycin HCL 1,000 MG in 0.9 % Sodium Chloride 250 ML 270 MG IV (22:30)
[2024-01-23 23:14] LABS: MANUAL DIFF FLAG NO
[2024-01-23 23:17] LABS: Basophils Percent Auto 0.1 % (0-2); Eosinophils Absolute Auto 0.1 X10*3/uL (0.0-0.4); Eosinophils Percent Auto 0.4 % (0-4); Hematocrit 33.6 % (42.0-52.0); Imm Gran Abs Auto 0.08 X10*3/uL (0.00-0.03); Imm Gran Pct Auto 0.5 % (0.0-0.4); Lymphocytes Percent Auto 12.1 % (20-40); Mean Corpuscular HGB Conc 29.8 g/dl (31.0-36.0); Mean Corpuscular Hemoglobin 23.3 pg (27.0-33.0); Mean Corpuscular Volume 78.3 fL (80.0-98.0); Mean Platelet Volume 12.3 fL (9.4-12.4); Monocytes Absolute Auto 0.7 X10*3/uL (0.1-1.2); Monocytes Percent Auto 4.1 % (2-11); Neutrophils Absolute Auto 13.4 x10*3/uL (2.0-8.3); Neutrophils Percent Auto 82.8 % (45-73); Platelet Count 127 X10*3/uL (160-400); Red Blood Count 4.29 X10*6/uL (4.60-5.80); Red Cell Distribution Width 15.1 % (11.0-16.0); White Blood Count 16.2 X10*3/uL (4.8-10.8)
[2024-01-23 23:22] LABS: VBG Base Excess -0.8 mmol/L; VBG HCO3 21 mmol/L (22-26); VBG pCO2 28 mmHg; VBG pH 7.48 (7.32-7.43); VBG pO2 87 mmHg
[2024-01-23 23:34] LABS: Alanine Aminotransferase 9 U/L (0-40); Alkaline Phosphatase 68 U/L (39-117); Anion Gap 10 (12-20); Aspartate Amino Transferase 13 U/L (5-37); Bilirubin Total 0.7 mg/dL (0.0-1.0); Blood Urea Nitrogen 33 mg/dL (9-16); Calcium 9.3 mg/dL (8.4-10.2); Carbon Dioxide 22 mmol/L (22-29); Chloride 126 mmol/L (96-108); Creatinine Clr Calc Pharmacy 47.2; Estimated Glomerular Filt Rate 43; Glucose Random 141 mg/dL (60-115); Potassium 3.7 mmol/L (3.3-5.1); Sodium 154 mmol/L (135-145); Total Protein 6.1 g/dL (6.5-8.0)
[2024-01-23 23:34] LABS: Venous Blood Gas Refer to POC result
--- NOTE | 2024-01-23 23:40 | PC.NURSE ---
Assumed care of patient at 23:30.
[2024-01-24] VITALS (34 sets, daily range): BP systolic 94–130; BP diastolic 55–82; PULSE 56–85; RESP 17–21; TEMP 34.8–38; O2SAT 91–99; BMI 21.6
[2024-01-24 00:31] LABS: Glucose, Whole Blood 144 mg/dL (60-115)
[2024-01-24] MEDS: HYDROmorphone HCl 0.5 MG/0.5 ML SYRINGE IVPUSH ×2 (02:58→20:37)
[2024-01-24 04:47] LABS: VBG Base Excess -0.8 mmol/L; VBG HCO3 21 mmol/L (22-26); VBG pCO2 29 mmHg; VBG pH 7.47 (7.32-7.43); VBG pO2 76 mmHg
[2024-01-24 04:53] LABS: Venous Blood Gas Refer to POC result
[2024-01-24] MEDS: dexmedeTOMIDidine HCL/NS 400 MCG/100 ML INFUS..BTL 9.06 MCG IVCONT (05:00)
[2024-01-24] MEDS: Piperacillin Sodium/Tazobactam 3.375 GM in 0.9 % Sodium Chloride 50 ML IV ×3 (05:14→18:02)
[2024-01-24] MEDS: Levothyroxine Sodium 100 MCG/5 ML VIAL 55 MCG IVPUSH (05:14)
[2024-01-24 05:24] LABS: Basophils Percent Auto 0.1 % (0-2); Imm Gran Pct Auto 0.5 % (0.0-0.4); MANUAL DIFF FLAG SCAN; SCAN SMEAR FLAG 1
[2024-01-24 05:26] LABS: Eosinophils Absolute Auto 0.1 X10*3/uL (0.0-0.4); Eosinophils Percent Auto 0.6 % (0-4); Hematocrit 33.1 % (42.0-52.0); Imm Gran Abs Auto 0.08 X10*3/uL (0.00-0.03); Lymphocytes Absolute Auto 1.9 X10*3/uL (1.2-4.9); Lymphocytes Percent Auto 12.7 % (20-40); Mean Corpuscular HGB Conc 30.2 g/dl (31.0-36.0); Mean Corpuscular Hemoglobin 23.9 pg (27.0-33.0); Mean Platelet Volume 11.6 fL (9.4-12.4); Monocytes Absolute Auto 0.7 X10*3/uL (0.1-1.2); Monocytes Percent Auto 4.7 % (2-11); Neutrophils Absolute Auto 12.2 x10*3/uL (2.0-8.3); Neutrophils Percent Auto 81.4 % (45-73); Platelet Count 121 X10*3/uL (160-400); Red Blood Count 4.19 X10*6/uL (4.60-5.80); Red Cell Distribution Width 15.3 % (11.0-16.0)
[2024-01-24 05:27] LABS: PLT ABN DIST 1
[2024-01-24 05:46] LABS: Anion Gap 13 (12-20); Blood Urea Nitrogen 34 mg/dL (9-16); Calcium 9.6 mg/dL (8.4-10.2); Carbon Dioxide 21 mmol/L (22-29); Chloride 126 mmol/L (96-108); Creatinine Clr Calc Pharmacy 47.2; Estimated Glomerular Filt Rate 43; Glucose Random 165 mg/dL (60-115); Potassium 4.3 mmol/L (3.3-5.1); Sodium 156 mmol/L (135-145)
[2024-01-24 05:54] LABS: SLIDE REVIEW VERIFIED
[2024-01-24] MEDS: Insulin Lispro 100 UNIT/ML 3 ML VIAL SUBCUT ×5 (06:25→18:02)
--- NOTE | 2024-01-24 07:20 | HE.PHANOTE ---
Vancomycin dosing Slight increase in SCr, pharmacy will continue to monitor. Continue current regimen. Next level 01/24 @ 2100. Ghulam LuqueD
[2024-01-24] MEDS: Insulin Glargine,Hum.rec.anlog 100 UNIT/ML 10 ML VIAL 15 UNIT SUBCUT (07:40)
[2024-01-24] MEDS: Enoxaparin Sodium 100 MG/ML SYRINGE SUBCUT (07:40)
--- NOTE | 2024-01-24 07:44 | ECG_ITS ---
Test Reason : bradycardia Blood Pressure : / mmHG Vent. Rate : 070 BPM Atrial Rate : 070 BPM P-R Int : 182 ms QRS Dur : 094 ms QT Int : 404 ms P-R-T Axes : 074 071 096 degrees QTc Int : 436 ms Normal sinus rhythm T wave abnormality, consider lateral ischemia Abnormal ECG When compared with ECG of 21-JAN-2024 10:39, No significant change was found Referred By: Indigo Arnett Electronically Signed By:ITZEL ELLIS MD
[2024-01-24] MEDS: Albuterol/Iprat 2.5/0.5MG 3 ML AMPUL.NEB INHALE ×4 (07:50→18:55)
--- NOTE | 2024-01-24 07:53 | PM.CCPN ---
Subjective Subjective Date of Service: 01/24/24 Interval History: CTA chest and blood gases c/f intra-aterial central venous catheter; Dr. Vazquez is not vest front presser this ; case discussed with Dr. Pena, recommends waiting for Dr. Vazquez on Friday Critical Care Time (minutes): 90 Physical Exam Vital Signs: Vital Signs: Last Vital Signs Temp 99.9 F 01/24/24 07:00 Pulse 61 01/24/24 07:00 Resp 18 01/24/24 07:00 BP 127/68 01/24/24 07:00 Pulse Ox 95 01/24/24 07:00 O2 Del Method Mechanical Ventil ation 01/24/24 07:00 FiO2 40 01/24/24 07:00 BMI result Body Mass Index 21.6 Const: General: comfortable and no acute distress HEENT: Other: R neck central line with overlying dressing; no appreciable fluctuance, induration Head: Yes normal to inspection, Yes normocephalic and Yes atraumatic Eyes: General: appearance normal, both eyes and all related structures Neck: Other: as described above Neck: Yes normal visual inspection, Yes full ROM, Yes trachea midline and Yes supple Chest: Chest palpation & inspection: normal inspection of the chest Resp: Other: no overt rales, rhonchi, wheezing Cardio: Rate: regular rate Rhythm: regular rhythm GI: Inspection: Yes normal to inspection, No Abdominal wall edema and No distended Palpation (GI): Soft to palpation, not firm, nontender, no guarding and not rigid Skin: General skin exam: no rashes or lesions noted Neuro: Other: opens eyes to verbal stimulus; tracks General: tone normal, moves all extremities and no focal motor deficits Extrem: General: Yes normal to inspection, Yes full ROM, Yes capillary refill normal and Yes no clubbing, cyanosis or edema Psych: Other: unable to assess Objective Data Labs 01/24/24 04:40 01/24/24 04:40 Labs: Laboratory Results - last 24 hr 01/23/24 01/23/24 01/23/24 09:02 11:40 17:47 WBC RBC Hgb Hct MCV MCH MCHC RDW Plt Count MPV Immature Gran % (Auto) Neut % (Auto) Lymph % (Auto) [place] % (Auto) Eos % (Auto) Baso % (Auto) Lymph # (Auto) [place] # (Auto) Eos # (Auto) Baso # (Auto) Abs Immat Gran (auto) Absolute Neuts (auto) Absolute Nucleated RBC Nucleated RBC % (auto) Smear Tech's Comments O2 Saturation ABG pH at Pt Temp ABG pCO2 at Pt Temp ABG pO2 at Pt Temp ABG HCO3 ABG Base Excess (Actual) VBG pH VBG pCO2 VBG pO2 VBG HCO3 VBG O2 Saturation VBG Base Excess Sodium Potassium Chloride Carbon Dioxide Anion Gap BUN Creatinine Estim Creat Clear Calc Estimated GFR POC Glucose 169 H 176 H 128 H Random Glucose Calcium Total Bilirubin AST ALT Alkaline Phosphatase Total Protein Albumin Random Vancomycin 01/23/24 01/23/24 01/23/24 17:51 18:35 21:03 WBC RBC Hgb Hct MCV MCH MCHC RDW Plt Count MPV Immature Gran % (Auto) Neut % (Auto) Lymph % (Auto) [place] % (Auto) Eos % (Auto) Baso % (Auto) Lymph # (Auto) [place] # (Auto) Eos # (Auto) Baso # (Auto) Abs Immat Gran (auto) Absolute Neuts (auto) Absolute Nucleated RBC Nucleated RBC % (auto) Smear Tech's Comments O2 Saturation 98.0 ABG pH at Pt Temp 7.46 H ABG pCO2 at Pt Temp 32 ABG pO2 at Pt Temp 89 ABG HCO3 23 ABG Base Excess (Actual) 0.3 VBG pH 7.47 H VBG pCO2 32 VBG pO2 114 VBG HCO3 24 VBG O2 Saturation 99.0 VBG Base Excess 0.9 Sodium Potassium Chloride Carbon Dioxide Anion Gap BUN Creatinine Estim Creat Clear Calc Estimated GFR POC Glucose Random Glucose Calcium Total Bilirubin AST ALT Alkaline Phosphatase Total Protein Albumin Random Vancomycin 13.4 L 01/23/24 01/23/24 01/24/24 23:08 23:15 00:25 WBC 16.2 H RBC 4.29 L Hgb 10.0 L Hct 33.6 L MCV 78.3 L MCH 23.3 L MCHC 29.8 L RDW 15.1 Plt Count 127 L MPV 12.3 Immature Gran % (Auto) 0.5 H Neut % (Auto) 82.8 H Lymph % (Auto) 12.1 L [place] % (Auto) 4.1 Eos % (Auto) 0.4 Baso % (Auto) 0.1 Lymph # (Auto) 2.0 [place] # (Auto) 0.7 Eos # (Auto) 0.1 Baso # (Auto) 0.0 Abs Immat Gran (auto) 0.08 H Absolute Neuts (auto) 13.4 H Absolute Nucleated RBC 0.000 Nucleated RBC % (auto) 0.0 Smear Tech's Comments O2 Saturation ABG pH at Pt Temp ABG pCO2 at Pt Temp ABG pO2 at Pt Temp ABG HCO3 ABG Base Excess (Actual) VBG pH 7.48 H VBG pCO2 28 VBG pO2 87 VBG HCO3 21 L VBG O2 Saturation 98.0 VBG Base Excess -0.8 Sodium 154 H Potassium 3.7 Chloride 126 H Carbon Dioxide 22 Anion Gap 10 L BUN 33 H Creatinine 1.62 H Estim Creat Clear Calc 47.2 Estimated GFR 43 POC Glucose 144 H Random Glucose 141 H Calcium 9.3 Total Bilirubin 0.7 AST 13 ALT 9 Alkaline Phosphatase 68 Total Protein 6.1 L Albumin 3.0 L Random Vancomycin 01/24/24 01/24/24 04:39 04:40 WBC 15.0 H RBC 4.19 L Hgb 10.0 L Hct 33.1 L MCV 79.0 L MCH 23.9 L MCHC 30.2 L RDW 15.3 Plt Count 121 L MPV 11.6 Immature Gran % (Auto) 0.5 H Neut % (Auto) 81.4 H Lymph % (Auto) 12.7 L [place] % (Auto) 4.7 Eos % (Auto) 0.6 Baso % (Auto) 0.1 Lymph # (Auto) 1.9 [place] # (Auto) 0.7 Eos # (Auto) 0.1 Baso # (Auto) 0.0 Abs Immat Gran (auto) 0.08 H Absolute Neuts (auto) 12.2 H Absolute Nucleated RBC 0.000 Nucleated RBC % (auto) 0.0 Smear Tech's Comments VERIFIED O2 Saturation ABG pH at Pt Temp ABG pCO2 at Pt Temp ABG pO2 at Pt Temp ABG HCO3 ABG Base Excess (Actual) VBG pH 7.47 H VBG pCO2 29 VBG pO2 76 VBG HCO3 21 L VBG O2 Saturation 96.0 VBG Base Excess -0.8 Sodium 156 H Potassium 4.3 Chloride 126 H Carbon Dioxide 21 L Anion Gap 13 BUN 34 H Creatinine 1.61 H Estim Creat Clear Calc 47.2 Estimated GFR 43 POC Glucose Random Glucose 165 H Calcium 9.6 Total Bilirubin AST ALT Alkaline Phosphatase Total Protein Albumin Random Vancomycin Microbiology Microbiology Results: Microbiology 01/22/24 05:35 Sputum - Suctioned Gram Stain - Final 01/22/24 05:35 Sputum - Suctioned Sputum Culture - Final Klebsiella pneumoniae 01/20/24 22:08 Blood - Venous Blood Culture - Preliminary No growth after 48 hours. 01/20/24 22:08 Blood - Venous Blood Culture - Preliminary No growth after 48 hours. Progress Note: A&P Assessment and plan (1) Respiratory failure: Status: Acute (2) Acute kidney injury superimposed on chronic kidney disease: Status: Acute (3) Central line complication: Status: Acute (4) Heart failure: Status: Acute Plan Patient is a 63 Y M with multiple comorbidities including advanced dementia, non-verbal at baseline, insulin-dependent diabetes mellitus, hypothyroidism, HFrEF, and chronic renal insufficiency, with recent hospitalization for COVID pneumonia, status post remdesivir/dexamethasone, discharged to nursing facility, re-presenting on 01/19 with encephalopathy, found to have acute hypoxic respiratory failure, intubated, and treated empirically for bacterial pneumonia and PE; ICU course c/b septic shock, acute on chronic renal insufficiency, intra-arterial central line placement N: intubated, no longer sedated, though no appreciable purposeful movements; advanced dementia, non-verbal CV: c/f intra-aterial R neck central line; case discussed with thoracic surgery, awaiting vascular surgery recommendations; shock, likely septic shock, resolved R: acute hypoxic respiratory failure, possibly d/t pneumonia +/- pulmonary embolism, s/p half-dose TNK; CTA chest on 01/22 not demonstrating PE GI: no acute issues; tube feeds : acute on chronic renal insufficiency; to continue to monitor renal indices very closely; hypernatremia, to increase free water fluses H: c/f pulmonary embolism, s/p half-dose TNK, though CTA chest on 01/22 not demonstrating PE; on heparin SQ for DVT prophylaxis ID: empiric vancomycin, zosyn for possible bacterial pneumonia; recent COVID pneumonia E: insulin-dependent diabetes mellitus, c/b hyperglycemia P: no acute issues Quality Stroke Does the patient have a stroke diagnosis?: No VTE Prior VTE?: No VTE Risk Level:: Medical - moderate - high VTE Device Contraindication: N/A - Device Ordered VTE Drug Contraindication: N/A - Med Ordered
[2024-01-24] MEDS: Chlorhexidine Gluc Oral Rinse 15 ML MOUTHWASH BUCCAL ×3 (10:16→20:37)
[2024-01-24 11:54] LABS: Glucose, Whole Blood 154 mg/dL (60-115)
[2024-01-24] MEDS: dexmedeTOMIDidine HCL/NS 400 MCG/100 ML INFUS..BTL IVCONT (14:45)
[2024-01-24] MEDS: Heparin Sodium,Porcine 5,000 UNIT/ML VIAL 5000 UNIT SUBCUT (16:06)
[2024-01-24 18:10] LABS: Glucose, Whole Blood 187 mg/dL (60-115)
[2024-01-24] MEDS: vancomycin HCL 1,000 MG in 0.9 % Sodium Chloride 250 ML 270 MG IV (22:51)
[2024-01-25] VITALS (31 sets, daily range): BP systolic 99–144; BP diastolic 55–76; PULSE 57–79; RESP 18–36; TEMP 34.8–38; O2SAT 1–99; BMI 21.9
[2024-01-25 00:02] LABS: Glucose, Whole Blood 202 mg/dL (60-115)
[2024-01-25] MEDS: Piperacillin Sodium/Tazobactam 3.375 GM in 0.9 % Sodium Chloride 50 ML IV ×4 (00:09→18:20)
[2024-01-25] MEDS: Heparin Sodium,Porcine 5,000 UNIT/ML VIAL 5000 UNIT SUBCUT (00:09)
[2024-01-25] MEDS: Insulin Lispro 100 UNIT/ML 3 ML VIAL SUBCUT ×6 (00:10→18:21)
[2024-01-25 04:41] LABS: VBG HCO3 24 mmol/L (22-26); VBG pCO2 33 mmHg; VBG pH 7.46 (7.32-7.43); VBG pO2 63 mmHg
[2024-01-25 04:44] LABS: Venous Blood Gas Refer to POC result
[2024-01-25 05:08] LABS: Mean Corpuscular Hemoglobin 23.6 pg (27.0-33.0); Mean Corpuscular Volume 78.6 fL (80.0-98.0); PLT ABN DIST 1; SCAN SMEAR FLAG 1
[2024-01-25 05:10] LABS: Basophils Percent Auto 0.2 % (0-2); Eosinophils Absolute Auto 0.1 X10*3/uL (0.0-0.4); Hematocrit 31.9 % (42.0-52.0); Hemoglobin 9.6 g/dl (14.0-18.0); Imm Gran Abs Auto 0.06 X10*3/uL (0.00-0.03); Imm Gran Pct Auto 0.5 % (0.0-0.4); Lymphocytes Absolute Auto 1.6 X10*3/uL (1.2-4.9); Lymphocytes Percent Auto 13.1 % (20-40); Mean Corpuscular HGB Conc 30.1 g/dl (31.0-36.0); Mean Platelet Volume 12.8 fL (9.4-12.4); Monocytes Absolute Auto 0.6 X10*3/uL (0.1-1.2); Monocytes Percent Auto 4.8 % (2-11); Neutrophils Absolute Auto 10.1 x10*3/uL (2.0-8.3); Neutrophils Percent Auto 80.4 % (45-73); PLT CLUMP 1; Red Blood Count 4.06 X10*6/uL (4.60-5.80); Red Cell Distribution Width 15.5 % (11.0-16.0)
[2024-01-25 05:11] LABS: MANUAL DIFF FLAG NO; Platelet Count 130 X10*3/uL (160-400); White Blood Count 12.5 X10*3/uL (4.8-10.8)
[2024-01-25 05:17] LABS: Anion Gap 13 (12-20); Blood Urea Nitrogen 36 mg/dL (9-16); Calcium 9.4 mg/dL (8.4-10.2); Carbon Dioxide 22 mmol/L (22-29); Chloride 124 mmol/L (96-108); Creatinine Clr Calc Pharmacy 49.1; Estimated Glomerular Filt Rate 45; Glucose Random 218 mg/dL (60-115); Potassium 4.5 mmol/L (3.3-5.1); Sodium 154 mmol/L (135-145)
[2024-01-25] MEDS: Levothyroxine Sodium 100 MCG/5 ML VIAL 55 MCG IVPUSH (06:01)
[2024-01-25] MEDS: HYDROmorphone HCl 0.5 MG/0.5 ML SYRINGE IVPUSH ×3 (06:02→22:14)
[2024-01-25] MEDS: Albuterol/Iprat 2.5/0.5MG 3 ML AMPUL.NEB INHALE ×4 (07:29→20:02)
[2024-01-25] MEDS: Chlorhexidine Gluc Oral Rinse 15 ML MOUTHWASH BUCCAL ×3 (07:39→20:03)
[2024-01-25] MEDS: Insulin Glargine,Hum.rec.anlog 100 UNIT/ML 10 ML VIAL 15 UNIT SUBCUT (07:39)
--- NOTE | 2024-01-25 07:46 | P.PNCC_ITS ---
Subjective Subjective Date of Service: 01/25/24 Interval History: no significant overnight events Critical Care Time (minutes): 60 Physical Exam 2 Vital Signs: Vital Signs: Last Vital Signs Temp 100.4 F 01/25/24 06:59 Pulse 70 01/25/24 07:38 Resp 21 H 01/25/24 07:38 BP 101/59 L 01/25/24 06:59 Pulse Ox 94 01/25/24 06:59 O2 Del Method Mechanical Ventil ation 01/25/24 06:59 FiO2 40 01/25/24 07:38 BMI result Body Mass Index 21.9 Const: Other: opens eyes to verbal stimulus; unable to follow commands General: comfortable, no acute distress, well developed and awake HEENT: Other: R neck central line w/o bleeding, fluctuance, induration Head: Yes normal to inspection, Yes normocephalic and Yes atraumatic Eyes: General: appearance normal, both eyes and all related structures Neck: Other: as described above Chest: Chest palpation & inspection: normal inspection of the chest Resp: Other: some appreciable rhonchi; no appreciable rales, wheezing Cardio: Rate: regular rate Rhythm: regular rhythm GI: Inspection: Yes normal to inspection, No Abdominal wall edema and No distended Palpation (GI): Soft to palpation, not firm, nontender, no guarding and not rigid : Male General Exam: Yes normal external exam Skin: General skin exam: no rashes or lesions noted Neuro: General: tone normal, moves all extremities and no focal motor deficits Extrem: General: Yes normal to inspection, Yes full ROM, Yes capillary refill normal and Yes no clubbing, cyanosis or edema Psych: Other: unable to assess Objective Data Labs 01/25/24 04:32 01/25/24 04:32 Labs: Laboratory Results - last 24 hr 01/24/24 01/24/24 01/24/24 09:00 09:10 11:50 WBC RBC Hgb Hct MCV MCH MCHC RDW Plt Count MPV Immature Gran % (Auto) Neut % (Auto) Lymph % (Auto) [place] % (Auto) Eos % (Auto) Baso % (Auto) Lymph # (Auto) [place] # (Auto) Eos # (Auto) Baso # (Auto) Abs Immat Gran (auto) Absolute Neuts (auto) Absolute Nucleated RBC Nucleated RBC % (auto) Hold Purple Top SEE NOTE VBG pH VBG pCO2 VBG pO2 VBG HCO3 VBG O2 Saturation VBG Base Excess Sodium Potassium Chloride Carbon Dioxide Anion Gap BUN Creatinine Estim Creat Clear Calc Estimated GFR POC Glucose 154 H Random Glucose Calcium Blood Type O Positive Antibody Screen NEGATIVE 01/24/24 01/24/24 01/25/24 17:57 23:55 04:32 WBC 12.5 H RBC 4.06 L Hgb 9.6 L Hct 31.9 L MCV 78.6 L MCH 23.6 L MCHC 30.1 L RDW 15.5 Plt Count 130 L MPV 12.8 H Immature Gran % (Auto) 0.5 H Neut % (Auto) 80.4 H Lymph % (Auto) 13.1 L [place] % (Auto) 4.8 Eos % (Auto) 1.0 Baso % (Auto) 0.2 Lymph # (Auto) 1.6 [place] # (Auto) 0.6 Eos # (Auto) 0.1 Baso # (Auto) 0.0 Abs Immat Gran (auto) 0.06 H Absolute Neuts (auto) 10.1 H Absolute Nucleated RBC 0.000 Nucleated RBC % (auto) 0.0 Hold Purple Top VBG pH 7.46 H VBG pCO2 33 VBG pO2 63 VBG HCO3 24 VBG O2 Saturation 91.0 VBG Base Excess 1.0 Sodium 154 H Potassium 4.5 Chloride 124 H Carbon Dioxide 22 Anion Gap 13 BUN 36 H Creatinine 1.55 H Estim Creat Clear Calc 49.1 Estimated GFR 45 POC Glucose 187 H 202 H Random Glucose 218 H Calcium 9.4 Blood Type Antibody Screen Microbiology Microbiology Results: Microbiology 01/22/24 05:35 Sputum - Suctioned Gram Stain - Final 01/22/24 05:35 Sputum - Suctioned Sputum Culture - Final Klebsiella pneumoniae 01/20/24 22:08 Blood - Venous Blood Culture - Preliminary No growth after 48 hours. 01/20/24 22:08 Blood - Venous Blood Culture - Preliminary No growth after 48 hours. Progress Note: A&P Assessment and plan (1) Respiratory failure: Status: Acute (2) Pneumonia: Status: Acute (3) COVID-19: Status: Acute (4) Central line complication: Status: Acute (5) Acute kidney injury superimposed on chronic kidney disease: Status: Acute (6) Heart failure: Status: Acute Plan Patient is a 63 Y M with multiple comorbidities including advanced dementia, non-verbal at baseline, insulin-dependent diabetes mellitus, hypothyroidism, HFrEF, and chronic renal insufficiency, with recent hospitalization for COVID pneumonia, status post remdesivir/dexamethasone, discharged to nursing facility, re-presenting on 01/19 with encephalopathy, found to have acute hypoxic respiratory failure, intubated, and treated empirically for bacterial pneumonia and PE; ICU course c/b septic shock, acute on chronic renal insufficiency, intra-arterial central line placement N: intubated, dexmedetomidine gtt; advanced dementia, baseline non-verbal CV: c/f intra-aterial R neck central line; case discussed with thoracic surgery, awaiting vascular surgery recommendations R: acute hypoxic respiratory failure, possibly d/t pneumonia +/- pulmonary embolism, s/p half-dose TNK; CTA chest on 01/22 not demonstrating PE, no longer on PE treatment GI: no acute issues; tube feeds : acute on chronic renal insufficiency; to continue to monitor renal indices closely; hypernatremia H: c/f pulmonary embolism, s/p half-dose TNK, though CTA chest on 01/22 not demonstrating PE; on heparin SQ for DVT prophylaxis ID: empiric vancomycin, zosyn for possible bacterial pneumonia; recent COVID pneumonia E: insulin-dependent diabetes mellitus, c/b hyperglycemia P: no acute issues Quality Stroke Does the patient have a stroke diagnosis?: No VTE Prior VTE?: No VTE Risk Level:: Medical - moderate - high VTE Device Contraindication: N/A - Device Ordered VTE Drug Contraindication: N/A - Med Ordered
[2024-01-25] MEDS: Acetaminophen 325 MG TABLET 975 MG PO (10:55)
[2024-01-25 12:05] LABS: Glucose, Whole Blood 195 mg/dL (60-115)
[2024-01-25] MEDS: dexmedeTOMIDidine HCL/NS 400 MCG/100 ML INFUS..BTL 7.25 MCG IVCONT (14:09)
[2024-01-25 18:04] LABS: Glucose, Whole Blood 169 mg/dL (60-115)
[2024-01-25] MEDS: Dextrose 5 % 1,000 ML 50 ML IVCONT (20:49)
[2024-01-25 21:37] LABS: Vancomycin Random 10.2 mcg/mL (15-20)
[2024-01-25] MEDS: vancomycin HCL 1,250 MG in 0.9 % Sodium Chloride 250 ML 166.67 MG IV (22:14)
[2024-01-26] VITALS (32 sets, daily range): BP systolic 89–157; BP diastolic 56–86; PULSE 48–127; RESP 17–34; TEMP 33.9–38; O2SAT 91–100; BMI 20.7
[2024-01-26 00:12] LABS: Glucose, Whole Blood 193 mg/dL (60-115)
[2024-01-26] MEDS: Piperacillin Sodium/Tazobactam 3.375 GM in 0.9 % Sodium Chloride 50 ML IV ×2 (00:20→06:21)
[2024-01-26] MEDS: Insulin Lispro 100 UNIT/ML 3 ML VIAL SUBCUT ×6 (00:21→17:31)
[2024-01-26] MEDS: Midazolam HCl/PF 2 MG/2 ML VIAL IVPUSH (02:24)
[2024-01-26] MEDS: dexmedeTOMIDidine HCL/NS 400 MCG/100 ML INFUS..BTL IVCONT (04:59)
[2024-01-26 05:06] LABS: VBG Base Excess 1.8 mmol/L; VBG HCO3 23 mmol/L (22-26); VBG pCO2 29 mmHg; VBG pH 7.52 (7.32-7.43); VBG pO2 76 mmHg
[2024-01-26 05:10] LABS: MANUAL DIFF FLAG NO
[2024-01-26 05:12] LABS: Basophils Percent Auto 0.2 % (0-2); Eosinophils Absolute Auto 0.1 X10*3/uL (0.0-0.4); Hematocrit 31.3 % (42.0-52.0); Hemoglobin 9.4 g/dl (14.0-18.0); Imm Gran Abs Auto 0.05 X10*3/uL (0.00-0.03); Imm Gran Pct Auto 0.4 % (0.0-0.4); Lymphocytes Percent Auto 16.3 % (20-40); Mean Corpuscular Hemoglobin 23.7 pg (27.0-33.0); Mean Corpuscular Volume 78.8 fL (80.0-98.0); Monocytes Absolute Auto 0.6 X10*3/uL (0.1-1.2); Monocytes Percent Auto 4.7 % (2-11); Neutrophils Absolute Auto 9.7 x10*3/uL (2.0-8.3); Neutrophils Percent Auto 77.4 % (45-73); Platelet Count 129 X10*3/uL (160-400); Red Blood Count 3.97 X10*6/uL (4.60-5.80); Red Cell Distribution Width 15.5 % (11.0-16.0); White Blood Count 12.5 X10*3/uL (4.8-10.8)
[2024-01-26 05:24] LABS: Venous Blood Gas Refer to POC result
[2024-01-26 05:32] LABS: Albumin Level 2.8 g/dL (3.5-5.0); Anion Gap 12 (12-20); Blood Urea Nitrogen 32 mg/dL (9-16); Calcium 9.4 mg/dL (8.4-10.2); Carbon Dioxide 23 mmol/L (22-29); Chloride 122 mmol/L (96-108); Estimated Glomerular Filt Rate 50; Glucose Random 216 mg/dL (60-115); Magnesium 1.9 mg/dL (1.6-2.6); Phosphorus 2.8 mg/dL (2.7-4.5); Potassium 4.3 mmol/L (3.3-5.1); Sodium 153 mmol/L (135-145)
[2024-01-26] MEDS: HYDROmorphone HCl 0.5 MG/0.5 ML SYRINGE IVPUSH ×2 (05:58→15:31)
[2024-01-26 06:07] LABS: Glucose, Whole Blood 202 mg/dL (60-115)
[2024-01-26] MEDS: Levothyroxine Sodium 100 MCG/5 ML VIAL 55 MCG IVPUSH (06:21)
[2024-01-26] MEDS: Albumin Human 25 % 100 ML IV (06:21)
[2024-01-26] MEDS: Albuterol/Iprat 2.5/0.5MG 3 ML AMPUL.NEB INHALE ×4 (07:14→19:49)
[2024-01-26] MEDS: cefTRIAXone sodium 1 GM in 0.9 % Sodium Chloride 50 ML IV (08:40)
[2024-01-26] MEDS: Insulin Glargine,Hum.rec.anlog 100 UNIT/ML 10 ML VIAL 15 UNIT SUBCUT (08:40)
[2024-01-26] MEDS: Chlorhexidine Gluc Oral Rinse 15 ML MOUTHWASH BUCCAL ×3 (08:40→19:43)
[2024-01-26] MEDS: Dextrose 5 % 1,000 ML 50 ML IVCONT (08:41)
--- NOTE | 2024-01-26 09:42 | MHC.CLN ---
F/U PT REMAINS INTUBATED AND SEDATED PT WITH INCREASED NUTRITION RISK R/T PRESSURE INJURY PT REMAINS NPO DISCUSSED AT ROUNDS WITH MD PT RECEIVING PROMOTE AT MAX GOAL RATE 70ML/HR WITH 120ML FREE WATER FLUSHES Q 4 HRS PROVIDES 1680KCALS (2009KCALS WITH SEDATION; 29KCALS/KG), 105G PROTEIN (1.5G/KG), 2129ML TOTAL FREE WATER FROM FORMULA AND FLUSHES (31ML/KG) TF WILL PROMOTE WOUND HEALING NSG NOTED TOLERATING TF WITH LOW RESIDUALS HOWEVER NO BM SINCE SINCE ADMIT-LACTULOSE PER MD MONITOR TOLERANCE, RESIDUALS AND LYTES
[2024-01-26] MEDS: propofoL 1,000 MG/100 ML VIAL 12.51 MG IVCONT (10:01)
[2024-01-26] MEDS: Lactulose 20 GM/30 ML SOLUTION PO (10:03)
--- NOTE | 2024-01-26 11:08 | P.PNCC_ITS ---
Subjective Subjective Date of Service: 01/26/24 Interval History: 63-year-old gentleman with underlying dementia, schizophrenia, nonverbal at baseline, seizure disorder, diabetes mellitus, diastolic dysfunction, CKD stage 3, recent admission for COVID, readmitted on 01/20/2024 with acute hypoxic respiratory failure requiring intubation ventilatory support with hospital course further complicated by acute kidney injury and intra-arterial placement of triple lumen catheter.. No events overnight. Critical Care Time (minutes): 60 Physical Exam 2 Vital Signs: Vital Signs: Last Vital Signs Temp 99.5 F 01/26/24 11:00 Pulse 56 01/26/24 11:00 Resp 18 01/26/24 11:00 BP 144/78 H 01/26/24 11:00 Pulse Ox 93 01/26/24 11:00 O2 Del Method Mechanical Ventil ation 01/26/24 11:00 FiO2 50 01/26/24 11:00 BMI result Body Mass Index 20.7 Const: General: no acute distress and other (Sedated on the vent) Eyes: EOM: EOMs intact bilaterally Neck: Neck: Yes no lymphadenopathy, Yes trachea midline and Yes supple Resp: Effort & Inspection: normal respiratory effort and no respiratory distress Auscultation: crackles (Bilateral) Cardio: Rate: regular rate Rhythm: regular rhythm Heart sounds: no gallops, no murmurs and no rubs GI: Palpation (GI): Soft to palpation and Other GI palpation findings present ( Nontender) Auscultation: normal bowel sounds Extrem: General: Yes no pedal edema, No clubbing and No cyanosis Objective Data Labs 01/26/24 05:01 01/26/24 05:01 Labs: Laboratory Results - last 24 hr 01/25/24 01/25/24 01/25/24 12:00 17:58 20:48 WBC RBC Hgb Hct MCV MCH MCHC RDW Plt Count MPV Immature Gran % (Auto) Neut % (Auto) Lymph % (Auto) [place] % (Auto) Eos % (Auto) Baso % (Auto) Lymph # (Auto) [place] # (Auto) Eos # (Auto) Baso # (Auto) Abs Immat Gran (auto) Absolute Neuts (auto) Absolute Nucleated RBC Nucleated RBC % (auto) VBG pH VBG pCO2 VBG pO2 VBG HCO3 VBG O2 Saturation VBG Base Excess Sodium Potassium Chloride Carbon Dioxide Anion Gap BUN Creatinine Estim Creat Clear Calc Estimated GFR POC Glucose 195 H 169 H Random Glucose Calcium Phosphorus Magnesium Albumin Random Vancomycin 10.2 L 01/26/24 01/26/24 01/26/24 00:08 04:59 05:01 WBC 12.5 H RBC 3.97 L Hgb 9.4 L Hct 31.3 L MCV 78.8 L MCH 23.7 L MCHC 30.0 L RDW 15.5 Plt Count 129 L MPV 12.0 Immature Gran % (Auto) 0.4 Neut % (Auto) 77.4 H Lymph % (Auto) 16.3 L [place] % (Auto) 4.7 Eos % (Auto) 1.0 Baso % (Auto) 0.2 Lymph # (Auto) 2.0 [place] # (Auto) 0.6 Eos # (Auto) 0.1 Baso # (Auto) 0.0 Abs Immat Gran (auto) 0.05 H Absolute Neuts (auto) 9.7 H Absolute Nucleated RBC 0.000 Nucleated RBC % (auto) 0.0 VBG pH 7.52 H VBG pCO2 29 VBG pO2 76 VBG HCO3 23 VBG O2 Saturation 97.0 VBG Base Excess 1.8 Sodium 153 H Potassium 4.3 Chloride 122 H Carbon Dioxide 23 Anion Gap 12 BUN 32 H Creatinine 1.43 H Estim Creat Clear Calc 51.0 Estimated GFR 50 POC Glucose 193 H Random Glucose 216 H Calcium 9.4 Phosphorus 2.8 Magnesium 1.9 Albumin 2.8 L Random Vancomycin 01/26/24 06:02 WBC RBC Hgb Hct MCV MCH MCHC RDW Plt Count MPV Immature Gran % (Auto) Neut % (Auto) Lymph % (Auto) [place] % (Auto) Eos % (Auto) Baso % (Auto) Lymph # (Auto) [place] # (Auto) Eos # (Auto) Baso # (Auto) Abs Immat Gran (auto) Absolute Neuts (auto) Absolute Nucleated RBC Nucleated RBC % (auto) VBG pH VBG pCO2 VBG pO2 VBG HCO3 VBG O2 Saturation VBG Base Excess Sodium Potassium Chloride Carbon Dioxide Anion Gap BUN Creatinine Estim Creat Clear Calc Estimated GFR POC Glucose 202 H Random Glucose Calcium Phosphorus Magnesium Albumin Random Vancomycin Microbiology Microbiology Results: Microbiology 01/20/24 22:08 Blood - Venous Blood Culture - Final No growth after 5 days. 01/20/24 22:08 Blood - Venous Blood Culture - Final No growth after 5 days. 01/22/24 05:35 Sputum - Suctioned Gram Stain - Final 01/22/24 05:35 Sputum - Suctioned Sputum Culture - Final Klebsiella pneumoniae Progress Note: A&P Assessment and plan (1) Acute respiratory failure with hypoxia: Status: Acute (2) Pneumonia: Status: Acute (3) Acute kidney injury superimposed on CKD: Status: Acute (4) Central line complication: Status: Acute (5) Dementia: Status: Acute (6) Diabetes: Status: Acute (7) Schizophrenia: Status: Acute (8) Seizures: Status: Acute Plan Assessment: 63-year-old gentleman admitted with acute hypoxic respiratory failure secondary to post COVID pneumonia requiring intubation and ventilatory support further complicated by acute kidney injury Plan: Neuro: No acute issues. Underlying dementia, nonverbal at baseline. Underlying seizure disorder. Continue valproic acid. Cardiac: IA placement of right IJ catheter vascular surgery evaluation is pending. Underlying chronic diastolic dysfunction. Pulmonary: Acute hypoxic respiratory failure secondary to post COVID pneumonia with possible aspiration component now requiring ventilatory support. Continue to titrate off ventilatory support as tolerated. Renal: Acute kidney injury on the background of CKD. Non oliguric. Continue to monitor renal indices and urine output. Endo: No acute issues. Underlying diabetes mellitus. GI: No acute issues. ID: Klebsiella pneumonia, antibiotics narrowed to ceftriaxone. Heme/Onc: No acute issues. Psych: No acute issues. Underlying schizophrenia. Miscellaneous: No acute issues. Prophylaxis: Heparin, famotidine Diet: Tube feeds Critical care time spent: 90 minutes Quality Stroke Does the patient have a stroke diagnosis?: No VTE Prior VTE?: No VTE Risk Level:: Medical - moderate - high VTE Device Contraindication: N/A - Device Ordered VTE Drug Contraindication: N/A - Med Ordered
[2024-01-26 11:32] LABS: Glucose, Whole Blood 223 mg/dL (60-115)
[2024-01-26] MEDS: Valproic Acid (as Sodium Salt) 250 MG in Dextrose 5 % 50 ML 52.5 MG IV ×2 (11:50→19:16)
[2024-01-26 12:43] LABS: COVID-19 Test Positive (Negative); IDNOW Serial# 152EDE1D
--- NOTE | 2024-01-26 14:25 | PM.CNGS ---
History of Present Illness Consult details Consult date: 01/26/24 Narrative: 63-year-old gentleman in the ICU intubated and sedated who presented to the emergency room from nursing facility with acute hypoxic respiratory failure. This was back on 01/20 and at that time he was found to be lethargic weak and dyspneic. On 01/20 there was a central line placed under ultrasound guidance. It was subsequently found to be arterial. There was concern about this. Is now for vascular evaluation. At the current time not on any anticoagulants. Last INR was 1.2. Review of Systems Review of Systems: Difficult to obtain patient intubated and sedated Respiratory: Respiratory: Reports cough Integumentary/Breasts: Skin/Breast: Reports wounds Psychiatric: Psychiatric: Reports no additional psychiatric complaints [facility] Past Medical History Medical History (Updated 01/26/24 @ 14:31 by Shekhar Vazquez MD) Resides in assisted facility Constipation GERD (gastroesophageal reflux disease) Cardiomegaly Extrapyramidal and movement disorder Eating disorder Chronic kidney disease Glaucoma Schizophrenia Anemia Hyperlipemia Hypothyroid Seizures Diabetes Dementia Surgical History Surgical History Hx of colonoscopy Surgical history unknown Social History Social History Household Members: Unknown / Unable to assess Housing: Unknown / Unable to assess Unable to assess alcohol history related to: Unable to respond Alcohol intake: unknown Patient Tobacco Use Status: Tobacco use Unknown Use of substances other than those prescribed or required for medical reasons: Unable to respond Currently Displaying Signs/Symptoms of Drug Intoxication Withdrawal: No Advance Directives: Yes Advance Directives on File: Yes Advance Directives Date on File: 04/30/21 service: No Meds Allergies Allergy/AdvReac Type Severity Reaction Status Date / Time NSAIDS (Non-Steroidal AdvReac Avoid-r/t Verified 09/19/23 07:11 Anti-Inflamma CKD Active Medications: Current Medications Acetaminophen (Acetaminophen 325 Mg Tablet) 975 mg PO Q6H PRN PRN Reason: Fever >100.4 Last Admin: 01/25/24 10:55 Dose: 975 mg Albuterol/Ipratropium (Albuterol/Iprat 2.5/0.5mg 3 Ml Ampul.Neb) 3 ml INHALE RQ4H WHILE AWAKE OLLIE Last Admin: 01/26/24 11:00 Dose: 3 ml Chlorhexidine Gluconate (Chlorhexidine Gluc Oral Rinse 15 Ml Mouthwash) 15 ml BUCCAL TID [facility] Last Admin: 01/26/24 08:40 Dose: 15 ml Dextrose (Dextrose 50 % 25 Gm/50 Ml Syringe) 25 gm IVPUSH Q15M PRN; Protocol PRN Reason: per Hypoglycemia Standing Ord. Famotidine (Famotidine/Pf 20 Mg/2 Ml Vial) 20 mg IVPUSH DAILY [facility] Glucose (Glucose Gel 15 Gm Gel..Gram.) 15 gm PO Q15M PRN; Protocol PRN Reason: per Hypoglycemia Standing Ord. Heparin Sodium (Porcine) (Heparin Sodium,Porcine 5,000 Unit/Ml Vial) 5,000 unit SUBCUT Q8H [facility] Last Admin: 01/25/24 00:09 Dose: 5,000 unit Hydromorphone HCl (Hydromorphone Hcl 0.5 Mg/0.5 Ml Syringe) 0.5 mg IVPUSH Q4H PRN; Protocol PRN Reason: Pain, Moderate(Pain Scale 4-6) Last Admin: 01/26/24 05:58 Dose: 0.5 mg Propofol (Diprivan) 1,000 mg in 100 mls @ 0 mls/hr IVCONT .Q0M [facility]; Protocol Last Titration: 01/26/24 11:56 Dose: 40 mcg/kg/min, 16.68 mls/hr Dexmedetomidine HCl (Precedex) 400 mcg in 100 mls @ 0 mls/hr IVCONT .Q0M [facility]; Protocol Last Titration: 01/26/24 10:02 Dose: 0 mcg/kg/hr, 0 mls/hr Dextrose (D5w) 1,000 mls @ 50 mls/hr IVCONT .Q20H [facility] Last Admin: 01/26/24 08:41 Dose: 50 mls/hr Ceftriaxone Sodium 1 gm/ (Sodium Chloride) 50 mls @ 100 mls/hr IV Q24H [facility] Last Infusion: 01/26/24 09:20 Dose: Infused Valproic Acid 250 mg/ Dextrose 52.5 mls @ 52.5 mls/hr IV Q8H [facility] Last Infusion: 01/26/24 13:46 Dose: Infused Insulin Glargine (Insulin Glargine,Hum.Rec.Anlog 100 Unit/Ml 10 Ml Vial) 15 unit SUBCUT DAILY [facility] Last Admin: 01/26/24 08:40 Dose: 15 unit Insulin Human Lispro (Insulin Lispro 100 Unit/Ml 3 Ml Vial) 0 unit SUBCUT Q6H [facility]; Protocol Last Admin: 01/26/24 11:50 Dose: 4 unit Lactulose (Lactulose 20 Gm/30 Ml Solution) 30 gm PO BID [facility] Last Admin: 01/26/24 11:28 Dose: Not Given Levothyroxine Sodium (Levothyroxine Sodium 100 Mcg/5 Ml Vial) 55 mcg IVPUSH DAILY@0600 [facility] Last Admin: 01/26/24 06:21 Dose: 55 mcg Home Medications Medication Instructions Recorded Confirmed Last Taken Type acetaminophen 325 mg tablet 650 mg PO Q4H PRN Fever Or Pain 04/30/21 01/21/24 Unknown History amlodipine 10 mg tablet 10 mg PO DAILY 04/30/21 01/21/24 02/13/23 07:30 History aspirin 81 mg tablet,delayed 81 mg PO DAILY 04/30/21 01/21/24 02/08/23 History release bisacodyl 5 mg tablet,delayed 5 mg PO Q72H Constipation 04/30/21 01/21/24 Unknown History release carvedilol 25 mg tablet 25 mg PO BID 04/30/21 01/21/24 02/13/23 07:30 History clozapine 100 mg tablet (Clozaril) 200 mg PO DAILY 04/30/21 01/21/24 04/29/21 20:00 History ferrous sulfate 325 mg (65 mg 325 mg PO BID 04/30/21 01/21/24 02/08/23 History iron) tablet hydralazine 100 mg tablet 100 mg PO TID 04/30/21 01/21/24 02/13/23 07:30 History insulin glargine 100 unit/mL (3 8 unit subcut BEDTIME 04/30/21 01/21/24 02/11/23 History mL) subcutaneous pen (Lantus Solostar U-100 Insulin) lactulose 10 gram/15 mL oral 30 ml PO TID 04/30/21 01/21/24 Unknown History solution lithium carbonate 300 mg 300 mg PO BEDTIME 04/30/21 01/21/24 Unknown History tablet,extended release lithium carbonate 450 mg 225 mg PO DAILY@0630 04/30/21 01/21/24 02/13/23 07:30 History tablet,extended release sennosides 8.6 mg-docusate sodium 1 tab PO BID 04/30/21 01/21/24 Unknown History 50 mg tablet (Senna Plus) trazodone 50 mg tablet 50 mg PO BEDTIME 04/30/21 01/21/24 Unknown History dapagliflozin propanediol 10 mg 10 mg PO QAM 12/11/22 01/21/24 Unknown History tablet (Farxiga) glucagon 1 mg solution for 1 mg subcut Q15M PRN Hypoglycemia 12/11/22 01/21/24 Unknown History injection (GlucaGen HypoKit) sodium phosphates 19 gram-7 118 ml SD DAILY PRN Constipation 12/11/22 01/21/24 Unknown History gram/118 mL enema (Fleet Enema) atorvastatin 20 mg tablet 20 mg PO BEDTIME 02/10/23 01/21/24 Unknown History clozapine 100 mg tablet 100 mg PO DAILY 02/10/23 01/21/24 02/13/23 07:30 History bisacodyl 10 mg rectal suppository 10 mg SD DAILY PRN Constipation 09/19/23 01/21/24 Unknown History divalproex 250 mg tablet,extended 500 mg PO BEDTIME 09/19/23 01/21/24 Unknown History release 24 hr sennosides 8.6 mg tablet (senna) 8.6 mg PO DAILY PRN Constipation 09/19/23 01/21/24 Unknown History levothyroxine 112 mcg tablet 112 mcg PO DAILY@0600 01/12/24 01/21/24 Unknown History dextrose 40 % oral gel (Glucose 15 g PO Q15M PRN hypoglycemic 01/21/24 01/21/24 Unknown History Gel) protocol pregabalin 300 mg capsule 300 mg PO BID 01/21/24 01/21/24 Unknown History Physical Exam Vital Signs: Vital Signs: Last Vital Signs Temp 99.5 F 01/26/24 14:00 Pulse 65 01/26/24 14:00 Resp 18 01/26/24 14:00 BP 101/68 01/26/24 14:00 Pulse Ox 94 01/26/24 14:00 O2 Del Method Mechanical Ventil ation 01/26/24 14:00 FiO2 50 01/26/24 14:00 BMI result Body Mass Index 20.7 Const: Other: Intubated and sedated Orientation/consciousness: oriented to person, oriented to place and oriented to time HEENT: Head: Yes normal to inspection Neck: Neck: Yes normal visual inspection Carotids: no bruits Chest: Chest palpation & inspection: normal inspection of the chest Resp: Effort & Inspection: normal respiratory effort and able to speak in complete sentences Auscultation: clear to auscultation bilaterally, no crackles, no rales, no rhonchi and no wheezes Cardio: Rate: regular rate Rhythm: regular rhythm Heart sounds: S1 normal heart sound present and S2 normal heart sound present Bruits: no carotid bruits Peripheral pulses: Peripheral pulses 2+ throughout GI: Inspection: Yes normal to inspection Skin: Wounds: no wounds Hair: normal Neuro: General: oriented to person, oriented to place and oriented to time Cranial nerves: Yes CN's II-XII intact bilaterally Cognition (Neuro): normal cognition Motor exam (neuro): 5/5 motor strength present throughout Extrem: Other: venous exam: No significant superficial varicosities or spider telangiectasias, minimal edema General: No clubbing, No cyanosis and No edema Psych: Appearance: grossly normal Mental Status: mental status grossly normal Speech and movement: Normal speech and movement present Results Labs 01/26/24 05:01 01/26/24 05:01 Labs: Abnormal lab results 01/25/24 01/25/24 01/26/24 Range/Units 17:58 20:48 00:08 WBC (4.8-10.8) X10*3/uL RBC (4.60-5.80) X10*6/uL Hgb (14.0-18.0) g/dl Hct (42.0-52.0) % MCV (80.0-98.0) fL MCH (27.0-33.0) pg MCHC (31.0-36.0) g/dl Plt Count (160-400) X10*3/uL Neut % (Auto) (45-73) % Lymph % (Auto) (20-40) % Abs Immat Gran (auto) (0.00-0.03) X10*3/uL Absolute Neuts (auto) (2.0-8.3) x10*3/uL VBG pH (7.32-7.43) Sodium (135-145) mmol/L Chloride (96-108) mmol/L BUN (9-16) mg/dL Creatinine (0.5-1.4) mg/dL POC Glucose 169 H 193 H (60-115) mg/dL Random Glucose (60-115) mg/dL Albumin (3.5-5.0) g/dL Random Vancomycin 10.2 L (15-20) mcg/mL COVID-19 ([facility]) (Negative) 01/26/24 01/26/24 01/26/24 Range/Units 04:59 05:01 06:02 WBC 12.5 H (4.8-10.8) X10*3/uL RBC 3.97 L (4.60-5.80) X10*6/uL Hgb 9.4 L (14.0-18.0) g/dl Hct 31.3 L (42.0-52.0) % MCV 78.8 L (80.0-98.0) fL MCH 23.7 L (27.0-33.0) pg MCHC 30.0 L (31.0-36.0) g/dl Plt Count 129 L (160-400) X10*3/uL Neut % (Auto) 77.4 H (45-73) % Lymph % (Auto) 16.3 L (20-40) % Abs Immat Gran (auto) 0.05 H (0.00-0.03) X10*3/uL Absolute Neuts (auto) 9.7 H (2.0-8.3) x10*3/uL VBG pH 7.52 H (7.32-7.43) Sodium 153 H (135-145) mmol/L Chloride 122 H (96-108) mmol/L BUN 32 H (9-16) mg/dL Creatinine 1.43 H (0.5-1.4) mg/dL POC Glucose 202 H (60-115) mg/dL Random Glucose 216 H (60-115) mg/dL Albumin 2.8 L (3.5-5.0) g/dL Random Vancomycin (15-20) mcg/mL COVID-19 ([facility]) (Negative) 01/26/24 01/26/24 Range/Units 11:27 12:00 WBC (4.8-10.8) X10*3/uL RBC (4.60-5.80) X10*6/uL Hgb (14.0-18.0) g/dl Hct (42.0-52.0) % MCV (80.0-98.0) fL MCH (27.0-33.0) pg MCHC (31.0-36.0) g/dl Plt Count (160-400) X10*3/uL Neut % (Auto) (45-73) % Lymph % (Auto) (20-40) % Abs Immat Gran (auto) (0.00-0.03) X10*3/uL Absolute Neuts (auto) (2.0-8.3) x10*3/uL VBG pH (7.32-7.43) Sodium (135-145) mmol/L Chloride (96-108) mmol/L BUN (9-16) mg/dL Creatinine (0.5-1.4) mg/dL POC Glucose 223 H (60-115) mg/dL Random Glucose (60-115) mg/dL Albumin (3.5-5.0) g/dL Random Vancomycin (15-20) mcg/mL COVID-19 ([facility]) Positive A (Negative) Short CBC 01/26/24 Range/Units 05:01 WBC 12.5 H (4.8-10.8) X10*3/uL Hgb 9.4 L (14.0-18.0) g/dl Hct 31.3 L (42.0-52.0) % Plt Count 129 L (160-400) X10*3/uL BMP 01/26/24 05:01 Sodium 153 H Potassium 4.3 Chloride 122 H Carbon Dioxide 23 BUN 32 H Creatinine 1.43 H Calcium 9.4 Liver Function 01/26/24 Range/Units 05:01 Albumin 2.8 L (3.5-5.0) g/dL Urine 01/20/24 Range/Units 23:07 Urine Color Yellow Urine Appearance Clear Urine pH 6.0 (5.0-9.0) Ur Specific [place] 1.025 (1.005-1.025) Urine Protein Negative (Neg-Trace) mg/dL Urine Glucose (UA) >=1000 H (Negative) mg/dL All other labs normal. Imaging Additional studies: Ultrasound reviewed Assessment and Plan (1) Inadvertent catheterization of artery: Status: Acute Plan In short central line appears to be arterial. This was removed and direct pressure was held for 15 minutes. Adequate hemostasis was achieved. Patient tolerated the procedure well. Electrical Systems Drafter informed Procedures Date of Service Date of Service: 01/26/24
[2024-01-26] MEDS: propofoL 1,000 MG/100 ML VIAL 16.68 MG IVCONT (15:07)
[2024-01-26 17:37] LABS: Glucose, Whole Blood 215 mg/dL (60-115)
[2024-01-26] MEDS: propofoL 1,000 MG/100 ML VIAL 20.85 MG IVCONT ×2 (19:17→22:53)
[2024-01-26] MEDS: Lactulose 20 GM/30 ML SOLUTION 30 GM PO (19:43)
[2024-01-26 23:37] LABS: Glucose, Whole Blood 224 mg/dL (60-115)
[2024-01-27] VITALS (32 sets, daily range): BP systolic 101–139; BP diastolic 61–89; PULSE 81–120; RESP 16–30; TEMP 33.9–38.6; O2SAT 91–100; BMI 21.7
[2024-01-27] MEDS: Insulin Lispro 100 UNIT/ML 3 ML VIAL SUBCUT ×4 (00:21→18:35)
[2024-01-27] MEDS: HYDROmorphone HCl 0.5 MG/0.5 ML SYRINGE IVPUSH (00:36)
[2024-01-27] MEDS: Valproic Acid (as Sodium Salt) 250 MG in Dextrose 5 % 50 ML 52.5 MG IV ×3 (03:02→19:44)
[2024-01-27] MEDS: propofoL 1,000 MG/100 ML VIAL 20.85 MG IVCONT ×5 (03:03→21:47)
[2024-01-27] MEDS: Dextrose 5 % 1,000 ML 50 ML IVCONT (03:03)
[2024-01-27 05:42] LABS: Glucose, Whole Blood 265 mg/dL (60-115)
[2024-01-27 05:49] LABS: VBG Base Excess 3.2 mmol/L; VBG HCO3 26 mmol/L (22-26); VBG pCO2 34 mmHg; VBG pH 7.48 (7.32-7.43); VBG pO2 46 mmHg
[2024-01-27 06:09] LABS: Basophils Percent Auto 0.3 % (0-2)
[2024-01-27] MEDS: Levothyroxine Sodium 100 MCG/5 ML VIAL 55 MCG IVPUSH (06:09)
[2024-01-27 06:11] LABS: Eosinophils Absolute Auto 0.2 X10*3/uL (0.0-0.4); Eosinophils Percent Auto 1.6 % (0-4); Hematocrit 30.6 % (42.0-52.0); Hemoglobin 9.2 g/dl (14.0-18.0); Imm Gran Abs Auto 0.07 X10*3/uL (0.00-0.03); Imm Gran Pct Auto 0.6 % (0.0-0.4); Lymphocytes Absolute Auto 2.3 X10*3/uL (1.2-4.9); Lymphocytes Percent Auto 20.4 % (20-40); Mean Corpuscular HGB Conc 30.1 g/dl (31.0-36.0); Mean Corpuscular Hemoglobin 23.9 pg (27.0-33.0); Mean Corpuscular Volume 79.5 fL (80.0-98.0); Monocytes Absolute Auto 0.6 X10*3/uL (0.1-1.2); Monocytes Percent Auto 5.1 % (2-11); Neutrophils Absolute Auto 8.3 x10*3/uL (2.0-8.3); Red Blood Count 3.85 X10*6/uL (4.60-5.80); Red Cell Distribution Width 15.4 % (11.0-16.0)
[2024-01-27 06:18] LABS: Platelet Count 146 X10*3/uL (160-400); White Blood Count 11.5 X10*3/uL (4.8-10.8)
[2024-01-27 06:25] LABS: Alanine Aminotransferase 12 U/L (0-40); Alkaline Phosphatase 58 U/L (39-117); Anion Gap 11 (12-20); Aspartate Amino Transferase 13 U/L (5-37); Bilirubin Total 0.3 mg/dL (0.0-1.0); Blood Urea Nitrogen 26 mg/dL (9-16); Calcium 9.3 mg/dL (8.4-10.2); Carbon Dioxide 25 mmol/L (22-29); Chloride 112 mmol/L (96-108); Creatinine Clr Calc Pharmacy 67.7; Estimated Glomerular Filt Rate > 60; Glucose Random 289 mg/dL (60-115); Magnesium 1.8 mg/dL (1.6-2.6); Phosphorus 2.7 mg/dL (2.7-4.5); Potassium 4.3 mmol/L (3.3-5.1); Sodium 144 mmol/L (135-145)
[2024-01-27 07:06] LABS: Venous Blood Gas Refer to POC result
[2024-01-27] MEDS: Albuterol/Iprat 2.5/0.5MG 3 ML AMPUL.NEB INHALE ×4 (07:29→19:44)
[2024-01-27] MEDS: Chlorhexidine Gluc Oral Rinse 15 ML MOUTHWASH BUCCAL ×3 (08:45→21:47)
[2024-01-27] MEDS: cefTRIAXone sodium 1 GM in 0.9 % Sodium Chloride 50 ML IV (08:46)
[2024-01-27] MEDS: Insulin Glargine,Hum.rec.anlog 100 UNIT/ML 10 ML VIAL 15 UNIT SUBCUT (08:46)
[2024-01-27] MEDS: Lactulose 20 GM/30 ML SOLUTION 30 GM PO ×2 (08:46→21:47)
[2024-01-27] MEDS: Famotidine/PF 20 MG/2 ML VIAL IVPUSH (08:46)
--- NOTE | 2024-01-27 08:52 | P.PNCC_ITS ---
Subjective Subjective Date of Service: 01/27/24 Interval History: 63-year-old gentleman with underlying dementia, schizophrenia, nonverbal at baseline, seizure disorder, diabetes mellitus, diastolic dysfunction, CKD stage 3, recent admission for COVID, readmitted on 01/20/2024 with acute hypoxic respiratory failure requiring intubation ventilatory support with hospital course further complicated by acute kidney injury. No events overnight. FiO2 requirements are improving. Critical Care Time (minutes): 60 Physical Exam 2 Vital Signs: Vital Signs: Last Vital Signs Temp 100.6 F H 01/27/24 08:00 Pulse 90 01/27/24 08:00 Resp 21 H 01/27/24 08:00 BP 120/71 01/27/24 08:00 Pulse Ox 98 01/27/24 08:00 O2 Del Method Mechanical Ventil ation 01/27/24 08:00 FiO2 30 01/27/24 08:00 BMI result Body Mass Index 21.7 Const: General: no acute distress and other (Sedated on the vent) Eyes: Sclerae: sclerae normal EOM: EOMs intact bilaterally Neck: Neck: Yes no lymphadenopathy, Yes trachea midline and Yes supple Resp: Auscultation: clear to auscultation bilaterally Cardio: Rate: regular rate Rhythm: regular rhythm Heart sounds: no gallops, no murmurs and no rubs GI: Palpation (GI): Soft to palpation and Other GI palpation findings present ( Nontender) Auscultation: normal bowel sounds Extrem: General: Yes no pedal edema, No clubbing and No cyanosis Objective Data Labs 01/27/24 05:24 01/27/24 05:24 Labs: Laboratory Results - last 24 hr 01/26/24 01/26/24 01/26/24 11:27 12:00 17:25 WBC RBC Hgb Hct MCV MCH MCHC RDW Plt Count MPV Immature Gran % (Auto) Neut % (Auto) Lymph % (Auto) [place] % (Auto) Eos % (Auto) Baso % (Auto) Lymph # (Auto) [place] # (Auto) Eos # (Auto) Baso # (Auto) Abs Immat Gran (auto) Absolute Neuts (auto) Absolute Nucleated RBC Nucleated RBC % (auto) VBG pH VBG pCO2 VBG pO2 VBG HCO3 VBG O2 Saturation VBG Base Excess Sodium Potassium Chloride Carbon Dioxide Anion Gap BUN Creatinine Estim Creat Clear Calc Estimated GFR POC Glucose 223 H 215 H Random Glucose Calcium Phosphorus Magnesium Total Bilirubin AST ALT Alkaline Phosphatase Total Protein Albumin COVID-19 ([facility]) Positive A COVID-19 Clin Com See Note 01/26/24 01/27/24 01/27/24 23:33 05:24 05:39 WBC 11.5 H RBC 3.85 L Hgb 9.2 L Hct 30.6 L MCV 79.5 L MCH 23.9 L MCHC 30.1 L RDW 15.4 Plt Count 146 L MPV 13.0 H Immature Gran % (Auto) 0.6 H Neut % (Auto) 72.0 Lymph % (Auto) 20.4 [place] % (Auto) 5.1 Eos % (Auto) 1.6 Baso % (Auto) 0.3 Lymph # (Auto) 2.3 [place] # (Auto) 0.6 Eos # (Auto) 0.2 Baso # (Auto) 0.0 Abs Immat Gran (auto) 0.07 H Absolute Neuts (auto) 8.3 Absolute Nucleated RBC 0.000 Nucleated RBC % (auto) 0.0 VBG pH VBG pCO2 VBG pO2 VBG HCO3 VBG O2 Saturation VBG Base Excess Sodium 144 Potassium 4.3 Chloride 112 H Carbon Dioxide 25 Anion Gap 11 L BUN 26 H Creatinine 1.13 Estim Creat Clear Calc 67.7 Estimated GFR > 60 POC Glucose 224 H 265 H Random Glucose 289 H Calcium 9.3 Phosphorus 2.7 Magnesium 1.8 Total Bilirubin 0.3 AST 13 ALT 12 Alkaline Phosphatase 58 Total Protein 7.0 Albumin 3.0 L COVID-19 ([facility]) COVID-19 Clin Com 01/27/24 05:41 WBC RBC Hgb Hct MCV MCH MCHC RDW Plt Count MPV Immature Gran % (Auto) Neut % (Auto) Lymph % (Auto) [place] % (Auto) Eos % (Auto) Baso % (Auto) Lymph # (Auto) [place] # (Auto) Eos # (Auto) Baso # (Auto) Abs Immat Gran (auto) Absolute Neuts (auto) Absolute Nucleated RBC Nucleated RBC % (auto) VBG pH 7.48 H VBG pCO2 34 VBG pO2 46 VBG HCO3 26 VBG O2 Saturation 76.0 VBG Base Excess 3.2 Sodium Potassium Chloride Carbon Dioxide Anion Gap BUN Creatinine Estim Creat Clear Calc Estimated GFR POC Glucose Random Glucose Calcium Phosphorus Magnesium Total Bilirubin AST ALT Alkaline Phosphatase Total Protein Albumin COVID-19 ([facility]) COVID-19 Clin Com Microbiology Microbiology Results: Microbiology 01/20/24 22:08 Blood - Venous Blood Culture - Final No growth after 5 days. 01/20/24 22:08 Blood - Venous Blood Culture - Final No growth after 5 days. 01/22/24 05:35 Sputum - Suctioned Gram Stain - Final 01/22/24 05:35 Sputum - Suctioned Sputum Culture - Final Klebsiella pneumoniae Progress Note: A&P Assessment and plan (1) Seizures: Status: Acute (2) Schizophrenia: Status: Acute (3) Diabetes: Status: Acute (4) Dementia: Status: Acute (5) Acute respiratory failure with hypoxia: Status: Acute (6) Heart failure: Status: Acute (7) Acute kidney injury superimposed on CKD: Status: Acute Plan Assessment: 63-year-old gentleman admitted with acute hypoxic respiratory failure secondary to post COVID pneumonia requiring intubation and ventilatory support further complicated by acute kidney injury Plan: Neuro: No acute issues. Underlying dementia, nonverbal at baseline. Underlying seizure disorder. Continue valproic acid. Cardiac: IA placement of right IJ catheter, removed by vascular surgery. Underlying chronic diastolic dysfunction. Pulmonary: Acute hypoxic respiratory failure secondary to post COVID pneumonia with possible aspiration component now requiring ventilatory support. Continue to titrate off ventilatory support as tolerated. Renal: Acute kidney injury on the background of CKD, improved. Non oliguric. Continue to monitor renal indices and urine output. Endo: No acute issues. Underlying diabetes mellitus. GI: No acute issues. ID: Klebsiella pneumonia, continue ceftriaxone. Heme/Onc: No acute issues. Psych: No acute issues. Underlying schizophrenia. Miscellaneous: No acute issues. Prophylaxis: Heparin, famotidine Diet: Tube feeds Critical care time spent: 60 minutes Quality Stroke Does the patient have a stroke diagnosis?: No VTE Prior VTE?: No VTE Risk Level:: Medical - moderate - high VTE Device Contraindication: N/A - Device Ordered VTE Drug Contraindication: N/A - Med Ordered
--- NOTE | 2024-01-27 10:19 | HO.WOUND ---
Wound Consult: Follow Up 63yr old?[place] [facility] [place] - See progress notes and H&P for detailed history.? Wound consult placed for Left Buttock.? Patient remains intubated at time of consultation. Repositioned with staff for assessment. Left Buttock / sacral area Etiology: ??Deep Tissue Injury In Evolution Present on Admission Measurements: see charting for detailed measurement Wound Bed: partial thickness tissue pale pink wound bed there is a central area of dark maroon purple tissue within wound bed - concern for evolution will monitor until wound bed declares itself Drainage / Odor: [place] yellow nonodorous drainage noted on foam dressing when removed Edges: ? irregular Joy wound: ?Darkly pigmented difficult to anish tissue noted - the right buttock is noted for previous injury - appears to be resolving at this time but was present on admission and suspect it was partial thickness tissue loss - there is no Induration, Fluctuance or Warmth noted Goals of Treatment: ? Continue to off load pressure with use of wedges and Triad cream and foam dressing to allow for moist wound healing and protect from friction and moisture No new topical recommendations needed at this time. Recommendations: 1. Turn and Reposition every 2 hours and as needed for patient comfort.? Use pillows or wedges to support off loading positions. 2. Off Load all bony prominences with use of pillows and heel boots if needed.? Apply Preventative foams where needed. ? 3. Monitor for incontinence and moisture control, use barrier creams when needed for prevention and treatment. 4. Provide adequate and supplemental nutrition.? 5. Order or Continue low air loss mattress. 6. When applicable maintain blood glucose levels per Providers order. 7. Left Buttocks - Cleanse with PH balance spray or wipes, pat dry. ?Apply thin layer of Triad to wound bed. Do not remove all of paste between applications as this may cause further skin damage.? Cover with foam dressing to aid in off loading and protection from friction. Re-consult wound care Nurse for wound deterioration or wound changes.
[2024-01-27] MEDS: Furosemide 40 MG/4 ML VIAL IVPUSH (11:39)
[2024-01-27 11:58] LABS: Glucose, Whole Blood 254 mg/dL (60-115)
[2024-01-27 18:34] LABS: Glucose, Whole Blood 278 mg/dL (60-115)
--- NOTE | 2024-01-27 22:47 | PC.NURSE ---
Addendum entered by Lorenzo Lora RN 01/28/24 04:38: 04:15-04:30: [facility] SINCE STRAIGHT CATH'D 10PM...BLADDER SCANNED 589ml...STRAIGHT CATH'D PER ICU ASSISTANT [employer] GENERAL MANAGER FOR 525ml YELLOW URINE Original Note: PER SHIFT REPORT [facility] CATHETER REMOVED 6PM...[place] EXTERNAL CATHETER IN PLACE..NO OUTPUT 6PM-10PM...BLADDER SCANNED 535ml....ICU ASSISTANT [employer] GENERAL MANAGER PRESENT AND UPDATED..PER ASSISTANT [employer]AURANT GENERAL MANAGER STRAIGHT CATH'D AND 500ml YELLOW URINE OBTAINED
[2024-01-28] VITALS (36 sets, daily range): BP systolic 97–147; BP diastolic 56–92; PULSE 69–95; RESP 11–22; TEMP 33.3–38; O2SAT 89–95; BMI 20.7
[2024-01-28 00:03] LABS: Glucose, Whole Blood 288 mg/dL (60-115)
[2024-01-28] MEDS: propofoL 1,000 MG/100 ML VIAL 20.85 MG IVCONT ×2 (01:59→06:05)
[2024-01-28] MEDS: Valproic Acid (as Sodium Salt) 250 MG in Dextrose 5 % 50 ML 52.5 MG IV ×3 (04:06→20:11)
[2024-01-28 05:21] LABS: VBG Base Excess 6.7 mmol/L; VBG HCO3 29 mmol/L (22-26); VBG pCO2 36 mmHg; VBG pH 7.52 (7.32-7.43); VBG pO2 60 mmHg
[2024-01-28] MEDS: Levothyroxine Sodium 100 MCG/5 ML VIAL 55 MCG IVPUSH (05:24)
[2024-01-28] MEDS: Insulin Lispro 100 UNIT/ML 3 ML VIAL SUBCUT ×4 (05:25→18:09)
[2024-01-28 05:37] LABS: Glucose, Whole Blood 335 mg/dL (60-115)
[2024-01-28 05:42] LABS: Basophils Percent Auto 0.3 % (0-2); Eosinophils Absolute Auto 0.2 X10*3/uL (0.0-0.4); Eosinophils Percent Auto 1.4 % (0-4); Hematocrit 32.9 % (42.0-52.0); Hemoglobin 9.9 g/dl (14.0-18.0); Imm Gran Abs Auto 0.07 X10*3/uL (0.00-0.03); Imm Gran Pct Auto 0.6 % (0.0-0.4); Lymphocytes Absolute Auto 2.3 X10*3/uL (1.2-4.9); Lymphocytes Percent Auto 19.5 % (20-40); MANUAL DIFF FLAG NO; Mean Corpuscular HGB Conc 30.1 g/dl (31.0-36.0); Mean Corpuscular Hemoglobin 23.6 pg (27.0-33.0); Mean Corpuscular Volume 78.3 fL (80.0-98.0); Mean Platelet Volume 12.4 fL (9.4-12.4); Monocytes Absolute Auto 0.8 X10*3/uL (0.1-1.2); Monocytes Percent Auto 7.1 % (2-11); Neutrophils Absolute Auto 8.2 x10*3/uL (2.0-8.3); Neutrophils Percent Auto 71.1 % (45-73); Platelet Count 214 X10*3/uL (160-400); Red Cell Distribution Width 15.5 % (11.0-16.0); White Blood Count 11.5 X10*3/uL (4.8-10.8)
[2024-01-28 05:57] LABS: Albumin Level 3.3 g/dL (3.5-5.0); Anion Gap 12 (12-20); Blood Urea Nitrogen 35 mg/dL (9-16); Calcium 9.7 mg/dL (8.4-10.2); Carbon Dioxide 28 mmol/L (22-29); Chloride 109 mmol/L (96-108); Creatinine Clr Calc Pharmacy 50.5; Estimated Glomerular Filt Rate 49; Glucose Random 335 mg/dL (60-115); Phosphorus 3.5 mg/dL (2.7-4.5); Potassium 4.3 mmol/L (3.3-5.1); Sodium 145 mmol/L (135-145)
[2024-01-28 06:32] LABS: Venous Blood Gas Refer to POC result
[2024-01-28] MEDS: Albuterol/Iprat 2.5/0.5MG 3 ML AMPUL.NEB INHALE (07:19)
--- NOTE | 2024-01-28 08:58 | P.PNCC_ITS ---
Subjective Subjective Date of Service: 01/28/24 Interval History: 63-year-old gentleman with underlying dementia, schizophrenia, nonverbal at baseline, seizure disorder, diabetes mellitus, diastolic dysfunction, CKD stage 3, recent admission for COVID, readmitted on 01/20/2024 with acute hypoxic respiratory failure requiring intubation ventilatory support with hospital course further complicated by acute kidney injury. No events overnight. Critical Care Time (minutes): 60 Physical Exam 2 Vital Signs: Vital Signs: Last Vital Signs Temp 97.8 F 01/28/24 08:00 Pulse 86 01/28/24 08:00 Resp 16 01/28/24 08:00 BP 124/83 01/28/24 08:00 Pulse Ox 90 L 01/28/24 08:00 O2 Del Method Mechanical Ventil ation 01/28/24 08:00 FiO2 30 01/28/24 08:00 BMI result Body Mass Index 20.7 Const: General: no acute distress and other (Sedated on the vent) Eyes: Sclerae: sclerae normal Neck: Neck: Yes no lymphadenopathy, Yes trachea midline and Yes supple Resp: Auscultation: clear to auscultation bilaterally Cardio: Rate: regular rate Rhythm: regular rhythm Heart sounds: no gallops, no murmurs and no rubs GI: Palpation (GI): Soft to palpation and Other GI palpation findings present ( Nontender) Auscultation: normal bowel sounds Extrem: General: Yes no pedal edema, No clubbing and No cyanosis Objective Data Labs 01/28/24 05:14 01/28/24 05:14 Labs: Laboratory Results - last 24 hr 01/27/24 01/27/24 01/27/24 11:54 18:30 23:46 WBC RBC Hgb Hct MCV MCH MCHC RDW Plt Count MPV Immature Gran % (Auto) Neut % (Auto) Lymph % (Auto) [place] % (Auto) Eos % (Auto) Baso % (Auto) Lymph # (Auto) [place] # (Auto) Eos # (Auto) Baso # (Auto) Abs Immat Gran (auto) Absolute Neuts (auto) Absolute Nucleated RBC Nucleated RBC % (auto) VBG pH VBG pCO2 VBG pO2 VBG HCO3 VBG O2 Saturation VBG Base Excess Sodium Potassium Chloride Carbon Dioxide Anion Gap BUN Creatinine Estim Creat Clear Calc Estimated GFR POC Glucose 254 H 278 H 288 H Random Glucose Calcium Phosphorus Magnesium Albumin 01/28/24 05:14 WBC 11.5 H RBC 4.20 L Hgb 9.9 L Hct 32.9 L MCV 78.3 L MCH 23.6 L MCHC 30.1 L RDW 15.5 Plt Count 214 D MPV 12.4 Immature Gran % (Auto) 0.6 H Neut % (Auto) 71.1 Lymph % (Auto) 19.5 L [place] % (Auto) 7.1 Eos % (Auto) 1.4 Baso % (Auto) 0.3 Lymph # (Auto) 2.3 [place] # (Auto) 0.8 Eos # (Auto) 0.2 Baso # (Auto) 0.0 Abs Immat Gran (auto) 0.07 H Absolute Neuts (auto) 8.2 Absolute Nucleated RBC 0.000 Nucleated RBC % (auto) 0.0 VBG pH 7.52 H VBG pCO2 36 VBG pO2 60 VBG HCO3 29 H VBG O2 Saturation 89.0 VBG Base Excess 6.7 Sodium 145 Potassium 4.3 Chloride 109 H Carbon Dioxide 28 Anion Gap 12 BUN 35 H Creatinine 1.45 H Estim Creat Clear Calc 50.5 Estimated GFR 49 POC Glucose 335 H Random Glucose 335 H Calcium 9.7 Phosphorus 3.5 Magnesium 2.0 Albumin 3.3 L Microbiology Microbiology Results: Microbiology 01/20/24 22:08 Blood - Venous Blood Culture - Final No growth after 5 days. 01/20/24 22:08 Blood - Venous Blood Culture - Final No growth after 5 days. 01/22/24 05:35 Sputum - Suctioned Gram Stain - Final 01/22/24 05:35 Sputum - Suctioned Sputum Culture - Final Klebsiella pneumoniae Progress Note: A&P Assessment and plan (1) Seizures: Status: Acute (2) Schizophrenia: Status: Acute (3) Diabetes: Status: Acute (4) Dementia: Status: Acute (5) Acute respiratory failure with hypoxia: Status: Acute (6) Heart failure: Status: Acute (7) Acute kidney injury superimposed on CKD: Status: Acute Plan Assessment: 63-year-old gentleman admitted with acute hypoxic respiratory failure secondary to post COVID pneumonia requiring intubation and ventilatory support further complicated by acute kidney injury Plan: Neuro: No acute issues. Underlying dementia, nonverbal at baseline. Underlying seizure disorder. Continue valproic acid. Cardiac: IA placement of right IJ catheter, removed by vascular surgery. Underlying chronic diastolic dysfunction. Pulmonary: Acute hypoxic respiratory failure secondary to post COVID pneumonia with possible aspiration component now requiring ventilatory support. Continue to titrate off ventilatory support as tolerated. Renal: Acute kidney injury on the background of CKD, improved. Non oliguric. Continue to monitor renal indices and urine output. Endo: No acute issues. Underlying diabetes mellitus. GI: No acute issues. ID: Klebsiella pneumonia, continue ceftriaxone. Heme/Onc: No acute issues. Psych: No acute issues. Underlying schizophrenia. Miscellaneous: No acute issues. Prophylaxis: Heparin, famotidine Diet: Tube feeds Critical care time spent: 60 minutes Quality Stroke Does the patient have a stroke diagnosis?: No VTE Prior VTE?: No VTE Risk Level:: Medical - moderate - high VTE Device Contraindication: N/A - Device Ordered VTE Drug Contraindication: N/A - Med Ordered
[2024-01-28] MEDS: Famotidine/PF 20 MG/2 ML VIAL IVPUSH (09:22)
[2024-01-28] MEDS: Insulin Glargine,Hum.rec.anlog 100 UNIT/ML 10 ML VIAL 25 UNIT SUBCUT (09:22)
[2024-01-28] MEDS: cefTRIAXone sodium 1 GM in 0.9 % Sodium Chloride 50 ML IV (09:23)
[2024-01-28] MEDS: Lactulose 20 GM/30 ML SOLUTION 30 GM PO ×2 (09:23→20:11)
[2024-01-28] MEDS: Chlorhexidine Gluc Oral Rinse 15 ML MOUTHWASH BUCCAL ×3 (09:23→20:10)
--- NOTE | 2024-01-28 10:17 | MHC.CLN ---
F/U DISCUSSED AT ROUNDS WITH PT RECEIVING PROMOTE AT MAX GOAL RATE 70ML/HR WITH 240ML FREE WATER FLUSHES Q 4 HRS PROVIDES 1680KCALS (2010KCALS WITH SEDATION; 29KCALS/KG), 105G PROTEIN (1.5G/KG), 2849ML TOTAL FREE WATER FROM FORMULA AND FLUSHES (41ML/KG) NOTED SERUM NA WNL TF WILL PROMOTE WOUND HEALING NSG NOTED TOLERATING TF WITH LOW RESIDUALS HOWEVER NO BM SINCE SINCE ADMIT-LACTULOSE PER MD RECOMMEND DECREASING FREE WATER FLUSHES TO 120ML FREE WATER FLUSHES Q 4 HRS PROVIDES 2129ML TOTAL FREE WATER FROM FORMULA AND FLUSHES (31ML/KG) CONTINUE TO MONITOR TOLERANCE, RESIDUALS AND LYTES
[2024-01-28 11:37] LABS: Glucose, Whole Blood 282 mg/dL (60-115)
--- NOTE | 2024-01-28 15:54 | MHC.CM.PN ---
PT REMAINS IN ICU ON VENTILATORY SUPPORT. PLAN TO RETURN TO [facility] UPDATED
[2024-01-28 17:42] LABS: Glucose, Whole Blood 286 mg/dL (60-115)
[2024-01-28] MEDS: HYDROmorphone HCl 0.5 MG/0.5 ML SYRINGE IVPUSH (21:20)
[2024-01-28] MEDS: dexmedeTOMIDidine HCL/NS 400 MCG/100 ML INFUS..BTL 9.06 MCG IVCONT (23:14)
[2024-01-29] VITALS (30 sets, daily range): BP systolic 93–131; BP diastolic 56–77; PULSE 64–77; RESP 12–22; TEMP 33.3–37.8; O2SAT 94–100; BMI 20.6
[2024-01-29 00:12] LABS: Glucose, Whole Blood 286 mg/dL (60-115)
[2024-01-29] MEDS: Insulin Lispro 100 UNIT/ML 3 ML VIAL SUBCUT ×4 (00:14→17:30)
[2024-01-29] MEDS: Valproic Acid (as Sodium Salt) 250 MG in Dextrose 5 % 50 ML 52.5 MG IV ×3 (03:28→19:17)
[2024-01-29 05:43] LABS: VBG Base Excess 5.9 mmol/L; VBG HCO3 28 mmol/L (22-26); VBG pCO2 35 mmHg; VBG pH 7.52 (7.32-7.43); VBG pO2 70 mmHg
[2024-01-29 05:52] LABS: Venous Blood Gas Refer to POC result
[2024-01-29] MEDS: Levothyroxine Sodium 100 MCG/5 ML VIAL 55 MCG IVPUSH (06:17)
[2024-01-29 06:20] LABS: MANUAL DIFF FLAG NO
[2024-01-29 06:23] LABS: Basophils Percent Auto 0.4 % (0-2); Eosinophils Absolute Auto 0.1 X10*3/uL (0.0-0.4); Eosinophils Percent Auto 1.6 % (0-4); Hematocrit 31.5 % (42.0-52.0); Hemoglobin 9.5 g/dl (14.0-18.0); Imm Gran Abs Auto 0.04 X10*3/uL (0.00-0.03); Imm Gran Pct Auto 0.5 % (0.0-0.4); Lymphocytes Absolute Auto 1.6 X10*3/uL (1.2-4.9); Lymphocytes Percent Auto 20.3 % (20-40); Mean Corpuscular HGB Conc 30.2 g/dl (31.0-36.0); Mean Corpuscular Hemoglobin 23.4 pg (27.0-33.0); Mean Corpuscular Volume 77.6 fL (80.0-98.0); Mean Platelet Volume 12.1 fL (9.4-12.4); Monocytes Absolute Auto 0.6 X10*3/uL (0.1-1.2); Monocytes Percent Auto 7.5 % (2-11); Neutrophils Absolute Auto 5.6 x10*3/uL (2.0-8.3); Neutrophils Percent Auto 69.7 % (45-73); Platelet Count 242 X10*3/uL (160-400); Red Blood Count 4.06 X10*6/uL (4.60-5.80); Red Cell Distribution Width 15.5 % (11.0-16.0)
[2024-01-29 06:26] LABS: Glucose, Whole Blood 335 mg/dL (60-115)
[2024-01-29 06:39] LABS: Albumin Level 3.1 g/dL (3.5-5.0); Anion Gap 15 (12-20); Blood Urea Nitrogen 39 mg/dL (9-16); Calcium 9.9 mg/dL (8.4-10.2); Carbon Dioxide 25 mmol/L (22-29); Chloride 109 mmol/L (96-108); Creatinine Clr Calc Pharmacy 61.2; Estimated Glomerular Filt Rate > 60; Glucose Random 374 mg/dL (60-115); Magnesium 2.2 mg/dL (1.6-2.6); Potassium 4.8 mmol/L (3.3-5.1); Sodium 144 mmol/L (135-145)
[2024-01-29] MEDS: cefTRIAXone sodium 1 GM in 0.9 % Sodium Chloride 50 ML IV (07:30)
[2024-01-29] MEDS: Chlorhexidine Gluc Oral Rinse 15 ML MOUTHWASH BUCCAL ×3 (07:30→19:18)
[2024-01-29] MEDS: Famotidine/PF 20 MG/2 ML VIAL IVPUSH (07:31)
[2024-01-29] MEDS: Insulin Glargine,Hum.rec.anlog 100 UNIT/ML 10 ML VIAL 25 UNIT SUBCUT (07:31)
[2024-01-29] MEDS: Albumin Human 25 % 100 ML IV ×3 (08:19→19:17)
[2024-01-29] MEDS: dexmedeTOMIDidine HCL/NS 400 MCG/100 ML INFUS..BTL 9.06 MCG IVCONT (08:20)
[2024-01-29] MEDS: HYDROmorphone HCl 0.5 MG/0.5 ML SYRINGE IVPUSH (08:35)
--- NOTE | 2024-01-29 11:19 | MHC.CM.PN ---
Pt continues care in ICU: presently trialing sedation and vent weaning. Goal is to attempt extubation later today or tomorrow. Pt is a LTC resident from [facility] and will return once he is medically stable.
[2024-01-29 11:49] LABS: Glucose, Whole Blood 326 mg/dL (60-115)
--- NOTE | 2024-01-29 12:19 | PM.CCPN ---
Subjective Subjective Date of Service: 01/29/24 Interval History: 63-year-old gentleman with underlying dementia, schizophrenia, nonverbal at baseline, seizure disorder, diabetes mellitus, diastolic dysfunction, CKD stage 3, recent admission for COVID, readmitted on 01/20/2024 with acute hypoxic respiratory failure requiring intubation ventilatory support with hospital course further complicated by acute kidney injury. No events overnight. Improved tolerance of pressure support trials. Critical Care Time (minutes): 60 Physical Exam Vital Signs: Vital Signs: Last Vital Signs Temp 99.5 F 01/29/24 11:00 Pulse 65 01/29/24 11:00 Resp 18 01/29/24 11:00 BP 104/63 01/29/24 11:00 Pulse Ox 96 01/29/24 11:00 O2 Del Method Mechanical Ventil ation 01/29/24 11:00 FiO2 45 01/29/24 11:23 BMI result Body Mass Index 20.6 Const: General: no acute distress and other (Sedated on the vent) Eyes: Sclerae: sclerae normal EOM: EOMs intact bilaterally Neck: Neck: Yes no lymphadenopathy, Yes trachea midline and Yes supple Resp: Auscultation: clear to auscultation bilaterally Cardio: Rate: regular rate Rhythm: regular rhythm Heart sounds: no gallops, no murmurs and no rubs GI: Palpation (GI): Soft to palpation and Other GI palpation findings present ( Nontender) Auscultation: normal bowel sounds Extrem: General: Yes no pedal edema, No clubbing and No cyanosis Objective Data Labs 01/29/24 05:38 01/29/24 05:38 Labs: Laboratory Results - last 24 hr 01/28/24 01/29/24 01/29/24 17:38 00:08 05:36 WBC RBC Hgb Hct MCV MCH MCHC RDW Plt Count MPV Immature Gran % (Auto) Neut % (Auto) Lymph % (Auto) [place] % (Auto) Eos % (Auto) Baso % (Auto) Lymph # (Auto) [place] # (Auto) Eos # (Auto) Baso # (Auto) Abs Immat Gran (auto) Absolute Neuts (auto) Absolute Nucleated RBC Nucleated RBC % (auto) VBG pH 7.52 H VBG pCO2 35 VBG pO2 70 VBG HCO3 28 H VBG O2 Saturation 94.0 VBG Base Excess 5.9 Sodium Potassium Chloride Carbon Dioxide Anion Gap BUN Creatinine Estim Creat Clear Calc Estimated GFR POC Glucose 286 H 286 H Random Glucose Calcium Phosphorus Magnesium Albumin 01/29/24 01/29/24 01/29/24 05:38 06:18 11:44 WBC 8.0 RBC 4.06 L Hgb 9.5 L Hct 31.5 L MCV 77.6 L MCH 23.4 L MCHC 30.2 L RDW 15.5 Plt Count 242 MPV 12.1 Immature Gran % (Auto) 0.5 H Neut % (Auto) 69.7 Lymph % (Auto) 20.3 [place] % (Auto) 7.5 Eos % (Auto) 1.6 Baso % (Auto) 0.4 Lymph # (Auto) 1.6 [place] # (Auto) 0.6 Eos # (Auto) 0.1 Baso # (Auto) 0.0 Abs Immat Gran (auto) 0.04 H Absolute Neuts (auto) 5.6 Absolute Nucleated RBC 0.000 Nucleated RBC % (auto) 0.0 VBG pH VBG pCO2 VBG pO2 VBG HCO3 VBG O2 Saturation VBG Base Excess Sodium 144 Potassium 4.8 Chloride 109 H Carbon Dioxide 25 Anion Gap 15 BUN 39 H Creatinine 1.19 Estim Creat Clear Calc 61.2 Estimated GFR > 60 POC Glucose 335 H 326 H Random Glucose 374 H* Calcium 9.9 Phosphorus 3.0 Magnesium 2.2 Albumin 3.1 L Microbiology Microbiology Results: Microbiology 01/20/24 22:08 Blood - Venous Blood Culture - Final No growth after 5 days. 01/20/24 22:08 Blood - Venous Blood Culture - Final No growth after 5 days. 01/22/24 05:35 Sputum - Suctioned Gram Stain - Final 01/22/24 05:35 Sputum - Suctioned Sputum Culture - Final Klebsiella pneumoniae Progress Note: A&P Assessment and plan (1) Seizures: Status: Acute (2) Schizophrenia: Status: Acute (3) Diabetes: Status: Acute (4) Dementia: Status: Acute (5) Acute respiratory failure with hypoxia: Status: Acute (6) Pneumonia: Status: Acute Plan Assessment: 63-year-old gentleman admitted with acute hypoxic respiratory failure secondary to post COVID pneumonia requiring intubation and ventilatory support further complicated by acute kidney injury Plan: Neuro: No acute issues. Underlying dementia, nonverbal at baseline. Underlying seizure disorder. Continue valproic acid. Cardiac: IA placement of right IJ catheter, removed by vascular surgery. Underlying chronic diastolic dysfunction. Pulmonary: Acute hypoxic respiratory failure secondary to post COVID pneumonia with possible aspiration component now requiring ventilatory support. Continue to titrate off ventilatory support as tolerated. Now with improved tolerance of pressor support trials. Renal: Acute kidney injury on the background of CKD, improved. Non oliguric. Continue to monitor renal indices and urine output. Endo: No acute issues. Underlying diabetes mellitus. GI: No acute issues. ID: Klebsiella pneumonia, continue ceftriaxone. Heme/Onc: No acute issues. Psych: No acute issues. Underlying schizophrenia. Miscellaneous: No acute issues. Prophylaxis: Heparin, famotidine Diet: Tube feeds Critical care time spent: 60 minutes Quality Stroke Does the patient have a stroke diagnosis?: No VTE Prior VTE?: No VTE Risk Level:: Medical - moderate - high VTE Device Contraindication: N/A - Device Ordered VTE Drug Contraindication: N/A - Med Ordered
[2024-01-29 17:22] LABS: Glucose, Whole Blood 256 mg/dL (60-115)
--- NOTE | 2024-01-29 18:06 | PC.NURSE ---
Assumed care of patient 07:00 Bed bath provided 08:00, new traid and foam dsg applied to sacrum 10:00 sedation vacation initiated, precedex gtt paused 10:30 pt failed PSV trail, apnea alarm. Pt RR 18 equal to vent settings AC 18/450/5.0/45% 12:00 patient continued to fail PSV trial, apnea alarm, RR 18 equal to AC vent settings 14:00 pt breathing over vent at RR 19-20 bpm. RT notified, PSV trail attempted. Pt able to sustain volumes ~600. RR 12-14. Pt continued on vent settings PSV 12/5.0 45% 18:00 Pt passed moderate, hard, dark brown bowel movement. New sacral foam dsg applied with triad. Pt tolerated repositioning through the afternoon on PSV settings, maintaining volumes 600-700. High fall precautions in place, repositioned Q2H
[2024-01-29] MEDS: Lactulose 20 GM/30 ML SOLUTION 30 GM PO (19:19)
[2024-01-30] VITALS (29 sets, daily range): BP systolic 114–176; BP diastolic 67–100; PULSE 60–76; RESP 14–92; TEMP 34.9–37.9; O2SAT 89–99; BMI 20.4
[2024-01-30] MEDS: Insulin Lispro 100 UNIT/ML 3 ML VIAL SUBCUT ×3 (00:07→12:36)
[2024-01-30 00:22] LABS: Glucose, Whole Blood 226 mg/dL (60-115)
[2024-01-30] MEDS: Valproic Acid (as Sodium Salt) 250 MG in Dextrose 5 % 50 ML 52.5 MG IV ×3 (03:22→20:56)
[2024-01-30] MEDS: Albumin Human 25 % 100 ML IV (03:22)
[2024-01-30 04:51] LABS: VBG Base Excess 3.9 mmol/L; VBG HCO3 26 mmol/L (22-26); VBG pCO2 33 mmHg; VBG pH 7.51 (7.32-7.43); VBG pO2 60 mmHg
[2024-01-30 04:53] LABS: MANUAL DIFF FLAG NO; Venous Blood Gas Refer to POC result
[2024-01-30 04:54] LABS: Basophils Percent Auto 0.4 % (0-2); Eosinophils Absolute Auto 0.1 X10*3/uL (0.0-0.4); Eosinophils Percent Auto 1.4 % (0-4); Hematocrit 30.2 % (42.0-52.0); Hemoglobin 8.9 g/dl (14.0-18.0); Imm Gran Abs Auto 0.05 X10*3/uL (0.00-0.03); Imm Gran Pct Auto 0.6 % (0.0-0.4); Lymphocytes Absolute Auto 1.7 X10*3/uL (1.2-4.9); Lymphocytes Percent Auto 21.2 % (20-40); Mean Corpuscular HGB Conc 29.5 g/dl (31.0-36.0); Mean Corpuscular Hemoglobin 23.6 pg (27.0-33.0); Mean Corpuscular Volume 80.1 fL (80.0-98.0); Mean Platelet Volume 12.4 fL (9.4-12.4); Monocytes Absolute Auto 0.7 X10*3/uL (0.1-1.2); Monocytes Percent Auto 8.4 % (2-11); Neutrophils Absolute Auto 5.3 x10*3/uL (2.0-8.3); Platelet Count 213 X10*3/uL (160-400); Red Blood Count 3.77 X10*6/uL (4.60-5.80); Red Cell Distribution Width 15.5 % (11.0-16.0); White Blood Count 7.8 X10*3/uL (4.8-10.8)
[2024-01-30 05:10] LABS: Alanine Aminotransferase 8 U/L (0-40); Albumin Level 4.2 g/dL (3.5-5.0); Alkaline Phosphatase 49 U/L (39-117); Anion Gap 16 (12-20); Aspartate Amino Transferase 7 U/L (5-37); Bilirubin Total 0.4 mg/dL (0.0-1.0); Blood Urea Nitrogen 40 mg/dL (9-16); Calcium 10.4 mg/dL (8.4-10.2); Carbon Dioxide 23 mmol/L (22-29); Chloride 111 mmol/L (96-108); Creatinine Clr Calc Pharmacy 55.1; Estimated Glomerular Filt Rate 55; Glucose Random 284 mg/dL (60-115); Magnesium 2.1 mg/dL (1.6-2.6); Phosphorus 2.4 mg/dL (2.7-4.5); Potassium 4.5 mmol/L (3.3-5.1); Sodium 145 mmol/L (135-145); Total Protein 7.4 g/dL (6.5-8.0)
[2024-01-30] MEDS: dexmedeTOMIDidine HCL/NS 400 MCG/100 ML INFUS..BTL 9.06 MCG IVCONT (05:20)
[2024-01-30] MEDS: Levothyroxine Sodium 100 MCG/5 ML VIAL 55 MCG IVPUSH (05:20)
[2024-01-30] MEDS: Chlorhexidine Gluc Oral Rinse 15 ML MOUTHWASH BUCCAL ×3 (07:29→20:56)
[2024-01-30] MEDS: Famotidine/PF 20 MG/2 ML VIAL IVPUSH (07:29)
[2024-01-30] MEDS: Lactulose 20 GM/30 ML SOLUTION 30 GM PO (07:29)
[2024-01-30] MEDS: Insulin Glargine,Hum.rec.anlog 100 UNIT/ML 10 ML VIAL 25 UNIT SUBCUT (07:29)
[2024-01-30] MEDS: cefTRIAXone sodium 1 GM in 0.9 % Sodium Chloride 50 ML IV (07:47)
[2024-01-30] MEDS: Sodium,Potassium Phosphates POWD.PACK 2 PACKET PO (08:17)
--- NOTE | 2024-01-30 09:23 | MHC.CLN ---
F/U DISCUSSED AT ROUNDS WITH PT RECEIVING PROMOTE AT MAX GOAL RATE 70ML/HR WITH 120ML FREE WATER FLUSHES Q 4 HRS PROVIDES 1680KCALS (2010KCALS WITH SEDATION; 29KCALS/KG), 105G PROTEIN (1.5G/KG), 2129ML TOTAL FREE WATER FROM FORMULA AND FLUSHES (31ML/KG) TF WILL PROMOTE WOUND HEALING CONTINUE TO MONITOR TOLERANCE, RESIDUALS AND LYTES
--- NOTE | 2024-01-30 09:38 | P.PNCC_ITS ---
Subjective Subjective Date of Service: 01/30/24 Interval History: 63-year-old gentleman with underlying dementia, schizophrenia, nonverbal at baseline, seizure disorder, diabetes mellitus, diastolic dysfunction, CKD stage 3, recent admission for COVID, readmitted on 01/20/2024 with acute hypoxic respiratory failure requiring intubation ventilatory support with hospital course further complicated by acute kidney injury. No events overnight. Critical Care Time (minutes): 60 Physical Exam 2 Vital Signs: Vital Signs: Last Vital Signs Temp 100.2 F 01/30/24 09:00 Pulse 61 01/30/24 09:00 Resp 15 01/30/24 09:00 BP 161/85 H 01/30/24 09:00 Pulse Ox 94 01/30/24 09:00 O2 Del Method Mechanical Ventil ation 01/30/24 09:00 FiO2 35 01/30/24 09:00 BMI result Body Mass Index 20.4 Const: General: no acute distress and other (Sedated on the vent) Eyes: Sclerae: sclerae normal EOM: EOMs intact bilaterally Neck: Neck: Yes no lymphadenopathy, Yes trachea midline and Yes supple Resp: Auscultation: clear to auscultation bilaterally Cardio: Rate: regular rate Rhythm: regular rhythm Heart sounds: no gallops, no murmurs and no rubs GI: Palpation (GI): Soft to palpation and Other GI palpation findings present ( Nontender) Auscultation: normal bowel sounds Extrem: General: Yes no pedal edema, No clubbing and No cyanosis Objective Data Labs 01/30/24 04:43 01/30/24 04:43 Labs: Laboratory Results - last 24 hr 01/29/24 01/29/24 01/30/24 11:44 17:16 00:06 WBC RBC Hgb Hct MCV MCH MCHC RDW Plt Count MPV Immature Gran % (Auto) Neut % (Auto) Lymph % (Auto) [place] % (Auto) Eos % (Auto) Baso % (Auto) Lymph # (Auto) [place] # (Auto) Eos # (Auto) Baso # (Auto) Abs Immat Gran (auto) Absolute Neuts (auto) Absolute Nucleated RBC Nucleated RBC % (auto) VBG pH VBG pCO2 VBG pO2 VBG HCO3 VBG O2 Saturation VBG Base Excess Sodium Potassium Chloride Carbon Dioxide Anion Gap BUN Creatinine Estim Creat Clear Calc Estimated GFR POC Glucose 326 H 256 H 226 H Random Glucose Calcium Phosphorus Magnesium Total Bilirubin AST ALT Alkaline Phosphatase Total Protein Albumin 01/30/24 04:43 WBC 7.8 RBC 3.77 L Hgb 8.9 L Hct 30.2 L MCV 80.1 MCH 23.6 L MCHC 29.5 L RDW 15.5 Plt Count 213 MPV 12.4 Immature Gran % (Auto) 0.6 H Neut % (Auto) 68.0 Lymph % (Auto) 21.2 [place] % (Auto) 8.4 Eos % (Auto) 1.4 Baso % (Auto) 0.4 Lymph # (Auto) 1.7 [place] # (Auto) 0.7 Eos # (Auto) 0.1 Baso # (Auto) 0.0 Abs Immat Gran (auto) 0.05 H Absolute Neuts (auto) 5.3 Absolute Nucleated RBC 0.000 Nucleated RBC % (auto) 0.0 VBG pH 7.51 H VBG pCO2 33 VBG pO2 60 VBG HCO3 26 VBG O2 Saturation 89.0 VBG Base Excess 3.9 Sodium 145 Potassium 4.5 Chloride 111 H Carbon Dioxide 23 Anion Gap 16 BUN 40 H Creatinine 1.32 Estim Creat Clear Calc 55.1 Estimated GFR 55 POC Glucose Random Glucose 284 H Calcium 10.4 H Phosphorus 2.4 L Magnesium 2.1 Total Bilirubin 0.4 AST 7 ALT 8 Alkaline Phosphatase 49 Total Protein 7.4 Albumin 4.2 Microbiology Microbiology Results: Microbiology 01/20/24 22:08 Blood - Venous Blood Culture - Final No growth after 5 days. 01/20/24 22:08 Blood - Venous Blood Culture - Final No growth after 5 days. 01/22/24 05:35 Sputum - Suctioned Gram Stain - Final 01/22/24 05:35 Sputum - Suctioned Sputum Culture - Final Klebsiella pneumoniae Progress Note: A&P Assessment and plan (1) Seizures: Status: Acute (2) Schizophrenia: Status: Acute (3) Diabetes: Status: Acute (4) Dementia: Status: Acute (5) Acute respiratory failure with hypoxia: Status: Acute (6) Pneumonia: Status: Acute Plan Assessment: 63-year-old gentleman admitted with acute hypoxic respiratory failure secondary to post COVID pneumonia requiring intubation and ventilatory support further complicated by acute kidney injury Plan: Neuro: No acute issues. Underlying dementia, nonverbal at baseline. Underlying seizure disorder. Continue valproic acid. Cardiac: IA placement of right IJ catheter, removed by vascular surgery. Underlying chronic diastolic dysfunction. Pulmonary: Acute hypoxic respiratory failure secondary to post COVID Klebsiella pneumonia with possible aspiration component now requiring ventilatory support. Continue to titrate off ventilatory support as tolerated. Now with improved tolerance of pressor support trials. Renal: Acute kidney injury on the background of CKD, improved. Non oliguric. Continue to monitor renal indices and urine output. Endo: No acute issues. Underlying diabetes mellitus. GI: No acute issues. ID: Klebsiella pneumonia, continue ceftriaxone. Heme/Onc: No acute issues. Psych: No acute issues. Underlying schizophrenia. Miscellaneous: No acute issues. Prophylaxis: Heparin, famotidine Diet: Tube feeds Critical care time spent: 60 minutes Quality Stroke Does the patient have a stroke diagnosis?: No VTE Prior VTE?: No VTE Risk Level:: Medical - moderate - high VTE Device Contraindication: N/A - Device Ordered VTE Drug Contraindication: N/A - Med Ordered
--- NOTE | 2024-01-30 09:46 | MHC.CM.PN ---
Pt continues care in ICU - on ventilatory support but starting weaning process: sedation d/c'd and pt to trial PSV today. Pt is a LTC resident of [facility] - clinical updates remitted for eventual return. CM to follow
[2024-01-30 11:46] LABS: Glucose, Whole Blood 287 mg/dL (60-115)
--- NOTE | 2024-01-30 11:55 | PC.NURSE ---
sedation vacation initiated 0950. Pt placed on psv initally 10/14, then switched to 03/14. MD ordered extubation; RT at bedside. Oral and inline suction provided before tube removal. Pt extubated at 1150. Oral suctioning provided after. RT inserted size 7 nasopharyngeal airway in R nare due to copious secretions. Pt on 3L o2 via oxymask, o2 sat currently 94%, RR 25.
[2024-01-30 17:19] LABS: Glucose, Whole Blood 95 mg/dL (60-115)
[2024-01-31] VITALS (24 sets, daily range): BP systolic 139–172; BP diastolic 78–119; PULSE 71–113; RESP 18–34; TEMP 37–37.7; O2SAT 91–97; BMI 18.8
[2024-01-31 00:01] LABS: Glucose, Whole Blood 110 mg/dL (60-115)
[2024-01-31] MEDS: Valproic Acid (as Sodium Salt) 250 MG in Dextrose 5 % 50 ML 52.5 MG IV ×3 (04:42→20:22)
[2024-01-31 05:33] LABS: VBG HCO3 26 mmol/L (22-26); VBG pCO2 35 mmHg; VBG pH 7.47 (7.32-7.43); VBG pO2 59 mmHg
[2024-01-31 05:41] LABS: Venous Blood Gas Refer to POC result
[2024-01-31 05:47] LABS: Basophils Percent Auto 0.4 % (0-2); Eosinophils Absolute Auto 0.1 X10*3/uL (0.0-0.4); Eosinophils Percent Auto 1.2 % (0-4); Hematocrit 36.2 % (42.0-52.0); Hemoglobin 10.7 g/dl (14.0-18.0); Imm Gran Abs Auto 0.04 X10*3/uL (0.00-0.03); Imm Gran Pct Auto 0.5 % (0.0-0.4); Lymphocytes Absolute Auto 1.7 X10*3/uL (1.2-4.9); Lymphocytes Percent Auto 20.4 % (20-40); MANUAL DIFF FLAG NO; Mean Corpuscular HGB Conc 29.6 g/dl (31.0-36.0); Mean Corpuscular Hemoglobin 23.4 pg (27.0-33.0); Mean Corpuscular Volume 79.2 fL (80.0-98.0); Mean Platelet Volume 11.6 fL (9.4-12.4); Monocytes Absolute Auto 0.7 X10*3/uL (0.1-1.2); Monocytes Percent Auto 8.2 % (2-11); Neutrophils Absolute Auto 5.7 x10*3/uL (2.0-8.3); Neutrophils Percent Auto 69.3 % (45-73); Platelet Count 331 X10*3/uL (160-400); Red Blood Count 4.57 X10*6/uL (4.60-5.80); Red Cell Distribution Width 15.7 % (11.0-16.0); White Blood Count 8.3 X10*3/uL (4.8-10.8)
[2024-01-31 06:02] LABS: Albumin Level 4.3 g/dL (3.5-5.0); Anion Gap 16 (12-20); Blood Urea Nitrogen 38 mg/dL (9-16); Calcium 11.3 mg/dL (8.4-10.2); Carbon Dioxide 25 mmol/L (22-29); Chloride 113 mmol/L (96-108); Creatinine Clr Calc Pharmacy 62.1; Estimated Glomerular Filt Rate > 60; Glucose Random 140 mg/dL (60-115); Magnesium 2.1 mg/dL (1.6-2.6); Phosphorus 4.1 mg/dL (2.7-4.5); Potassium 4.3 mmol/L (3.3-5.1); Sodium 150 mmol/L (135-145)
[2024-01-31] MEDS: cefTRIAXone sodium 1 GM in 0.9 % Sodium Chloride 50 ML IV (08:06)
[2024-01-31] MEDS: Chlorhexidine Gluc Oral Rinse 15 ML MOUTHWASH BUCCAL ×3 (08:07→20:16)
[2024-01-31] MEDS: Dextrose 5 % 1,000 ML 75 ML IVCONT ×2 (09:17→22:10)
[2024-01-31] MEDS: Insulin Glargine,Hum.rec.anlog 100 UNIT/ML 10 ML VIAL 25 UNIT SUBCUT (10:09)
--- NOTE | 2024-01-31 10:48 | P.PNCC_ITS ---
Subjective Subjective Date of Service: 01/31/24 Interval History: 63-year-old gentleman with underlying dementia, schizophrenia, nonverbal at baseline, seizure disorder, diabetes mellitus, diastolic dysfunction, CKD stage 3, recent admission for COVID, readmitted on 01/20/2024 with acute hypoxic respiratory failure requiring intubation ventilatory support with hospital course further complicated by acute kidney injury. Extubated 01/30/2024. No events overnight. Critical Care Time (minutes): 0 Physical Exam 2 Vital Signs: Vital Signs: Last Vital Signs Temp 99.3 F 01/31/24 10:00 Pulse 90 01/31/24 10:00 Resp 21 H 01/31/24 10:00 BP 156/110 H 01/31/24 10:00 Pulse Ox 93 01/31/24 10:00 O2 Del Method Room Air 01/31/24 10:00 O2 Flow Rate 2 01/30/24 17:00 FiO2 35 01/30/24 11:31 BMI result Body Mass Index 18.8 Const: General: no acute distress, alert, awake and other (Nonverbal) Eyes: Sclerae: sclerae normal EOM: EOMs intact bilaterally Neck: Neck: Yes no lymphadenopathy, Yes trachea midline and Yes supple Resp: Effort & Inspection: normal respiratory effort and no respiratory distress Auscultation: crackles (Mild bilateral) Cardio: Rate: regular rate Rhythm: regular rhythm Heart sounds: no gallops, no murmurs and no rubs GI: Palpation (GI): Soft to palpation and Other GI palpation findings present ( Nontender) Auscultation: normal bowel sounds Extrem: General: Yes no pedal edema, No clubbing and No cyanosis Objective Data Labs 01/31/24 05:24 01/31/24 05:24 Labs: Laboratory Results - last 24 hr 01/30/24 01/30/24 01/30/24 11:43 17:15 23:54 WBC RBC Hgb Hct MCV MCH MCHC RDW Plt Count MPV Immature Gran % (Auto) Neut % (Auto) Lymph % (Auto) [place] % (Auto) Eos % (Auto) Baso % (Auto) Lymph # (Auto) [place] # (Auto) Eos # (Auto) Baso # (Auto) Abs Immat Gran (auto) Absolute Neuts (auto) Absolute Nucleated RBC Nucleated RBC % (auto) VBG pH VBG pCO2 VBG pO2 VBG HCO3 VBG O2 Saturation VBG Base Excess Sodium Potassium Chloride Carbon Dioxide Anion Gap BUN Creatinine Estim Creat Clear Calc Estimated GFR POC Glucose 287 H 95 110 Random Glucose Calcium Phosphorus Magnesium Albumin 01/31/24 01/31/24 05:24 05:25 WBC 8.3 RBC 4.57 L D Hgb 10.7 L D Hct 36.2 L MCV 79.2 L MCH 23.4 L MCHC 29.6 L RDW 15.7 Plt Count 331 D MPV 11.6 Immature Gran % (Auto) 0.5 H Neut % (Auto) 69.3 Lymph % (Auto) 20.4 [place] % (Auto) 8.2 Eos % (Auto) 1.2 Baso % (Auto) 0.4 Lymph # (Auto) 1.7 [place] # (Auto) 0.7 Eos # (Auto) 0.1 Baso # (Auto) 0.0 Abs Immat Gran (auto) 0.04 H Absolute Neuts (auto) 5.7 Absolute Nucleated RBC 0.000 Nucleated RBC % (auto) 0.0 VBG pH 7.47 H VBG pCO2 35 VBG pO2 59 VBG HCO3 26 VBG O2 Saturation 87.0 VBG Base Excess 3.0 Sodium 150 H Potassium 4.3 Chloride 113 H Carbon Dioxide 25 Anion Gap 16 BUN 38 H Creatinine 1.07 Estim Creat Clear Calc 62.1 Estimated GFR > 60 POC Glucose Random Glucose 140 H Calcium 11.3 H D Phosphorus 4.1 Magnesium 2.1 Albumin 4.3 Microbiology Microbiology Results: Microbiology 01/20/24 22:08 Blood - Venous Blood Culture - Final No growth after 5 days. 01/20/24 22:08 Blood - Venous Blood Culture - Final No growth after 5 days. 01/22/24 05:35 Sputum - Suctioned Gram Stain - Final 01/22/24 05:35 Sputum - Suctioned Sputum Culture - Final Klebsiella pneumoniae Progress Note: A&P Assessment and plan (1) Seizures: Status: Acute (2) Schizophrenia: Status: Acute (3) Diabetes: Status: Acute (4) Dementia: Status: Acute (5) Acute respiratory failure with hypoxia: Status: Acute (6) Pneumonia: Status: Acute Plan Assessment: 63-year-old gentleman admitted with acute hypoxic respiratory failure secondary to post COVID pneumonia requiring intubation and ventilatory support further complicated by acute kidney injury Plan: Neuro: No acute issues. Underlying dementia, nonverbal at baseline. Underlying seizure disorder. Continue valproic acid. Cardiac: IA placement of right IJ catheter, removed by vascular surgery. Underlying chronic diastolic dysfunction. Pulmonary: Acute hypoxic respiratory failure secondary to post COVID Klebsiella pneumonia with possible aspiration component now requiring ventilatory support. Extubated 01/30/2024. Renal: Acute kidney injury on the background of CKD, improved. Non oliguric. Continue to monitor renal indices and urine output. Endo: No acute issues. Underlying diabetes mellitus. GI: No acute issues. ID: Klebsiella pneumonia, continue ceftriaxone. Heme/Onc: No acute issues. Psych: No acute issues. Underlying schizophrenia. Miscellaneous: No acute issues. Prophylaxis: Heparin Diet: Pending swallow evaluation Quality Stroke Does the patient have a stroke diagnosis?: No VTE Prior VTE?: No VTE Risk Level:: Medical - moderate - high VTE Device Contraindication: N/A - Device Ordered VTE Drug Contraindication: N/A - Med Ordered
[2024-01-31 12:24] LABS: Glucose, Whole Blood 155 mg/dL (60-115)
[2024-01-31] MEDS: Insulin Lispro 100 UNIT/ML 3 ML VIAL SUBCUT (12:24)
[2024-01-31 17:34] LABS: Glucose, Whole Blood 82 mg/dL (60-115)
[2024-02-01] VITALS (24 sets, daily range): BP systolic 147–173; BP diastolic 80–107; PULSE 67–77; RESP 12–22; TEMP 36.1–37.2; O2SAT 91–96; BMI 19.0
[2024-02-01 00:31] LABS: Glucose, Whole Blood 78 mg/dL (60-115)
[2024-02-01] MEDS: Valproic Acid (as Sodium Salt) 250 MG in Dextrose 5 % 50 ML 52.5 MG IV ×3 (03:34→20:18)
[2024-02-01 05:22] LABS: VBG Base Excess 2.3 mmol/L; VBG HCO3 25 mmol/L (22-26); VBG pCO2 35 mmHg; VBG pH 7.46 (7.32-7.43); VBG pO2 60 mmHg
[2024-02-01 05:25] LABS: MANUAL DIFF FLAG NO
[2024-02-01 05:29] LABS: Basophils Percent Auto 0.3 % (0-2); Eosinophils Absolute Auto 0.1 X10*3/uL (0.0-0.4); Eosinophils Percent Auto 1.4 % (0-4); Hematocrit 38.1 % (42.0-52.0); Hemoglobin 11.4 g/dl (14.0-18.0); Imm Gran Abs Auto 0.01 X10*3/uL (0.00-0.03); Imm Gran Pct Auto 0.1 % (0.0-0.4); Lymphocytes Absolute Auto 1.8 X10*3/uL (1.2-4.9); Lymphocytes Percent Auto 24.1 % (20-40); Mean Corpuscular HGB Conc 29.9 g/dl (31.0-36.0); Mean Corpuscular Hemoglobin 23.5 pg (27.0-33.0); Mean Corpuscular Volume 78.4 fL (80.0-98.0); Mean Platelet Volume 11.3 fL (9.4-12.4); Monocytes Absolute Auto 0.7 X10*3/uL (0.1-1.2); Monocytes Percent Auto 8.9 % (2-11); Neutrophils Percent Auto 65.2 % (45-73); Platelet Count 336 X10*3/uL (160-400); Red Blood Count 4.86 X10*6/uL (4.60-5.80); Red Cell Distribution Width 15.7 % (11.0-16.0); White Blood Count 7.7 X10*3/uL (4.8-10.8)
[2024-02-01 05:43] LABS: Albumin Level 4.1 g/dL (3.5-5.0); Anion Gap 18 (12-20); Blood Urea Nitrogen 42 mg/dL (9-16); Calcium 10.9 mg/dL (8.4-10.2); Carbon Dioxide 23 mmol/L (22-29); Chloride 112 mmol/L (96-108); Creatinine Clr Calc Pharmacy 58.3; Estimated Glomerular Filt Rate > 60; Glucose Random 98 mg/dL (60-115); Magnesium 2.1 mg/dL (1.6-2.6); Potassium 4.1 mmol/L (3.3-5.1); Sodium 149 mmol/L (135-145)
[2024-02-01] MEDS: Levothyroxine Sodium 100 MCG/5 ML VIAL 55 MCG IVPUSH (05:59)
[2024-02-01 06:01] LABS: Venous Blood Gas Refer to POC result
[2024-02-01] MEDS: cefTRIAXone sodium 1 GM in 0.9 % Sodium Chloride 50 ML IV (08:09)
[2024-02-01] MEDS: Chlorhexidine Gluc Oral Rinse 15 ML MOUTHWASH BUCCAL ×3 (08:09→20:19)
--- NOTE | 2024-02-01 10:22 | PM.CCPN ---
Subjective Subjective Date of Service: 02/01/24 Interval History: 63-year-old gentleman with underlying dementia, schizophrenia, nonverbal at baseline, seizure disorder, diabetes mellitus, diastolic dysfunction, CKD stage 3, recent admission for COVID, readmitted on 01/20/2024 with acute hypoxic respiratory failure requiring intubation ventilatory support with hospital course further complicated by acute kidney injury. Extubated 01/30/2024. No events overnight. Critical Care Time (minutes): 0 Physical Exam Vital Signs: Vital Signs: Last Vital Signs Temp 97.0 F 02/01/24 10:00 Pulse 71 02/01/24 10:00 Resp 12 02/01/24 10:00 BP 154/89 H 02/01/24 10:00 Pulse Ox 91 L 02/01/24 10:00 O2 Del Method Room Air 02/01/24 10:00 O2 Flow Rate 2 01/30/24 17:00 FiO2 35 01/30/24 11:31 BMI result Body Mass Index 19.0 Const: General: no acute distress, alert, awake and other (Nonverbal) Eyes: Sclerae: sclerae normal EOM: EOMs intact bilaterally Neck: Neck: Yes no lymphadenopathy, Yes trachea midline and Yes supple Resp: Effort & Inspection: normal respiratory effort and no respiratory distress Auscultation: clear to auscultation bilaterally Cardio: Rate: regular rate Rhythm: regular rhythm Heart sounds: no gallops, no murmurs and no rubs GI: Palpation (GI): Soft to palpation and Other GI palpation findings present ( Nontender) Auscultation: normal bowel sounds Extrem: General: Yes no pedal edema, No clubbing and No cyanosis Objective Data Labs 02/01/24 05:15 02/01/24 05:15 Labs: Laboratory Results - last 24 hr 01/31/24 01/31/24 01/31/24 12:21 17:30 23:48 WBC RBC Hgb Hct MCV MCH MCHC RDW Plt Count MPV Immature Gran % (Auto) Neut % (Auto) Lymph % (Auto) [place] % (Auto) Eos % (Auto) Baso % (Auto) Lymph # (Auto) [place] # (Auto) Eos # (Auto) Baso # (Auto) Abs Immat Gran (auto) Absolute Neuts (auto) Absolute Nucleated RBC Nucleated RBC % (auto) VBG pH VBG pCO2 VBG pO2 VBG HCO3 VBG O2 Saturation VBG Base Excess Sodium Potassium Chloride Carbon Dioxide Anion Gap BUN Creatinine Estim Creat Clear Calc Estimated GFR POC Glucose 155 H 82 78 Random Glucose Calcium Phosphorus Magnesium Albumin 02/01/24 05:15 WBC 7.7 RBC 4.86 Hgb 11.4 L Hct 38.1 L MCV 78.4 L MCH 23.5 L MCHC 29.9 L RDW 15.7 Plt Count 336 MPV 11.3 Immature Gran % (Auto) 0.1 Neut % (Auto) 65.2 Lymph % (Auto) 24.1 [place] % (Auto) 8.9 Eos % (Auto) 1.4 Baso % (Auto) 0.3 Lymph # (Auto) 1.8 [place] # (Auto) 0.7 Eos # (Auto) 0.1 Baso # (Auto) 0.0 Abs Immat Gran (auto) 0.01 Absolute Neuts (auto) 5.0 Absolute Nucleated RBC 0.000 Nucleated RBC % (auto) 0.0 VBG pH 7.46 H VBG pCO2 35 VBG pO2 60 VBG HCO3 25 VBG O2 Saturation 88.0 VBG Base Excess 2.3 Sodium 149 H Potassium 4.1 Chloride 112 H Carbon Dioxide 23 Anion Gap 18 BUN 42 H Creatinine 1.14 Estim Creat Clear Calc 58.3 Estimated GFR > 60 POC Glucose Random Glucose 98 Calcium 10.9 H Phosphorus 5.0 H Magnesium 2.1 Albumin 4.1 Microbiology Microbiology Results: Microbiology 01/20/24 22:08 Blood - Venous Blood Culture - Final No growth after 5 days. 01/20/24 22:08 Blood - Venous Blood Culture - Final No growth after 5 days. 01/22/24 05:35 Sputum - Suctioned Gram Stain - Final 01/22/24 05:35 Sputum - Suctioned Sputum Culture - Final Klebsiella pneumoniae Progress Note: A&P Assessment and plan (1) Seizures: Status: Acute (2) Schizophrenia: Status: Acute (3) Diabetes: Status: Acute (4) Dementia: Status: Acute (5) Pneumonia: Status: Acute Plan Assessment: 63-year-old gentleman admitted with acute hypoxic respiratory failure secondary to post COVID pneumonia requiring intubation and ventilatory support further complicated by acute kidney injury Plan: Neuro: No acute issues. Underlying dementia, nonverbal at baseline. Underlying seizure disorder. Continue valproic acid. Cardiac: No acute issues. Underlying chronic diastolic dysfunction. Pulmonary: Acute hypoxic respiratory failure secondary to post COVID Klebsiella pneumonia with possible aspiration component now requiring ventilatory support. Extubated 01/30/2024. Renal: Acute kidney injury on the background of CKD, improved. Non oliguric. Continue to monitor renal indices and urine output. Endo: No acute issues. Underlying diabetes mellitus. GI: No acute issues. ID: Klebsiella pneumonia, continue ceftriaxone. Heme/Onc: No acute issues. Psych: No acute issues. Underlying schizophrenia. Miscellaneous: No acute issues. Prophylaxis: Heparin Diet: Pending swallow evaluation Quality Stroke Does the patient have a stroke diagnosis?: No VTE Prior VTE?: No VTE Risk Level:: Medical - moderate - high VTE Device Contraindication: N/A - Device Ordered VTE Drug Contraindication: N/A - Med Ordered
[2024-02-01 10:59] LABS: MANUAL DIFF FLAG NO
[2024-02-01 11:03] LABS: Basophils Percent Auto 0.1 % (0-2); Eosinophils Absolute Auto 0.1 X10*3/uL (0.0-0.4); Eosinophils Percent Auto 1.9 % (0-4); Hematocrit 39.8 % (42.0-52.0); Hemoglobin 11.8 g/dl (14.0-18.0); Imm Gran Abs Auto 0.03 X10*3/uL (0.00-0.03); Imm Gran Pct Auto 0.4 % (0.0-0.4); Lymphocytes Absolute Auto 1.6 X10*3/uL (1.2-4.9); Lymphocytes Percent Auto 22.6 % (20-40); Mean Corpuscular HGB Conc 29.6 g/dl (31.0-36.0); Mean Corpuscular Hemoglobin 23.4 pg (27.0-33.0); Mean Corpuscular Volume 78.8 fL (80.0-98.0); Mean Platelet Volume 10.7 fL (9.4-12.4); Monocytes Absolute Auto 0.6 X10*3/uL (0.1-1.2); Monocytes Percent Auto 8.2 % (2-11); Neutrophils Absolute Auto 4.6 x10*3/uL (2.0-8.3); Neutrophils Percent Auto 66.8 % (45-73); Platelet Count 330 X10*3/uL (160-400); Red Blood Count 5.05 X10*6/uL (4.60-5.80); Red Cell Distribution Width 15.8 % (11.0-16.0); White Blood Count 6.9 X10*3/uL (4.8-10.8)
[2024-02-01] MEDS: Dextrose 5 % 1,000 ML 75 ML IVCONT (12:26)
[2024-02-01 12:28] LABS: Glucose, Whole Blood 139 mg/dL (60-115)
--- NOTE | 2024-02-01 14:38 | MHC.SL.SWA ---
Speech Pathologist Impression: Risk of Aspiration Due to: Medically Fragile Poor PO Intake Hx of Recent Extubation Weak Cough Dysphasia Diet Status: Liquid Consistency and Strategies for Safe Swallow: Liquid Intake Recommendation: NPO Solid Food Consistency: Dietary Recommendations: NPO Additional Modifications to Solid Foods: Recommend therapeutic trials of Ice Chips under supervision and with aspiration precautions in place. Oral Medication Intake: NPO Please contact the pharmacy regarding appropriate crushable or liquid drug formulations that are available whenever modified delivery is recommended. Compensatory Strategies and Precautions to be Taken for Safe Swallow: Sitting Upright (90 deg) Supervision While Eating and Drinking for Safe Swallow: Total Supervision (1:1) Swallowing Recommended Treatments: Compens. Strategy Educat. Recommendation for Speech: Inpatient Speech Therapy Comment: Recommend Pt remain NPO. Aspiration precautions including HoB >30 degrees and oral care. Pt may tolerate therapeutic Ice Chips under supervision in the coming days. PROGRAMS DIRECTOR will follow-up tomorrow for further recommendations. Frequency/Duration: Daily Timeline to reassess: PRN Senior [employer] Soa Developer Clinican/Clinical Fellow: No Supervisory Statement: I have reviewed and agree with the student/clinical fellow's documentation: N/A Speech Language Pathologist: Jostin Turpin M.A., [facility]3]-PROGRAMS DIRECTOR
[2024-02-01 18:12] LABS: Glucose, Whole Blood 163 mg/dL (60-115)
[2024-02-01] MEDS: Insulin Lispro 100 UNIT/ML 3 ML VIAL SUBCUT (18:28)
[2024-02-02] VITALS (12 sets, daily range): BP systolic 125–157; BP diastolic 67–98; PULSE 63–78; RESP 16–22; TEMP 36.2–36.9; O2SAT 88–97; BMI 19.6
[2024-02-02 00:01] LABS: Glucose, Whole Blood 127 mg/dL (60-115)
[2024-02-02] MEDS: Dextrose 5 % 1,000 ML 75 ML IVCONT ×3 (02:04→22:16)
[2024-02-02] MEDS: Valproic Acid (as Sodium Salt) 250 MG in Dextrose 5 % 50 ML 52.5 MG IV ×3 (03:10→22:15)
--- NOTE | 2024-02-02 04:29 | PC.NURSE ---
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 Handoff report given at 04:15. Patient transferred with all belongings in stable condition at 04:30 by PRIMO Fuentes assuming care. Please see shift assessments, tasks, and MAR for full details.
[2024-02-02 06:15] LABS: Glucose, Whole Blood 105 mg/dL (60-115)
[2024-02-02 06:26] LABS: Venous Blood Gas Refer to POC result
[2024-02-02 06:30] LABS: VBG Base Excess 2.7 mmol/L; VBG HCO3 27 mmol/L (22-26); VBG pCO2 43 mmHg; VBG pH 7.41 (7.32-7.43); VBG pO2 38 mmHg
[2024-02-02 06:33] LABS: Glucose, Whole Blood 106 mg/dL (60-115)
[2024-02-02 06:44] LABS: Anion Gap 14 (12-20); Blood Urea Nitrogen 36 mg/dL (9-16); Calcium 10.4 mg/dL (8.4-10.2); Carbon Dioxide 26 mmol/L (22-29); Chloride 109 mmol/L (96-108); Creatinine Clr Calc Pharmacy 63.6; Estimated Glomerular Filt Rate > 60; Glucose Random 109 mg/dL (60-115); Sodium 145 mmol/L (135-145)
[2024-02-02] MEDS: Levothyroxine Sodium 100 MCG/5 ML VIAL 55 MCG IVPUSH (06:49)
[2024-02-02] MEDS: cefTRIAXone sodium 1 GM in 0.9 % Sodium Chloride 50 ML IV (09:23)
[2024-02-02] MEDS: Chlorhexidine Gluc Oral Rinse 15 ML MOUTHWASH BUCCAL ×3 (09:24→22:16)
[2024-02-02 11:34] LABS: Glucose, Whole Blood 119 mg/dL (60-115)
--- NOTE | 2024-02-02 12:25 | MHC.CLN ---
F/U PT EXTUBATED 01/29 PREVIOUSLY RECEIVED TF FOR NUTRITION SUPPORT DURING INTUBATION FIRE PREVENTION FORESTER RECOMMENDED NPO ON 01/31 PT TRANSFERRED OUT OF ICU TO MEDICAL FLOOR ON 02/01 PT IS DAY 3 NPO PT WITH INCREASED NUTRITION RISK R/T PRESSURE INJURY IF DIET TO ADVANCE, RECOMMEND ADDING ENSURE TID TO PROMOTE WOUND HEALING PLEASE CONSULT RD IF PPN NEEDED FOR NUTRITION SUPPORT FOLLOWING WITH TEAM
--- NOTE | 2024-02-02 14:03 | P.PNIM_ITS ---
Subjective Subjective Date of Service: 02/02/24 Interval History: Remains awake but nonverbal. No appreciable p.o. intake in 3 days Review of Systems Unable to obtain Physical Exam 2 Vital Signs: Vital Signs: Last Vital Signs Temp 97.6 F 02/02/24 11:03 Pulse 74 02/02/24 11:03 Resp 16 02/02/24 11:03 BP 157/91 H 02/02/24 11:03 Pulse Ox 94 02/02/24 11:03 O2 Del Method Room Air 02/02/24 11:03 O2 Flow Rate 2 01/30/24 17:00 FiO2 35 01/30/24 11:31 BMI result Body Mass Index 19.6 Const: Other: Awake nonverbal Resp: Other: Clear to auscultation bilaterally no rales rhonchi or wheezes Cardio: Other: No S4; positive S1-S2; no S3 murmurs rubs or gallops GI: Other: Soft nontender nondistended normoactive bowel sounds Extrem: Other: Note deemed bilaterally Objective Data Active Medications Acetaminophen (Acetaminophen 325 Mg Tablet) 975 mg PO Q6H PRN PRN Reason: Fever >100.4 Last Admin: 01/25/24 10:55 Dose: 975 mg Documented By: LESLY Chlorhexidine Gluconate (Chlorhexidine Gluc Oral Rinse 15 Ml Mouthwash) 15 ml BUCCAL TID [facility] Last Admin: 02/02/24 09:24 Dose: 15 ml Documented By: TAMI Dextrose (Dextrose 50 % 25 Gm/50 Ml Syringe) 25 gm IVPUSH Q15M PRN; Protocol PRN Reason: per Hypoglycemia Standing Ord. Glucose (Glucose Gel 15 Gm Gel..Gram.) 15 gm PO Q15M PRN; Protocol PRN Reason: per Hypoglycemia Standing Ord. Heparin Sodium (Porcine) (Heparin Sodium,Porcine 5,000 Unit/Ml Vial) 5,000 unit SUBCUT Q8H [facility] Last Admin: 01/25/24 00:09 Dose: 5,000 unit Documented By: AMINA Hydromorphone HCl (Hydromorphone Hcl 0.5 Mg/0.5 Ml Syringe) 0.5 mg IVPUSH Q4H PRN; Protocol PRN Reason: Pain, Moderate(Pain Scale 4-6) Last Admin: 01/29/24 08:35 Dose: 0.5 mg Documented By: LESLY Ceftriaxone Sodium 1 gm/ (Sodium Chloride) 50 mls @ 100 mls/hr IV Q24H [facility] Last Infusion: 02/02/24 09:53 Dose: Infused Documented By: TAMI Valproic Acid 250 mg/ Dextrose 52.5 mls @ 52.5 mls/hr IV Q8H [facility] Last Admin: 02/02/24 13:02 Dose: 52.5 mls/hr Documented By: TAMI Dextrose (D5w) 1,000 mls @ 75 mls/hr IVCONT .[id number] [facility] Last Admin: 02/02/24 10:00 Dose: 75 mls/hr Documented By: TAMI Insulin Glargine (Insulin Glargine,Hum.Rec.Anlog 100 Unit/Ml 10 Ml Vial) 25 unit SUBCUT DAILY [facility] Last Admin: 02/02/24 09:12 Dose: Not Given Documented By: TAMI Non-Admin Reason: NPO, POC at 0600= 105 Insulin Human Lispro (Insulin Lispro 100 Unit/Ml 3 Ml Vial) 0 unit SUBCUT Q6H [facility]; Protocol Last Admin: 02/02/24 11:37 Dose: Not Given Documented By: TAMI Non-Admin Reason: poc= 119 Lactulose (Lactulose 20 Gm/30 Ml Solution) 30 gm PO DAILY [facility] Last Admin: 02/02/24 09:14 Dose: Not Given Documented By: TAMI Non-Admin Reason: NPO, unable to swallow Levothyroxine Sodium (Levothyroxine Sodium 100 Mcg/5 Ml Vial) 55 mcg IVPUSH DAILY@0600 [facility] Last Admin: 02/02/24 06:49 Dose: 55 mcg Documented By: FORTUNATOSITC Labs 02/01/24 10:54 02/02/24 06:20 Labs: Laboratory Results - last 24 hr 02/01/24 02/01/24 02/02/24 18:09 23:53 06:11 VBG pH VBG pCO2 VBG pO2 VBG HCO3 VBG O2 Saturation VBG Base Excess Anion Gap Estim Creat Clear Calc Estimated GFR POC Glucose 163 H 127 H 105 Random Glucose Calcium Phosphorus Magnesium Albumin 02/02/24 02/02/24 02/02/24 06:20 06:23 06:29 VBG pH 7.41 VBG pCO2 43 VBG pO2 38 VBG HCO3 27 H VBG O2 Saturation 55.0 VBG Base Excess 2.7 Anion Gap 14 Estim Creat Clear Calc 63.6 Estimated GFR > 60 POC Glucose 106 Random Glucose 109 Calcium 10.4 H Phosphorus 4.0 Magnesium 2.0 Albumin 4.0 02/02/24 11:09 VBG pH VBG pCO2 VBG pO2 VBG HCO3 VBG O2 Saturation VBG Base Excess Anion Gap Estim Creat Clear Calc Estimated GFR POC Glucose 119 H Random Glucose Calcium Phosphorus Magnesium Albumin Assessment and Plan (1) Pneumonia: Status: Acute (2) Acute kidney injury superimposed on CKD: Status: Acute Plan 63-year-old male with a history of schizophrenia seizures dementia presents from [facility] with bilateral infiltrates. In the emergency room required intubation and mechanical ventilation along with pressors. He subsequently was able to be weaned from vent and transferred to telemetry. O2 was titrated and he is stable on room air however he has had no appreciable p.o. intake in 3 days 1. Bilateral infiltrates -completed a course of vancomycin/Zosyn for facility acquired pneumonia -continues on IV ceftriaxone at this point -sats stable on room air 2. DAKOTAH/hypernatremia -both responded well to volume repletion -follow renals/divalents 3.DMII -acceptable control on current therapies -lispro correctional scale -adjust as indicated 4. Malnutrition -await speech input however has remained NPO at their request -patient well known to me as well as guardian Kira Valdo. Long discussion related to feeding tube. Await speech input however if remains NPO last surgery to place PEG tube. Patient can be followed at [facility] by our speech therapist and diet can be instituted when appropriate however nutrition can be augmented with tube. Full code Lovenox Requires ongoing hospitalization to clarify ability to take p.o.; will likely need PEG tube if albeit short term. Quality Stroke Does the patient have a stroke diagnosis?: No VTE Prior VTE?: No VTE Risk Level:: Medical - moderate - high VTE Device Contraindication: N/A - Device Ordered VTE Drug Contraindication: N/A - Med Ordered
--- NOTE | 2024-02-02 15:17 | MHC.CM.PN ---
EMR reviewed and per MD rounds, pt is not medically cleared for D/C due to management of decreased oral intake with pt possibly needing PEG tube.
--- NOTE | 2024-02-02 15:41 | MHC.SL.SWA ---
Speech Pathologist Impression: Risk of aspiration, oropharyngeal dysphagia Risk of Aspiration Due to: Medically Fragile Poor PO Intake Hx of Recent Extubation Weak Cough Dysphasia Diet Status: No changes at this time Liquid Consistency and Strategies for Safe Swallow: Liquid Intake Recommendation: NPO Liquid Intake Strategies: Solid Food Consistency: Dietary Recommendations: NPO Additional Modifications to Solid Foods: Patient demonstrates overt s/s of aspiration on trace amounts of PO. Discussed with attending hospitalist, Dr. Beckman. Dr. Beckman has spoken with patient's guardian and will consult for PEG. PHARMACY CASHIER recommends any further assessment of swallow be done with instrumental (i.e. MBSS). PHARMACY CASHIER will continue to follow. Oral Medication Intake: NPO Please contact the pharmacy regarding appropriate crushable or liquid drug formulations that are available whenever modified delivery is recommended. Supervision While Eating and Drinking for Safe Swallow: PO with PHARMACY CASHIER Swallowing Recommended Treatments: Compens. Strategy Educat. Recommendation for Speech: Inpatient Speech Therapy Comment: 02/02/24: Recommend Pt remain NPO. Aspiration precautions including HoB >30 degrees and oral care. PHARMACY CASHIER will follow-up tomorrow for further recommendations. Frequency/Duration: Daily Date Range for Service Req: Timeline to reassess: PRN Beauty Consultant Clinican/Clinical Fellow: No Supervisory Statement: I have reviewed and agree with the student/clinical fellow's documentation: N/A Speech Language Pathologist: Ifrah Boswell M.A., CCC-PHARMACY CASHIER
[2024-02-02 18:08] LABS: Glucose, Whole Blood 152 mg/dL (60-115)
[2024-02-02 21:43] LABS: Glucose, Whole Blood 149 mg/dL (60-115)
[2024-02-03 00:45] LABS: Glucose, Whole Blood 132 mg/dL (60-115)
[2024-02-03 03:06] VITALS: BP 135/83; PULSE 69; RESP 18; TEMP 36.3; O2SAT 91
[2024-02-03] MEDS: Valproic Acid (as Sodium Salt) 250 MG in Dextrose 5 % 50 ML 52.5 MG IV ×3 (05:29→21:34)
[2024-02-03] MEDS: Levothyroxine Sodium 100 MCG/5 ML VIAL 55 MCG IVPUSH (05:32)
[2024-02-03 06:07] LABS: Glucose, Whole Blood 126 mg/dL (60-115)
[2024-02-03 07:13] VITALS: BP 125/80; PULSE 61; RESP 20; TEMP 36.4; O2SAT 94
[2024-02-03 07:25] LABS: MANUAL DIFF FLAG NO
[2024-02-03 07:29] LABS: Basophils Percent Auto 0.4 % (0-2); Eosinophils Absolute Auto 0.2 X10*3/uL (0.0-0.4); Eosinophils Percent Auto 4.2 % (0-4); Hematocrit 36.8 % (42.0-52.0); Hemoglobin 10.7 g/dl (14.0-18.0); Imm Gran Abs Auto 0.02 X10*3/uL (0.00-0.03); Imm Gran Pct Auto 0.4 % (0.0-0.4); Lymphocytes Absolute Auto 1.8 X10*3/uL (1.2-4.9); Lymphocytes Percent Auto 34.9 % (20-40); Mean Corpuscular HGB Conc 29.1 g/dl (31.0-36.0); Mean Platelet Volume 10.6 fL (9.4-12.4); Monocytes Absolute Auto 0.6 X10*3/uL (0.1-1.2); Monocytes Percent Auto 11.6 % (2-11); Neutrophils Absolute Auto 2.6 x10*3/uL (2.0-8.3); Neutrophils Percent Auto 48.5 % (45-73); Platelet Count 311 X10*3/uL (160-400); Red Blood Count 4.66 X10*6/uL (4.60-5.80); Red Cell Distribution Width 15.6 % (11.0-16.0); White Blood Count 5.3 X10*3/uL (4.8-10.8)
[2024-02-03 08:20] LABS: Alanine Aminotransferase 8 U/L (0-40); Albumin Level 3.5 g/dL (3.5-5.0); Alkaline Phosphatase 60 U/L (39-117); Anion Gap 13 (12-20); Aspartate Amino Transferase 11 U/L (5-37); Bilirubin Total 0.4 mg/dL (0.0-1.0); Blood Urea Nitrogen 33 mg/dL (9-16); Calcium 9.6 mg/dL (8.4-10.2); Carbon Dioxide 25 mmol/L (22-29); Chloride 101 mmol/L (96-108); Creatinine Clr Calc Pharmacy 62.4; Estimated Glomerular Filt Rate > 60; Glucose Fasting 373 mg/dL (60-99); Potassium 3.5 mmol/L (3.3-5.1); Sodium 135 mmol/L (135-145); Total Protein 7.2 g/dL (6.5-8.0)
[2024-02-03] MEDS: cefTRIAXone sodium 1 GM in 0.9 % Sodium Chloride 50 ML IV (08:38)
[2024-02-03] MEDS: Chlorhexidine Gluc Oral Rinse 15 ML MOUTHWASH BUCCAL ×3 (08:38→21:36)
[2024-02-03 10:57] VITALS: BP 128/79; PULSE 60; RESP 20; TEMP 36.8; O2SAT 93
--- NOTE | 2024-02-03 11:04 | PM.CNGS ---
History of Present Illness Consult details Consult date: 02/03/24 <Adry Jain PA-C - Last Filed: 02/03/24 11:12> Requesting physician: Celestine Beckman <Adry Jain PA-C - Last Filed: 02/03/24 11:12> Narrative: 63-year-old nonverbal male with a history of schizophrenia, seizures, dementia who initially presented from [facility] with bilateral infiltrates requiring intubation and mechanical ventilation along with pressor support. He has subsequently been weaned from the vent and transferred to telemetry. O2 was titrated and he is now stable on room air. He completed a course of vancomycin/Zosyn for facility acquired pneumonia and is currently on IV ceftriaxone at this point. However he has had no appreciable PO intake in 3 days. He was evaluated by speech who recommended continued NPO status for dysphagia and overt signs of aspiration. Hospitalist had a long discussion related to feeding tube with the patient's guardian who wants to proceed with this. General surgery was therefore consulted for PEG tube placement. There is no note of any abdominal surgery in his history. <Adry Jain PA-C - Last Filed: 02/03/24 11:12> Review of Systems Review of Systems: Yes Unobtainable due to mental condition <Adry Jain PA-C - Last Filed: 02/03/24 11:12> [facility] Past Medical History Medical History: Medical History (Updated 02/03/24 @ 11:10 by Adry Jain PA-C) Resides in [place] [facility] Constipation GERD (gastroesophageal reflux disease) Cardiomegaly Extrapyramidal and movement disorder Eating disorder Chronic kidney disease Glaucoma Schizophrenia Anemia Hyperlipemia Hypothyroid Seizures Diabetes Dementia <Adry Jain PA-C - Last Filed: 02/03/24 11:12> Surgical History Surgical History: Surgical History Hx of colonoscopy Surgical history unknown <Adry Jain PA-C - Last Filed: 02/03/24 11:12> Social History Social History: Social History Household Members: Unknown / Unable to assess Housing: Unknown / Unable to assess Unable to assess alcohol history related to: Unable to respond Alcohol intake: unknown Comment: bilateral wrist restraints/propofol drip Patient Tobacco Use Status: Tobacco use Unknown Use of substances other than those prescribed or required for medical reasons: Unable to respond Currently Displaying Signs/Symptoms of Drug Intoxication Withdrawal: No Advance Directives: Yes Advance Directives on File: Yes Advance Directives Date on File: 04/30/21 service: No <Adry Jani PA-C - Last Filed: 02/03/24 11:12> Meds Allergies/Adverse reactions: Allergies Allergy/AdvReac Type Severity Reaction Status Date / Time NSAIDS (Non-Steroidal AdvReac Avoid-r/t Verified 09/19/23 07:11 Anti-Inflamma CKD <Adry Jain PA-C - Last Filed: 02/03/24 11:12> Active Medications: Current Medications Acetaminophen (Acetaminophen 325 Mg Tablet) 975 mg PO Q6H PRN PRN Reason: Fever >100.4 Last Admin: 01/25/24 10:55 Dose: 975 mg Chlorhexidine Gluconate (Chlorhexidine Gluc Oral Rinse 15 Ml Mouthwash) 15 ml BUCCAL TID [facility] Last Admin: 02/03/24 08:38 Dose: 15 ml Dextrose (Dextrose 50 % 25 Gm/50 Ml Syringe) 25 gm IVPUSH Q15M PRN; Protocol PRN Reason: per Hypoglycemia Standing Ord. Glucose (Glucose Gel 15 Gm Gel..Gram.) 15 gm PO Q15M PRN; Protocol PRN Reason: per Hypoglycemia Standing Ord. Heparin Sodium (Porcine) (Heparin Sodium,Porcine 5,000 Unit/Ml Vial) 5,000 unit SUBCUT Q8H [facility] Last Admin: 01/25/24 00:09 Dose: 5,000 unit Hydromorphone HCl (Hydromorphone Hcl 0.5 Mg/0.5 Ml Syringe) 0.5 mg IVPUSH Q4H PRN; Protocol PRN Reason: Pain, Moderate(Pain Scale 4-6) Last Admin: 01/29/24 08:35 Dose: 0.5 mg Ceftriaxone Sodium 1 gm/ (Sodium Chloride) 50 mls @ 100 mls/hr IV Q24H [facility] Last Infusion: 02/03/24 09:08 Dose: Infused Valproic Acid 250 mg/ Dextrose 52.5 mls @ 52.5 mls/hr IV Q8H [facility] Last Infusion: 02/03/24 07:20 Dose: Infused Dextrose (D5w) 1,000 mls @ 75 mls/hr IVCONT .[id number] [facility] Last Admin: 02/02/24 22:16 Dose: 75 mls/hr Insulin Glargine (Insulin Glargine,Hum.Rec.Anlog 100 Unit/Ml 10 Ml Vial) 25 unit SUBCUT DAILY [facility] Last Admin: 02/03/24 08:35 Dose: Not Given Insulin Human Lispro (Insulin Lispro 100 Unit/Ml 3 Ml Vial) 0 unit SUBCUT Q6H [facility]; Protocol Last Admin: 02/03/24 06:42 Dose: Not Given Lactulose (Lactulose 20 Gm/30 Ml Solution) 30 gm PO DAILY [facility] Last Admin: 02/03/24 08:35 Dose: Not Given Levothyroxine Sodium (Levothyroxine Sodium 100 Mcg/5 Ml Vial) 55 mcg IVPUSH DAILY@0600 [facility] Last Admin: 02/03/24 05:32 Dose: 55 mcg <Adry Jain PA-C - Last Filed: 02/03/24 11:12> Home medications: Home Medications Medication Instructions Recorded Confirmed Last Taken Type acetaminophen 325 mg tablet 650 mg PO Q4H PRN Fever Or Pain 04/30/21 01/21/24 Unknown History amlodipine 10 mg tablet 10 mg PO DAILY 04/30/21 01/21/24 02/13/23 07:30 History aspirin 81 mg tablet,delayed 81 mg PO DAILY 04/30/21 01/21/24 02/08/23 History release bisacodyl 5 mg tablet,delayed 5 mg PO Q72H Constipation 04/30/21 01/21/24 Unknown History release carvedilol 25 mg tablet 25 mg PO BID 04/30/21 01/21/24 02/13/23 07:30 History clozapine 100 mg tablet (Clozaril) 200 mg PO DAILY 04/30/21 01/21/24 04/29/21 20:00 History ferrous sulfate 325 mg (65 mg 325 mg PO BID 04/30/21 01/21/24 02/08/23 History iron) tablet hydralazine 100 mg tablet 100 mg PO TID 04/30/21 01/21/24 02/13/23 07:30 History insulin glargine 100 unit/mL (3 8 unit subcut BEDTIME 04/30/21 01/21/24 02/11/23 History mL) subcutaneous pen (Lantus Solostar U-100 Insulin) lactulose 10 gram/15 mL oral 30 ml PO TID 04/30/21 01/21/24 Unknown History solution lithium carbonate 300 mg 300 mg PO BEDTIME 04/30/21 01/21/24 Unknown History tablet,extended release lithium carbonate 450 mg 225 mg PO DAILY@0630 04/30/21 01/21/24 02/13/23 07:30 History tablet,extended release sennosides 8.6 mg-docusate sodium 1 tab PO BID 04/30/21 01/21/24 Unknown History 50 mg tablet (Senna Plus) trazodone 50 mg tablet 50 mg PO BEDTIME 04/30/21 01/21/24 Unknown History dapagliflozin propanediol 10 mg 10 mg PO QAM 12/11/22 01/21/24 Unknown History tablet (Farxiga) glucagon 1 mg solution for 1 mg subcut Q15M PRN Hypoglycemia 12/11/22 01/21/24 Unknown History injection (GlucaGen HypoKit) sodium phosphates 19 gram-7 118 ml NM DAILY PRN Constipation 12/11/22 01/21/24 Unknown History gram/118 mL enema (Fleet Enema) atorvastatin 20 mg tablet 20 mg PO BEDTIME 02/10/23 01/21/24 Unknown History clozapine 100 mg tablet 100 mg PO DAILY 02/10/23 01/21/24 02/13/23 07:30 History bisacodyl 10 mg rectal suppository 10 mg NM DAILY PRN Constipation 09/19/23 01/21/24 Unknown History divalproex 250 mg tablet,extended 500 mg PO BEDTIME 09/19/23 01/21/24 Unknown History release 24 hr sennosides 8.6 mg tablet (senna) 8.6 mg PO DAILY PRN Constipation 09/19/23 01/21/24 Unknown History levothyroxine 112 mcg tablet 112 mcg PO DAILY@0600 01/12/24 01/21/24 Unknown History dextrose 40 % oral gel (Glucose 15 g PO Q15M PRN hypoglycemic 01/21/24 01/21/24 Unknown History Gel) protocol pregabalin 300 mg capsule 300 mg PO BID 01/21/24 01/21/24 Unknown History <Adry Jain PA-C - Last Filed: 02/03/24 11:12> Physical Exam Vital Signs: Vital Signs: Last Vital Signs Temp 98.3 F 02/03/24 10:57 Pulse 60 02/03/24 10:57 Resp 20 02/03/24 10:57 BP 128/79 02/03/24 10:57 Pulse Ox 93 02/03/24 10:57 O2 Del Method Room Air 02/03/24 10:57 O2 Flow Rate 2 01/30/24 17:00 FiO2 35 01/30/24 11:31 BMI result Body Mass Index 19.6 <SAE Wallis Last Filed: 02/03/24 11:12> Const: General: comfortable, no acute distress and alert <SAE Wallis Last Filed: 02/03/24 11:12> Nutritional Appearance: thin <Adry Jain PA-C - Last Filed: 02/03/24 11:12> Resp: Effort & Inspection: normal respiratory effort and no respiratory distress <Adry Jain PA-C - Last Filed: 02/03/24 11:12> GI: Inspection: Yes normal to inspection, No distended and No scar <Adry Jain PA-C - Last Filed: 02/03/24 11:12> Palpation (GI): Soft to palpation, nontender and no guarding <SAE Wallis Last Filed: 02/03/24 11:12> Percussion: Yes normal to percussion <SAE Wallis Last Filed: 02/03/24 11:12> Skin: General skin exam: no rashes or lesions noted <SAE Wallis Last Filed: 02/03/24 11:12> Extrem: General: Yes no clubbing, cyanosis or edema <SAE Wallis Last Filed: 02/03/24 11:12> Results Labs Result diagrams: 02/03/24 07:12 02/03/24 07:12 <Adry Jain PA-C - Last Filed: 02/03/24 11:12> Labs: Abnormal lab results 02/02/24 02/02/24 02/02/24 Range/Units 11:09 18:04 21:29 Hgb (14.0-18.0) g/dl Hct (42.0-52.0) % MCV (80.0-98.0) fL MCH (27.0-33.0) pg MCHC (31.0-36.0) g/dl [place]ansom % (Auto) (2-11) % Eos % (Auto) (0-4) % BUN (9-16) mg/dL POC Glucose 119 H 152 H 149 H (60-115) mg/dL Fasting Glucose (60-99) mg/dL 02/03/24 02/03/24 02/03/24 Range/Units 00:35 06:03 07:12 Hgb 10.7 L (14.0-18.0) g/dl Hct 36.8 L (42.0-52.0) % MCV 79.0 L (80.0-98.0) fL MCH 23.0 L (27.0-33.0) pg MCHC 29.1 L (31.0-36.0) g/dl Ransom % (Auto) 11.6 H (2-11) % Eos % (Auto) 4.2 H (0-4) % BUN 33 H (9-16) mg/dL POC Glucose 132 H 126 H (60-115) mg/dL Fasting Glucose 373 H* (60-99) mg/dL Short CBC 02/03/24 Range/Units 07:12 WBC 5.3 (4.8-10.8) X10*3/uL Hgb 10.7 L (14.0-18.0) g/dl Hct 36.8 L (42.0-52.0) % Plt Count 311 (160-400) X10*3/uL BMP 02/03/24 07:12 Sodium 135 Potassium 3.5 Chloride 101 Carbon Dioxide 25 BUN 33 H Creatinine 1.11 Calcium 9.6 D Liver Function 02/03/24 Range/Units 07:12 Total Bilirubin 0.4 (0.0-1.0) mg/dL AST 11 (5-37) U/L ALT 8 (0-40) U/L Alkaline Phosphatase 60 (39-117) U/L Albumin 3.5 (3.5-5.0) g/dL Urine 01/20/24 Range/Units 23:07 Urine Color Yellow Urine Appearance Clear Urine pH 6.0 (5.0-9.0) Ur Specific [place] 1.025 (1.005-1.025) Urine Protein Negative (Neg-Trace) mg/dL Urine Glucose (UA) >=1000 H (Negative) mg/dL All other labs normal. <Adry Jain PA-C - Last Filed: 02/03/24 11:12> Imaging CT scan - chest: report reviewed and image reviewed <SAE Wallis Last Filed: 02/03/24 11:12> Assessment and Plan (1) Acute respiratory failure with hypoxia: Status: Acute <Adry Jain PA-C - Last Filed: 02/03/24 11:12> (2) Dysphagia: Status: Acute <SAE Wallis Last Filed: 02/03/24 11:12> H and P. hospital course reviewed has dementia, schizophrenia, [facility] had recent respiratory failure for aspiration pneumonia has failed swallow eval - Speech Therapy has recommended PEG had a loing discussion with his guardian Kira Mack [phone] explained technique of PEG tube placement reviewed risks, incl but not limited to bleeding, bowel injury, tube dislodgement, loss of airway she wants to proceed plan PEG tomorrow seen and examined independently <Luca Jaffe MD - Last Filed: 02/03/24 14:14> 63-year-old nonverbal male with a history of schizophrenia, seizures, dementia who was initially admitted for bilateral infiltrates requiring intubation and mechanical ventilation along with pressor support, now off vent and stable on room air. He has had no oral intake during his admission and showed signs of aspiration on his speech evaluation. No record of any abdominal surgery and has no abdominal scars. CT chest reviewed. Patient appropriate for PEG tube placement. Will make arrangements for tomorrow. <Adry Jain PA-C - Last Filed: 02/03/24 11:12> Procedures Date of Service Date of Service: 02/03/24 <Adry Jain PA-C - Last Filed: 02/03/24 11:12> 02/03/24 <Luca Jaffe MD - Last Filed: 02/03/24 14:14>
--- NOTE | 2024-02-03 11:10 | MHC.CLN ---
F/U CHEMISTRY PROFESSOR CONTINUES TO RECOMMEND NPO ON 02/01 PT IS DAY 4 NPO PT WITH INCREASED NUTRITION RISK R/T PRESSURE INJURY AND MALNUTRITION MD AWARE AND DISCUSSING PEG PLACEMENT WITH PT'S GUARDIAN FOLLOWING WITH TEAM PLEASE CONSULT RD FOR TF RECOMMENDATIONS S/P PEG PLACEMENT
[2024-02-03 11:13] LABS: Glucose, Whole Blood 109 mg/dL (60-115)
--- NOTE | 2024-02-03 12:00 | MHC.SL.DTX ---
Dysphagia Diet modifications: Last documented Solid diet consistencies: NPO Last documented Liquid consistency: NPO Changes made to current diet?: Liquid Consistency and Strategies: Liquid Intake Recommendation: NPO Compensatory Strategies for Safe Swallow: Compensatory Strategies for Safe Swallow(b): Sitting Upright (90 deg) Solid Food Consistency: Dietary Recommendations: NPO Additional Modifications to Solids: Patient demonstrates overt s/s of aspiration on trace amounts of PO. Discussed with attending hospitalist, Dr. Beckman. Dr. Beckman has spoken with patient's guardian and will consult for PEG. TODDLER GUIDE recommends any further assessment of swallow be done with instrumental (i.e. MBSS). TODDLER GUIDE will continue to follow. Oral Medication Intake: NPO Strategies and Precautions to be Taken for Safe Swallow: Sitting Upright (90 deg) Supervision While Eating and/Drinking: PO with TODDLER GUIDE Foods to Avoid: Swallowing Recommended Treatments: Compens. Strategy Educat. Level of Impact on: Daily activities: Interpersonal interactions: Education: Employment: Community: Prognosis for Improvement: Recommendation for Speech: Inpatient Speech Therapy Comment: 02/01/24: Recommend Pt remain NPO. Aspiration precautions including HoB >30 degrees and oral care. Pt may tolerate therapeutic Ice Chips under supervision in the coming days. TODDLER GUIDE will follow-up tomorrow for further recommendations. Frequency/Duration: Daily Date Range for Service Req: Timeline to reassess: PRN Additional Comments: Patient is a LTC resident at [facility]. Hx includes dementia, schizophrenia, seizure d/o, GERD. Treatment: Pt is resting in bed attending to his television. He looks at TODDLER GUIDE when entering the room. He does not answer any questions or follow commands without tactile stimulation. He is initially resistant to a moistened swab clenching his lips shut, but with increased hydration he begins to accept the swab in the anterior portion of his mouth only. He is provided ice chips which he tolerates in x2/3 trials but eventually demonstrates delayed cough following prolonged oral phase suggesting premature spillage into the airway prior to the swallow. He is finally presented with a Puree Solid via spoon and only takes a small amount of his which he swallows but results in a weak, unproductive cough. Suction is available and provided with no trace pudding noted from the suction straw. [place] [facility] Clinican/Clinical Fellow: No Supervisory Statement: I have reviewed and agree with the student/clinical fellow's documentation: N/A Speech Language Pathologist: Jostin Turpin M.A., [facility]-TODDLER GUIDE
--- NOTE | 2024-02-03 12:51 | MHC.CM.PN ---
Pt has not been medically cleared, he will be having a feeding tube put in today. He resides salvage determiner at [facility], the DC plan is for him to return there. CM will follow and assist with DC plan.
[2024-02-03] MEDS: Dextrose 5 % 1,000 ML 75 ML IVCONT (13:09)
--- NOTE | 2024-02-03 13:15 | HO.WOUND ---
Wound Consult: Follow Up 63yr old?male admitted to [facility] on 01/21/24 - See progress notes and H&P for detailed history.? Wound consult placed for Left Buttock.? Patient has transitioned out of ICU level of care at the time of todays consultation. Repositioned with staff for assessment. Left Buttock / sacral area Etiology: ?Currently Unstageable Pressure INjury - previously documented as?Deep Tissue Injury In Evolution Present on Admission Measurements: 1cm x1cm x 0.2cm Wound Bed: Full thickness tissue pale pink wound bed there is a central area of adherent yellow slough within wound bed - the area of full thickness tissue loss and adherent yellow slough does appear to coorelate to the dark pigmented tissue first observed in evolution Drainage / Odor: none noted Edges: ? irregular Joy wound: ?Darkly pigmented difficult to anish tissue noted - the right buttock is noted for previous injury - appears to be resolving at this time but was present on admission and suspect it was partial thickness tissue loss - there is no Induration, Fluctuance or Warmth noted Goals of Treatment: ? Continue to off load pressure with use of wedges and Triad cream and foam dressing to allow for moist wound healing and protect from friction and moisture No new topical recommendations needed at this time. 01/27/24 Assessment Todays 02/03/24 assessment Todays 02/03/24 assessment Recommendations: 1. Turn and Reposition every 2 hours and as needed for patient comfort.? Use pillows or wedges to support off loading positions. 2. Off Load all bony prominences with use of pillows and heel boots if needed.? Apply Preventative foams where needed. ? 3. Monitor for incontinence and moisture control, use barrier creams when needed for prevention and treatment. 4. Provide adequate and supplemental nutrition.? 5. Continue low air loss mattress. 6. When applicable maintain blood glucose levels per Providers order. 7. Left Buttocks - Cleanse with PH balance spray or wipes, pat dry. ?Apply thin layer of Triad to wound bed. Do not remove all of paste between applications as this may cause further skin damage.? Cover with foam dressing to aid in off loading and protection from friction. Re-consult wound care Nurse for wound deterioration or wound changes.
--- NOTE | 2024-02-03 14:28 | P.CDIM_ITS ---
PROVIDER RESPONSE TEXT: To clarify, the appropriate diagnosis supported by the clinical indicators: Severe QUERY TEXT: PHYSICIAN'S DOCUMENTATION REQUEST Date of Query: 02/03/2024 09:26 AM EDT Patient Name: Reza Arnold Admit Date: 01/21/2024 Dear Celestine Beckman, A review of the medical record indicates additional documentation may be needed. Please review below and update the documentation accordingly. Documentation in the Hospitalist Progress note dated 02/02/24 includes the diagnosis of Malnutrition. Additional clinical indicators from the record include: HT: 6 ft WT: 65.7 kg BMI 19.6 Per Clinical Nutrition Assessment 01/21/24: inadequate oral intake, patient may require TF for nutriti on support related to extended NPO status Increased nutrition needs, increased calorie protein demand, pressure injury If possible, please provide additional specificity regarding the severity of the malnutrition using t he above information: Mild Moderate Severe Other (explain) Clinically unable to determine (explain) Thank you, Adrianne Aguilar RN Use of terms such as suspected, likely, concern for, or probable (associated with a specific diagnosi s that is being evaluated, monitored, or treated as if it exists) are acceptable and can be coded in the inpatient se tting, when documented at the time of discharge. Please use your independent medical judgment in providing your response. THIS QUERY IS PART OF THE PERMANENT MEDICAL RECORD
[2024-02-03 15:04] VITALS: BP 154/85; PULSE 59; RESP 18; TEMP 36.4; O2SAT 96
[2024-02-03 16:15] LABS: Glucose, Whole Blood 118 mg/dL (60-115)
--- NOTE | 2024-02-03 16:21 | HO.PM.IMPN ---
Subjective Subjective Date of Service: 02/03/24 Interval History: No acute changes overnight. Seen by speech and once again recommended to be NPO. Review of Systems Unable to obtain Physical Exam Vital Signs: Vital Signs: Last Vital Signs Temp 97.5 F 02/03/24 15:04 Pulse 59 02/03/24 15:04 Resp 18 02/03/24 15:04 BP 154/85 H 02/03/24 15:04 Pulse Ox 96 02/03/24 15:04 O2 Del Method Room Air 02/03/24 15:04 O2 Flow Rate 2 01/30/24 17:00 FiO2 35 01/30/24 11:31 BMI result Body Mass Index 19.6 Const: Other: Awake nonverbal Resp: Other: Clear to auscultation bilaterally no rales rhonchi or wheezes Cardio: Other: No S4; positive S1-S2; no S3 murmurs rubs or gallops GI: Other: Soft nontender nondistended normoactive bowel sounds Extrem: Other: Note deemed bilaterally Objective Data Active Medications Acetaminophen (Acetaminophen 325 Mg Tablet) 975 mg PO Q6H PRN PRN Reason: Fever >100.4 Last Admin: 01/25/24 10:55 Dose: 975 mg Documented By: LESLY Chlorhexidine Gluconate (Chlorhexidine Gluc Oral Rinse 15 Ml Mouthwash) 15 ml BUCCAL TID [facility] Last Admin: 02/03/24 16:13 Dose: 15 ml Documented By: TAMI Dextrose (Dextrose 50 % 25 Gm/50 Ml Syringe) 25 gm IVPUSH Q15M PRN; Protocol PRN Reason: per Hypoglycemia Standing Ord. Glucose (Glucose Gel 15 Gm Gel..Gram.) 15 gm PO Q15M PRN; Protocol PRN Reason: per Hypoglycemia Standing Ord. Heparin Sodium (Porcine) (Heparin Sodium,Porcine 5,000 Unit/Ml Vial) 5,000 unit SUBCUT Q8H [facility] Last Admin: 01/25/24 00:09 Dose: 5,000 unit Documented By: AMINA Hydromorphone HCl (Hydromorphone Hcl 0.5 Mg/0.5 Ml Syringe) 0.5 mg IVPUSH Q4H PRN; Protocol PRN Reason: Pain, Moderate(Pain Scale 4-6) Last Admin: 01/29/24 08:35 Dose: 0.5 mg Documented By: LESLY Ceftriaxone Sodium 1 gm/ (Sodium Chloride) 50 mls @ 100 mls/hr IV Q24H [facility] Last Infusion: 02/03/24 09:08 Dose: Infused Documented By: TAMI Valproic Acid 250 mg/ Dextrose 52.5 mls @ 52.5 mls/hr IV Q8H [facility] Last Infusion: 02/03/24 14:09 Dose: Infused Documented By: TAMI Dextrose (D5w) 1,000 mls @ 75 mls/hr IVCONT .[id number] [facility] Last Admin: 02/03/24 13:09 Dose: 75 mls/hr Documented By: TAMI Insulin Glargine (Insulin Glargine,Hum.Rec.Anlog 100 Unit/Ml 10 Ml Vial) 25 unit SUBCUT DAILY [facility] Last Admin: 02/03/24 08:35 Dose: Not Given Documented By: TAMI Non-Admin Reason: NPO Insulin Human Lispro (Insulin Lispro 100 Unit/Ml 3 Ml Vial) 0 unit SUBCUT Q6H [facility]; Protocol Last Admin: 02/03/24 11:49 Dose: Not Given Documented By: TAMI Non-Admin Reason: poc= 109 Lactulose (Lactulose 20 Gm/30 Ml Solution) 30 gm PO DAILY [facility] Last Admin: 02/03/24 08:35 Dose: Not Given Documented By: TAMI Non-Admin Reason: Inability to swallow, NPO Levothyroxine Sodium (Levothyroxine Sodium 100 Mcg/5 Ml Vial) 55 mcg IVPUSH DAILY@0600 [facility] Last Admin: 02/03/24 05:32 Dose: 55 mcg Documented By: FORTUNATOSITC Labs 02/03/24 07:12 02/03/24 07:12 Labs: Laboratory Results - last 24 hr 02/02/24 02/02/24 02/03/24 18:04 21:29 00:35 MCV MCH MCHC RDW Plt Count MPV Immature Gran % (Auto) Neut % (Auto) Lymph % (Auto) Grimes % (Auto) Eos % (Auto) Baso % (Auto) Lymph # (Auto) Grimes # (Auto) Eos # (Auto) Baso # (Auto) Abs Immat Gran (auto) Absolute Neuts (auto) Absolute Nucleated RBC Nucleated RBC % (auto) Anion Gap Estim Creat Clear Calc Estimated GFR POC Glucose 152 H 149 H 132 H Fasting Glucose Calcium Total Bilirubin AST ALT Alkaline Phosphatase Total Protein Albumin 02/03/24 02/03/24 02/03/24 06:03 07:12 11:01 MCV 79.0 L MCH 23.0 L MCHC 29.1 L RDW 15.6 Plt Count 311 MPV 10.6 Immature Gran % (Auto) 0.4 Neut % (Auto) 48.5 Lymph % (Auto) 34.9 Grimes % (Auto) 11.6 H Eos % (Auto) 4.2 H Baso % (Auto) 0.4 Lymph # (Auto) 1.8 Grimes # (Auto) 0.6 Eos # (Auto) 0.2 Baso # (Auto) 0.0 Abs Immat Gran (auto) 0.02 Absolute Neuts (auto) 2.6 Absolute Nucleated RBC 0.000 Nucleated RBC % (auto) 0.0 Anion Gap 13 Estim Creat Clear Calc 62.4 Estimated GFR > 60 POC Glucose 126 H 109 Fasting Glucose 373 H* Calcium 9.6 D Total Bilirubin 0.4 AST 11 ALT 8 Alkaline Phosphatase 60 Total Protein 7.2 Albumin 3.5 02/03/24 16:08 MCV MCH MCHC RDW Plt Count MPV Immature Gran % (Auto) Neut % (Auto) Lymph % (Auto) Grimes % (Auto) Eos % (Auto) Baso % (Auto) Lymph # (Auto) Grimes # (Auto) Eos # (Auto) Baso # (Auto) Abs Immat Gran (auto) Absolute Neuts (auto) Absolute Nucleated RBC Nucleated RBC % (auto) Anion Gap Estim Creat Clear Calc Estimated GFR POC Glucose 118 H Fasting Glucose Calcium Total Bilirubin AST ALT Alkaline Phosphatase Total Protein Albumin Assessment and Plan (1) Acute respiratory failure with hypoxia: Status: Acute (2) Pneumonia: Status: Acute Plan 63-year-old male with a history of schizophrenia seizures dementia presents from [facility] with bilateral infiltrates. In the emergency room required intubation and mechanical ventilation along with pressors. He subsequently was able to be weaned from vent and transferred to telemetry. O2 was titrated and he is stable on room air however he has had no appreciable p.o. intake in 3 days 1. Bilateral infiltrates -completed a course of vancomycin/Zosyn/ceftriaxone for facility acquired pneumonia -sats stable on room air 2. DAKOTAH/hypernatremia -both responded well to volume repletion -follow renals/divalents 3.DMII -acceptable control on current therapies -lispro correctional scale -adjust as indicated 4. Malnutrition -speech re-evaluate. .. Recommended NPO -Surgical consult; remains NPO PEG tube in a.m. by Dr. Jfafe Full code Lovenox Requires ongoing hospitalization to clarify ability to take p.o.; will likely need PEG tube if albeit short term. Quality Stroke Does the patient have a stroke diagnosis?: No VTE Prior VTE?: No VTE Risk Level:: Medical - moderate - high VTE Device Contraindication: N/A - Device Ordered VTE Drug Contraindication: N/A - Med Ordered
[2024-02-03 19:20] VITALS: BP 146/78; PULSE 54; RESP 20; TEMP 36.3; O2SAT 94
[2024-02-03 23:28] VITALS: BP 152/82; PULSE 58; RESP 20; TEMP 36.5; O2SAT 94
[2024-02-04] VITALS (7 sets, daily range): BP systolic 141–161; BP diastolic 73–85; PULSE 52–60; RESP 18–20; TEMP 36–36.9; O2SAT 90–97
[2024-02-04 00:18] LABS: Glucose, Whole Blood 95 mg/dL (60-115)
[2024-02-04] MEDS: Dextrose 5 % 1,000 ML 75 ML IVCONT (02:49)
[2024-02-04] MEDS: Valproic Acid (as Sodium Salt) 250 MG in Dextrose 5 % 50 ML 52.5 MG IV ×3 (02:49→20:15)
[2024-02-04 06:07] LABS: Glucose, Whole Blood 95 mg/dL (60-115)
[2024-02-04 06:29] LABS: MANUAL DIFF FLAG NO
[2024-02-04 07:00] LABS: Basophils Percent Auto 0.4 % (0-2); Eosinophils Absolute Auto 0.2 X10*3/uL (0.0-0.4); Eosinophils Percent Auto 4.6 % (0-4); Hemoglobin 10.9 g/dl (14.0-18.0); Imm Gran Abs Auto 0.02 X10*3/uL (0.00-0.03); Imm Gran Pct Auto 0.4 % (0.0-0.4); Lymphocytes Absolute Auto 2.1 X10*3/uL (1.2-4.9); Lymphocytes Percent Auto 46.7 % (20-40); Mean Corpuscular HGB Conc 29.5 g/dl (31.0-36.0); Mean Corpuscular Hemoglobin 23.2 pg (27.0-33.0); Mean Corpuscular Volume 78.7 fL (80.0-98.0); Mean Platelet Volume 10.8 fL (9.4-12.4); Monocytes Absolute Auto 0.5 X10*3/uL (0.1-1.2); Monocytes Percent Auto 11.2 % (2-11); Neutrophils Absolute Auto 1.7 x10*3/uL (2.0-8.3); Neutrophils Percent Auto 36.7 % (45-73); Platelet Count 315 X10*3/uL (160-400); Red Cell Distribution Width 15.1 % (11.0-16.0); White Blood Count 4.5 X10*3/uL (4.8-10.8)
[2024-02-04 07:03] LABS: Alanine Aminotransferase 10 U/L (0-40); Albumin Level 3.5 g/dL (3.5-5.0); Alkaline Phosphatase 61 U/L (39-117); Anion Gap 12 (12-20); Aspartate Amino Transferase 14 U/L (5-37); Bilirubin Total 0.4 mg/dL (0.0-1.0); Blood Urea Nitrogen 26 mg/dL (9-16); Calcium 9.9 mg/dL (8.4-10.2); Carbon Dioxide 26 mmol/L (22-29); Chloride 105 mmol/L (96-108); Creatinine Clr Calc Pharmacy 64.2; Estimated Glomerular Filt Rate > 60; Glucose Fasting 94 mg/dL (60-99); Potassium 3.6 mmol/L (3.3-5.1); Sodium 139 mmol/L (135-145); Total Protein 7.3 g/dL (6.5-8.0)
[2024-02-04 10:04] LABS: Glucose, Whole Blood 106 mg/dL (60-115)
--- NOTE | 2024-02-04 10:06 | P.CONAN_ITS ---
HPI - Anesthesia Eval Consult details Narrative: for PEG PMFSH Active Problems Active Problems: All Active Problems (Updated 02/03/24 @ 11:10 by Adry Jain PA-C) Dysphagia (Acute) Inadvertent catheterization of artery (Acute) Seizures (Acute) Schizophrenia (Acute) Diabetes (Acute) Dementia (Acute) Acute respiratory failure with hypoxia (Acute) Central line complication (Acute) Heart failure (Acute) Respiratory failure (Acute) Dehydration (Acute) Hypernatremia (Acute) Acute hyperglycemia (Acute) Pneumonia (Acute) Acute kidney injury superimposed on CKD (Acute) COVID (Acute) Acute hypernatremia (Acute) Acute kidney injury superimposed on chronic kidney disease (Acute) 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 (Acute) Hypoxia (Acute) COVID-19 (Acute) Diastolic dysfunction (Acute) Abnormal EKG (Acute) Cardiomegaly (Acute) Past Medical History Medical History (Updated 02/03/24 @ 11:10 by Adry Jain PA-C) Resides in [facility] facility Constipation GERD (gastroesophageal reflux disease) Cardiomegaly Extrapyramidal and movement disorder Eating disorder Chronic kidney disease Glaucoma Schizophrenia Anemia Hyperlipemia Hypothyroid Seizures Diabetes Dementia Cognitive capacity: nonverbal Family History Family history of problems with anesthesia: No Surgical History Surgical History Hx of colonoscopy Surgical history unknown History of Problems with Anesthesia: No Social History Social History Household Members: Unknown / Unable to assess Housing: Unknown / Unable to assess Unable to assess alcohol history related to: Unable to respond Alcohol intake: unknown Comment: bilateral wrist restraints/propofol drip Patient Tobacco Use Status: Former Tobacco user Use of substances other than those prescribed or required for medical reasons: No Currently Displaying Signs/Symptoms of Drug Intoxication Withdrawal: No Are you DNR?: No Advance Directives: Yes Advance Directives on File: Yes Advance Directives Date on File: 04/30/21 service: No Meds Allergies Allergy/AdvReac Type Severity Reaction Status Date / Time NSAIDS (Non-Steroidal AdvReac Avoid-r/t Verified 09/19/23 07:11 Anti-Inflamma CKD Active Medications: Current Medications Acetaminophen (Acetaminophen 325 Mg Tablet) 975 mg PO Q6H PRN PRN Reason: Fever >100.4 Last Admin: 01/25/24 10:55 Dose: 975 mg Chlorhexidine Gluconate (Chlorhexidine Gluc Oral Rinse 15 Ml Mouthwash) 15 ml BUCCAL TID [facility] Last Admin: 02/04/24 09:54 Dose: Not Given Dextrose (Dextrose 50 % 25 Gm/50 Ml Syringe) 25 gm IVPUSH Q15M PRN; Protocol PRN Reason: per Hypoglycemia Standing Ord. Glucose (Glucose Gel 15 Gm Gel..Gram.) 15 gm PO Q15M PRN; Protocol PRN Reason: per Hypoglycemia Standing Ord. Heparin Sodium (Porcine) (Heparin Sodium,Porcine 5,000 Unit/Ml Vial) 5,000 unit SUBCUT Q8H [facility] Last Admin: 01/25/24 00:09 Dose: 5,000 unit Hydromorphone HCl (Hydromorphone Hcl 0.5 Mg/0.5 Ml Syringe) 0.5 mg IVPUSH Q4H PRN; Protocol PRN Reason: Pain, Moderate(Pain Scale 4-6) Last Admin: 01/29/24 08:35 Dose: 0.5 mg Valproic Acid 250 mg/ Dextrose 52.5 mls @ 52.5 mls/hr IV Q8H [facility] Last Infusion: 02/04/24 04:12 Dose: Infused Insulin Glargine (Insulin Glargine,Hum.Rec.Anlog 100 Unit/Ml 10 Ml Vial) 25 unit SUBCUT DAILY [facility] Last Admin: 02/04/24 09:54 Dose: Not Given Insulin Human Lispro (Insulin Lispro 100 Unit/Ml 3 Ml Vial) 0 unit SUBCUT Q6H [facility]; Protocol Last Admin: 02/04/24 06:13 Dose: Not Given Lactulose (Lactulose 20 Gm/30 Ml Solution) 30 gm PO DAILY [facility] Last Admin: 02/04/24 07:44 Dose: Not Given Levothyroxine Sodium (Levothyroxine Sodium 100 Mcg/5 Ml Vial) 55 mcg IVPUSH DAILY@0600 [facility] Last Admin: 02/04/24 06:13 Dose: Not Given Home Medications Medication Instructions Recorded Confirmed Last Taken Type acetaminophen 325 mg tablet 650 mg PO Q4H PRN Fever Or Pain 04/30/21 01/21/24 Unknown History amlodipine 10 mg tablet 10 mg PO DAILY 04/30/21 01/21/24 02/13/23 07:30 History aspirin 81 mg tablet,delayed 81 mg PO DAILY 04/30/21 01/21/24 02/08/23 History release bisacodyl 5 mg tablet,delayed 5 mg PO Q72H Constipation 04/30/21 01/21/24 Unknown History release carvedilol 25 mg tablet 25 mg PO BID 04/30/21 01/21/24 02/13/23 07:30 History clozapine 100 mg tablet (Clozaril) 200 mg PO DAILY 04/30/21 01/21/24 04/29/21 20:00 History ferrous sulfate 325 mg (65 mg 325 mg PO BID 04/30/21 01/21/24 02/08/23 History iron) tablet hydralazine 100 mg tablet 100 mg PO TID 04/30/21 01/21/24 02/13/23 07:30 History insulin glargine 100 unit/mL (3 8 unit subcut BEDTIME 04/30/21 01/21/24 02/11/23 History mL) subcutaneous pen (Lantus Solostar U-100 Insulin) lactulose 10 gram/15 mL oral 30 ml PO TID 04/30/21 01/21/24 Unknown History solution lithium carbonate 300 mg 300 mg PO BEDTIME 04/30/21 01/21/24 Unknown History tablet,extended release lithium carbonate 450 mg 225 mg PO DAILY@0630 04/30/21 01/21/24 02/13/23 07:30 History tablet,extended release sennosides 8.6 mg-docusate sodium 1 tab PO BID 04/30/21 01/21/24 Unknown History 50 mg tablet (Senna Plus) trazodone 50 mg tablet 50 mg PO BEDTIME 04/30/21 01/21/24 Unknown History dapagliflozin propanediol 10 mg 10 mg PO QAM 12/11/22 01/21/24 Unknown History tablet (Farxiga) glucagon 1 mg solution for 1 mg subcut Q15M PRN Hypoglycemia 12/11/22 01/21/24 Unknown History injection (GlucaGen HypoKit) sodium phosphates 19 gram-7 118 ml [place] DAILY PRN Constipation 12/11/22 01/21/24 Unknown History gram/118 mL enema (Fleet Enema) atorvastatin 20 mg tablet 20 mg PO BEDTIME 02/10/23 01/21/24 Unknown History clozapine 100 mg tablet 100 mg PO DAILY 02/10/23 01/21/24 02/13/23 07:30 History bisacodyl 10 mg rectal suppository 10 mg [place] DAILY PRN Constipation 09/19/23 01/21/24 Unknown History divalproex 250 mg tablet,extended 500 mg PO BEDTIME 09/19/23 01/21/24 Unknown History release 24 hr sennosides 8.6 mg tablet (senna) 8.6 mg PO DAILY PRN Constipation 09/19/23 01/21/24 Unknown History levothyroxine 112 mcg tablet 112 mcg PO DAILY@0600 01/12/24 01/21/24 Unknown History dextrose 40 % oral gel (Glucose 15 g PO Q15M PRN hypoglycemic 01/21/24 01/21/24 Unknown History Gel) protocol pregabalin 300 mg capsule 300 mg PO BID 01/21/24 01/21/24 Unknown History Exam Height,Weight and Vital Signs: Height 6 ft Weight 65.7 kg Last Vital Signs Temp 96.8 F 02/04/24 06:55 Pulse 57 02/04/24 06:55 Resp 18 02/04/24 06:55 BP 152/83 H 02/04/24 06:55 Pulse Ox 96 02/04/24 06:55 O2 Del Method Room Air 02/04/24 06:55 O2 Flow Rate 2 01/30/24 17:00 FiO2 35 01/30/24 11:31 Pertinent Lab Results Pertinent Lab Results: Laboratory Tests 01/20/24 01/20/24 01/20/24 21:40 22:06 22:07 WBC 15.0 H RBC 6.06 H Hgb 13.9 L Hct 47.9 MCV 79.0 L MCH 22.9 L MCHC 29.0 L RDW 16.2 H Plt Count 211 D MPV 12.4 Immature Gran % (Auto) 1.0 H Neut % (Auto) 64.3 Lymph % (Auto) 25.3 [place] % (Auto) 7.1 Eos % (Auto) 2.2 Baso % (Auto) 0.1 Lymph # (Auto) 3.8 [place] # (Auto) 1.1 Eos # (Auto) 0.3 Baso # (Auto) 0.0 Abs Immat Gran (auto) 0.15 H Absolute Neuts (auto) 9.6 H Absolute Nucleated RBC 0.020 H Nucleated RBC % (auto) 0.1 Neutrophils % (Manual) Lymphocytes % (Manual) Monocytes % (Manual) Abs Neuts (Manual) Lymphocytes # (Manual) Monocytes # (Manual) Platelet Estimate Plt Morphology Comment RBC Morphology Target Cells Ovalocytes Smear Tech's Comments Hold Purple Top PT INR aPTT Heparin Protocol O2 Saturation ABG pH at Pt Temp ABG pCO2 at Pt Temp ABG pO2 at Pt Temp ABG HCO3 ABG Base Excess (Actual) VBG pH VBG pCO2 VBG pO2 VBG HCO3 VBG O2 Saturation VBG Base Excess Sodium 151 H Potassium 4.8 Chloride 115 H Carbon Dioxide 27 Anion Gap 14 BUN 39 H Creatinine 2.07 H Estim Creat Clear Calc 35.4 Estimated GFR 32 POC Glucose 321 H Random Glucose 356 H* Fasting Glucose Lactic Acid 1.8 Calcium 9.8 Phosphorus 3.5 Magnesium 2.7 H Total Bilirubin 0.4 Direct Bilirubin 0.2 AST 15 ALT 17 Alkaline Phosphatase 96 Troponin I High Sens 4.6 B-Natriuretic Peptide < 10 Total Protein 7.3 Albumin 3.1 L Lipase 45 Procalcitonin 0.19 TSH 0.38 Urine Color Urine Appearance Urine pH Ur Specific [place] Urine Protein Urine Glucose (UA) Urine Ketones Urine Blood Urine Nitrite Ur Leukocyte Esterase Urine RBC Urine WBC Ur Squamous Epith Cells Urine Bacteria Hyaline Casts Stool Occult Blood Vancomycin Trough Random Vancomycin Valproic Acid Central COVID-19 ([facility]) COVID-19 Clin Com Influenza Type A (PCR) NEGATIVE Influenza Type B (PCR) NEGATIVE RSV RNA Qual (PCR) NEGATIVE SARS-CoV-2 RNA (RT-PCR) POSITIVE A Blood Type Antibody Screen 01/20/24 01/20/24 01/20/24 22:14 22:19 23:04 WBC RBC Hgb Hct MCV MCH MCHC RDW Plt Count MPV Immature Gran % (Auto) Neut % (Auto) Lymph % (Auto) [place] % (Auto) Eos % (Auto) Baso % (Auto) Lymph # (Auto) [place] # (Auto) Eos # (Auto) Baso # (Auto) Abs Immat Gran (auto) Absolute Neuts (auto) Absolute Nucleated RBC Nucleated RBC % (auto) Neutrophils % (Manual) Lymphocytes % (Manual) Monocytes % (Manual) Abs Neuts (Manual) Lymphocytes # (Manual) Monocytes # (Manual) Platelet Estimate Plt Morphology Comment RBC Morphology Target Cells Ovalocytes Smear Tech's Comments Hold Purple Top PT 14.2 H INR 1.2 H aPTT Heparin Protocol 29.2 L O2 Saturation ABG pH at Pt Temp ABG pCO2 at Pt Temp ABG pO2 at Pt Temp ABG HCO3 ABG Base Excess (Actual) VBG pH 7.42 VBG pCO2 45 VBG pO2 42 VBG HCO3 29 H VBG O2 Saturation 68.0 VBG Base Excess 4.7 Sodium Potassium Chloride Carbon Dioxide Anion Gap BUN Creatinine Estim Creat Clear Calc Estimated GFR POC Glucose Random Glucose Fasting Glucose Lactic Acid Calcium Phosphorus Magnesium Total Bilirubin Direct Bilirubin AST ALT Alkaline Phosphatase Troponin I High Sens B-Natriuretic Peptide Total Protein Albumin Lipase Procalcitonin TSH Urine Color Urine Appearance Urine pH Ur Specific [place] Urine Protein Urine Glucose (UA) Urine Ketones Urine Blood Urine Nitrite Ur Leukocyte Esterase Urine RBC Urine WBC Ur Squamous Epith Cells Urine Bacteria Hyaline Casts Stool Occult Blood NEGATIVE Vancomycin Trough Random Vancomycin Valproic Acid Central COVID-19 ([facility]) COVID-19 Clin Com Influenza Type A (PCR) Influenza Type B (PCR) RSV RNA Qual (PCR) SARS-CoV-2 RNA (RT-PCR) Blood Type Antibody Screen 01/20/24 01/21/24 01/21/24 23:07 01:24 02:52 WBC RBC Hgb Hct MCV MCH MCHC RDW Plt Count MPV Immature Gran % (Auto) Neut % (Auto) Lymph % (Auto) [place] % (Auto) Eos % (Auto) Baso % (Auto) Lymph # (Auto) [place] # (Auto) Eos # (Auto) Baso # (Auto) Abs Immat Gran (auto) Absolute Neuts (auto) Absolute Nucleated RBC Nucleated RBC % (auto) Neutrophils % (Manual) Lymphocytes % (Manual) Monocytes % (Manual) Abs Neuts (Manual) Lymphocytes # (Manual) Monocytes # (Manual) Platelet Estimate Plt Morphology Comment RBC Morphology Target Cells Ovalocytes Smear Tech's Comments Hold Purple Top PT INR aPTT Heparin Protocol O2 Saturation 74.0 ABG pH at Pt Temp 7.45 ABG pCO2 at Pt Temp 41 ABG pO2 at Pt Temp 45 L* ABG HCO3 29 H ABG Base Excess (Actual) 4.8 VBG pH VBG pCO2 VBG pO2 VBG HCO3 VBG O2 Saturation VBG Base Excess Sodium Potassium Chloride Carbon Dioxide Anion Gap BUN Creatinine Estim Creat Clear Calc Estimated GFR POC Glucose 262 H Random Glucose Fasting Glucose Lactic Acid Calcium Phosphorus Magnesium Total Bilirubin Direct Bilirubin AST ALT Alkaline Phosphatase Troponin I High Sens B-Natriuretic Peptide Total Protein Albumin Lipase Procalcitonin TSH Urine Color Yellow Urine Appearance Clear Urine pH 6.0 Ur Specific [place] 1.025 Urine Protein Negative Urine Glucose (UA) >=1000 H Urine Ketones Negative Urine Blood Negative Urine Nitrite Negative Ur Leukocyte Esterase Negative Urine RBC 3-5 H Urine WBC 0-5 Ur Squamous Epith Cells 0-2 Urine Bacteria None Seen Hyaline Casts 0-2 Stool Occult Blood Vancomycin Trough Random Vancomycin Valproic Acid Central COVID-19 ([facility]) COVID-19 Clin Com Influenza Type A (PCR) Influenza Type B (PCR) RSV RNA Qual (PCR) SARS-CoV-2 RNA (RT-PCR) Blood Type Antibody Screen 01/21/24 01/21/24 01/21/24 03:23 03:24 04:35 WBC 14.8 H 17.7 H RBC 5.31 5.13 Hgb 12.4 L 12.0 L Hct 42.1 41.2 L MCV 79.3 L 80.3 MCH 23.4 L 23.4 L MCHC 29.5 L 29.1 L RDW 15.0 15.0 Plt Count 188 171 MPV 11.4 11.5 Immature Gran % (Auto) 0.8 H 0.8 H Neut % (Auto) 62.6 72.9 Lymph % (Auto) 28.8 19.6 L [place] % (Auto) 4.9 4.5 Eos % (Auto) 2.8 2.0 Baso % (Auto) 0.1 0.2 Lymph # (Auto) 4.3 3.5 [place] # (Auto) 0.7 0.8 Eos # (Auto) 0.4 0.4 Baso # (Auto) 0.0 0.0 Abs Immat Gran (auto) 0.12 H 0.14 H Absolute Neuts (auto) 9.2 H 12.9 H Absolute Nucleated RBC 0.020 H 0.000 Nucleated RBC % (auto) 0.1 0.0 Neutrophils % (Manual) Lymphocytes % (Manual) Monocytes % (Manual) Abs Neuts (Manual) Lymphocytes # (Manual) Monocytes # (Manual) Platelet Estimate Plt Morphology Comment RBC Morphology Target Cells Ovalocytes Smear Tech's Comments Hold Purple Top PT INR aPTT Heparin Protocol O2 Saturation ABG pH at Pt Temp ABG pCO2 at Pt Temp ABG pO2 at Pt Temp ABG HCO3 ABG Base Excess (Actual) VBG pH 7.34 VBG pCO2 48 VBG pO2 80 VBG HCO3 26 VBG O2 Saturation 94.0 VBG Base Excess 0.7 Sodium 150 H 148 H Potassium 4.7 4.8 Chloride 118 H 117 H Carbon Dioxide 26 27 Anion Gap 11 L 9 L BUN 39 H 38 H Creatinine 1.90 H 1.94 H Estim Creat Clear Calc 38.6 37.8 Estimated GFR 36 35 POC Glucose Random Glucose 449 H* 527 H* Fasting Glucose Lactic Acid 0.9 Calcium 8.4 D 8.4 Phosphorus Magnesium Total Bilirubin 0.4 0.3 Direct Bilirubin AST 15 14 ALT 14 14 Alkaline Phosphatase 74 75 Troponin I High Sens B-Natriuretic Peptide Total Protein 5.8 L 5.6 L Albumin 2.5 L 2.4 L Lipase Procalcitonin TSH Urine Color Urine Appearance Urine pH Ur Specific [place] Urine Protein Urine Glucose (UA) Urine Ketones Urine Blood Urine Nitrite Ur Leukocyte Esterase Urine RBC Urine WBC Ur Squamous Epith Cells Urine Bacteria Hyaline Casts Stool Occult Blood Vancomycin Trough Random Vancomycin Valproic Acid 44.5 L Central 0.80 COVID-19 ([facility]) COVID-19 Clin Com Influenza Type A (PCR) Influenza Type B (PCR) RSV RNA Qual (PCR) SARS-CoV-2 RNA (RT-PCR) Blood Type Antibody Screen 01/21/24 01/21/24 01/21/24 04:38 07:32 09:09 WBC RBC Hgb Hct MCV MCH MCHC RDW Plt Count MPV Immature Gran % (Auto) Neut % (Auto) Lymph % (Auto) [place] % (Auto) Eos % (Auto) Baso % (Auto) Lymph # (Auto) [place] # (Auto) Eos # (Auto) Baso # (Auto) Abs Immat Gran (auto) Absolute Neuts (auto) Absolute Nucleated RBC Nucleated RBC % (auto) Neutrophils % (Manual) Lymphocytes % (Manual) Monocytes % (Manual) Abs Neuts (Manual) Lymphocytes # (Manual) Monocytes # (Manual) Platelet Estimate Plt Morphology Comment RBC Morphology Target Cells Ovalocytes Smear Tech's Comments Hold Purple Top PT INR aPTT Heparin Protocol O2 Saturation ABG pH at Pt Temp ABG pCO2 at Pt Temp ABG pO2 at Pt Temp ABG HCO3 ABG Base Excess (Actual) VBG pH 7.35 VBG pCO2 47 VBG pO2 94 VBG HCO3 26 VBG O2 Saturation 98.0 VBG Base Excess 0.6 Sodium Potassium Chloride Carbon Dioxide Anion Gap BUN Creatinine Estim Creat Clear Calc Estimated GFR POC Glucose 420 H* 324 H Random Glucose Fasting Glucose Lactic Acid Calcium Phosphorus Magnesium Total Bilirubin Direct Bilirubin AST ALT Alkaline Phosphatase Troponin I High Sens B-Natriuretic Peptide Total Protein Albumin Lipase Procalcitonin TSH Urine Color Urine Appearance Urine pH Ur Specific [place] Urine Protein Urine Glucose (UA) Urine Ketones Urine Blood Urine Nitrite Ur Leukocyte Esterase Urine RBC Urine WBC Ur Squamous Epith Cells Urine Bacteria Hyaline Casts Stool Occult Blood Vancomycin Trough Random Vancomycin Valproic Acid Central COVID-19 ([facility]) COVID-19 Clin Com Influenza Type A (PCR) Influenza Type B (PCR) RSV RNA Qual (PCR) SARS-CoV-2 RNA (RT-PCR) Blood Type Antibody Screen 01/21/24 01/21/24 01/21/24 10:17 10:57 11:19 WBC RBC Hgb Hct MCV MCH MCHC RDW Plt Count MPV Immature Gran % (Auto) Neut % (Auto) Lymph % (Auto) [place] % (Auto) Eos % (Auto) Baso % (Auto) Lymph # (Auto) [place] # (Auto) Eos # (Auto) Baso # (Auto) Abs Immat Gran (auto) Absolute Neuts (auto) Absolute Nucleated RBC Nucleated RBC % (auto) Neutrophils % (Manual) Lymphocytes % (Manual) Monocytes % (Manual) Abs Neuts (Manual) Lymphocytes # (Manual) Monocytes # (Manual) Platelet Estimate Plt Morphology Comment RBC Morphology Target Cells Ovalocytes Smear Tech's Comments Hold Purple Top PT INR aPTT Heparin Protocol O2 Saturation ABG pH at Pt Temp ABG pCO2 at Pt Temp ABG pO2 at Pt Temp ABG HCO3 ABG Base Excess (Actual) VBG pH VBG pCO2 VBG pO2 VBG HCO3 VBG O2 Saturation VBG Base Excess Sodium Potassium Chloride Carbon Dioxide Anion Gap BUN Creatinine Estim Creat Clear Calc Estimated GFR POC Glucose 235 H 232 H Random Glucose Fasting Glucose Lactic Acid Calcium Phosphorus 2.9 Magnesium 2.5 Total Bilirubin Direct Bilirubin AST ALT Alkaline Phosphatase Troponin I High Sens B-Natriuretic Peptide Total Protein Albumin Lipase Procalcitonin TSH Urine Color Urine Appearance Urine pH Ur Specific [place] Urine Protein Urine Glucose (UA) Urine Ketones Urine Blood Urine Nitrite Ur Leukocyte Esterase Urine RBC Urine WBC Ur Squamous Epith Cells Urine Bacteria Hyaline Casts Stool Occult Blood Vancomycin Trough Random Vancomycin Valproic Acid Central COVID-19 ([facility]) COVID-19 Clin Com Influenza Type A (PCR) Influenza Type B (PCR) RSV RNA Qual (PCR) SARS-CoV-2 RNA (RT-PCR) Blood Type Antibody Screen 01/21/24 01/21/24 01/21/24 11:51 13:04 17:36 WBC RBC Hgb Hct MCV MCH MCHC RDW Plt Count MPV Immature Gran % (Auto) Neut % (Auto) Lymph % (Auto) [place] % (Auto) Eos % (Auto) Baso % (Auto) Lymph # (Auto) [place] # (Auto) Eos # (Auto) Baso # (Auto) Abs Immat Gran (auto) Absolute Neuts (auto) Absolute Nucleated RBC Nucleated RBC % (auto) Neutrophils % (Manual) Lymphocytes % (Manual) Monocytes % (Manual) Abs Neuts (Manual) Lymphocytes # (Manual) Monocytes # (Manual) Platelet Estimate Plt Morphology Comment RBC Morphology Target Cells Ovalocytes Smear Tech's Comments Hold Purple Top PT INR aPTT Heparin Protocol O2 Saturation ABG pH at Pt Temp ABG pCO2 at Pt Temp ABG pO2 at Pt Temp ABG HCO3 ABG Base Excess (Actual) VBG pH VBG pCO2 VBG pO2 VBG HCO3 VBG O2 Saturation VBG Base Excess Sodium Potassium Chloride Carbon Dioxide Anion Gap BUN Creatinine Estim Creat Clear Calc Estimated GFR POC Glucose 239 H 181 H 134 H Random Glucose Fasting Glucose Lactic Acid Calcium Phosphorus Magnesium Total Bilirubin Direct Bilirubin AST ALT Alkaline Phosphatase Troponin I High Sens B-Natriuretic Peptide Total Protein Albumin Lipase Procalcitonin TSH Urine Color Urine Appearance Urine pH Ur Specific [place] Urine Protein Urine Glucose (UA) Urine Ketones Urine Blood Urine Nitrite Ur Leukocyte Esterase Urine RBC Urine WBC Ur Squamous Epith Cells Urine Bacteria Hyaline Casts Stool Occult Blood Vancomycin Trough Random Vancomycin Valproic Acid Central COVID-19 ([facility]) COVID-19 Clin Com Influenza Type A (PCR) Influenza Type B (PCR) RSV RNA Qual (PCR) SARS-CoV-2 RNA (RT-PCR) Blood Type Antibody Screen 01/21/24 01/22/24 01/22/24 22:11 00:38 05:12 WBC 18.2 H 21.4 H RBC 4.68 4.93 Hgb 11.0 L 11.7 L Hct 36.2 L 38.7 L MCV 77.4 L 78.5 L MCH 23.5 L 23.7 L MCHC 30.4 L 30.2 L RDW 14.8 15.0 Plt Count 156 L 168 MPV 11.2 11.6 Immature Gran % (Auto) 0.5 H 0.5 H Neut % (Auto) 84.6 H 85.6 H Lymph % (Auto) 11.4 L 10.2 L [place] % (Auto) 3.4 3.4 Eos % (Auto) 0.0 0.1 Baso % (Auto) 0.1 0.2 Lymph # (Auto) 2.1 2.2 [place] # (Auto) 0.6 0.7 Eos # (Auto) 0.0 0.0 Baso # (Auto) 0.0 0.0 Abs Immat Gran (auto) 0.09 H 0.10 H Absolute Neuts (auto) 15.4 H 18.3 H Absolute Nucleated RBC 0.000 0.000 Nucleated RBC % (auto) 0.0 0.0 Neutrophils % (Manual) Lymphocytes % (Manual) Monocytes % (Manual) Abs Neuts (Manual) Lymphocytes # (Manual) Monocytes # (Manual) Platelet Estimate Plt Morphology Comment RBC Morphology Target Cells Ovalocytes Smear Tech's Comments Hold Purple Top PT INR aPTT Heparin Protocol O2 Saturation ABG pH at Pt Temp ABG pCO2 at Pt Temp ABG pO2 at Pt Temp ABG HCO3 ABG Base Excess (Actual) VBG pH VBG pCO2 VBG pO2 VBG HCO3 VBG O2 Saturation VBG Base Excess Sodium 159 H 156 H Potassium 4.2 4.2 Chloride 123 H 123 H Carbon Dioxide 26 24 Anion Gap 14 13 BUN 31 H 31 H Creatinine 1.36 1.54 H Estim Creat Clear Calc 53.8 47.5 Estimated GFR 53 46 POC Glucose 88 Random Glucose 103 150 H Fasting Glucose Lactic Acid Calcium 10.3 H D 10.1 Phosphorus 3.8 Magnesium 2.4 Total Bilirubin 0.5 Direct Bilirubin AST 12 ALT 10 Alkaline Phosphatase 58 Troponin I High Sens B-Natriuretic Peptide Total Protein 6.8 Albumin 3.8 Lipase Procalcitonin TSH Urine Color Urine Appearance Urine pH Ur Specific [place] Urine Protein Urine Glucose (UA) Urine Ketones Urine Blood Urine Nitrite Ur Leukocyte Esterase Urine RBC Urine WBC Ur Squamous Epith Cells Urine Bacteria Hyaline Casts Stool Occult Blood Vancomycin Trough Random Vancomycin Valproic Acid Central COVID-19 ([facility]) COVID-19 Clin Com Influenza Type A (PCR) Influenza Type B (PCR) RSV RNA Qual (PCR) SARS-CoV-2 RNA (RT-PCR) Blood Type Antibody Screen 01/22/24 01/22/24 01/22/24 05:19 06:06 11:51 WBC RBC Hgb Hct MCV MCH MCHC RDW Plt Count MPV Immature Gran % (Auto) Neut % (Auto) Lymph % (Auto) [place] % (Auto) Eos % (Auto) Baso % (Auto) Lymph # (Auto) [place] # (Auto) Eos # (Auto) Baso # (Auto) Abs Immat Gran (auto) Absolute Neuts (auto) Absolute Nucleated RBC Nucleated RBC % (auto) Neutrophils % (Manual) Lymphocytes % (Manual) Monocytes % (Manual) Abs Neuts (Manual) Lymphocytes # (Manual) Monocytes # (Manual) Platelet Estimate Plt Morphology Comment RBC Morphology Target Cells Ovalocytes Smear Tech's Comments Hold Purple Top PT INR aPTT Heparin Protocol O2 Saturation ABG pH at Pt Temp ABG pCO2 at Pt Temp ABG pO2 at Pt Temp ABG HCO3 ABG Base Excess (Actual) VBG pH 7.51 H VBG pCO2 30 VBG pO2 82 VBG HCO3 24 VBG O2 Saturation 97.0 VBG Base Excess 2.2 Sodium Potassium Chloride Carbon Dioxide Anion Gap BUN Creatinine Estim Creat Clear Calc Estimated GFR POC Glucose 167 H 146 H Random Glucose Fasting Glucose Lactic Acid Calcium Phosphorus Magnesium Total Bilirubin Direct Bilirubin AST ALT Alkaline Phosphatase Troponin I High Sens B-Natriuretic Peptide Total Protein Albumin Lipase Procalcitonin TSH Urine Color Urine Appearance Urine pH Ur Specific [place] Urine Protein Urine Glucose (UA) Urine Ketones Urine Blood Urine Nitrite Ur Leukocyte Esterase Urine RBC Urine WBC Ur Squamous Epith Cells Urine Bacteria Hyaline Casts Stool Occult Blood Vancomycin Trough Random Vancomycin Valproic Acid Central COVID-19 ([facility]) COVID-19 Clin Com Influenza Type A (PCR) Influenza Type B (PCR) RSV RNA Qual (PCR) SARS-CoV-2 RNA (RT-PCR) Blood Type Antibody Screen 01/22/24 01/22/24 01/22/24 17:29 19:39 20:57 WBC 23.2 H RBC 4.90 Hgb 11.6 L Hct 38.0 L MCV 77.6 L MCH 23.7 L MCHC 30.5 L RDW 15.2 Plt Count 154 L MPV 11.5 Immature Gran % (Auto) Cancelled Neut % (Auto) Cancelled Lymph % (Auto) Cancelled [place] % (Auto) Cancelled Eos % (Auto) Cancelled Baso % (Auto) Cancelled Lymph # (Auto) Cancelled [place] # (Auto) Cancelled Eos # (Auto) Cancelled Baso # (Auto) Cancelled Abs Immat Gran (auto) Cancelled Absolute Neuts (auto) Cancelled Absolute Nucleated RBC 0.000 Nucleated RBC % (auto) 0.0 Neutrophils % (Manual) 89 H Lymphocytes % (Manual) 9 L Monocytes % (Manual) 2 Abs Neuts (Manual) Not Reportable Lymphocytes # (Manual) 2.1 Monocytes # (Manual) 0.5 Platelet Estimate NORMAL Plt Morphology Comment NORMAL RBC Morphology NOTED Target Cells 1+ (5-14) Ovalocytes 1+ (5-14) Smear Tech's Comments MANUAL DIFF Hold Purple Top PT INR aPTT Heparin Protocol O2 Saturation ABG pH at Pt Temp ABG pCO2 at Pt Temp ABG pO2 at Pt Temp ABG HCO3 ABG Base Excess (Actual) VBG pH VBG pCO2 VBG pO2 VBG HCO3 VBG O2 Saturation VBG Base Excess Sodium 157 H Potassium 4.1 Chloride 125 H Carbon Dioxide 23 Anion Gap 13 BUN 30 H Creatinine 1.48 H Estim Creat Clear Calc 49.4 Estimated GFR 48 POC Glucose 139 H Random Glucose 144 H Fasting Glucose Lactic Acid Calcium 9.8 Phosphorus Magnesium Total Bilirubin 0.7 Direct Bilirubin AST 13 ALT 9 Alkaline Phosphatase 86 Troponin I High Sens B-Natriuretic Peptide Total Protein 6.5 Albumin 3.4 L Lipase Procalcitonin TSH Urine Color Urine Appearance Urine pH Ur Specific [place] Urine Protein Urine Glucose (UA) Urine Ketones Urine Blood Urine Nitrite Ur Leukocyte Esterase Urine RBC Urine WBC Ur Squamous Epith Cells Urine Bacteria Hyaline Casts Stool Occult Blood Vancomycin Trough 14.3 Random Vancomycin Valproic Acid Central COVID-19 ([facility]) COVID-19 Clin Com Influenza Type A (PCR) Influenza Type B (PCR) RSV RNA Qual (PCR) SARS-CoV-2 RNA (RT-PCR) Blood Type Antibody Screen 01/22/24 01/23/24 01/23/24 23:59 05:33 09:02 WBC 20.2 H RBC 4.64 Hgb 10.8 L Hct 36.1 L MCV 77.8 L MCH 23.3 L MCHC 29.9 L RDW 15.2 Plt Count 137 L MPV 11.7 Immature Gran % (Auto) 0.6 H Neut % (Auto) 86.6 H Lymph % (Auto) 8.9 L [place] % (Auto) 3.6 Eos % (Auto) 0.2 Baso % (Auto) 0.1 Lymph # (Auto) 1.8 [place] # (Auto) 0.7 Eos # (Auto) 0.0 Baso # (Auto) 0.0 Abs Immat Gran (auto) 0.13 H Absolute Neuts (auto) 17.5 H Absolute Nucleated RBC 0.000 Nucleated RBC % (auto) 0.0 Neutrophils % (Manual) Lymphocytes % (Manual) Monocytes % (Manual) Abs Neuts (Manual) Lymphocytes # (Manual) Monocytes # (Manual) Platelet Estimate Plt Morphology Comment RBC Morphology Target Cells Ovalocytes Smear Tech's Comments Hold Purple Top PT INR aPTT Heparin Protocol O2 Saturation ABG pH at Pt Temp ABG pCO2 at Pt Temp ABG pO2 at Pt Temp ABG HCO3 ABG Base Excess (Actual) VBG pH VBG pCO2 VBG pO2 VBG HCO3 VBG O2 Saturation VBG Base Excess Sodium 157 H Potassium 3.9 Chloride 124 H Carbon Dioxide 21 L Anion Gap 16 BUN 29 H Creatinine 1.46 H Estim Creat Clear Calc 50.1 Estimated GFR 49 POC Glucose 170 H 130 H 169 H Random Glucose 138 H Fasting Glucose Lactic Acid Calcium 9.5 Phosphorus 3.3 Magnesium 2.1 Total Bilirubin Direct Bilirubin AST ALT Alkaline Phosphatase Troponin I High Sens B-Natriuretic Peptide Total Protein Albumin Lipase Procalcitonin TSH Urine Color Urine Appearance Urine pH Ur Specific [place] Urine Protein Urine Glucose (UA) Urine Ketones Urine Blood Urine Nitrite Ur Leukocyte Esterase Urine RBC Urine WBC Ur Squamous Epith Cells Urine Bacteria Hyaline Casts Stool Occult Blood Vancomycin Trough Random Vancomycin Valproic Acid Central COVID-19 ([facility]) COVID-19 Clin Com Influenza Type A (PCR) Influenza Type B (PCR) RSV RNA Qual (PCR) SARS-CoV-2 RNA (RT-PCR) Blood Type Antibody Screen 01/23/24 01/23/24 01/23/24 11:40 17:47 17:51 WBC RBC Hgb Hct MCV MCH MCHC RDW Plt Count MPV Immature Gran % (Auto) Neut % (Auto) Lymph % (Auto) [place] % (Auto) Eos % (Auto) Baso % (Auto) Lymph # (Auto) [place] # (Auto) Eos # (Auto) Baso # (Auto) Abs Immat Gran (auto) Absolute Neuts (auto) Absolute Nucleated RBC Nucleated RBC % (auto) Neutrophils % (Manual) Lymphocytes % (Manual) Monocytes % (Manual) Abs Neuts (Manual) Lymphocytes # (Manual) Monocytes # (Manual) Platelet Estimate Plt Morphology Comment RBC Morphology Target Cells Ovalocytes Smear Tech's Comments Hold Purple Top PT INR aPTT Heparin Protocol O2 Saturation ABG pH at Pt Temp ABG pCO2 at Pt Temp ABG pO2 at Pt Temp ABG HCO3 ABG Base Excess (Actual) VBG pH 7.47 H VBG pCO2 32 VBG pO2 114 VBG HCO3 24 VBG O2 Saturation 99.0 VBG Base Excess 0.9 Sodium Potassium Chloride Carbon Dioxide Anion Gap BUN Creatinine Estim Creat Clear Calc Estimated GFR POC Glucose 176 H 128 H Random Glucose Fasting Glucose Lactic Acid Calcium Phosphorus Magnesium Total Bilirubin Direct Bilirubin AST ALT Alkaline Phosphatase Troponin I High Sens B-Natriuretic Peptide Total Protein Albumin Lipase Procalcitonin TSH Urine Color Urine Appearance Urine pH Ur Specific [place] Urine Protein Urine Glucose (UA) Urine Ketones Urine Blood Urine Nitrite Ur Leukocyte Esterase Urine RBC Urine WBC Ur Squamous Epith Cells Urine Bacteria Hyaline Casts Stool Occult Blood Vancomycin Trough Random Vancomycin Valproic Acid Central COVID-19 ([facility]) COVID-19 Clin Com Influenza Type A (PCR) Influenza Type B (PCR) RSV RNA Qual (PCR) SARS-CoV-2 RNA (RT-PCR) Blood Type Antibody Screen 01/23/24 01/23/24 01/23/24 18:35 21:03 23:08 WBC 16.2 H RBC 4.29 L Hgb 10.0 L Hct 33.6 L MCV 78.3 L MCH 23.3 L MCHC 29.8 L RDW 15.1 Plt Count 127 L MPV 12.3 Immature Gran % (Auto) 0.5 H Neut % (Auto) 82.8 H Lymph % (Auto) 12.1 L [place] % (Auto) 4.1 Eos % (Auto) 0.4 Baso % (Auto) 0.1 Lymph # (Auto) 2.0 [place] # (Auto) 0.7 Eos # (Auto) 0.1 Baso # (Auto) 0.0 Abs Immat Gran (auto) 0.08 H Absolute Neuts (auto) 13.4 H Absolute Nucleated RBC 0.000 Nucleated RBC % (auto) 0.0 Neutrophils % (Manual) Lymphocytes % (Manual) Monocytes % (Manual) Abs Neuts (Manual) Lymphocytes # (Manual) Monocytes # (Manual) Platelet Estimate Plt Morphology Comment RBC Morphology Target Cells Ovalocytes Smear Tech's Comments Hold Purple Top PT INR aPTT Heparin Protocol O2 Saturation 98.0 ABG pH at Pt Temp 7.46 H ABG pCO2 at Pt Temp 32 ABG pO2 at Pt Temp 89 ABG HCO3 23 ABG Base Excess (Actual) 0.3 VBG pH VBG pCO2 VBG pO2 VBG HCO3 VBG O2 Saturation VBG Base Excess Sodium 154 H Potassium 3.7 Chloride 126 H Carbon Dioxide 22 Anion Gap 10 L BUN 33 H Creatinine 1.62 H Estim Creat Clear Calc 47.2 Estimated GFR 43 POC Glucose Random Glucose 141 H Fasting Glucose Lactic Acid Calcium 9.3 Phosphorus Magnesium Total Bilirubin 0.7 Direct Bilirubin AST 13 ALT 9 Alkaline Phosphatase 68 Troponin I High Sens B-Natriuretic Peptide Total Protein 6.1 L Albumin 3.0 L Lipase Procalcitonin TSH Urine Color Urine Appearance Urine pH Ur Specific [place] Urine Protein Urine Glucose (UA) Urine Ketones Urine Blood Urine Nitrite Ur Leukocyte Esterase Urine RBC Urine WBC Ur Squamous Epith Cells Urine Bacteria Hyaline Casts Stool Occult Blood Vancomycin Trough Random Vancomycin 13.4 L Valproic Acid Central COVID-19 ([facility]) COVID-19 Clin Com Influenza Type A (PCR) Influenza Type B (PCR) RSV RNA Qual (PCR) SARS-CoV-2 RNA (RT-PCR) Blood Type Antibody Screen 01/23/24 01/24/24 01/24/24 23:15 00:25 04:39 WBC RBC Hgb Hct MCV MCH MCHC RDW Plt Count MPV Immature Gran % (Auto) Neut % (Auto) Lymph % (Auto) [place] % (Auto) Eos % (Auto) Baso % (Auto) Lymph # (Auto) [place] # (Auto) Eos # (Auto) Baso # (Auto) Abs Immat Gran (auto) Absolute Neuts (auto) Absolute Nucleated RBC Nucleated RBC % (auto) Neutrophils % (Manual) Lymphocytes % (Manual) Monocytes % (Manual) Abs Neuts (Manual) Lymphocytes # (Manual) Monocytes # (Manual) Platelet Estimate Plt Morphology Comment RBC Morphology Target Cells Ovalocytes Smear Tech's Comments Hold Purple Top PT INR aPTT Heparin Protocol O2 Saturation ABG pH at Pt Temp ABG pCO2 at Pt Temp ABG pO2 at Pt Temp ABG HCO3 ABG Base Excess (Actual) VBG pH 7.48 H 7.47 H VBG pCO2 28 29 VBG pO2 87 76 VBG HCO3 21 L 21 L VBG O2 Saturation 98.0 96.0 VBG Base Excess -0.8 -0.8 Sodium Potassium Chloride Carbon Dioxide Anion Gap BUN Creatinine Estim Creat Clear Calc Estimated GFR POC Glucose 144 H Random Glucose Fasting Glucose Lactic Acid Calcium Phosphorus Magnesium Total Bilirubin Direct Bilirubin AST ALT Alkaline Phosphatase Troponin I High Sens B-Natriuretic Peptide Total Protein Albumin Lipase Procalcitonin TSH Urine Color Urine Appearance Urine pH Ur Specific [place] Urine Protein Urine Glucose (UA) Urine Ketones Urine Blood Urine Nitrite Ur Leukocyte Esterase Urine RBC Urine WBC Ur Squamous Epith Cells Urine Bacteria Hyaline Casts Stool Occult Blood Vancomycin Trough Random Vancomycin Valproic Acid Central COVID-19 ([facility]) COVID-19 Clin Com Influenza Type A (PCR) Influenza Type B (PCR) RSV RNA Qual (PCR) SARS-CoV-2 RNA (RT-PCR) Blood Type Antibody Screen 01/24/24 01/24/24 01/24/24 04:40 09:00 09:10 WBC 15.0 H RBC 4.19 L Hgb 10.0 L Hct 33.1 L MCV 79.0 L MCH 23.9 L MCHC 30.2 L RDW 15.3 Plt Count 121 L MPV 11.6 Immature Gran % (Auto) 0.5 H Neut % (Auto) 81.4 H Lymph % (Auto) 12.7 L [place] % (Auto) 4.7 Eos % (Auto) 0.6 Baso % (Auto) 0.1 Lymph # (Auto) 1.9 [place] # (Auto) 0.7 Eos # (Auto) 0.1 Baso # (Auto) 0.0 Abs Immat Gran (auto) 0.08 H Absolute Neuts (auto) 12.2 H Absolute Nucleated RBC 0.000 Nucleated RBC % (auto) 0.0 Neutrophils % (Manual) Lymphocytes % (Manual) Monocytes % (Manual) Abs Neuts (Manual) Lymphocytes # (Manual) Monocytes # (Manual) Platelet Estimate Plt Morphology Comment RBC Morphology Target Cells Ovalocytes Smear Tech's Comments VERIFIED Hold Purple Top SEE NOTE PT INR aPTT Heparin Protocol O2 Saturation ABG pH at Pt Temp ABG pCO2 at Pt Temp ABG pO2 at Pt Temp ABG HCO3 ABG Base Excess (Actual) VBG pH VBG pCO2 VBG pO2 VBG HCO3 VBG O2 Saturation VBG Base Excess Sodium 156 H Potassium 4.3 Chloride 126 H Carbon Dioxide 21 L Anion Gap 13 BUN 34 H Creatinine 1.61 H Estim Creat Clear Calc 47.2 Estimated GFR 43 POC Glucose Random Glucose 165 H Fasting Glucose Lactic Acid Calcium 9.6 Phosphorus Magnesium Total Bilirubin Direct Bilirubin AST ALT Alkaline Phosphatase Troponin I High Sens B-Natriuretic Peptide Total Protein Albumin Lipase Procalcitonin TSH Urine Color Urine Appearance Urine pH Ur Specific [place] Urine Protein Urine Glucose (UA) Urine Ketones Urine Blood Urine Nitrite Ur Leukocyte Esterase Urine RBC Urine WBC Ur Squamous Epith Cells Urine Bacteria Hyaline Casts Stool Occult Blood Vancomycin Trough Random Vancomycin Valproic Acid Central COVID-19 ([facility]) COVID-19 Clin Com Influenza Type A (PCR) Influenza Type B (PCR) RSV RNA Qual (PCR) SARS-CoV-2 RNA (RT-PCR) Blood Type O Positive Antibody Screen NEGATIVE 01/24/24 01/24/24 01/24/24 11:50 17:57 23:55 WBC RBC Hgb Hct MCV MCH MCHC RDW Plt Count MPV Immature Gran % (Auto) Neut % (Auto) Lymph % (Auto) [place] % (Auto) Eos % (Auto) Baso % (Auto) Lymph # (Auto) [place] # (Auto) Eos # (Auto) Baso # (Auto) Abs Immat Gran (auto) Absolute Neuts (auto) Absolute Nucleated RBC Nucleated RBC % (auto) Neutrophils % (Manual) Lymphocytes % (Manual) Monocytes % (Manual) Abs Neuts (Manual) Lymphocytes # (Manual) Monocytes # (Manual) Platelet Estimate Plt Morphology Comment RBC Morphology Target Cells Ovalocytes Smear Tech's Comments Hold Purple Top PT INR aPTT Heparin Protocol O2 Saturation ABG pH at Pt Temp ABG pCO2 at Pt Temp ABG pO2 at Pt Temp ABG HCO3 ABG Base Excess (Actual) VBG pH VBG pCO2 VBG pO2 VBG HCO3 VBG O2 Saturation VBG Base Excess Sodium Potassium Chloride Carbon Dioxide Anion Gap BUN Creatinine Estim Creat Clear Calc Estimated GFR POC Glucose 154 H 187 H 202 H Random Glucose Fasting Glucose Lactic Acid Calcium Phosphorus Magnesium Total Bilirubin Direct Bilirubin AST ALT Alkaline Phosphatase Troponin I High Sens B-Natriuretic Peptide Total Protein Albumin Lipase Procalcitonin TSH Urine Color Urine Appearance Urine pH Ur Specific [place] Urine Protein Urine Glucose (UA) Urine Ketones Urine Blood Urine Nitrite Ur Leukocyte Esterase Urine RBC Urine WBC Ur Squamous Epith Cells Urine Bacteria Hyaline Casts Stool Occult Blood Vancomycin Trough Random Vancomycin Valproic Acid Central COVID-19 ([facility]) COVID-19 Clin Com Influenza Type A (PCR) Influenza Type B (PCR) RSV RNA Qual (PCR) SARS-CoV-2 RNA (RT-PCR) Blood Type Antibody Screen 01/25/24 01/25/24 01/25/24 04:32 12:00 17:58 WBC 12.5 H RBC 4.06 L Hgb 9.6 L Hct 31.9 L MCV 78.6 L MCH 23.6 L MCHC 30.1 L RDW 15.5 Plt Count 130 L MPV 12.8 H Immature Gran % (Auto) 0.5 H Neut % (Auto) 80.4 H Lymph % (Auto) 13.1 L [place] % (Auto) 4.8 Eos % (Auto) 1.0 Baso % (Auto) 0.2 Lymph # (Auto) 1.6 [place] # (Auto) 0.6 Eos # (Auto) 0.1 Baso # (Auto) 0.0 Abs Immat Gran (auto) 0.06 H Absolute Neuts (auto) 10.1 H Absolute Nucleated RBC 0.000 Nucleated RBC % (auto) 0.0 Neutrophils % (Manual) Lymphocytes % (Manual) Monocytes % (Manual) Abs Neuts (Manual) Lymphocytes # (Manual) Monocytes # (Manual) Platelet Estimate Plt Morphology Comment RBC Morphology Target Cells Ovalocytes Smear Tech's Comments Hold Purple Top PT INR aPTT Heparin Protocol O2 Saturation ABG pH at Pt Temp ABG pCO2 at Pt Temp ABG pO2 at Pt Temp ABG HCO3 ABG Base Excess (Actual) VBG pH 7.46 H VBG pCO2 33 VBG pO2 63 VBG HCO3 24 VBG O2 Saturation 91.0 VBG Base Excess 1.0 Sodium 154 H Potassium 4.5 Chloride 124 H Carbon Dioxide 22 Anion Gap 13 BUN 36 H Creatinine 1.55 H Estim Creat Clear Calc 49.1 Estimated GFR 45 POC Glucose 195 H 169 H Random Glucose 218 H Fasting Glucose Lactic Acid Calcium 9.4 Phosphorus Magnesium Total Bilirubin Direct Bilirubin AST ALT Alkaline Phosphatase Troponin I High Sens B-Natriuretic Peptide Total Protein Albumin Lipase Procalcitonin TSH Urine Color Urine Appearance Urine pH Ur Specific [place] Urine Protein Urine Glucose (UA) Urine Ketones Urine Blood Urine Nitrite Ur Leukocyte Esterase Urine RBC Urine WBC Ur Squamous Epith Cells Urine Bacteria Hyaline Casts Stool Occult Blood Vancomycin Trough Random Vancomycin Valproic Acid Central COVID-19 ([facility]) COVID-19 Clin Com Influenza Type A (PCR) Influenza Type B (PCR) RSV RNA Qual (PCR) SARS-CoV-2 RNA (RT-PCR) Blood Type Antibody Screen 01/25/24 01/26/24 01/26/24 20:48 00:08 04:59 WBC RBC Hgb Hct MCV MCH MCHC RDW Plt Count MPV Immature Gran % (Auto) Neut % (Auto) Lymph % (Auto) [place] % (Auto) Eos % (Auto) Baso % (Auto) Lymph # (Auto) [place] # (Auto) Eos # (Auto) Baso # (Auto) Abs Immat Gran (auto) Absolute Neuts (auto) Absolute Nucleated RBC Nucleated RBC % (auto) Neutrophils % (Manual) Lymphocytes % (Manual) Monocytes % (Manual) Abs Neuts (Manual) Lymphocytes # (Manual) Monocytes # (Manual) Platelet Estimate Plt Morphology Comment RBC Morphology Target Cells Ovalocytes Smear Tech's Comments Hold Purple Top PT INR aPTT Heparin Protocol O2 Saturation ABG pH at Pt Temp ABG pCO2 at Pt Temp ABG pO2 at Pt Temp ABG HCO3 ABG Base Excess (Actual) VBG pH 7.52 H VBG pCO2 29 VBG pO2 76 VBG HCO3 23 VBG O2 Saturation 97.0 VBG Base Excess 1.8 Sodium Potassium Chloride Carbon Dioxide Anion Gap BUN Creatinine Estim Creat Clear Calc Estimated GFR POC Glucose 193 H Random Glucose Fasting Glucose Lactic Acid Calcium Phosphorus Magnesium Total Bilirubin Direct Bilirubin AST ALT Alkaline Phosphatase Troponin I High Sens B-Natriuretic Peptide Total Protein Albumin Lipase Procalcitonin TSH Urine Color Urine Appearance Urine pH Ur Specific [place] Urine Protein Urine Glucose (UA) Urine Ketones Urine Blood Urine Nitrite Ur Leukocyte Esterase Urine RBC Urine WBC Ur Squamous Epith Cells Urine Bacteria Hyaline Casts Stool Occult Blood Vancomycin Trough Random Vancomycin 10.2 L Valproic Acid Central COVID-19 ([facility]) COVID-19 Clin Com Influenza Type A (PCR) Influenza Type B (PCR) RSV RNA Qual (PCR) SARS-CoV-2 RNA (RT-PCR) Blood Type Antibody Screen 01/26/24 01/26/24 01/26/24 05:01 06:02 11:27 WBC 12.5 H RBC 3.97 L Hgb 9.4 L Hct 31.3 L MCV 78.8 L MCH 23.7 L MCHC 30.0 L RDW 15.5 Plt Count 129 L MPV 12.0 Immature Gran % (Auto) 0.4 Neut % (Auto) 77.4 H Lymph % (Auto) 16.3 L [place] % (Auto) 4.7 Eos % (Auto) 1.0 Baso % (Auto) 0.2 Lymph # (Auto) 2.0 [place] # (Auto) 0.6 Eos # (Auto) 0.1 Baso # (Auto) 0.0 Abs Immat Gran (auto) 0.05 H Absolute Neuts (auto) 9.7 H Absolute Nucleated RBC 0.000 Nucleated RBC % (auto) 0.0 Neutrophils % (Manual) Lymphocytes % (Manual) Monocytes % (Manual) Abs Neuts (Manual) Lymphocytes # (Manual) Monocytes # (Manual) Platelet Estimate Plt Morphology Comment RBC Morphology Target Cells Ovalocytes Smear Tech's Comments Hold Purple Top PT INR aPTT Heparin Protocol O2 Saturation ABG pH at Pt Temp ABG pCO2 at Pt Temp ABG pO2 at Pt Temp ABG HCO3 ABG Base Excess (Actual) VBG pH VBG pCO2 VBG pO2 VBG HCO3 VBG O2 Saturation VBG Base Excess Sodium 153 H Potassium 4.3 Chloride 122 H Carbon Dioxide 23 Anion Gap 12 BUN 32 H Creatinine 1.43 H Estim Creat Clear Calc 51.0 Estimated GFR 50 POC Glucose 202 H 223 H Random Glucose 216 H Fasting Glucose Lactic Acid Calcium 9.4 Phosphorus 2.8 Magnesium 1.9 Total Bilirubin Direct Bilirubin AST ALT Alkaline Phosphatase Troponin I High Sens B-Natriuretic Peptide Total Protein Albumin 2.8 L Lipase Procalcitonin TSH Urine Color Urine Appearance Urine pH Ur Specific [place] Urine Protein Urine Glucose (UA) Urine Ketones Urine Blood Urine Nitrite Ur Leukocyte Esterase Urine RBC Urine WBC Ur Squamous Epith Cells Urine Bacteria Hyaline Casts Stool Occult Blood Vancomycin Trough Random Vancomycin Valproic Acid Central COVID-19 ([facility]) COVID-19 Clin Com Influenza Type A (PCR) Influenza Type B (PCR) RSV RNA Qual (PCR) SARS-CoV-2 RNA (RT-PCR) Blood Type Antibody Screen 01/26/24 01/26/24 01/26/24 12:00 17:25 23:33 WBC RBC Hgb Hct MCV MCH MCHC RDW Plt Count MPV Immature Gran % (Auto) Neut % (Auto) Lymph % (Auto) [place] % (Auto) Eos % (Auto) Baso % (Auto) Lymph # (Auto) [place] # (Auto) Eos # (Auto) Baso # (Auto) Abs Immat Gran (auto) Absolute Neuts (auto) Absolute Nucleated RBC Nucleated RBC % (auto) Neutrophils % (Manual) Lymphocytes % (Manual) Monocytes % (Manual) Abs Neuts (Manual) Lymphocytes # (Manual) Monocytes # (Manual) Platelet Estimate Plt Morphology Comment RBC Morphology Target Cells Ovalocytes Smear Tech's Comments Hold Purple Top PT INR aPTT Heparin Protocol O2 Saturation ABG pH at Pt Temp ABG pCO2 at Pt Temp ABG pO2 at Pt Temp ABG HCO3 ABG Base Excess (Actual) VBG pH VBG pCO2 VBG pO2 VBG HCO3 VBG O2 Saturation VBG Base Excess Sodium Potassium Chloride Carbon Dioxide Anion Gap BUN Creatinine Estim Creat Clear Calc Estimated GFR POC Glucose 215 H 224 H Random Glucose Fasting Glucose Lactic Acid Calcium Phosphorus Magnesium Total Bilirubin Direct Bilirubin AST ALT Alkaline Phosphatase Troponin I High Sens B-Natriuretic Peptide Total Protein Albumin Lipase Procalcitonin TSH Urine Color Urine Appearance Urine pH Ur Specific [place] Urine Protein Urine Glucose (UA) Urine Ketones Urine Blood Urine Nitrite Ur Leukocyte Esterase Urine RBC Urine WBC Ur Squamous Epith Cells Urine Bacteria Hyaline Casts Stool Occult Blood Vancomycin Trough Random Vancomycin Valproic Acid Central COVID-19 ([facility]) Positive A COVID-19 Clin Com See Note Influenza Type A (PCR) Influenza Type B (PCR) RSV RNA Qual (PCR) SARS-CoV-2 RNA (RT-PCR) Blood Type Antibody Screen 01/27/24 01/27/24 01/27/24 05:24 05:39 05:41 WBC 11.5 H RBC 3.85 L Hgb 9.2 L Hct 30.6 L MCV 79.5 L MCH 23.9 L MCHC 30.1 L RDW 15.4 Plt Count 146 L MPV 13.0 H Immature Gran % (Auto) 0.6 H Neut % (Auto) 72.0 Lymph % (Auto) 20.4 [place] % (Auto) 5.1 Eos % (Auto) 1.6 Baso % (Auto) 0.3 Lymph # (Auto) 2.3 [place] # (Auto) 0.6 Eos # (Auto) 0.2 Baso # (Auto) 0.0 Abs Immat Gran (auto) 0.07 H Absolute Neuts (auto) 8.3 Absolute Nucleated RBC 0.000 Nucleated RBC % (auto) 0.0 Neutrophils % (Manual) Lymphocytes % (Manual) Monocytes % (Manual) Abs Neuts (Manual) Lymphocytes # (Manual) Monocytes # (Manual) Platelet Estimate Plt Morphology Comment RBC Morphology Target Cells Ovalocytes Smear Tech's Comments Hold Purple Top PT INR aPTT Heparin Protocol O2 Saturation ABG pH at Pt Temp ABG pCO2 at Pt Temp ABG pO2 at Pt Temp ABG HCO3 ABG Base Excess (Actual) VBG pH 7.48 H VBG pCO2 34 VBG pO2 46 VBG HCO3 26 VBG O2 Saturation 76.0 VBG Base Excess 3.2 Sodium 144 Potassium 4.3 Chloride 112 H Carbon Dioxide 25 Anion Gap 11 L BUN 26 H Creatinine 1.13 Estim Creat Clear Calc 67.7 Estimated GFR > 60 POC Glucose 265 H Random Glucose 289 H Fasting Glucose Lactic Acid Calcium 9.3 Phosphorus 2.7 Magnesium 1.8 Total Bilirubin 0.3 Direct Bilirubin AST 13 ALT 12 Alkaline Phosphatase 58 Troponin I High Sens B-Natriuretic Peptide Total Protein 7.0 Albumin 3.0 L Lipase Procalcitonin TSH Urine Color Urine Appearance Urine pH Ur Specific [place] Urine Protein Urine Glucose (UA) Urine Ketones Urine Blood Urine Nitrite Ur Leukocyte Esterase Urine RBC Urine WBC Ur Squamous Epith Cells Urine Bacteria Hyaline Casts Stool Occult Blood Vancomycin Trough Random Vancomycin Valproic Acid Central COVID-19 ([facility]) COVID-19 Clin Com Influenza Type A (PCR) Influenza Type B (PCR) RSV RNA Qual (PCR) SARS-CoV-2 RNA (RT-PCR) Blood Type Antibody Screen 01/27/24 01/27/24 01/27/24 11:54 18:30 23:46 WBC RBC Hgb Hct MCV MCH MCHC RDW Plt Count MPV Immature Gran % (Auto) Neut % (Auto) Lymph % (Auto) [place] % (Auto) Eos % (Auto) Baso % (Auto) Lymph # (Auto) [place] # (Auto) Eos # (Auto) Baso # (Auto) Abs Immat Gran (auto) Absolute Neuts (auto) Absolute Nucleated RBC Nucleated RBC % (auto) Neutrophils % (Manual) Lymphocytes % (Manual) Monocytes % (Manual) Abs Neuts (Manual) Lymphocytes # (Manual) Monocytes # (Manual) Platelet Estimate Plt Morphology Comment RBC Morphology Target Cells Ovalocytes Smear Tech's Comments Hold Purple Top PT INR aPTT Heparin Protocol O2 Saturation ABG pH at Pt Temp ABG pCO2 at Pt Temp ABG pO2 at Pt Temp ABG HCO3 ABG Base Excess (Actual) VBG pH VBG pCO2 VBG pO2 VBG HCO3 VBG O2 Saturation VBG Base Excess Sodium Potassium Chloride Carbon Dioxide Anion Gap BUN Creatinine Estim Creat Clear Calc Estimated GFR POC Glucose 254 H 278 H 288 H Random Glucose Fasting Glucose Lactic Acid Calcium Phosphorus Magnesium Total Bilirubin Direct Bilirubin AST ALT Alkaline Phosphatase Troponin I High Sens B-Natriuretic Peptide Total Protein Albumin Lipase Procalcitonin TSH Urine Color Urine Appearance Urine pH Ur Specific [place] Urine Protein Urine Glucose (UA) Urine Ketones Urine Blood Urine Nitrite Ur Leukocyte Esterase Urine RBC Urine WBC Ur Squamous Epith Cells Urine Bacteria Hyaline Casts Stool Occult Blood Vancomycin Trough Random Vancomycin Valproic Acid Central COVID-19 ([facility]) COVID-19 Clin Com Influenza Type A (PCR) Influenza Type B (PCR) RSV RNA Qual (PCR) SARS-CoV-2 RNA (RT-PCR) Blood Type Antibody Screen 01/28/24 01/28/24 01/28/24 05:14 11:30 17:38 WBC 11.5 H RBC 4.20 L Hgb 9.9 L Hct 32.9 L MCV 78.3 L MCH 23.6 L MCHC 30.1 L RDW 15.5 Plt Count 214 D MPV 12.4 Immature Gran % (Auto) 0.6 H Neut % (Auto) 71.1 Lymph % (Auto) 19.5 L [place] % (Auto) 7.1 Eos % (Auto) 1.4 Baso % (Auto) 0.3 Lymph # (Auto) 2.3 [place] # (Auto) 0.8 Eos # (Auto) 0.2 Baso # (Auto) 0.0 Abs Immat Gran (auto) 0.07 H Absolute Neuts (auto) 8.2 Absolute Nucleated RBC 0.000 Nucleated RBC % (auto) 0.0 Neutrophils % (Manual) Lymphocytes % (Manual) Monocytes % (Manual) Abs Neuts (Manual) Lymphocytes # (Manual) Monocytes # (Manual) Platelet Estimate Plt Morphology Comment RBC Morphology Target Cells Ovalocytes Smear Tech's Comments Hold Purple Top PT INR aPTT Heparin Protocol O2 Saturation ABG pH at Pt Temp ABG pCO2 at Pt Temp ABG pO2 at Pt Temp ABG HCO3 ABG Base Excess (Actual) VBG pH 7.52 H VBG pCO2 36 VBG pO2 60 VBG HCO3 29 H VBG O2 Saturation 89.0 VBG Base Excess 6.7 Sodium 145 Potassium 4.3 Chloride 109 H Carbon Dioxide 28 Anion Gap 12 BUN 35 H Creatinine 1.45 H Estim Creat Clear Calc 50.5 Estimated GFR 49 POC Glucose 335 H 282 H 286 H Random Glucose 335 H Fasting Glucose Lactic Acid Calcium 9.7 Phosphorus 3.5 Magnesium 2.0 Total Bilirubin Direct Bilirubin AST ALT Alkaline Phosphatase Troponin I High Sens B-Natriuretic Peptide Total Protein Albumin 3.3 L Lipase Procalcitonin TSH Urine Color Urine Appearance Urine pH Ur Specific [place] Urine Protein Urine Glucose (UA) Urine Ketones Urine Blood Urine Nitrite Ur Leukocyte Esterase Urine RBC Urine WBC Ur Squamous Epith Cells Urine Bacteria Hyaline Casts Stool Occult Blood Vancomycin Trough Random Vancomycin Valproic Acid Central COVID-19 ([facility]) COVID-19 Clin Com Influenza Type A (PCR) Influenza Type B (PCR) RSV RNA Qual (PCR) SARS-CoV-2 RNA (RT-PCR) Blood Type Antibody Screen 01/29/24 01/29/24 01/29/24 00:08 05:36 05:38 WBC 8.0 RBC 4.06 L Hgb 9.5 L Hct 31.5 L MCV 77.6 L MCH 23.4 L MCHC 30.2 L RDW 15.5 Plt Count 242 MPV 12.1 Immature Gran % (Auto) 0.5 H Neut % (Auto) 69.7 Lymph % (Auto) 20.3 [place] % (Auto) 7.5 Eos % (Auto) 1.6 Baso % (Auto) 0.4 Lymph # (Auto) 1.6 [place] # (Auto) 0.6 Eos # (Auto) 0.1 Baso # (Auto) 0.0 Abs Immat Gran (auto) 0.04 H Absolute Neuts (auto) 5.6 Absolute Nucleated RBC 0.000 Nucleated RBC % (auto) 0.0 Neutrophils % (Manual) Lymphocytes % (Manual) Monocytes % (Manual) Abs Neuts (Manual) Lymphocytes # (Manual) Monocytes # (Manual) Platelet Estimate Plt Morphology Comment RBC Morphology Target Cells Ovalocytes Smear Tech's Comments Hold Purple Top PT INR aPTT Heparin Protocol O2 Saturation ABG pH at Pt Temp ABG pCO2 at Pt Temp ABG pO2 at Pt Temp ABG HCO3 ABG Base Excess (Actual) VBG pH 7.52 H VBG pCO2 35 VBG pO2 70 VBG HCO3 28 H VBG O2 Saturation 94.0 VBG Base Excess 5.9 Sodium 144 Potassium 4.8 Chloride 109 H Carbon Dioxide 25 Anion Gap 15 BUN 39 H Creatinine 1.19 Estim Creat Clear Calc 61.2 Estimated GFR > 60 POC Glucose 286 H Random Glucose 374 H* Fasting Glucose Lactic Acid Calcium 9.9 Phosphorus 3.0 Magnesium 2.2 Total Bilirubin Direct Bilirubin AST ALT Alkaline Phosphatase Troponin I High Sens B-Natriuretic Peptide Total Protein Albumin 3.1 L Lipase Procalcitonin TSH Urine Color Urine Appearance Urine pH Ur Specific [place] Urine Protein Urine Glucose (UA) Urine Ketones Urine Blood Urine Nitrite Ur Leukocyte Esterase Urine RBC Urine WBC Ur Squamous Epith Cells Urine Bacteria Hyaline Casts Stool Occult Blood Vancomycin Trough Random Vancomycin Valproic Acid Central COVID-19 ([facility]) COVID-19 Clin Com Influenza Type A (PCR) Influenza Type B (PCR) RSV RNA Qual (PCR) SARS-CoV-2 RNA (RT-PCR) Blood Type Antibody Screen 01/29/24 01/29/24 01/29/24 06:18 11:44 17:16 WBC RBC Hgb Hct MCV MCH MCHC RDW Plt Count MPV Immature Gran % (Auto) Neut % (Auto) Lymph % (Auto) [place] % (Auto) Eos % (Auto) Baso % (Auto) Lymph # (Auto) [place] # (Auto) Eos # (Auto) Baso # (Auto) Abs Immat Gran (auto) Absolute Neuts (auto) Absolute Nucleated RBC Nucleated RBC % (auto) Neutrophils % (Manual) Lymphocytes % (Manual) Monocytes % (Manual) Abs Neuts (Manual) Lymphocytes # (Manual) Monocytes # (Manual) Platelet Estimate Plt Morphology Comment RBC Morphology Target Cells Ovalocytes Smear Tech's Comments Hold Purple Top PT INR aPTT Heparin Protocol O2 Saturation ABG pH at Pt Temp ABG pCO2 at Pt Temp ABG pO2 at Pt Temp ABG HCO3 ABG Base Excess (Actual) VBG pH VBG pCO2 VBG pO2 VBG HCO3 VBG O2 Saturation VBG Base Excess Sodium Potassium Chloride Carbon Dioxide Anion Gap BUN Creatinine Estim Creat Clear Calc Estimated GFR POC Glucose 335 H 326 H 256 H Random Glucose Fasting Glucose Lactic Acid Calcium Phosphorus Magnesium Total Bilirubin Direct Bilirubin AST ALT Alkaline Phosphatase Troponin I High Sens B-Natriuretic Peptide Total Protein Albumin Lipase Procalcitonin TSH Urine Color Urine Appearance Urine pH Ur Specific [place] Urine Protein Urine Glucose (UA) Urine Ketones Urine Blood Urine Nitrite Ur Leukocyte Esterase Urine RBC Urine WBC Ur Squamous Epith Cells Urine Bacteria Hyaline Casts Stool Occult Blood Vancomycin Trough Random Vancomycin Valproic Acid Central COVID-19 ([facility]) COVID-19 Clin Com Influenza Type A (PCR) Influenza Type B (PCR) RSV RNA Qual (PCR) SARS-CoV-2 RNA (RT-PCR) Blood Type Antibody Screen 01/30/24 01/30/24 01/30/24 00:06 04:43 11:43 WBC 7.8 RBC 3.77 L Hgb 8.9 L Hct 30.2 L MCV 80.1 MCH 23.6 L MCHC 29.5 L RDW 15.5 Plt Count 213 MPV 12.4 Immature Gran % (Auto) 0.6 H Neut % (Auto) 68.0 Lymph % (Auto) 21.2 [place] % (Auto) 8.4 Eos % (Auto) 1.4 Baso % (Auto) 0.4 Lymph # (Auto) 1.7 [place] # (Auto) 0.7 Eos # (Auto) 0.1 Baso # (Auto) 0.0 Abs Immat Gran (auto) 0.05 H Absolute Neuts (auto) 5.3 Absolute Nucleated RBC 0.000 Nucleated RBC % (auto) 0.0 Neutrophils % (Manual) Lymphocytes % (Manual) Monocytes % (Manual) Abs Neuts (Manual) Lymphocytes # (Manual) Monocytes # (Manual) Platelet Estimate Plt Morphology Comment RBC Morphology Target Cells Ovalocytes Smear Tech's Comments Hold Purple Top PT INR aPTT Heparin Protocol O2 Saturation ABG pH at Pt Temp ABG pCO2 at Pt Temp ABG pO2 at Pt Temp ABG HCO3 ABG Base Excess (Actual) VBG pH 7.51 H VBG pCO2 33 VBG pO2 60 VBG HCO3 26 VBG O2 Saturation 89.0 VBG Base Excess 3.9 Sodium 145 Potassium 4.5 Chloride 111 H Carbon Dioxide 23 Anion Gap 16 BUN 40 H Creatinine 1.32 Estim Creat Clear Calc 55.1 Estimated GFR 55 POC Glucose 226 H 287 H Random Glucose 284 H Fasting Glucose Lactic Acid Calcium 10.4 H Phosphorus 2.4 L Magnesium 2.1 Total Bilirubin 0.4 Direct Bilirubin AST 7 ALT 8 Alkaline Phosphatase 49 Troponin I High Sens B-Natriuretic Peptide Total Protein 7.4 Albumin 4.2 Lipase Procalcitonin TSH Urine Color Urine Appearance Urine pH Ur Specific [place] Urine Protein Urine Glucose (UA) Urine Ketones Urine Blood Urine Nitrite Ur Leukocyte Esterase Urine RBC Urine WBC Ur Squamous Epith Cells Urine Bacteria Hyaline Casts Stool Occult Blood Vancomycin Trough Random Vancomycin Valproic Acid Central COVID-19 ([facility]) COVID-19 Clin Com Influenza Type A (PCR) Influenza Type B (PCR) RSV RNA Qual (PCR) SARS-CoV-2 RNA (RT-PCR) Blood Type Antibody Screen 01/30/24 01/30/24 01/31/24 17:15 23:54 05:24 WBC 8.3 RBC 4.57 L D Hgb 10.7 L D Hct 36.2 L MCV 79.2 L MCH 23.4 L MCHC 29.6 L RDW 15.7 Plt Count 331 D MPV 11.6 Immature Gran % (Auto) 0.5 H Neut % (Auto) 69.3 Lymph % (Auto) 20.4 [place] % (Auto) 8.2 Eos % (Auto) 1.2 Baso % (Auto) 0.4 Lymph # (Auto) 1.7 [place] # (Auto) 0.7 Eos # (Auto) 0.1 Baso # (Auto) 0.0 Abs Immat Gran (auto) 0.04 H Absolute Neuts (auto) 5.7 Absolute Nucleated RBC 0.000 Nucleated RBC % (auto) 0.0 Neutrophils % (Manual) Lymphocytes % (Manual) Monocytes % (Manual) Abs Neuts (Manual) Lymphocytes # (Manual) Monocytes # (Manual) Platelet Estimate Plt Morphology Comment RBC Morphology Target Cells Ovalocytes Smear Tech's Comments Hold Purple Top PT INR aPTT Heparin Protocol O2 Saturation ABG pH at Pt Temp ABG pCO2 at Pt Temp ABG pO2 at Pt Temp ABG HCO3 ABG Base Excess (Actual) VBG pH VBG pCO2 VBG pO2 VBG HCO3 VBG O2 Saturation VBG Base Excess Sodium 150 H Potassium 4.3 Chloride 113 H Carbon Dioxide 25 Anion Gap 16 BUN 38 H Creatinine 1.07 Estim Creat Clear Calc 62.1 Estimated GFR > 60 POC Glucose 95 110 Random Glucose 140 H Fasting Glucose Lactic Acid Calcium 11.3 H D Phosphorus 4.1 Magnesium 2.1 Total Bilirubin Direct Bilirubin AST ALT Alkaline Phosphatase Troponin I High Sens B-Natriuretic Peptide Total Protein Albumin 4.3 Lipase Procalcitonin TSH Urine Color Urine Appearance Urine pH Ur Specific [place] Urine Protein Urine Glucose (UA) Urine Ketones Urine Blood Urine Nitrite Ur Leukocyte Esterase Urine RBC Urine WBC Ur Squamous Epith Cells Urine Bacteria Hyaline Casts Stool Occult Blood Vancomycin Trough Random Vancomycin Valproic Acid Central COVID-19 ([facility]) COVID-19 Clin Com Influenza Type A (PCR) Influenza Type B (PCR) RSV RNA Qual (PCR) SARS-CoV-2 RNA (RT-PCR) Blood Type Antibody Screen 01/31/24 01/31/24 01/31/24 05:25 12:21 17:30 WBC RBC Hgb Hct MCV MCH MCHC RDW Plt Count MPV Immature Gran % (Auto) Neut % (Auto) Lymph % (Auto) [place] % (Auto) Eos % (Auto) Baso % (Auto) Lymph # (Auto) [place] # (Auto) Eos # (Auto) Baso # (Auto) Abs Immat Gran (auto) Absolute Neuts (auto) Absolute Nucleated RBC Nucleated RBC % (auto) Neutrophils % (Manual) Lymphocytes % (Manual) Monocytes % (Manual) Abs Neuts (Manual) Lymphocytes # (Manual) Monocytes # (Manual) Platelet Estimate Plt Morphology Comment RBC Morphology Target Cells Ovalocytes Smear Tech's Comments Hold Purple Top PT INR aPTT Heparin Protocol O2 Saturation ABG pH at Pt Temp ABG pCO2 at Pt Temp ABG pO2 at Pt Temp ABG HCO3 ABG Base Excess (Actual) VBG pH 7.47 H VBG pCO2 35 VBG pO2 59 VBG HCO3 26 VBG O2 Saturation 87.0 VBG Base Excess 3.0 Sodium Potassium Chloride Carbon Dioxide Anion Gap BUN Creatinine Estim Creat Clear Calc Estimated GFR POC Glucose 155 H 82 Random Glucose Fasting Glucose Lactic Acid Calcium Phosphorus Magnesium Total Bilirubin Direct Bilirubin AST ALT Alkaline Phosphatase Troponin I High Sens B-Natriuretic Peptide Total Protein Albumin Lipase Procalcitonin TSH Urine Color Urine Appearance Urine pH Ur Specific [place] Urine Protein Urine Glucose (UA) Urine Ketones Urine Blood Urine Nitrite Ur Leukocyte Esterase Urine RBC Urine WBC Ur Squamous Epith Cells Urine Bacteria Hyaline Casts Stool Occult Blood Vancomycin Trough Random Vancomycin Valproic Acid Central COVID-19 ([facility]) COVID-19 Clin Com Influenza Type A (PCR) Influenza Type B (PCR) RSV RNA Qual (PCR) SARS-CoV-2 RNA (RT-PCR) Blood Type Antibody Screen 01/31/24 02/01/24 02/01/24 23:48 05:15 10:54 WBC 7.7 6.9 RBC 4.86 5.05 Hgb 11.4 L 11.8 L Hct 38.1 L 39.8 L MCV 78.4 L 78.8 L MCH 23.5 L 23.4 L MCHC 29.9 L 29.6 L RDW 15.7 15.8 Plt Count 336 330 MPV 11.3 10.7 Immature Gran % (Auto) 0.1 0.4 Neut % (Auto) 65.2 66.8 Lymph % (Auto) 24.1 22.6 [place] % (Auto) 8.9 8.2 Eos % (Auto) 1.4 1.9 Baso % (Auto) 0.3 0.1 Lymph # (Auto) 1.8 1.6 [place] # (Auto) 0.7 0.6 Eos # (Auto) 0.1 0.1 Baso # (Auto) 0.0 0.0 Abs Immat Gran (auto) 0.01 0.03 Absolute Neuts (auto) 5.0 4.6 Absolute Nucleated RBC 0.000 0.000 Nucleated RBC % (auto) 0.0 0.0 Neutrophils % (Manual) Lymphocytes % (Manual) Monocytes % (Manual) Abs Neuts (Manual) Lymphocytes # (Manual) Monocytes # (Manual) Platelet Estimate Plt Morphology Comment RBC Morphology Target Cells Ovalocytes Smear Tech's Comments Hold Purple Top PT INR aPTT Heparin Protocol O2 Saturation ABG pH at Pt Temp ABG pCO2 at Pt Temp ABG pO2 at Pt Temp ABG HCO3 ABG Base Excess (Actual) VBG pH 7.46 H VBG pCO2 35 VBG pO2 60 VBG HCO3 25 VBG O2 Saturation 88.0 VBG Base Excess 2.3 Sodium 149 H Potassium 4.1 Chloride 112 H Carbon Dioxide 23 Anion Gap 18 BUN 42 H Creatinine 1.14 Estim Creat Clear Calc 58.3 Estimated GFR > 60 POC Glucose 78 Random Glucose 98 Fasting Glucose Lactic Acid Calcium 10.9 H Phosphorus 5.0 H Magnesium 2.1 Total Bilirubin Direct Bilirubin AST ALT Alkaline Phosphatase Troponin I High Sens B-Natriuretic Peptide Total Protein Albumin 4.1 Lipase Procalcitonin TSH Urine Color Urine Appearance Urine pH Ur Specific [place] Urine Protein Urine Glucose (UA) Urine Ketones Urine Blood Urine Nitrite Ur Leukocyte Esterase Urine RBC Urine WBC Ur Squamous Epith Cells Urine Bacteria Hyaline Casts Stool Occult Blood Vancomycin Trough Random Vancomycin Valproic Acid Central COVID-19 ([facility]) COVID-19 Clin Com Influenza Type A (PCR) Influenza Type B (PCR) RSV RNA Qual (PCR) SARS-CoV-2 RNA (RT-PCR) Blood Type Antibody Screen 02/01/24 02/01/24 02/01/24 12:25 18:09 23:53 WBC RBC Hgb Hct MCV MCH MCHC RDW Plt Count MPV Immature Gran % (Auto) Neut % (Auto) Lymph % (Auto) [place] % (Auto) Eos % (Auto) Baso % (Auto) Lymph # (Auto) [place] # (Auto) Eos # (Auto) Baso # (Auto) Abs Immat Gran (auto) Absolute Neuts (auto) Absolute Nucleated RBC Nucleated RBC % (auto) Neutrophils % (Manual) Lymphocytes % (Manual) Monocytes % (Manual) Abs Neuts (Manual) Lymphocytes # (Manual) Monocytes # (Manual) Platelet Estimate Plt Morphology Comment RBC Morphology Target Cells Ovalocytes Smear Tech's Comments Hold Purple Top PT INR aPTT Heparin Protocol O2 Saturation ABG pH at Pt Temp ABG pCO2 at Pt Temp ABG pO2 at Pt Temp ABG HCO3 ABG Base Excess (Actual) VBG pH VBG pCO2 VBG pO2 VBG HCO3 VBG O2 Saturation VBG Base Excess Sodium Potassium Chloride Carbon Dioxide Anion Gap BUN Creatinine Estim Creat Clear Calc Estimated GFR POC Glucose 139 H 163 H 127 H Random Glucose Fasting Glucose Lactic Acid Calcium Phosphorus Magnesium Total Bilirubin Direct Bilirubin AST ALT Alkaline Phosphatase Troponin I High Sens B-Natriuretic Peptide Total Protein Albumin Lipase Procalcitonin TSH Urine Color Urine Appearance Urine pH Ur Specific [place] Urine Protein Urine Glucose (UA) Urine Ketones Urine Blood Urine Nitrite Ur Leukocyte Esterase Urine RBC Urine WBC Ur Squamous Epith Cells Urine Bacteria Hyaline Casts Stool Occult Blood Vancomycin Trough Random Vancomycin Valproic Acid Central COVID-19 ([facility]) COVID-19 Clin Com Influenza Type A (PCR) Influenza Type B (PCR) RSV RNA Qual (PCR) SARS-CoV-2 RNA (RT-PCR) Blood Type Antibody Screen 02/02/24 02/02/24 02/02/24 06:11 06:20 06:23 WBC RBC Hgb Hct MCV MCH MCHC RDW Plt Count MPV Immature Gran % (Auto) Neut % (Auto) Lymph % (Auto) [place] % (Auto) Eos % (Auto) Baso % (Auto) Lymph # (Auto) [place] # (Auto) Eos # (Auto) Baso # (Auto) Abs Immat Gran (auto) Absolute Neuts (auto) Absolute Nucleated RBC Nucleated RBC % (auto) Neutrophils % (Manual) Lymphocytes % (Manual) Monocytes % (Manual) Abs Neuts (Manual) Lymphocytes # (Manual) Monocytes # (Manual) Platelet Estimate Plt Morphology Comment RBC Morphology Target Cells Ovalocytes Smear Tech's Comments Hold Purple Top PT INR aPTT Heparin Protocol O2 Saturation ABG pH at Pt Temp ABG pCO2 at Pt Temp ABG pO2 at Pt Temp ABG HCO3 ABG Base Excess (Actual) VBG pH 7.41 VBG pCO2 43 VBG pO2 38 VBG HCO3 27 H VBG O2 Saturation 55.0 VBG Base Excess 2.7 Sodium 145 Potassium 4.0 Chloride 109 H Carbon Dioxide 26 Anion Gap 14 BUN 36 H Creatinine 1.09 Estim Creat Clear Calc 63.6 Estimated GFR > 60 POC Glucose 105 Random Glucose 109 Fasting Glucose Lactic Acid Calcium 10.4 H Phosphorus 4.0 Magnesium 2.0 Total Bilirubin Direct Bilirubin AST ALT Alkaline Phosphatase Troponin I High Sens B-Natriuretic Peptide Total Protein Albumin 4.0 Lipase Procalcitonin TSH Urine Color Urine Appearance Urine pH Ur Specific [place] Urine Protein Urine Glucose (UA) Urine Ketones Urine Blood Urine Nitrite Ur Leukocyte Esterase Urine RBC Urine WBC Ur Squamous Epith Cells Urine Bacteria Hyaline Casts Stool Occult Blood Vancomycin Trough Random Vancomycin Valproic Acid Central COVID-19 ([facility]) COVID-19 Clin Com Influenza Type A (PCR) Influenza Type B (PCR) RSV RNA Qual (PCR) SARS-CoV-2 RNA (RT-PCR) Blood Type Antibody Screen 02/02/24 02/02/24 02/02/24 06:29 11:09 18:04 WBC RBC Hgb Hct MCV MCH MCHC RDW Plt Count MPV Immature Gran % (Auto) Neut % (Auto) Lymph % (Auto) [place] % (Auto) Eos % (Auto) Baso % (Auto) Lymph # (Auto) [place] # (Auto) Eos # (Auto) Baso # (Auto) Abs Immat Gran (auto) Absolute Neuts (auto) Absolute Nucleated RBC Nucleated RBC % (auto) Neutrophils % (Manual) Lymphocytes % (Manual) Monocytes % (Manual) Abs Neuts (Manual) Lymphocytes # (Manual) Monocytes # (Manual) Platelet Estimate Plt Morphology Comment RBC Morphology Target Cells Ovalocytes Smear Tech's Comments Hold Purple Top PT INR aPTT Heparin Protocol O2 Saturation ABG pH at Pt Temp ABG pCO2 at Pt Temp ABG pO2 at Pt Temp ABG HCO3 ABG Base Excess (Actual) VBG pH VBG pCO2 VBG pO2 VBG HCO3 VBG O2 Saturation VBG Base Excess Sodium Potassium Chloride Carbon Dioxide Anion Gap BUN Creatinine Estim Creat Clear Calc Estimated GFR POC Glucose 106 119 H 152 H Random Glucose Fasting Glucose Lactic Acid Calcium Phosphorus Magnesium Total Bilirubin Direct Bilirubin AST ALT Alkaline Phosphatase Troponin I High Sens B-Natriuretic Peptide Total Protein Albumin Lipase Procalcitonin TSH Urine Color Urine Appearance Urine pH Ur Specific [place] Urine Protein Urine Glucose (UA) Urine Ketones Urine Blood Urine Nitrite Ur Leukocyte Esterase Urine RBC Urine WBC Ur Squamous Epith Cells Urine Bacteria Hyaline Casts Stool Occult Blood Vancomycin Trough Random Vancomycin Valproic Acid Central COVID-19 ([facility]) COVID-19 Clin Com Influenza Type A (PCR) Influenza Type B (PCR) RSV RNA Qual (PCR) SARS-CoV-2 RNA (RT-PCR) Blood Type Antibody Screen 02/02/24 02/03/24 02/03/24 21:29 00:35 06:03 WBC RBC Hgb Hct MCV MCH MCHC RDW Plt Count MPV Immature Gran % (Auto) Neut % (Auto) Lymph % (Auto) [place] % (Auto) Eos % (Auto) Baso % (Auto) Lymph # (Auto) [place] # (Auto) Eos # (Auto) Baso # (Auto) Abs Immat Gran (auto) Absolute Neuts (auto) Absolute Nucleated RBC Nucleated RBC % (auto) Neutrophils % (Manual) Lymphocytes % (Manual) Monocytes % (Manual) Abs Neuts (Manual) Lymphocytes # (Manual) Monocytes # (Manual) Platelet Estimate Plt Morphology Comment RBC Morphology Target Cells Ovalocytes Smear Tech's Comments Hold Purple Top PT INR aPTT Heparin Protocol O2 Saturation ABG pH at Pt Temp ABG pCO2 at Pt Temp ABG pO2 at Pt Temp ABG HCO3 ABG Base Excess (Actual) VBG pH VBG pCO2 VBG pO2 VBG HCO3 VBG O2 Saturation VBG Base Excess Sodium Potassium Chloride Carbon Dioxide Anion Gap BUN Creatinine Estim Creat Clear Calc Estimated GFR POC Glucose 149 H 132 H 126 H Random Glucose Fasting Glucose Lactic Acid Calcium Phosphorus Magnesium Total Bilirubin Direct Bilirubin AST ALT Alkaline Phosphatase Troponin I High Sens B-Natriuretic Peptide Total Protein Albumin Lipase Procalcitonin TSH Urine Color Urine Appearance Urine pH Ur Specific [place] Urine Protein Urine Glucose (UA) Urine Ketones Urine Blood Urine Nitrite Ur Leukocyte Esterase Urine RBC Urine WBC Ur Squamous Epith Cells Urine Bacteria Hyaline Casts Stool Occult Blood Vancomycin Trough Random Vancomycin Valproic Acid Central COVID-19 ([facility]) COVID-19 Clin Com Influenza Type A (PCR) Influenza Type B (PCR) RSV RNA Qual (PCR) SARS-CoV-2 RNA (RT-PCR) Blood Type Antibody Screen 02/03/24 02/03/24 02/03/24 07:12 11:01 16:08 WBC 5.3 RBC 4.66 Hgb 10.7 L Hct 36.8 L MCV 79.0 L MCH 23.0 L MCHC 29.1 L RDW 15.6 Plt Count 311 MPV 10.6 Immature Gran % (Auto) 0.4 Neut % (Auto) 48.5 Lymph % (Auto) 34.9 [place] % (Auto) 11.6 H Eos % (Auto) 4.2 H Baso % (Auto) 0.4 Lymph # (Auto) 1.8 [place] # (Auto) 0.6 Eos # (Auto) 0.2 Baso # (Auto) 0.0 Abs Immat Gran (auto) 0.02 Absolute Neuts (auto) 2.6 Absolute Nucleated RBC 0.000 Nucleated RBC % (auto) 0.0 Neutrophils % (Manual) Lymphocytes % (Manual) Monocytes % (Manual) Abs Neuts (Manual) Lymphocytes # (Manual) Monocytes # (Manual) Platelet Estimate Plt Morphology Comment RBC Morphology Target Cells Ovalocytes Smear Tech's Comments Hold Purple Top PT INR aPTT Heparin Protocol O2 Saturation ABG pH at Pt Temp ABG pCO2 at Pt Temp ABG pO2 at Pt Temp ABG HCO3 ABG Base Excess (Actual) VBG pH VBG pCO2 VBG pO2 VBG HCO3 VBG O2 Saturation VBG Base Excess Sodium 135 Potassium 3.5 Chloride 101 Carbon Dioxide 25 Anion Gap 13 BUN 33 H Creatinine 1.11 Estim Creat Clear Calc 62.4 Estimated GFR > 60 POC Glucose 109 118 H Random Glucose Fasting Glucose 373 H* Lactic Acid Calcium 9.6 D Phosphorus Magnesium Total Bilirubin 0.4 Direct Bilirubin AST 11 ALT 8 Alkaline Phosphatase 60 Troponin I High Sens B-Natriuretic Peptide Total Protein 7.2 Albumin 3.5 Lipase Procalcitonin TSH Urine Color Urine Appearance Urine pH Ur Specific [place] Urine Protein Urine Glucose (UA) Urine Ketones Urine Blood Urine Nitrite Ur Leukocyte Esterase Urine RBC Urine WBC Ur Squamous Epith Cells Urine Bacteria Hyaline Casts Stool Occult Blood Vancomycin Trough Random Vancomycin Valproic Acid Central COVID-19 ([facility]) COVID-19 Clin Com Influenza Type A (PCR) Influenza Type B (PCR) RSV RNA Qual (PCR) SARS-CoV-2 RNA (RT-PCR) Blood Type Antibody Screen 02/03/24 02/04/24 02/04/24 23:30 05:55 06:20 WBC 4.5 L RBC 4.70 Hgb 10.9 L Hct 37.0 L MCV 78.7 L MCH 23.2 L MCHC 29.5 L RDW 15.1 Plt Count 315 MPV 10.8 Immature Gran % (Auto) 0.4 Neut % (Auto) 36.7 L Lymph % (Auto) 46.7 H [place] % (Auto) 11.2 H Eos % (Auto) 4.6 H Baso % (Auto) 0.4 Lymph # (Auto) 2.1 [place] # (Auto) 0.5 Eos # (Auto) 0.2 Baso # (Auto) 0.0 Abs Immat Gran (auto) 0.02 Absolute Neuts (auto) 1.7 L Absolute Nucleated RBC 0.000 Nucleated RBC % (auto) 0.0 Neutrophils % (Manual) Lymphocytes % (Manual) Monocytes % (Manual) Abs Neuts (Manual) Lymphocytes # (Manual) Monocytes # (Manual) Platelet Estimate Plt Morphology Comment RBC Morphology Target Cells Ovalocytes Smear Tech's Comments Hold Purple Top PT INR aPTT Heparin Protocol O2 Saturation ABG pH at Pt Temp ABG pCO2 at Pt Temp ABG pO2 at Pt Temp ABG HCO3 ABG Base Excess (Actual) VBG pH VBG pCO2 VBG pO2 VBG HCO3 VBG O2 Saturation VBG Base Excess Sodium 139 Potassium 3.6 Chloride 105 Carbon Dioxide 26 Anion Gap 12 BUN 26 H Creatinine 1.08 Estim Creat Clear Calc 64.2 Estimated GFR > 60 POC Glucose 95 95 Random Glucose Fasting Glucose 94 Lactic Acid Calcium 9.9 Phosphorus Magnesium Total Bilirubin 0.4 Direct Bilirubin AST 14 ALT 10 Alkaline Phosphatase 61 Troponin I High Sens B-Natriuretic Peptide Total Protein 7.3 Albumin 3.5 Lipase Procalcitonin TSH Urine Color Urine Appearance Urine pH Ur Specific [place] Urine Protein Urine Glucose (UA) Urine Ketones Urine Blood Urine Nitrite Ur Leukocyte Esterase Urine RBC Urine WBC Ur Squamous Epith Cells Urine Bacteria Hyaline Casts Stool Occult Blood Vancomycin Trough Random Vancomycin Valproic Acid Central COVID-19 ([facility]) COVID-19 Clin Com Influenza Type A (PCR) Influenza Type B (PCR) RSV RNA Qual (PCR) SARS-CoV-2 RNA (RT-PCR) Blood Type Antibody Screen 02/04/24 02/04/24 07:36 09:56 WBC RBC Hgb Hct MCV MCH MCHC RDW Plt Count MPV Immature Gran % (Auto) Neut % (Auto) Lymph % (Auto) [place] % (Auto) Eos % (Auto) Baso % (Auto) Lymph # (Auto) [place] # (Auto) Eos # (Auto) Baso # (Auto) Abs Immat Gran (auto) Absolute Neuts (auto) Absolute Nucleated RBC Nucleated RBC % (auto) Neutrophils % (Manual) Lymphocytes % (Manual) Monocytes % (Manual) Abs Neuts (Manual) Lymphocytes # (Manual) Monocytes # (Manual) Platelet Estimate Plt Morphology Comment RBC Morphology Target Cells Ovalocytes Smear Tech's Comments Hold Purple Top PT INR aPTT Heparin Protocol O2 Saturation ABG pH at Pt Temp ABG pCO2 at Pt Temp ABG pO2 at Pt Temp ABG HCO3 ABG Base Excess (Actual) VBG pH VBG pCO2 VBG pO2 VBG HCO3 VBG O2 Saturation VBG Base Excess Sodium Potassium Chloride Carbon Dioxide Anion Gap BUN Creatinine Estim Creat Clear Calc Estimated GFR POC Glucose 106 Random Glucose Fasting Glucose Lactic Acid Calcium Phosphorus Magnesium Total Bilirubin Direct Bilirubin AST ALT Alkaline Phosphatase Troponin I High Sens B-Natriuretic Peptide Total Protein Albumin Lipase Procalcitonin TSH Urine Color Urine Appearance Urine pH Ur Specific [place] Urine Protein Urine Glucose (UA) Urine Ketones Urine Blood Urine Nitrite Ur Leukocyte Esterase Urine RBC Urine WBC Ur Squamous Epith Cells Urine Bacteria Hyaline Casts Stool Occult Blood Vancomycin Trough Random Vancomycin Valproic Acid Central COVID-19 ([facility]) COVID-19 Clin Com Influenza Type A (PCR) Influenza Type B (PCR) RSV RNA Qual (PCR) SARS-CoV-2 RNA (RT-PCR) Blood Type O Positive Antibody Screen NEGATIVE Airway Mallampati Class: Patient Non-Cooperative TM Dist: >3cm Neck ROM: Full Denture: Upper and Lower Heart: ok Lungs: Sat 97% on room air Other: Mild wet cough. Assessment and Plan Assessment Anesthesia Assessment: Anesthesia Plan Discussed Final Anesthetic Review Family History of Problems with Anesthesia: No History of Problems with Anesthesia: No NPO: Yes ASA Class: IV Final Preanesthetic Review: No Changes in Pt Med Stat, Meds/Allgs Chart Reviewed, Consent Obtained/Reviewed and Anes Risks/Benef Reviewed Patient Risk: High Procedure Risk: Intermediate Anesthetic Plan Anesthetic Plan: TIVA Disposition: Standard PACU
--- NOTE | 2024-02-04 10:43 | P.OP_ITS ---
Operative Note Operative Note Date of Service: 02/04/24 Narrative: Preop diagnosis: Dysphagia Postop diagnosis: The same Procedure: Peg tube placement procedure Surgeon: Luca Jaffe MD fast food sales assistant: MELBA Jain The patient is a 63-year-old male admitted for pneumonia secondary to aspiration. He failed his swallow eval and was referred to mo for PEG tube placement. Consent was given by the legal guardian Kira Mack. She understood the technique of the procedure as well as the risks, benefits, and alternatives. The patient was brought to the operating room and placed supine in reverse Trendelenburg position under monitored anesthesia care. A surgical time-out was done. The endoscope was introduced through the oral orifice and advanced into the oropharynx. The vocal cords were visualized. The esophageal slit was seen posterior to this. This esophageal slit was intubated. The scope was advanced all the way to the stomach and the stomach was insufflated. Transillumination was seen in the left upper quadrant. Furthermore, indentation of the anterior stomach wall was easily seen with pressure on the left upper quadrant with a finger. This area was therefore infiltrated with lidocaine 1% after prepping and draping. The large bore needle was inserted and this was easily seen in the stomach lumen. The guidewire was inserted through this needle. The guidewire was grasped with a snare. The guidewire was pulled along with the endoscope out through the oral orifice. I looped the guidewire into the PEG tube. The guidewire was then pulled from the abdominal wall along with the G-tube until the PEG tube was snug on the anterior stomach wall. I reinserted the scope and examined the internal bolster in the stomach lumen and this appeared to be in good position. There was no bleeding. Photographic documentation was done. The scope was then withdrawn completely. The external bolster was positioned to make this snug on the skin. The patient tolerated procedure well. There were no immediate complications. There was no blood loss. The patient was then transferred to the recovery room with stable vital signs.
--- NOTE | 2024-02-04 10:43 | MHC.CLN ---
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
--- NOTE | 2024-02-04 11:32 | MHC.SLORD ---
Addendum entered and electronically signed by Laquita Glaser EMPLOYMENT TRAINING SPECIALIST 02/04/24 12:57: Per MD request, EMPLOYMENT TRAINING SPECIALIST to see patient once tube feeds have started and patient is tolerating them. Original Note: Speech Language Pathology Order Status: Pt NPO today for PEG surgery. EMPLOYMENT TRAINING SPECIALIST to continue to follow.
[2024-02-04 11:53] LABS: Glucose, Whole Blood 80 mg/dL (60-115)
--- NOTE | 2024-02-04 12:08 | PC.NURSE ---
pt arrived back on unit from surgery around 1145. POC blood glucose was 80. pt NPO, aware Pt resumed D5 W @ 75, pt awaiting nutrition consult and tube feeds. Will continue monitoring.
[2024-02-04] MEDS: HYDROmorphone HCl 0.5 MG/0.5 ML SYRINGE IVPUSH (12:30)
--- NOTE | 2024-02-04 13:23 | MHC.CM.PN ---
EMR reviewed and per MD rounds, pt is medically cleared due to PEG tube placement in OR today.
--- NOTE | 2024-02-04 15:15 | HO.PM.IMPN ---
Subjective Subjective Date of Service: 02/04/24 Interval History: awake nonverbal PEG today Review of Systems Review of Systems: Yes Unobtainable due to mental status Physical Exam Vital Signs: Vital Signs: Last Vital Signs Temp 97.2 F 02/04/24 11:15 Pulse 57 02/04/24 11:15 Resp 18 02/04/24 11:15 BP 157/85 H 02/04/24 11:15 Pulse Ox 95 02/04/24 11:15 O2 Del Method Room Air 02/04/24 11:15 O2 Flow Rate 2 01/30/24 17:00 FiO2 35 01/30/24 11:31 BMI result Body Mass Index 19.6 Gen: in no acute distress HEENT: sclera anicteric, moist mucus membranes Neck: supple Lungs: clear to auscultation bilaterally Heart: regular rate and rhythm, no murmurs Abd: soft, non-tender, non-distended, PEG in place Ext: no edema Skin: warm/well-perfused Neuro: alert, unable to assess orientation Psych: impaired insight Objective Data Active Medications Acetaminophen (Acetaminophen 325 Mg Tablet) 975 mg PO Q6H PRN PRN Reason: Fever >100.4 Last Admin: 01/25/24 10:55 Dose: 975 mg Documented By: LESLY Chlorhexidine Gluconate (Chlorhexidine Gluc Oral Rinse 15 Ml Mouthwash) 15 ml BUCCAL TID [facility] Last Admin: 02/04/24 09:54 Dose: Not Given Documented By: ROSIE Non-Admin Reason: Off Unit: Surgery Dextrose (Dextrose 50 % 25 Gm/50 Ml Syringe) 25 gm IVPUSH Q15M PRN; Protocol PRN Reason: per Hypoglycemia Standing Ord. Glucose (Glucose Gel 15 Gm Gel..Gram.) 15 gm PO Q15M PRN; Protocol PRN Reason: per Hypoglycemia Standing Ord. Heparin Sodium (Porcine) (Heparin Sodium,Porcine 5,000 Unit/Ml Vial) 5,000 unit SUBCUT Q8H [facility] Last Admin: 01/25/24 00:09 Dose: 5,000 unit Documented By: AMINA Hydromorphone HCl (Hydromorphone Hcl 0.5 Mg/0.5 Ml Syringe) 0.5 mg IVPUSH Q4H PRN; Protocol PRN Reason: Pain, Moderate(Pain Scale 4-6) Last Admin: 02/04/24 12:30 Dose: 0.5 mg Documented By: ROSIE Valproic Acid 250 mg/ Dextrose 52.5 mls @ 52.5 mls/hr IV Q8H [facility] Last Infusion: 02/04/24 13:49 Dose: Infused Documented By: ROSIE Insulin Glargine (Insulin Glargine,Hum.Rec.Anlog 100 Unit/Ml 10 Ml Vial) 25 unit SUBCUT DAILY [facility] Last Admin: 02/04/24 09:54 Dose: Not Given Documented By: ROSIE Non-Admin Reason: Off Unit: Surgery Insulin Human Lispro (Insulin Lispro 100 Unit/Ml 3 Ml Vial) 0 unit SUBCUT Q6H [facility]; Protocol Last Admin: 02/04/24 12:16 Dose: Not Given Documented By: ROSIE Non-Kishan Reason: No Insulin Coverage Lactulose (Lactulose 20 Gm/30 Ml Solution) 30 gm PO DAILY [facility] Last Admin: 02/04/24 07:44 Dose: Not Given Documented By: ROSIE Non-Admin Reason: NPO Levothyroxine Sodium (Levothyroxine Sodium 100 Mcg/5 Ml Vial) 55 mcg IVPUSH DAILY@0600 [facility] Last Admin: 02/04/24 06:13 Dose: Not Given Documented By: HENRI Non-Admin Reason: NPO Oxycodone HCl (Oxycodone Hcl Immed Release 5 Mg Tablet) 5 mg PO Q4H PRN PRN Reason: Pain, Moderate(Pain Scale 4-6) Labs 02/04/24 06:20 02/04/24 06:20 Labs: Laboratory Results - last 24 hr 02/03/24 02/03/24 02/04/24 16:08 23:30 05:55 MCV MCH MCHC RDW Plt Count MPV Immature Gran % (Auto) Neut % (Auto) Lymph % (Auto) [place] % (Auto) Eos % (Auto) Baso % (Auto) Lymph # (Auto) [place] # (Auto) Eos # (Auto) Baso # (Auto) Abs Immat Gran (auto) Absolute Neuts (auto) Absolute Nucleated RBC Nucleated RBC % (auto) Anion Gap Estim Creat Clear Calc Estimated GFR POC Glucose 118 H 95 95 Fasting Glucose Calcium Total Bilirubin AST ALT Alkaline Phosphatase Total Protein Albumin Blood Type Antibody Screen 02/04/24 02/04/24 02/04/24 06:20 07:36 09:56 MCV 78.7 L MCH 23.2 L MCHC 29.5 L RDW 15.1 Plt Count 315 MPV 10.8 Immature Gran % (Auto) 0.4 Neut % (Auto) 36.7 L Lymph % (Auto) 46.7 H [place] % (Auto) 11.2 H Eos % (Auto) 4.6 H Baso % (Auto) 0.4 Lymph # (Auto) 2.1 [place] # (Auto) 0.5 Eos # (Auto) 0.2 Baso # (Auto) 0.0 Abs Immat Gran (auto) 0.02 Absolute Neuts (auto) 1.7 L Absolute Nucleated RBC 0.000 Nucleated RBC % (auto) 0.0 Anion Gap 12 Estim Creat Clear Calc 64.2 Estimated GFR > 60 POC Glucose 106 Fasting Glucose 94 Calcium 9.9 Total Bilirubin 0.4 AST 14 ALT 10 Alkaline Phosphatase 61 Total Protein 7.3 Albumin 3.5 Blood Type O Positive Antibody Screen NEGATIVE 02/04/24 11:49 MCV MCH MCHC RDW Plt Count MPV Immature Gran % (Auto) Neut % (Auto) Lymph % (Auto) [place] % (Auto) Eos % (Auto) Baso % (Auto) Lymph # (Auto) [place] # (Auto) Eos # (Auto) Baso # (Auto) Abs Immat Gran (auto) Absolute Neuts (auto) Absolute Nucleated RBC Nucleated RBC % (auto) Anion Gap Estim Creat Clear Calc Estimated GFR POC Glucose 80 Fasting Glucose Calcium Total Bilirubin AST ALT Alkaline Phosphatase Total Protein Albumin Blood Type Antibody Screen Assessment and Plan (1) Acute respiratory failure with hypoxia: Status: Acute (2) Pneumonia: Status: Acute Plan d15 63yo nonverbal M LTC resident of [facility] with schizophrenia, dementia, DM2, hypothyroidism, GERD, diastolic dysfunction, CKD3 and seizure disorder presenting with hypoxia, intubated and mechanically venilated for pneumonia, required pressor support for septic shock, extubated 01/30/24 and downgraded to IMC 02/01/24 acute hypoxic resp failure and septic shock due to pneumonia - completed antibiotics, weaned to room air DAKOTAH, septic ATN - resolved hyperNa - resolved DM2 - basal-bolus insulin seizure disorder - VPA hypothyroidism - continue LT4 [IV] dysphagia, failed swallow eval malnutrition - PEG placement today, start TFs as per Nutrition consultation VTE ppx - LMWH dispo - eventual return to [facility] In my clinical judgment, the patient requires continued inpatient hospitalization for the following reasons: TF initiation Total time managing care of this patient today: 35 minutes. Quality Stroke Does the patient have a stroke diagnosis?: No VTE Prior VTE?: No VTE Risk Level:: Medical - moderate - high VTE Device Contraindication: N/A - Device Ordered VTE Drug Contraindication: N/A - Med Ordered
[2024-02-04] MEDS: Chlorhexidine Gluc Oral Rinse 15 ML MOUTHWASH BUCCAL ×2 (16:43→20:23)
[2024-02-04] MEDS: Heparin Sodium,Porcine 5,000 UNIT/ML VIAL 5000 UNIT SUBCUT (16:43)
[2024-02-04 18:44] LABS: Glucose, Whole Blood 110 mg/dL (60-115)
[2024-02-05 00:09] LABS: Glucose, Whole Blood 66 mg/dL (60-115)
[2024-02-05] MEDS: Dextrose 50 % 25 GM/50 ML SYRINGE IVPUSH (00:12)
[2024-02-05] MEDS: Heparin Sodium,Porcine 5,000 UNIT/ML VIAL 5000 UNIT SUBCUT ×3 (00:18→17:30)
[2024-02-05 00:40] LABS: Glucose, Whole Blood 174 mg/dL (60-115)
[2024-02-05 04:00] VITALS: BP 150/80; PULSE 53; RESP 18; TEMP 36; O2SAT 94
[2024-02-05] MEDS: Valproic Acid (as Sodium Salt) 250 MG in Dextrose 5 % 50 ML 52.5 MG IV (04:02)
[2024-02-05 05:45] LABS: Glucose, Whole Blood 163 mg/dL (60-115)
[2024-02-05 05:45] LABS: Glucose, Whole Blood 142 mg/dL (60-115)
[2024-02-05] MEDS: Levothyroxine Sodium 100 MCG/5 ML VIAL 55 MCG IVPUSH (06:03)
[2024-02-05 06:10] LABS: Glucose, Whole Blood 77 mg/dL (60-115)
[2024-02-05 06:57] LABS: MANUAL DIFF FLAG NO
[2024-02-05 07:17] LABS: Basophils Percent Auto 0.4 % (0-2); Eosinophils Absolute Auto 0.2 X10*3/uL (0.0-0.4); Eosinophils Percent Auto 3.7 % (0-4); Hematocrit 37.6 % (42.0-52.0); Hemoglobin 11.1 g/dl (14.0-18.0); Imm Gran Abs Auto 0.02 X10*3/uL (0.00-0.03); Imm Gran Pct Auto 0.4 % (0.0-0.4); Lymphocytes Absolute Auto 1.7 X10*3/uL (1.2-4.9); Lymphocytes Percent Auto 35.1 % (20-40); Mean Corpuscular HGB Conc 29.5 g/dl (31.0-36.0); Mean Platelet Volume 10.5 fL (9.4-12.4); Monocytes Absolute Auto 0.4 X10*3/uL (0.1-1.2); Monocytes Percent Auto 8.9 % (2-11); Neutrophils Absolute Auto 2.5 x10*3/uL (2.0-8.3); Neutrophils Percent Auto 51.5 % (45-73); Platelet Count 304 X10*3/uL (160-400); Red Blood Count 4.82 X10*6/uL (4.60-5.80); Red Cell Distribution Width 15.3 % (11.0-16.0); White Blood Count 4.9 X10*3/uL (4.8-10.8)
[2024-02-05 07:26] LABS: Alanine Aminotransferase 11 U/L (0-40); Albumin Level 3.5 g/dL (3.5-5.0); Alkaline Phosphatase 60 U/L (39-117); Anion Gap 14 (12-20); Aspartate Amino Transferase 12 U/L (5-37); Bilirubin Total 0.4 mg/dL (0.0-1.0); Blood Urea Nitrogen 20 mg/dL (9-16); Calcium 9.9 mg/dL (8.4-10.2); Carbon Dioxide 23 mmol/L (22-29); Chloride 107 mmol/L (96-108); Creatinine Clr Calc Pharmacy 73.7; Estimated Glomerular Filt Rate > 60; Glucose Fasting 75 mg/dL (60-99); Magnesium 1.6 mg/dL (1.6-2.6); Phosphorus 3.1 mg/dL (2.7-4.5); Potassium 3.6 mmol/L (3.3-5.1); Sodium 140 mmol/L (135-145); Total Protein 7.1 g/dL (6.5-8.0)
--- NOTE | 2024-02-05 07:28 | PC.NURSE ---
this RN assumed care at 0700 of pt. pt tube feeds started at 0645 by previous RN. Feeds started at 20 ML/hr. pt seems to be tolerating feed. pt is resting calmly in bed and does not appear to be in any discomfort. will continue to monitor.
[2024-02-05 07:47] VITALS: BP 138/86; PULSE 57; RESP 16; TEMP 36.6; O2SAT 92
--- NOTE | 2024-02-05 09:49 | P.PNIM_ITS ---
Subjective Subjective Date of Service: 02/05/24 Interval History: TFs started at 20 mL/hr pt non-verbal; unable to obtain ROS Review of Systems Review of Systems: Yes Unobtainable due to mental status Physical Exam 2 Vital Signs: Vital Signs: Last Vital Signs Temp 97.9 F 02/05/24 07:47 Pulse 57 02/05/24 07:47 Resp 16 02/05/24 07:47 BP 138/86 02/05/24 07:47 Pulse Ox 92 02/05/24 07:47 O2 Del Method Room Air 02/05/24 07:47 O2 Flow Rate 2 01/30/24 17:00 FiO2 35 01/30/24 11:31 BMI result Body Mass Index 19.6 Gen: in no acute distress HEENT: sclera anicteric, moist mucus membranes Neck: supple Lungs: clear to auscultation bilaterally Heart: regular rate and rhythm, no murmurs Abd: soft, non-tender, non-distended, PEG in place Ext: no edema Skin: warm/well-perfused Neuro: alert, unable to assess orientation Psych: impaired insight Objective Data Active Medications Acetaminophen (Acetaminophen 325 Mg Tablet) 975 mg PO Q6H PRN PRN Reason: Fever >100.4 Last Admin: 01/25/24 10:55 Dose: 975 mg Documented By: LESLY Chlorhexidine Gluconate (Chlorhexidine Gluc Oral Rinse 15 Ml Mouthwash) 15 ml BUCCAL TID [facility] Last Admin: 02/04/24 20:23 Dose: 15 ml Documented By: PHILLY Dextrose (Dextrose 50 % 25 Gm/50 Ml Syringe) 25 gm IVPUSH Q15M PRN; Protocol PRN Reason: per Hypoglycemia Standing Ord. Last Admin: 02/05/24 00:12 Dose: 25 gm Documented By: MICK Divalproex Sodium (Divalproex Sodium Sprinkles 125 Mg ) 250 mg G-TUBE BID [facility] Glucose (Glucose Gel 15 Gm Gel..Gram.) 15 gm BUCCAL Q15M PRN; Protocol PRN Reason: per Hypoglycemia Standing Ord. Heparin Sodium (Porcine) (Heparin Sodium,Porcine 5,000 Unit/Ml Vial) 5,000 unit SUBCUT Q8H [facility] Last Admin: 02/05/24 00:18 Dose: 5,000 unit Documented By: MICK Hydromorphone HCl (Hydromorphone Hcl 0.5 Mg/0.5 Ml Syringe) 0.5 mg IVPUSH Q4H PRN; Protocol PRN Reason: Pain, Moderate(Pain Scale 4-6) Last Admin: 02/04/24 12:30 Dose: 0.5 mg Documented By: ROSIE Insulin Glargine (Insulin Glargine,Hum.Rec.Anlog 100 Unit/Ml 10 Ml Vial) 25 unit SUBCUT DAILY [facility] Last Admin: 02/05/24 09:38 Dose: Not Given Documented By: ROSIE Non-Admin Reason: No Insulin Coverage Insulin Human Lispro (Insulin Lispro 100 Unit/Ml 3 Ml Vial) 0 unit SUBCUT Q6H [facility]; Protocol Last Admin: 02/05/24 06:13 Dose: Not Given Documented By: MICK Non-Admin Reason: No Insulin Coverage Lactulose (Lactulose 20 Gm/30 Ml Solution) 30 gm G-TUBE DAILY [facility] Levothyroxine Sodium (Levothyroxine Sodium 112 Mcg Tablet) 112 mcg G-TUBE DAILY@0600 OLLIE Oxycodone HCl (Oxycodone Hcl Immed Release 5 Mg Tablet) 5 mg G-TUBE Q4H PRN PRN Reason: Pain, Moderate(Pain Scale 4-6) Labs 02/05/24 05:40 02/05/24 05:40 Labs: Laboratory Results - last 24 hr 02/04/24 02/04/24 02/04/24 09:56 11:49 18:39 MCV MCH MCHC RDW Plt Count MPV Immature Gran % (Auto) Neut % (Auto) Lymph % (Auto) [place] % (Auto) Eos % (Auto) Baso % (Auto) Lymph # (Auto) [place] # (Auto) Eos # (Auto) Baso # (Auto) Abs Immat Gran (auto) Absolute Neuts (auto) Absolute Nucleated RBC Nucleated RBC % (auto) Anion Gap Estim Creat Clear Calc Estimated GFR POC Glucose 106 80 110 Fasting Glucose Calcium Phosphorus Magnesium Total Bilirubin AST ALT Alkaline Phosphatase Total Protein Albumin 02/05/24 02/05/24 02/05/24 00:02 00:35 00:44 MCV MCH MCHC RDW Plt Count MPV Immature Gran % (Auto) Neut % (Auto) Lymph % (Auto) [place] % (Auto) Eos % (Auto) Baso % (Auto) Lymph # (Auto) [place] # (Auto) Eos # (Auto) Baso # (Auto) Abs Immat Gran (auto) Absolute Neuts (auto) Absolute Nucleated RBC Nucleated RBC % (auto) Anion Gap Estim Creat Clear Calc Estimated GFR POC Glucose 66 174 H 163 H Fasting Glucose Calcium Phosphorus Magnesium Total Bilirubin AST ALT Alkaline Phosphatase Total Protein Albumin 02/05/24 02/05/24 02/05/24 00:59 05:40 06:06 MCV 78.0 L MCH 23.0 L MCHC 29.5 L RDW 15.3 Plt Count 304 MPV 10.5 Immature Gran % (Auto) 0.4 Neut % (Auto) 51.5 Lymph % (Auto) 35.1 [place] % (Auto) 8.9 Eos % (Auto) 3.7 Baso % (Auto) 0.4 Lymph # (Auto) 1.7 [place] # (Auto) 0.4 Eos # (Auto) 0.2 Baso # (Auto) 0.0 Abs Immat Gran (auto) 0.02 Absolute Neuts (auto) 2.5 Absolute Nucleated RBC 0.000 Nucleated RBC % (auto) 0.0 Anion Gap 14 Estim Creat Clear Calc 73.7 Estimated GFR > 60 POC Glucose 142 H 77 Fasting Glucose 75 Calcium 9.9 Phosphorus 3.1 Magnesium 1.6 Total Bilirubin 0.4 AST 12 ALT 11 Alkaline Phosphatase 60 Total Protein 7.1 Albumin 3.5 Assessment and Plan (1) Acute respiratory failure with hypoxia: Status: Acute (2) Pneumonia: Status: Acute Plan d16 63yo nonverbal M LTC resident of [facility] with schizophrenia, dementia, DM2, hypothyroidism, GERD, diastolic dysfunction, CKD3 and seizure disorder presenting with hypoxia, intubated and mechanically venilated for pneumonia, required pressor support for septic shock, extubated 01/30/24 and downgraded to IMC 02/01/24 acute hypoxic resp failure and septic shock due to pneumonia - completed antibiotics, weaned to room air DAKOTAH, septic ATN - resolved hyperNa - resolved DM2 - basal-bolus insulin seizure disorder - VPA -> change to per GT hypothyroidism - continue LT4 -> change to per GT dysphagia, failed swallow eval malnutrition - PEG placede 02/04/24, started Glucerna and will advance to goal as per Nutrition recommendation VTE ppx - LMWH dispo - eventual return to [facility] once TFs at goal In my clinical judgment, the patient requires continued inpatient hospitalization for the following reasons: TF initiation/advancement Total time managing care of this patient today: 35 minutes. Quality Stroke Does the patient have a stroke diagnosis?: No VTE Prior VTE?: No VTE Risk Level:: Medical - moderate - high VTE Device Contraindication: N/A - Device Ordered VTE Drug Contraindication: N/A - Med Ordered
[2024-02-05] MEDS: Chlorhexidine Gluc Oral Rinse 15 ML MOUTHWASH BUCCAL ×3 (09:52→20:57)
--- NOTE | 2024-02-05 10:54 | MHC.CLN ---
F/U PT WITH NEW PEG TUBE PT TO RECEIVE GLUCERNA AT MAX GOAL RATE 85ML/HR WITH 120ML FREE WATER FLUSHES Q 8 HRS TO PROVIDE 2040KCALS (29KCALS/KG), 85G PROTEIN (1.2G/KG), 2100ML TOTAL FREE WATER FROM FORMULA AND FLUSHES (30ML/KG) TF WILL PROMOTE WOUND HEALING MONITOR TOLERANCE, RESIDUALS AND LYTES
[2024-02-05] MEDS: Divalproex Sodium Sprinkles 125 MG CAP.DR.SPR 250 MG G-TUBE ×2 (11:02→20:57)
[2024-02-05 11:14] VITALS: BP 141/81; PULSE 57; RESP 20; TEMP 36.7; O2SAT 93
[2024-02-05 11:49] LABS: Glucose, Whole Blood 81 mg/dL (60-115)
--- NOTE | 2024-02-05 13:18 | PM.PNGS ---
Subjective Subjective Date of Service: 02/05/24 <Adry Jain PA-C - Last Filed: 02/05/24 13:20> 02/05/24 <Luca Jaffe MD - Last Filed: 02/05/24 15:38> Interval history: Nonverbal. <Adry Jain PA-C - Last Filed: 02/05/24 13:20> Physical Exam Vital Signs: Vital Signs: Last Vital Signs Temp 98.0 F 02/05/24 11:14 Pulse 57 02/05/24 11:14 Resp 20 02/05/24 11:14 BP 141/81 H 02/05/24 11:14 Pulse Ox 93 02/05/24 11:14 O2 Del Method Room Air 02/05/24 11:14 O2 Flow Rate 2 01/30/24 17:00 FiO2 35 01/30/24 11:31 BMI result Body Mass Index 19.6 <Adry Jain PA-C - Last Filed: 02/05/24 13:20> Const: General: comfortable, no acute distress and alert <Adry Jain PA-C - Last Filed: 02/05/24 13:20> GI: Other: PEG tube in place, bolster intact, abdomen nondistended nontender, soft <Adry Jain PA-C - Last Filed: 02/05/24 13:20> Inspection: No distended <Adry Jain PA-C - Last Filed: 02/05/24 13:20> Skin: General skin exam: no rashes or lesions noted <Adry Jain PA-C - Last Filed: 02/05/24 13:20> Objective Data Active Medications Acetaminophen (Acetaminophen 325 Mg Tablet) 975 mg PO Q6H PRN PRN Reason: Fever >100.4 Last Admin: 01/25/24 10:55 Dose: 975 mg Documented By: LESLY Chlorhexidine Gluconate (Chlorhexidine Gluc Oral Rinse 15 Ml Mouthwash) 15 ml BUCCAL TID [facility] Last Admin: 02/05/24 09:52 Dose: 15 ml Documented By: ROSIE Dextrose (Dextrose 50 % 25 Gm/50 Ml Syringe) 25 gm IVPUSH Q15M PRN; Protocol PRN Reason: per Hypoglycemia Standing Ord. Last Admin: 02/05/24 00:12 Dose: 25 gm Documented By: MICK Divalproex Sodium (Divalproex Sodium Sprinkles 125 Mg ) 250 mg G-TUBE BID [facility] Last Admin: 02/05/24 11:02 Dose: 250 mg Documented By: ROSIE Glucose (Glucose Gel 15 Gm Gel..Gram.) 15 gm BUCCAL Q15M PRN; Protocol PRN Reason: per Hypoglycemia Standing Ord. Heparin Sodium (Porcine) (Heparin Sodium,Porcine 5,000 Unit/Ml Vial) 5,000 unit SUBCUT Q8H [facility] Last Admin: 02/05/24 09:52 Dose: 5,000 unit Documented By: ROSIE Hydromorphone HCl (Hydromorphone Hcl 0.5 Mg/0.5 Ml Syringe) 0.5 mg IVPUSH Q4H PRN; Protocol PRN Reason: Pain, Moderate(Pain Scale 4-6) Last Admin: 02/04/24 12:30 Dose: 0.5 mg Documented By: ROSIE Insulin Glargine (Insulin Glargine,Hum.Rec.Anlog 100 Unit/Ml 10 Ml Vial) 25 unit SUBCUT DAILY [facility] Last Admin: 02/05/24 09:38 Dose: Not Given Documented By: ROSIE Non-Admin Reason: No Insulin Coverage Insulin Human Lispro (Insulin Lispro 100 Unit/Ml 3 Ml Vial) 0 unit SUBCUT Q6H [facility]; Protocol Last Admin: 02/05/24 12:03 Dose: Not Given Documented By: ROSIE Non-Admin Reason: No Insulin Coverage Lactulose (Lactulose 20 Gm/30 Ml Solution) 30 gm G-TUBE DAILY [facility] Levothyroxine Sodium (Levothyroxine Sodium 112 Mcg Tablet) 112 mcg G-TUBE DAILY@0600 [facility] Oxycodone HCl (Oxycodone Hcl Immed Release 5 Mg Tablet) 5 mg G-TUBE Q4H PRN PRN Reason: Pain, Moderate(Pain Scale 4-6) <Adry Jain PA-C - Last Filed: 02/05/24 13:20> Labs CBC & Chem 7: 02/05/24 05:40 02/05/24 05:40 <Adry Jain PA-C - Last Filed: 02/05/24 13:20> Labs: Laboratory Results - last 24 hr 02/04/24 02/05/24 02/05/24 18:39 00:02 00:35 MCV MCH MCHC RDW Plt Count MPV Immature Gran % (Auto) Neut % (Auto) Lymph % (Auto) [place] % (Auto) Eos % (Auto) Baso % (Auto) Lymph # (Auto) [place] # (Auto) Eos # (Auto) Baso # (Auto) Abs Immat Gran (auto) Absolute Neuts (auto) Absolute Nucleated RBC Nucleated RBC % (auto) Anion Gap Estim Creat Clear Calc Estimated GFR POC Glucose 110 66 174 H Fasting Glucose Calcium Phosphorus Magnesium Total Bilirubin AST ALT Alkaline Phosphatase Total Protein Albumin 02/05/24 02/05/24 02/05/24 00:44 00:59 05:40 MCV 78.0 L MCH 23.0 L MCHC 29.5 L RDW 15.3 Plt Count 304 MPV 10.5 Immature Gran % (Auto) 0.4 Neut % (Auto) 51.5 Lymph % (Auto) 35.1 [place] % (Auto) 8.9 Eos % (Auto) 3.7 Baso % (Auto) 0.4 Lymph # (Auto) 1.7 [place] # (Auto) 0.4 Eos # (Auto) 0.2 Baso # (Auto) 0.0 Abs Immat Gran (auto) 0.02 Absolute Neuts (auto) 2.5 Absolute Nucleated RBC 0.000 Nucleated RBC % (auto) 0.0 Anion Gap 14 Estim Creat Clear Calc 73.7 Estimated GFR > 60 POC Glucose 163 H 142 H Fasting Glucose 75 Calcium 9.9 Phosphorus 3.1 Magnesium 1.6 Total Bilirubin 0.4 AST 12 ALT 11 Alkaline Phosphatase 60 Total Protein 7.1 Albumin 3.5 02/05/24 02/05/24 06:06 11:44 MCV MCH MCHC RDW Plt Count MPV Immature Gran % (Auto) Neut % (Auto) Lymph % (Auto) [place] % (Auto) Eos % (Auto) Baso % (Auto) Lymph # (Auto) [place] # (Auto) Eos # (Auto) Baso # (Auto) Abs Immat Gran (auto) Absolute Neuts (auto) Absolute Nucleated RBC Nucleated RBC % (auto) Anion Gap Estim Creat Clear Calc Estimated GFR POC Glucose 77 81 Fasting Glucose Calcium Phosphorus Magnesium Total Bilirubin AST ALT Alkaline Phosphatase Total Protein Albumin <Adry Jain PA-C - Last Filed: 02/05/24 13:20> Procedures Date of Service Date of Service: 02/05/24 <Adry Jain PA-C - Last Filed: 02/05/24 13:20> 02/05/24 <Luca Jaffe MD - Last Filed: 02/05/24 15:38> Progress Note: A&P Assessment and plan (1) Dysphagia: Status: Acute <Adry Jain PA-C - Last Filed: 02/05/24 13:20> (2) S/P percutaneous endoscopic gastrostomy (PEG) tube placement: Status: Acute <Adry Jain PA-C - Last Filed: 02/05/24 13:20> Assessment and Plan: Looks comfortable Abdomen soft Peg tube in place Okay to use PEG tube Seen and examined independently <Luca Jaffe MD - Last Filed: 02/05/24 15:38> Assessment and Plan: POD #1 s/p PEG tube placement. Doing well, PEG in place, abd benign. Can begin tube feeds. <Adry Jain PA-C - Last Filed: 02/05/24 13:20> Time Spent With Patient Time: Total time managing care of this patient today ____ minutes. <Adry Jain PA-C - Last Filed: 02/05/24 13:20> Quality Stroke Does the patient have a stroke diagnosis?: No <Adry Jain PA-C - Last Filed: 02/05/24 13:20> VTE Prior VTE?: No <Adry Jain PA-C - Last Filed: 02/05/24 13:20> VTE Risk Level:: Medical - moderate - high <Adry Jain PA-C - Last Filed: 02/05/24 13:20> VTE Device Contraindication: N/A - Device Ordered <Adry Jain PA-C - Last Filed: 02/05/24 13:20> VTE Drug Contraindication: N/A - Med Ordered <Adry Jain PA-C - Last Filed: 02/05/24 13:20>
[2024-02-05 15:06] VITALS: BP 137/81; PULSE 66; RESP 20; TEMP 36.1; O2SAT 93
--- NOTE | 2024-02-05 15:10 | HO.POSTANES ---
Post Anesthesia Evaluation Post Anesthesia Evaluation Date of Service: 02/05/24 Vital Signs: Vital Signs Temp Pulse Resp BP Pulse Ox O2 Del Method 02/05/24 15:06 97.0 F 66 20 137/81 93 Room Air 02/05/24 11:14 98.0 F 57 20 141/81 H 93 Room Air 02/05/24 07:47 97.9 F 57 16 138/86 92 Room Air 02/05/24 04:00 96.8 F 53 18 150/80 H 94 Room Air Anesthesia: Monitored Mental Status: Awake Pain Control: Satisfactory Nausea/Vomiting: None Hydration: Adequate Anesthesia-Related Issues: No Anes. Related Issues
--- NOTE | 2024-02-05 16:32 | MHC.SLORD ---
Speech Language Pathology Order Status: Patient with PEG tube placed 02/04/24 for enteral nutrition with patient tolerating well. Patient when visted this PM was sleeping, dysphagia treatment was not attempted. PAPERHANGER AND PAINTER will continue to follow.
[2024-02-05 18:06] LABS: Glucose, Whole Blood 80 mg/dL (60-115)
[2024-02-05 19:03] VITALS: BP 153/82; PULSE 66; RESP 22; TEMP 36.7; O2SAT 98
[2024-02-05 23:51] VITALS: BP 178/89; PULSE 74; RESP 20; TEMP 36.7; O2SAT 93
[2024-02-06 00:09] LABS: Glucose, Whole Blood 95 mg/dL (60-115)
[2024-02-06] MEDS: Heparin Sodium,Porcine 5,000 UNIT/ML VIAL 5000 UNIT SUBCUT ×3 (01:41→17:22)
[2024-02-06 03:34] VITALS: BP 140/79; PULSE 75; RESP 20; TEMP 36.1; O2SAT 93
[2024-02-06] MEDS: Levothyroxine Sodium 112 MCG TABLET G-TUBE (05:52)
[2024-02-06 06:09] LABS: Glucose, Whole Blood 98 mg/dL (60-115)
[2024-02-06 07:28] VITALS: BP 145/82; PULSE 79; RESP 20; TEMP 36.1; O2SAT 95
[2024-02-06] MEDS: Lactulose 20 GM/30 ML SOLUTION 30 GM G-TUBE (08:42)
[2024-02-06] MEDS: Divalproex Sodium Sprinkles 125 MG CAP.DR.SPR 250 MG G-TUBE (08:42)
[2024-02-06 09:33] LABS: Anion Gap 13 (12-20); Blood Urea Nitrogen 20 mg/dL (9-16); Calcium 10.1 mg/dL (8.4-10.2); Carbon Dioxide 23 mmol/L (22-29); Chloride 107 mmol/L (96-108); Estimated Glomerular Filt Rate > 60; Glucose Random 93 mg/dL (60-115); Magnesium 1.7 mg/dL (1.6-2.6); Phosphorus 3.2 mg/dL (2.7-4.5); Potassium 4.1 mmol/L (3.3-5.1); Sodium 139 mmol/L (135-145)
[2024-02-06 11:27] VITALS: BP 145/99; PULSE 84; RESP 20; TEMP 36.2; O2SAT 93
[2024-02-06 11:48] LABS: Glucose, Whole Blood 102 mg/dL (60-115)
--- NOTE | 2024-02-06 12:20 | MHC.CLN ---
F/U PT TOLERATING TF WITH LOW RESIDUALS PT TO RECEIVE GLUCERNA AT MAX GOAL RATE 85ML/HR WITH 120ML FREE WATER FLUSHES Q 8 HRS TO PROVIDE 2040KCALS (29KCALS/KG), 85G PROTEIN (1.2G/KG), 2100ML TOTAL FREE WATER FROM FORMULA AND FLUSHES (30ML/KG) TF WILL PROMOTE WOUND HEALING MONITOR TOLERANCE, RESIDUALS AND LYTES
--- NOTE | 2024-02-06 13:21 | MHC.CM.PN ---
Pt has been medically cleared for DC, he will go back to [facility] today via ambulance, where he [facility] jail. CM called Kira Mack and spoke to her museum assistant, Indigo to inform her of transfer.
--- NOTE | 2024-02-06 13:56 | MHC.CM.PN ---
DC was cancelled, provider wants to keep pt for today, CM to follow and assist with DC when pt is ready.
--- NOTE | 2024-02-06 14:07 | HO.PM.IMPN ---
Subjective Subjective Date of Service: 02/06/24 Interval History: TFs advanced to goal 85 mL/hr pt smeared stool on Gtube cap/port and it is now soiled despite attempts at cleaning it nonverbal; unable to obtain ROS Review of Systems Review of Systems: Yes Unobtainable due to mental status Physical Exam Vital Signs: Vital Signs: Last Vital Signs Temp 97.1 F 02/06/24 11:27 Pulse 84 02/06/24 11:27 Resp 20 02/06/24 11:27 BP 145/99 H 02/06/24 11:27 Pulse Ox 93 02/06/24 11:27 O2 Del Method Room Air 02/06/24 11:27 O2 Flow Rate 2 01/30/24 17:00 FiO2 35 01/30/24 11:31 BMI result Body Mass Index 19.6 Gen: in no acute distress HEENT: sclera anicteric, moist mucus membranes Neck: supple Lungs: clear to auscultation bilaterally Heart: regular rate and rhythm, no murmurs Abd: soft, non-tender, non-distended, PEG in place with fecal staining of cap/port Ext: no edema Skin: warm/well-perfused Neuro: alert, unable to assess orientation Psych: impaired insight Objective Data Active Medications Acetaminophen (Acetaminophen 325 Mg Tablet) 975 mg PO Q6H PRN PRN Reason: Fever >100.4 Last Admin: 01/25/24 10:55 Dose: 975 mg Documented By: LESLY Chlorhexidine Gluconate (Chlorhexidine Gluc Oral Rinse 15 Ml Mouthwash) 15 ml BUCCAL TID [facility] Last Admin: 02/06/24 08:43 Dose: Not Given Documented By: ALEX Non-Admin Reason: NPO Dextrose (Dextrose 50 % 25 Gm/50 Ml Syringe) 25 gm IVPUSH Q15M PRN; Protocol PRN Reason: per Hypoglycemia Standing Ord. Last Admin: 02/05/24 00:12 Dose: 25 gm Documented By: MICK Divalproex Sodium (Divalproex Sodium Sprinkles 125 Mg ) 250 mg G-TUBE BID [facility] Last Admin: 02/06/24 08:42 Dose: 250 mg Documented By: ALEX Glucose (Glucose Gel 15 Gm Gel..Gram.) 15 gm BUCCAL Q15M PRN; Protocol PRN Reason: per Hypoglycemia Standing Ord. Heparin Sodium (Porcine) (Heparin Sodium,Porcine 5,000 Unit/Ml Vial) 5,000 unit SUBCUT Q8H [facility] Last Admin: 02/06/24 08:42 Dose: 5,000 unit Documented By: ALEX Hydromorphone HCl (Hydromorphone Hcl 0.5 Mg/0.5 Ml Syringe) 0.5 mg IVPUSH Q4H PRN; Protocol PRN Reason: Pain, Moderate(Pain Scale 4-6) Last Admin: 02/04/24 12:30 Dose: 0.5 mg Documented By: ROSIE Insulin Glargine (Insulin Glargine,Hum.Rec.Anlog 100 Unit/Ml 10 Ml Vial) 25 unit SUBCUT DAILY [facility] Last Admin: 02/06/24 08:43 Dose: Not Given Documented By: ALEX Non-Admin Reason: No Insulin Coverage Insulin Human Lispro (Insulin Lispro 100 Unit/Ml 3 Ml Vial) 0 unit SUBCUT Q6H [facility]; Protocol Last Admin: 02/06/24 11:52 Dose: Not Given Documented By: ALEX Non-Admin Reason: No Insulin Coverage Lactulose (Lactulose 20 Gm/30 Ml Solution) 30 gm G-TUBE DAILY [facility] Last Admin: 02/06/24 08:42 Dose: 30 gm Documented By: ALEX Levothyroxine Sodium (Levothyroxine Sodium 112 Mcg Tablet) 112 mcg G-TUBE DAILY@0600 [facility] Last Admin: 02/06/24 05:52 Dose: 112 mcg Documented By: SHIV Oxycodone HCl (Oxycodone Hcl Immed Release 5 Mg Tablet) 5 mg G-TUBE Q4H PRN PRN Reason: Pain, Moderate(Pain Scale 4-6) Labs 02/05/24 05:40 02/06/24 08:54 Labs: Laboratory Results - last 24 hr 02/05/24 02/05/24 02/06/24 18:02 23:57 06:04 Hold Purple Top Anion Gap Estim Creat Clear Calc Estimated GFR POC Glucose 80 95 98 Random Glucose Calcium Phosphorus Magnesium 02/06/24 02/06/24 08:54 11:30 Hold Purple Top SEE NOTE Anion Gap 13 Estim Creat Clear Calc 73.0 Estimated GFR > 60 POC Glucose 102 Random Glucose 93 Calcium 10.1 Phosphorus 3.2 Magnesium 1.7 Assessment and Plan (1) Acute respiratory failure with hypoxia: Status: Acute (2) Pneumonia: Status: Acute Plan d17 63yo nonverbal M LTC resident of [facility] with schizophrenia, dementia, DM2, hypothyroidism, GERD, diastolic dysfunction, CKD3 and seizure disorder presenting with hypoxia, intubated and mechanically venilated for pneumonia, required pressor support for septic shock, extubated 01/30/24 and downgraded to IMC 02/01/24 acute hypoxic resp failure and septic shock due to pneumonia - completed antibiotics, weaned to room air DAKOTAH, septic ATN - resolved hyperNa - resolved DM2 - basal-bolus insulin seizure disorder - VPA hypothyroidism - LT4 dysphagia, failed swallow eval malnutrition - PEG placed 02/04/24, started Glucerna and advanced to goal as per Nutrition recommendation - PEG cap/port is soiled with stool, will discuss possibility of replacement with Gen Surg VTE ppx - LMWH dispo - eventual return to [facility] once TF issue addressed In my clinical judgment, the patient requires continued inpatient hospitalization for the following reasons: TF issue Total time managing care of this patient today: 35 minutes. Quality Stroke Does the patient have a stroke diagnosis?: No VTE Prior VTE?: No VTE Risk Level:: Medical - moderate - high VTE Device Contraindication: N/A - Device Ordered VTE Drug Contraindication: N/A - Med Ordered
--- NOTE | 2024-02-06 15:06 | MHC.SL.SWA ---
Speech Pathologist Impression: Risk of aspiration, oropharyngeal dysphagia Risk of Aspiration Due to: Medically Fragile Poor PO Intake Hx of Recent Extubation Weak Cough Dysphasia Diet Status: Continue NPO. Recommend MBSS if he can start to pass some trials at bedside. Liquid Consistency and Strategies for Safe Swallow: Liquid Intake Recommendation: NPO Solid Food Consistency: Dietary Recommendations: NPO Additional Modifications to Solid Foods: Patient demonstrates overt s/s of aspiration on trace amounts of PO. Discussed with attending hospitalist, Dr. Beckman. Pt has been recently placed with PEG tube, has been tolerating TFs. Continue with frequent oral care for hygiene and comfort. BOTTOM LOADER will continue to follow. Oral Medication Intake: NPO Please contact the pharmacy regarding appropriate crushable or liquid drug formulations that are available whenever modified delivery is recommended. Supervision While Eating and Drinking for Safe Swallow: PO with BOTTOM LOADER Swallowing Recommended Treatments: Compens. Strategy Educat. Recommendation for Speech: Inpatient Speech Therapy Comment: 02/01/24: Recommend Pt remain NPO. Aspiration precautions including HoB >30 degrees and oral care. Pt may tolerate therapeutic Ice Chips under supervision in the coming days. BOTTOM LOADER will follow-up tomorrow for further recommendations. Frequency/Duration: Daily Date Range for Service Req: Timeline to reassess: PRN Straddle Truck Operator Clinican/Clinical Fellow: No Supervisory Statement: I have reviewed and agree with the student/clinical fellow's documentation: N/A Speech Language Pathologist: Ifrah Boswell M.A., [facility]
[2024-02-06 15:30] VITALS: BP 122/96; PULSE 88; RESP 20; TEMP 36.2; O2SAT 95
[2024-02-06 17:43] LABS: Glucose, Whole Blood 76 mg/dL (60-115)
[2024-02-06 19:27] VITALS: BP 134/79; PULSE 70; RESP 20; TEMP 36.9; O2SAT 96
[2024-02-06] MEDS: Chlorhexidine Gluc Oral Rinse 15 ML MOUTHWASH BUCCAL (20:00)
[2024-02-06 23:28] VITALS: BP 121/90; PULSE 73; RESP 20; TEMP 36.6; O2SAT 97
[2024-02-07] MEDS: Dextrose 50 % 25 GM/50 ML SYRINGE IVPUSH (00:05)
[2024-02-07] MEDS: Heparin Sodium,Porcine 5,000 UNIT/ML VIAL 5000 UNIT SUBCUT ×2 (00:05→09:03)
[2024-02-07 00:37] LABS: Glucose, Whole Blood 194 mg/dL (60-115)
[2024-02-07 00:37] LABS: Glucose, Whole Blood 68 mg/dL (60-115)
[2024-02-07] MEDS: Dextrose 5 % and 0.9 % NaCl 1,000 ML 80 ML IVCONT (00:38)
--- NOTE | 2024-02-07 00:46 | PC.NURSE ---
Addendum entered by Gabriel Baldwin RN 02/07/24 06:29: Pt itchy throughout entire body. Skin dry, attempts to rub with lotion with no effect. MD notified. 1x dose Iv Benadryl ordered and given with some effect. Decreased itching after. Original Note: Told by previous RN that patient smeared stool on PEG tube and all over port. Attempt to clean it again at approx 2000, noticed TF in the tube. Attempt to flush tube to see where stool was that needed to be cleaned. Unable to flush PEG tube. MD informed of occlusion of PEG tube. Per Navjot to hold all TF and meds at this time. 12AM POC of 68. PRN Dextrose Amp given IV and MD notified. due to TF being on hold started D5NS at 80ml/hr. POC improved after amp to 194. Will continue with Q6 POCs as ordered.
[2024-02-07 03:12] VITALS: BP 158/90; PULSE 64; RESP 18; TEMP 36.1; O2SAT 95
[2024-02-07] MEDS: diphenhydrAMINE HCL 50 MG/ML VIAL IVPUSH (06:11)
[2024-02-07 06:23] LABS: Glucose, Whole Blood 83 mg/dL (60-115)
[2024-02-07 07:38] VITALS: BP 151/80; PULSE 73; RESP 20; TEMP 36.9; O2SAT 97
[2024-02-07] MEDS: Divalproex Sodium Sprinkles 125 MG CAP.DR.SPR 250 MG G-TUBE (09:02)
--- NOTE | 2024-02-07 09:19 | HO.PM.IMPN ---
Subjective Subjective Date of Service: 02/07/24 Interval History: PEG tube cap removed, cleaned with peroxide Review of Systems Review of Systems: Yes Unobtainable due to mental status Physical Exam Vital Signs: Vital Signs: Last Vital Signs Temp 98.5 F 02/07/24 07:38 Pulse 73 02/07/24 07:38 Resp 20 02/07/24 07:38 BP 151/80 H 02/07/24 07:38 Pulse Ox 97 02/07/24 07:38 O2 Del Method Room Air 02/07/24 07:38 O2 Flow Rate 2 01/30/24 17:00 FiO2 35 01/30/24 11:31 BMI result Body Mass Index 19.6 Gen: in no acute distress HEENT: sclera anicteric, moist mucus membranes Neck: supple Lungs: clear to auscultation bilaterally Heart: regular rate and rhythm, no murmurs Abd: soft, non-tender, non-distended, PEG in place Ext: no edema Skin: warm/well-perfused Neuro: alert, unable to assess orientation Psych: impaired insight Objective Data Active Medications Acetaminophen (Acetaminophen 325 Mg Tablet) 975 mg PO Q6H PRN PRN Reason: Fever >100.4 Last Admin: 01/25/24 10:55 Dose: 975 mg Documented By: LESLY Chlorhexidine Gluconate (Chlorhexidine Gluc Oral Rinse 15 Ml Mouthwash) 15 ml BUCCAL TID [facility] Last Admin: 02/07/24 09:03 Dose: Not Given Documented By: ALEX Non-Admin Reason: NPO Dextrose (Dextrose 50 % 25 Gm/50 Ml Syringe) 25 gm IVPUSH Q15M PRN; Protocol PRN Reason: per Hypoglycemia Standing Ord. Last Admin: 02/07/24 00:05 Dose: 25 gm Documented By: NAIN Divalproex Sodium (Divalproex Sodium Sprinkjim 125 Mg ) 250 mg G-TUBE BID [facility] Last Admin: 02/07/24 09:02 Dose: 250 mg Documented By: ALEX Glucose (Glucose Gel 15 Gm Gel..Gram.) 15 gm BUCCAL Q15M PRN; Protocol PRN Reason: per Hypoglycemia Standing Ord. Heparin Sodium (Porcine) (Heparin Sodium,Porcine 5,000 Unit/Ml Vial) 5,000 unit SUBCUT Q8H [facility] Last Admin: 02/07/24 09:03 Dose: 5,000 unit Documented By: ALEX Hydromorphone HCl (Hydromorphone Hcl 0.5 Mg/0.5 Ml Syringe) 0.5 mg IVPUSH Q4H PRN; Protocol PRN Reason: Pain, Moderate(Pain Scale 4-6) Last Admin: 02/04/24 12:30 Dose: 0.5 mg Documented By: ROSIE Dextrose/Sodium Chloride (D5ns) 1,000 mls @ 80 mls/hr IVCONT .[id number] [facility] Last Admin: 02/07/24 00:38 Dose: 80 mls/hr Documented By: NAIN Insulin Glargine (Insulin Glargine,Hum.Rec.Anlog 100 Unit/Ml 10 Ml Vial) 25 unit SUBCUT DAILY [facility] Last Admin: 02/07/24 09:04 Dose: Not Given Documented By: ALEX Non-Admin Reason: No Insulin Coverage Insulin Human Lispro (Insulin Lispro 100 Unit/Ml 3 Ml Vial) 0 unit SUBCUT Q6H [facility]; Protocol Last Admin: 02/07/24 05:30 Dose: Not Given Documented By: NAIN Non-Admin Reason: NPO Lactulose (Lactulose 20 Gm/30 Ml Solution) 30 gm G-TUBE DAILY [facility] Last Admin: 02/07/24 08:54 Dose: Not Given Documented By: ALEX Non-Admin Reason: pt experiencing loose stools Levothyroxine Sodium (Levothyroxine Sodium 112 Mcg Tablet) 112 mcg G-TUBE DAILY@0600 [facility] Last Admin: 02/07/24 05:29 Dose: Not Given Documented By: NAIN Non-Admin Reason: g/t clogged Oxycodone HCl (Oxycodone Hcl Immed Release 5 Mg Tablet) 5 mg G-TUBE Q4H PRN PRN Reason: Pain, Moderate(Pain Scale 4-6) Labs 02/05/24 05:40 02/06/24 08:54 Labs: Laboratory Results - last 24 hr 02/06/24 02/06/24 02/06/24 08:54 11:30 17:38 Anion Gap 13 Estim Creat Clear Calc 73.0 Estimated GFR > 60 POC Glucose 102 76 Random Glucose 93 Calcium 10.1 Phosphorus 3.2 Magnesium 1.7 02/07/24 02/07/24 02/07/24 00:01 00:33 06:18 Anion Gap Estim Creat Clear Calc Estimated GFR POC Glucose 68 194 H 83 Random Glucose Calcium Phosphorus Magnesium Assessment and Plan (1) Acute respiratory failure with hypoxia: Status: Acute (2) Pneumonia: Status: Acute Plan d18 63yo nonverbal M LTC resident of [facility] with schizophrenia, dementia, DM2, hypothyroidism, GERD, diastolic dysfunction, CKD3 and seizure disorder presenting with hypoxia, intubated and mechanically venilated for pneumonia, required pressor support for septic shock, extubated 01/30/24 and downgraded to IMC 02/01/24 PEG tube placed 02/04/24 acute hypoxic resp failure and septic shock due to pneumonia - completed antibiotics, weaned to room air DAKOTAH, septic ATN - resolved hyperNa - resolved DM2 - basal-bolus insulin seizure disorder - VPA hypothyroidism - LT4 dysphagia, failed swallow eval malnutrition - PEG placed 02/04/24, started Glucerna and advanced to goal as per Nutrition recommendation - PEG cap/port soiled with stool, cap removed and cleaned with peroxide, will replace then restart tube feeds VTE ppx - LMWH dispo - eventual return to [facility] once TF issue addressed In my clinical judgment, the patient requires continued inpatient hospitalization for the following reasons: TF issue Total time managing care of this patient today: 35 minutes. Quality Stroke Does the patient have a stroke diagnosis?: No VTE Prior VTE?: No VTE Risk Level:: Medical - moderate - high VTE Device Contraindication: N/A - Device Ordered VTE Drug Contraindication: N/A - Med Ordered
[2024-02-07 11:19] VITALS: BP 153/85; PULSE 73; RESP 18; TEMP 36.6; O2SAT 97
[2024-02-07 11:36] LABS: Glucose, Whole Blood 139 mg/dL (60-115)
--- NOTE | 2024-02-07 12:13 | P.DS_ITS ---
DS: Providers Provider Date of Service: 02/07/24 Date of admission: 01/21/24 01:11 Date of discharge: 02/07/24 Primary care physician: Celestine Beckman DO Consults: 01/21/24 09:45 Consult to Wound Care Routine Reason for consultation: open area on L buttock Has provider been notified: Yes 01/26/24 13:29 Consult to Vascular Surgery Routine Consulting Provider: [facility] [place] [facility] [place] [facility] Reason for consultation: IA TLC placement Has provider been notified: Yes 02/03/24 07:59 Consult to General Surgery Routine Consulting Provider: Luca Jaffe Reason for consultation: PEG tube Has provider been notified: Yes DS: Diagnosis Discharge Diagnosis (1) Acute respiratory failure with hypoxia: Status: Acute (2) Pneumonia: Status: Acute (3) Septic shock: Status: Acute (4) S/P percutaneous endoscopic gastrostomy (PEG) tube placement: Status: Acute DS: Summary Hospital Course Hospital Course: From the history and physical by the admitting botany laboratory assistant Rosas Collins, 01/21/24: 63-year-old patient with underlying history of unspecified dementia, schizophrenia, nonverbal, SP movement disorder, type 2 diabetes insulin dependent, seizure disorder, hypothyroidism, GERD, glaucoma, constipation, cardiomegaly with diastolic dysfunction ejection fraction of 50% per echo in 2022, eating disorder, chronic kidney disease stage 3 with baseline creatinine of 1.6, hyperlipidemia, recent admission and discharge from this hospital due to hypoxic respiratory failure in the setting of COVID-19 infection which also cause hypernatremia in the setting of acute kidney injury and dehydration who was treated in this hospital with albuterol nebs, Decadron, antibiotics and remdesivir, IV fluids among others.? Patient was discharged from this hospital on 01/15/2024 back to halfway facility where he resides. Patient was transferred from the nursing facility to the emergency room last night around 22:00 as the patient was noted to be lethargic weak and dyspneic, having low O2 saturations sleeping most of the time although opening his eyes upon calling his name.? Per report and according to EMS the patient's O2 sat there was 84% on room air and was placed on 6 L nasal cannula which improved his oxygen saturation to 90 and 92%, reportedly he had received approximately 700 cc the half normal saline at the facility, workup in the revealed a normotensive patient is satting 92% on 6 L nasal cannula with a fever of 100.2 but otherwise not hypotensive or tachycardic.? Initially his white count had been 15,000, Davis significant for a sodium of 151, chloride 115, BUN of 39 and creatinine of 2.07, random glucose 356 and lactic acid of 1.8.? Patient appeared to be fine initially and they gave him albuterol started him on some fluids, chest x-ray reveal left upper lobe infiltrates and the patient was started on vancomycin and Zosyn for possibility of pneumonia, however he quickly decompensated in the emergency room and went from satting almost 100% on 6 L nasal cannula to requiring emergent intubation for he had become obtunded.? Subsequently given after intubation the patient continued to deteriorate, they had trouble oxygenating him at which point we were involved directly intervened in the case. ?Immediate ABG obtained which reveal pH of 7.45, pCO2 41, PO2 of 45, HC03 29, base excess 4.8. In the ER, x-ray was reviewed, patient examined and seemed to have significant rhonchi on the right lower lobe as well as poor air movement despite of Ambu bag with an O2 sat of 53%, there was a lot of tension when trying to ventilate him through the bag, given his recent hospitalization and COVID infection the high suspicion of pulmonary embolism was raised and this was discussed with the ER physician whom I kindly asked to give half dose of TNK, then multiple saline lavages were done between me and respiratory therapy, patient was repositioned, endotracheal tube was pulled back 2 cm, vent settings were changed; propofol 50 mg IV push was given, Levophed started on subsequently the patient improved obtaining a sat between 86 and 90%, patient placed back on ventilator and transferred to the ICU. 63yo nonverbal M LTC resident of [facility] with schizophrenia, dementia, DM2, hypothyroidism, GERD, diastolic dysfunction, CKD3 and seizure disorder who presented with hypoxia and was emergently intubated and mechanically ventilated for pneumonia. He required pressor support for septic shock. He was extubated 01/30/24 and downgraded to IMC 02/01/24. Reference is made to the botany laboratory assistant progress notes for details of his ICU course. He completed antibiotic treatment and was weaned to room air. DAKOTAH due to septic ATN resolved completely, along with hypernatremia. Due to severe dysphagia with failure of swallow evaluation, a PEG was placed on 02/04/24. He was started on Glucerna and advanced to goal tube feeds. He was transferred back to [facility] for ongoing long-term nursing care. Time Attestation Discharge Coordination Time (in mins): 45 Quality: Safe Use of Opioids Does Pt have an Active Cancer Diagnosis on the Problem List?: No Quality: Stroke Does the patient have a stroke diagnosis?: No Physical Exam Vital Signs: Vital Signs: Last Vital Signs Temp 97.8 F 02/07/24 11:19 Pulse 73 02/07/24 11:19 Resp 18 02/07/24 11:19 BP 153/85 H 02/07/24 11:19 Pulse Ox 97 02/07/24 11:19 O2 Del Method Room Air 02/07/24 11:19 O2 Flow Rate 2 01/30/24 17:00 FiO2 35 01/30/24 11:31 BMI result Body Mass Index 19.6 Gen: in no acute distress HEENT: sclera anicteric, moist mucus membranes Neck: supple Lungs: clear to auscultation bilaterally Heart: regular rate and rhythm, no murmurs Abd: soft, non-tender, non-distended, PEG in place Ext: no edema Skin: warm/well-perfused Neuro: alert, unable to assess orientation Psych: impaired insight DS: Data Data Completed and Pending Completed studies during hospitalization [Text1]: Laboratory Results WBC 4.9 X10*3/uL (4.8-10.8) 02/05/24 05:40 RBC 4.82 X10*6/uL (4.60-5.80) 02/05/24 05:40 Hgb 11.1 g/dl (14.0-18.0) L 02/05/24 05:40 Hct 37.6 % (42.0-52.0) L 02/05/24 05:40 MCV 78.0 fL (80.0-98.0) L 02/05/24 05:40 MCH 23.0 pg (27.0-33.0) L 02/05/24 05:40 MCHC 29.5 g/dl (31.0-36.0) L 02/05/24 05:40 RDW 15.3 % (11.0-16.0) 02/05/24 05:40 Plt Count 304 X10*3/uL (160-400) 02/05/24 05:40 MPV 10.5 fL (9.4-12.4) 02/05/24 05:40 Immature Gran % (Auto) 0.4 % (0.0-0.4) 02/05/24 05:40 Neut % (Auto) 51.5 % (45-73) 02/05/24 05:40 Lymph % (Auto) 35.1 % (20-40) 02/05/24 05:40 [place] % (Auto) 8.9 % (2-11) 02/05/24 05:40 Eos % (Auto) 3.7 % (0-4) 02/05/24 05:40 Baso % (Auto) 0.4 % (0-2) 02/05/24 05:40 Lymph # (Auto) 1.7 X10*3/uL (1.2-4.9) 02/05/24 05:40 [place] # (Auto) 0.4 X10*3/uL (0.1-1.2) 02/05/24 05:40 Eos # (Auto) 0.2 X10*3/uL (0.0-0.4) 02/05/24 05:40 Baso # (Auto) 0.0 X10*3/uL (0.0-0.2) 02/05/24 05:40 Abs Immat Gran (auto) 0.02 X10*3/uL (0.00-0.03) 02/05/24 05:40 Absolute Neuts (auto) 2.5 x10*3/uL (2.0-8.3) 02/05/24 05:40 Absolute Nucleated RBC 0.000 X10*3/uL (0.0-0.012) 02/05/24 05:40 Nucleated RBC % (auto) 0.0 /100WBC (0.0-0.2) 02/05/24 05:40 Neutrophils % (Manual) 89 % (45-73) H 01/22/24 19:39 Lymphocytes % (Manual) 9 % (20-40) L 01/22/24 19:39 Monocytes % (Manual) 2 % (2-11) 01/22/24 19:39 Abs Neuts (Manual) Not Reportable 01/22/24 19:39 Lymphocytes # (Manual) 2.1 X10*3/uL (1.2-4.9) 01/22/24 19:39 Monocytes # (Manual) 0.5 X10*3/uL (0.1-1.2) 01/22/24 19:39 Platelet Estimate NORMAL (NORMAL) 01/22/24 19:39 Plt Morphology Comment NORMAL 01/22/24 19:39 RBC Morphology NOTED 01/22/24 19:39 Target Cells 1+ (5-14) /OIF 01/22/24 19:39 Ovalocytes 1+ (5-14) /OIF 01/22/24 19:39 Smear Tech's Comments VERIFIED 01/24/24 04:40 Hold Purple Top SEE NOTE 02/06/24 08:54 PT 14.2 SEC (11.1-13.3) H 01/20/24 23:04 INR 1.2 (0.9-1.1) H 01/20/24 23:04 aPTT Heparin Protocol 29.2 SEC (53-77.9) L 01/20/24 23:04 O2 Saturation 98.0 % 01/23/24 18:35 ABG pH at Pt Temp 7.46 (7.35-7.45) H 01/23/24 18:35 ABG pCO2 at Pt Temp 32 mmHg (32-45) 01/23/24 18:35 ABG pO2 at Pt Temp 89 mmHg (83-108) 01/23/24 18:35 ABG HCO3 23 mmol/L (22-26) 01/23/24 18:35 ABG Base Excess (Actual) 0.3 mmol/L 01/23/24 18:35 VBG pH 7.41 (7.32-7.43) 02/02/24 06:23 VBG pCO2 43 mmHg 02/02/24 06:23 VBG pO2 38 mmHg 02/02/24 06:23 VBG HCO3 27 mmol/L (22-26) H 02/02/24 06:23 VBG O2 Saturation 55.0 % 02/02/24 06:23 VBG Base Excess 2.7 mmol/L 02/02/24 06:23 Sodium 139 mmol/L (135-145) 02/06/24 08:54 Potassium 4.1 mmol/L (3.3-5.1) 02/06/24 08:54 Chloride 107 mmol/L (96-108) 02/06/24 08:54 Carbon Dioxide 23 mmol/L (22-29) 02/06/24 08:54 Anion Gap 13 (12-20) 02/06/24 08:54 BUN 20 mg/dL (9-16) H 02/06/24 08:54 Creatinine 0.95 mg/dL (0.5-1.4) 02/06/24 08:54 Estim Creat Clear Calc 73.0 02/06/24 08:54 Estimated GFR > 60 02/06/24 08:54 POC Glucose 139 mg/dL (60-115) H 02/07/24 11:11 Random Glucose 93 mg/dL (60-115) 02/06/24 08:54 Fasting Glucose 75 mg/dL (60-99) 02/05/24 05:40 Lactic Acid 0.9 mmol/L (0.5-2.0) 01/21/24 03:24 Calcium 10.1 mg/dL (8.4-10.2) 02/06/24 08:54 Phosphorus 3.2 mg/dL (2.7-4.5) 02/06/24 08:54 Magnesium 1.7 mg/dL (1.6-2.6) 02/06/24 08:54 Total Bilirubin 0.4 mg/dL (0.0-1.0) 02/05/24 05:40 Direct Bilirubin 0.2 mg/dL (0.0-0.5) 01/20/24 22:06 AST 12 U/L (5-37) 02/05/24 05:40 ALT 11 U/L (0-40) 02/05/24 05:40 Alkaline Phosphatase 60 U/L (39-117) 02/05/24 05:40 Troponin I High Sens 4.6 ng/L (<3.5-35.0) 01/20/24 22:06 B-Natriuretic Peptide < 10 pg/mL (<100) 01/20/24 22:06 Total Protein 7.1 g/dL (6.5-8.0) 02/05/24 05:40 Albumin 3.5 g/dL (3.5-5.0) 02/05/24 05:40 Lipase 45 U/L (8-78) 01/20/24 22:06 Procalcitonin 0.19 ng/mL 01/20/24 22:06 TSH 0.38 uIU/mL (0.32-4.0) 01/20/24 22:06 Urine Color Yellow 01/20/24 23:07 Urine Appearance Clear 01/20/24 23:07 Urine pH 6.0 (5.0-9.0) 01/20/24 23:07 Ur Specific [place] 1.025 (1.005-1.025) 01/20/24 23:07 Urine Protein Negative mg/dL (Neg-Trace) 01/20/24 23:07 Urine Glucose (UA) >=1000 mg/dL (Negative) H 01/20/24 23:07 Urine Ketones Negative mg/dL (Negative) 01/20/24 23:07 Urine Blood Negative (Negative) 01/20/24 23:07 Urine Nitrite Negative (Negative) 01/20/24 23:07 Ur Leukocyte Esterase Negative (Negative) 01/20/24 23:07 Urine RBC 3-5 /HPF (0-2) H 01/20/24 23:07 Urine WBC 0-5 /HPF (0-5) 01/20/24 23:07 Ur Squamous Epith Cells 0-2 /HPF (0-2) 01/20/24 23:07 Urine Bacteria None Seen (None Seen) 01/20/24 23:07 Hyaline Casts 0-2 /LPF (0-2) 01/20/24 23:07 Stool Occult Blood NEGATIVE (NEGATIVE) 01/20/24 22:19 Vancomycin Trough 14.3 mcg/mL (10.0-20.0) 01/22/24 20:57 Random Vancomycin 10.2 mcg/mL (15-20) L 01/25/24 20:48 Valproic Acid 44.5 mcg/mL (50.0-100.0) L 01/21/24 03:24 [place] 0.80 mmol/L (0.60-1.20) 01/21/24 03:23 COVID-19 ([place]) Positive (Negative) A 01/26/24 12:00 COVID-19 Clin Com See Note 01/26/24 12:00 Influenza Type A (PCR) NEGATIVE (Negative) 01/20/24 22:07 Influenza Type B (PCR) NEGATIVE (Negative) 01/20/24 22:07 RSV RNA Qual (PCR) NEGATIVE (Negative) 01/20/24 22:07 SARS-CoV-2 RNA (RT-PCR) POSITIVE (Negative) A 01/20/24 22:07 Blood Type O Positive 02/04/24 07:36 Antibody Screen NEGATIVE 02/04/24 07:36 Impressions Chest CTA 01/23/24 15:27 IMPRESSION: No evidence of pulmonary embolism. Bilateral lower lobe pneumonia and airways disease in the right upper lobe. Uncertain location of right neck central line which may be arterial. Correlation with blood flow back from the line or blood gas recommended. VTE: Negative Findings will be communicated by the [place] workflow senior physician Head CT 01/23/24 15:27 IMPRESSION: Limited evaluation secondary to motion artifact. Within the confines of the examination there is no acute intracranial abnormality, however. Chest X-Ray 01/27/24 16:19 IMPRESSION: NG tube with tip in gastric antrum. Bibasilar infiltrates, right greater than left. Discharge Plan Discharge Anticipated Discharge Date/Time: 02/07/24 14:02 Patient Disposition: Xfer SNF Discharge Diagnosis: acute hypoxic resp failure and septic shock due to pneumonia DAKOTAH, septic ATN dysphagia Referrals: [facility] [Other] - 1 Week [facility] [Outside] - 1 Week Celestine Beckman DO [Primary Care Provider] - 1 Week Physician,Unknown J [Physician] - 1 Week Discharge Medications: New divalproex 125 mg Capsule, Delayed Rel Sprinkle 250 mg G-tube BID Qty: 60 0RF levothyroxine 112 mcg Tablet 112 mcg G-tube DAILY@0600 Qty: 30 0RF lactulose 20 gram/30 mL Solution 30 g G-tube DAILY Qty: 900 0RF Continued bisacodyl 10 mg Suppository 10 mg CA DAILY PRN (Reason: Constipation) Fleet Enema 19-7 gram/118 mL enema 118 ml CA DAILY PRN (Reason: Constipation) Rx Instructions: use only if bisacodyl ineffective Changed amlodipine 10 mg Tablet 10 mg feeding tube DAILY Qty: 30 0RF Discontinued carvedilol 25 mg Tablet 25 mg PO BID acetaminophen 325 mg Tablet 650 mg PO Q4H PRN (Reason: Fever Or Pain) trazodone 50 mg Tablet 50 mg PO BEDTIME clozapine [Clozaril] 100 mg Tablet 200 mg PO DAILY sennosides-docusate sodium [Senna Plus] 8.6-50 mg Tablet 1 tab PO BID lithium carbonate 300 mg Tablet Extended Release 300 mg PO BEDTIME aspirin 81 mg Tablet,Delayed Release (Dr/Ec) 81 mg PO DAILY lithium carbonate 450 mg Tablet Extended Release 225 mg PO DAILY@0630 hydralazine 100 mg Tablet 100 mg PO TID ferrous sulfate 325 mg (65 mg iron) Tablet 325 mg PO BID bisacodyl 5 mg Tablet,Delayed Release (Dr/Ec) 5 mg PO Q72H lactulose 10 gram/15 mL Solution 30 ml PO TID insulin glargine [Lantus Solostar U-100 Insulin] 100 unit/mL (3 mL) Insulin Pen 8 unit SUBCUT BEDTIME atorvastatin 20 mg Tablet 20 mg PO BEDTIME clozapine 100 mg Tablet 100 mg PO DAILY divalproex 250 mg Tablet Extended Release 24 Hr 500 mg PO BEDTIME sennosides [senna] 8.6 mg Tablet 8.6 mg PO DAILY PRN (Reason: Constipation) levothyroxine 112 mcg Tablet 112 mcg PO DAILY@0600 dextrose [Glucose Gel] 40 % Gel 15 g PO Q15M PRN (Reason: hypoglycemic protocol) Rx Instructions: until symptoms of low blood sugar are controlled pregabalin 300 mg Capsule 300 mg PO BID Farxiga 10 mg tablet 10 mg PO QAM GlucaGen HypoKit 1 mg recon soln 1 mg subcut Q15M PRN (Reason: Hypoglycemia) Rx Instructions: until target blood sugar attained Discharge Orders: Discharge Order (Routine); Ordered 02/07/24 Ordered By: Adrienne Lantigua Diet: Tube feeds Activity on Discharge: As tolerated Stand Alone Forms: Patient Portal Discharge page Care Plan Goals: recovery from septic shock Health Concerns: acute hypoxic resp failure and septic shock due to pneumonia DAKOTAH, septic ATN dysphagia Plan of Treatment: Tube feeds: PT TO RECEIVE GLUCERNA AT MAX GOAL RATE 85ML/HR WITH 120ML FREE WATER FLUSHES Q 8 HRS TO PROVIDE 2040KCALS (29KCALS/KG), 85G PROTEIN (1.2G/KG), 2100ML TOTAL FREE WATER FROM FORMULA AND FLUSHES (30ML/KG) Medications via G-tube. Return to [facility] for long-term care. Assessment: See Discharge Summary.
--- NOTE | 2024-02-07 14:07 | MHC.CM.PN ---
Patient has been medically cleared for dc to return to LTC today. Patient will return to LTC @ [facility] today at 3:30 PM, via [facility]. CM spoke with Guardian/Kira @ [phone] and informed her of the dc plan.
== END 2024-02-07 16:02 | disposition skilled nursing facility (03) | DRG 720 ==
LOC: HO.ED 01-21 00:12 → HO.EDOVER 01-21 01:19 → HO.ICU 01-21 01:40 → HO.IMC 02-02 04:13
PROVIDERS: Internal Medicine Critical Care Medicine; Internal Medicine Pulmonary Disease; Nurse Practitioner Family; Surgery; Admitting Provider Physician Assistant Medical; Emergency Provider Emergency Medicine; PCP Hospitalist; Visit Provider Family Medicine
PROC: 0DH63UZ Insertion of Feeding Device into Stomach, Percutaneous Approach (ICD-10-PCS; CPT 43246; principal; 2024-02-04 10:30)
DX: A41.9 Sepsis, unspecified organism (principal); J96.01 Acute respiratory failure with hypoxia; I26.99 Other pulmonary embolism without acute cor pulmonale; N17.0 Acute kidney failure with tubular necrosis; R65.21 Severe sepsis with septic shock; E43 Unspecified severe protein-calorie malnutrition; U07.1 COVID-19; E86.0 Dehydration; L89.322 Pressure ulcer of left buttock, stage 2; N18.30 Chronic kidney disease, stage 3 unspecified; R13.10 Dysphagia, unspecified; E87.0 Hyperosmolality and hypernatremia; E11.22 Type 2 diabetes mellitus with diabetic chronic kidney disease; F25.9 Schizoaffective disorder, unspecified; G40.909 Epilepsy, unspecified, not intractable, without status epilepticus; I50.22 Chronic systolic (congestive) heart failure; E88.09 Other disorders of plasma-protein metabolism, not elsewhere classified; E11.65 Type 2 diabetes mellitus with hyperglycemia; F03.90 Unspecified dementia, unspecified severity, without behavioral disturbance, psychotic disturbance, mood disturbance, and anxiety; E03.9 Hypothyroidism, unspecified; Z68.1 Body mass index [BMI] 19.9 or less, adult; Z87.891 Personal history of nicotine dependence; Z79.890 Hormone replacement therapy; Z79.899 Other long term (current) drug therapy
CPT/HCPCS: 0241U; 36415; 36600; 70450; 71045; 71275; 80048; 80053; 80076; 80164; 80178; 80202; 81001; 82040; 82272; 82803; 82947; 83605; 83690; 83735; 83880; 84100; 84145; 84443; 84484; 85007; 85025; 85027; 85610; 85730; 86850; 86900; 86901; 87040; 87070; 87077; 87186; 87205; 87635; 92526; 92610; 93005; 94002; 94003; 94640; 99285; C1758; C9113; J0696; J1100; J1170; J1200; J1644; J1650; J1940; J2250; J2543; J2704; J3101; J3370; J3371; P9047; Q9967

== ENCOUNTER → 2024-01-20 21:48 | Outpatient (BNV) | payer MEDICAID, SELFPAY | PROVIDERS: Admitting Provider Physician Assistant Medical; Emergency Provider Emergency Medicine; Visit Provider Internal Medicine Cardiovascular Disease | DX: R00.1 Bradycardia, unspecified (principal) | CPT/HCPCS: 93010 ==

== ENCOUNTER 2024-01-21 01:11 | Outpatient (BNV) | payer MEDICAID, SELFPAY | END 2024-01-21 10:28 | PROVIDERS: Admitting Provider Physician Assistant Medical; Emergency Provider Emergency Medicine; Visit Provider Internal Medicine Cardiovascular Disease | DX: R07.9 Chest pain, unspecified (principal) | CPT/HCPCS: 93010 ==

== ENCOUNTER 2024-01-21 01:11 | Outpatient (BNV) | payer MEDICAID, SELFPAY | END 2024-01-24 07:44 | PROVIDERS: Admitting Provider Physician Assistant Medical; Emergency Provider Emergency Medicine; PCP Hospitalist; Visit Provider Internal Medicine Cardiovascular Disease | DX: R00.1 Bradycardia, unspecified (principal) | CPT/HCPCS: 93010 ==

== ENCOUNTER → 2024-01-21 01:11 | Outpatient (BNV) | payer MEDICAID, SELFPAY | PROVIDERS: Admitting Provider Physician Assistant Medical; Emergency Provider Emergency Medicine; PCP Hospitalist; Visit Provider Hospitalist | DX: J96.01 Acute respiratory failure with hypoxia (principal); J18.9 Pneumonia, unspecified organism | CPT/HCPCS: 99232; 99233; 99239; 99499 ==

== ENCOUNTER → 2024-01-21 01:11 | Outpatient (BNV) | payer MEDICAID, SELFPAY | PROVIDERS: Admitting Provider Physician Assistant Medical; Emergency Provider Emergency Medicine; Visit Provider Physician Assistant Medical | DX: J96.01 Acute respiratory failure with hypoxia (principal); J18.9 Pneumonia, unspecified organism; U07.1 COVID-19; T82.9XXA Unspecified complication of cardiac and vascular prosthetic device, implant and graft, initial encounter; N17.9 Acute kidney failure, unspecified; N18.9 Chronic kidney disease, unspecified; I50.9 Heart failure, unspecified | CPT/HCPCS: 36556; 99291; 99292 ==

== ENCOUNTER → 2024-01-21 01:11 | Outpatient (BNV) | payer MEDICAID, SELFPAY | PROVIDERS: Admitting Provider Physician Assistant Medical; Emergency Provider Emergency Medicine; PCP Hospitalist; Visit Provider Physician Assistant Surgical | DX: R13.10 Dysphagia, unspecified (principal); Z93.1 Gastrostomy status | CPT/HCPCS: 43246; 99222; 99232 ==

== ENCOUNTER → 2024-01-21 01:11 | Outpatient (BNV) | payer MEDICAID, SELFPAY | PROVIDERS: Admitting Provider Physician Assistant Medical; Emergency Provider Emergency Medicine; PCP Hospitalist; Visit Provider Surgery Vascular Surgery | DX: T88.8XXA Other specified complications of surgical and medical care, not elsewhere classified, initial encounter (principal) | CPT/HCPCS: 99222 ==

== ENCOUNTER → 2024-01-21 01:11 | Outpatient (BNV) | payer MEDICAID, SELFPAY | PROVIDERS: Admitting Provider Physician Assistant Medical; Emergency Provider Emergency Medicine; PCP Hospitalist; Visit Provider Internal Medicine Pulmonary Disease | DX: J18.9 Pneumonia, unspecified organism (principal); R56.9 Unspecified convulsions; F20.9 Schizophrenia, unspecified; E11.9 Type 2 diabetes mellitus without complications; F03.90 Unspecified dementia, unspecified severity, without behavioral disturbance, psychotic disturbance, mood disturbance, and anxiety | CPT/HCPCS: 99232; 99233; 99291 ==

== ENCOUNTER 2024-03-29 14:51 | Outpatient (AMB) | payer MEDICAID, SELFPAY ==
--- NOTE | 2024-03-29 14:53 | MHC.OFFVIS ---
Vital Signs 03/29/24 14:58 Comment Pt in WC Intake Visit Reasons: PEG issues Intake Note: This patient presents for an assessment for PEG issues. 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 Boning Room Worker Required: No Accompanied by: BOWLING ALLEY ATTENDANT Allergies NSAIDS (Non-Steroidal Anti-Inflamma Adverse Reaction (Verified 03/29/24 15:00) Avoid-r/t CKD Medication List - Last Reconciled 03/29/24 by Luca Jaffe MD amlodipine 10 mg feeding tube DAILY bisacodyl 10 mg MO DAILY PRN divalproex 250 mg (2 x 125 mg) G-tube BID lactulose 30 grams (45 mL) G-tube DAILY levothyroxine 112 mcg G-tube DAILY@0600 sodium phosphates 19-7 gram/118 mL (Fleet Enema) 118 mL MO DAILY PRN HPI HPI PEG issues: Details: 63M here for question of PEG tube issues. He had undergonePEG tube placement for dysphagia last January 2024. According to the staff with him today, he has been tolerating tube feeds. He seems to be doing well in the skilled nursing. [facility] Medical History Inadvertent catheterization of artery Acute respiratory failure with hypoxia Central line complication Heart failure Respiratory failure Dehydration Hypernatremia Acute hyperglycemia Pneumonia Acute kidney injury superimposed on CKD COVID Resides in [facility] facility Constipation GERD (gastroesophageal reflux disease) Cardiomegaly Extrapyramidal and movement disorder Eating disorder Chronic kidney disease Glaucoma Schizophrenia Anemia Hyperlipemia Hypothyroid Seizures Diabetes Dementia Surgical History Hx of colonoscopy Surgical history unknown Social History Household Members: Unknown / Unable to assess Housing: Unknown / Unable to assess Unable to assess alcohol history related to: Unable to respond Alcohol intake: unknown Comment: bilateral wrist restraints/propofol drip Patient Tobacco Use Status: Former Tobacco user Advance Directives Date on File: 04/30/21 service: No Review of Systems Const Unobtainable due to mental status Denies chills and Reports fever(s) (as per staff) Physical Exam Const Other: not communicative verbally, on wheelchair General: comfortable and no acute distress Resp Effort & Inspection: normal respiratory effort GI Other: PEG tube in place Palpation (GI): Soft to palpation, not firm, nontender and no guarding Assessment & Plan Assessment & Plan (1) S/P percutaneous endoscopic gastrostomy (PEG) tube placement: Code(s): Z93.1 - Gastrostomy status Category: Surgical Plan: He looks comfortable. According to the staff, he has been tolerating tube feeds well and has had no issue. There does not seem to be any identifable problem with the PEG tube at this time. He can ffup on a prn basis. Coding Level of Care Code Global (40743) Diagnoses S/P percutaneous endoscopic gastrostomy (PEG) tube placement Z93.1
== END 2024-03-29 15:11 | disposition home or self-care (01) ==
PROVIDERS: PCP Hospitalist; Visit Provider Surgery
DX: Z93.1 Gastrostomy status (principal)
CPT/HCPCS: 99212

== ENCOUNTER → 2024-03-29 14:51 | Outpatient (BNVA) | payer MEDICAID, SELFPAY | PROVIDERS: PCP Hospitalist; Visit Provider Surgery | DX: Z93.1 Gastrostomy status (principal); R13.10 Dysphagia, unspecified | CPT/HCPCS: 99212 ==

== ENCOUNTER 2024-04-11 07:34 | Emergency (ER) | payer MEDICAID, SELFPAY ==
--- NOTE | ~2024-04-11 | XR_ITS ---
EXAMINATION: XR ABDOMEN COMPLETE CLINICAL INDICATION: G-tube placement COMPARISON: Previous x-ray from earlier the same day TECHNIQUE: 2 views of the abdomen, AP supine and lateral. FINDINGS: G-tube projects over the stomach on the lateral view. There is oral contrast seen in the small bowel. No evidence of obstruction, contrast extravasation or free air. Bony structures are unremarkable. XR/XR abdomen min 2V IMPRESSION: G-tube projects over the stomach.
[2024-04-11 07:44] VITALS: BP 159/97; BP 95/73; PULSE 87; PULSE 94; RESP 18; TEMP 36.4; O2SAT 95; O2SAT 97; BMI 21.6
--- NOTE | 2024-04-11 09:17 | ED.GENADULT ---
HPI - General Adult General Chief complaint: General Medical Stated complaint: G-TUBE ISSUE FROM [facility] PER EMS Time Seen by Provider: 04/11/24 08:29 Source: patient, EMS and RN notes reviewed Mode of arrival: EMS Limitations: altered mental status History of Present Illness HPI narrative: Patient is a 63-year-old male Who presents emergency department via EMS coming from [facility] facility with reports of malfunctioning G-tube, that has been reportedly leaking and not infusing feedings appropriately, requesting replacement of the tube. Patient is alert oriented to self, unable to provide any meaningful history or details surrounding his visit here today. He offers no physical complaints. Related Data Home Medications ?Medication ?Instructions ?Recorded ?Confirmed sodium phosphates 19 gram-7 118 ml TN DAILY PRN Constipation 12/11/22 03/29/24 gram/118 mL enema (Fleet Enema) bisacodyl 10 mg rectal suppository 10 mg TN DAILY PRN Constipation 09/19/23 03/29/24 Previous Rx's ?Medication ?Instructions ?Recorded amlodipine 10 mg tablet 10 mg feeding tube DAILY #30 tabs 02/07/24 divalproex 125 mg capsule,delayed 250 mg (2 x 125 mg) G-tube BID #60 02/07/24 release sprinkle caps lactulose 20 gram/30 mL oral 30 g (45 mL) G-tube DAILY #900 mL 02/07/24 solution levothyroxine 112 mcg tablet 112 mcg G-tube DAILY@0600 #30 tabs 02/07/24 Allergies Allergy/AdvReac Type Severity Reaction Status Date / Time NSAIDS (Non-Steroidal AdvReac Avoid-r/t Verified 04/11/24 07:50 Anti-Inflamma CKD Review of Systems Review of Systems: Yes Unobtainable due to mental status [facility] Past Medical History Attestation statement: The following information was validated with the patient. Source: old records reviewed Medical History Inadvertent catheterization of artery Acute respiratory failure with hypoxia Central line complication Heart failure Respiratory failure Dehydration Hypernatremia Acute hyperglycemia Pneumonia Acute kidney injury superimposed on CKD COVID Resides in [facility] facility Constipation GERD (gastroesophageal reflux disease) Cardiomegaly Extrapyramidal and movement disorder Eating disorder Chronic kidney disease Glaucoma Schizophrenia Anemia Hyperlipemia Hypothyroid Seizures Diabetes Dementia Surgical History Hx of colonoscopy Surgical history unknown Social History Social History Household Members: Unknown / Unable to assess Housing: Unknown / Unable to assess Unable to assess alcohol history related to: Unknown Alcohol intake: unknown Comment: bilateral wrist restraints/propofol drip Patient Tobacco Use Status: Former Tobacco user Advance Directives: Yes Advance Directives on File: Yes Advance Directives Date on File: 04/30/21 Do you have a plan to hurt others: No Plan service: No Physical Exam ED Vital Signs: Vital Signs - 24 hr 04/11/24 07:44 04/11/24 10:14 04/11/24 11:47 Temperature 97.6 F 98.0 F Pulse Rate 94 94 103 H Respiratory Rate 18 18 20 Blood Pressure 159/97 H 146/90 H 140/99 H Pulse Oximetry 97 96 96 Oxygen Delivery Method Room Air Room Air Room Air 04/11/24 15:45 04/11/24 17:45 Temperature 98.3 F 98.3 F Pulse Rate 100 100 Respiratory Rate 20 20 Blood Pressure 150/92 H 150/92 H Pulse Oximetry 96 96 Oxygen Delivery Method Room Air Room Air BMI result Body Mass Index 21.6 Appearance: Alert.?Oriented to person.?Normal affect. Eyes: Pupils equal, round and reactive to light.? ENT: Pharynx normal.?? Neck: Normal inspection.? Neck supple.?? CVS: Heart sounds normal. Normal heart rate and rhythm.? Pulses normal.?? Respiratory: No respiratory distress.? Lung sounds clear to auscultation bilaterally?? Abdomen: Soft and non-tender. Normoactive bowel sounds. 20Fr tube in place to abdomen, the distal end Y adapter of the tube is without cover to gastric port, upon attempt to flush gastrostomy tube, leaky does noted from the Y adapter Skin: Skin warm and dry.? Normal skin color.? ?? Extremities: No lower extremity edema.? Neuro: Moves all extremities spontaneously. Sensation intact bilaterally. Medical Decision Making Medical Decision Making MDM Narrative: Patient is a 63-year-old male with past medical history of CKD, seizures, hypertension, type 2 diabetes, cardiomyopathy, recent aspiration pneumonia in January of 2024 that reportedly required admission with intubation and mechanical ventilation to [facility], subsequently found to have dysphagia, with recommendations for PEG tube placement and NPO. He underwent PEG placement on 02/04/[address] Jaffe after consent was obtained from legal guardian. At this point, tract should be matured, plan to replace accordingly. 20Fr tube in place to abdomen, the distal end Y adapter of the tube is without cover to gastric port, upon attempt to flush gastrostomy tube, leaky does noted from the Y adapter. No balloon port noted to current tube in place, I reviewed this case with ED attending Dr. Horne, recommends cutting of the distal tip for removal. Meeting resistance with removal, Dr. Horne to bedside, was able to remove. small amount of bleeding from tract noted. Replaced with a 20 [place]ese 2, 10mL balloon inflated. KUB with Gastrografin confirms to placement, functioning normally. Aspirating gastric content, possible bowel sounds over the stomach. Stable for discharge back facility Differential Diagnosis Differential Diagnoses: The differential diagnosis associated with the presentation includes (See narrative above) Admission/Observation Consideration of admission/observation: Escalation of care including admission/observation considered Independent Interpretation I performed an independent interpretation of an: Plain X-Ray (Tip of gastrostomy tube within stomach, Gastrografin within small bowel) Radiology Impression Discussion of test interpretation with radiology: I have reviewed the radiologist's reading. Radiologist Impression: FINDINGS: G-tube projects over the stomach on the lateral view. There is oral contrast seen in the small bowel. No evidence of obstruction, contrast extravasation or free air. Bony structures are unremarkable. XR/XR abdomen min 2V IMPRESSION: G-tube projects over the stomach. Independent Historian Clinical information obtained from an independent historian. History obtained from or confirmed by: EMS External Record Review External record reviewed: Outpatient record Chronic Conditions Patient?s care impacted by: Other (dysphagia) Discharge Plan Discharge Clinical Impression: Complication of gastrostomy tube Patient Disposition: Home, Self-Care Instructions: How to Use and Care for Your PEG Tube (ED) Additional Instructions: Gastrostomy tube was replaced, placement confirmed, functioning well. Prescriptions: No Action bisacodyl 10 mg Suppository 10 mg TN DAILY PRN (Reason: Constipation) divalproex 125 mg Capsule, Delayed Rel Sprinkle 250 mg G-tube BID Qty: 60 0RF levothyroxine 112 mcg Tablet 112 mcg G-tube DAILY@0600 Qty: 30 0RF lactulose 20 gram/30 mL Solution 30 g G-tube DAILY Qty: 900 0RF amlodipine 10 mg Tablet 10 mg feeding tube DAILY Qty: 30 0RF Fleet Enema 19-7 gram/118 mL enema 118 ml TN DAILY PRN (Reason: Constipation) Rx Instructions: use only if bisacodyl ineffective Interventions: ED Discharge Assessment Last Done: 04/11/24 17:45 Discharge Date/Time: 04/11/24 17:46 Print Language: Croatian
--- NOTE | 2024-04-11 10:00 | PC.NURSE ---
pt is alert but at baseline confusion, pt is [facility] for [facility] not working, the g-tube seems to missing one of the plug endings and it just leaking from it, pt does have a 20 estonian g-tube at this time
[2024-04-11 10:14] VITALS: BP 146/90; PULSE 94; RESP 18; O2SAT 96
[2024-04-11 11:47] VITALS: BP 140/99; PULSE 103; RESP 20; TEMP 36.7; O2SAT 96
--- NOTE | 2024-04-11 12:03 | MHC.EDTECH ---
Cleaned patient with assistance from Geovany Tejada. Changed linen and gown.
--- NOTE | 2024-04-11 15:36 | PC.NURSE ---
report given to joel reese at [facility]
[2024-04-11 15:45] VITALS: BP 150/92; PULSE 100; RESP 20; TEMP 36.8; O2SAT 96
[2024-04-11 17:45] VITALS: BP 150/92; PULSE 100; RESP 20; TEMP 36.8; O2SAT 96
== END 2024-04-11 17:46 | disposition home or self-care (01) ==
PROVIDERS: Emergency Provider Emergency Medicine; PCP Hospitalist
DX: K94.23 Gastrostomy malfunction (principal); Y69 Unspecified misadventure during surgical and medical care; R13.10 Dysphagia, unspecified; I12.9 Hypertensive chronic kidney disease with stage 1 through stage 4 chronic kidney disease, or unspecified chronic kidney disease; E11.22 Type 2 diabetes mellitus with diabetic chronic kidney disease; N18.9 Chronic kidney disease, unspecified
CPT/HCPCS: 74019; 99283; 99284

== ENCOUNTER 2024-05-28 14:07 | Outpatient (AMB) | payer MEDICAID, SELFPAY ==
[2024-05-28 14:34] VITALS: BP 130/76; PULSE 74
--- NOTE | 2024-05-28 14:34 | MHC.OFFVIS ---
Vital Signs 05/28/24 14:34 Height 5 ft 11 in BMI Reason not done Patient refused/unable BP 130/76 Blood Pressure Location Lt brachial Position Sitting Pulse 74 Pulse Source Pulse Oximeter Intake Visit Reasons: 3 month Follow up- acute hypoxic resp failure Allergies NSAIDS (Non-Steroidal Anti-Inflamma Adverse Reaction (Verified 04/11/24 07:50) Avoid-r/t CKD Medication List - Last Reconciled 05/28/24 by Gillian Vera NP amlodipine 10 mg feeding tube DAILY bisacodyl 10 mg HI DAILY PRN divalproex 250 mg (2 x 125 mg) G-tube BID lactulose 30 grams (45 mL) G-tube DAILY levothyroxine 112 mcg G-tube DAILY@0600 sodium phosphates 19-7 gram/118 mL (Fleet Enema) 118 mL HI DAILY PRN HPI Comments Details: 63-year-old male presents today for a follow-up. He was in [facility] back in january. He was in ICU and intubated. He had COVID pneumonia and went into hypoxic respiratory failure. He is currently back to baseline per the aide who accompanied him today. He has advanced dementia, non-verbal, diabetes, HFrEF, and renal insufficiency. There are no progress notes accompanying the patient. Just his face sheet and medication list. Per aide he is overall gradually getting better. [facility] Medical History Inadvertent catheterization of artery Acute respiratory failure with hypoxia Central line complication Heart failure Respiratory failure Dehydration Hypernatremia Acute hyperglycemia Pneumonia Acute kidney injury superimposed on CKD COVID [facility] Constipation GERD (gastroesophageal reflux disease) Cardiomegaly Extrapyramidal and movement disorder Eating disorder Chronic kidney disease Glaucoma Schizophrenia Anemia Hyperlipemia Hypothyroid Seizures Diabetes Dementia Surgical History Hx of colonoscopy Surgical history unknown Social History Household Members: Unknown / Unable to assess Housing: Unknown / Unable to assess Unable to assess alcohol history related to: Unknown Alcohol intake: unknown Comment: bilateral wrist restraints/propofol drip Patient Tobacco Use Status: Former Tobacco user Advance Directives Date on File: 04/30/21 service: No Review of Systems Const Denies weakness ENT Denies dizziness Card Denies chest pain, Denies chest pain with activity, Denies syncope, Denies rapid heart rate, Denies pedal edema, Denies edema, Denies leg edema, Denies lightheadedness, Denies palpitations, Denies dyspnea, Denies dyspnea on exertion and Denies orthopnea Resp Denies cough, Denies dyspnea and Denies dyspnea on exertion GI Denies hematochezia and Denies change in stool character Musc Denies abnormal gait, Denies muscle cramps, Denies muscle weakness, Denies numbness, Denies radiating pain into limb and Denies tingling Neuro Denies abnormal gait, Denies dizziness, Denies syncope, Denies numbness, Denies tingling and Denies weakness Endo Denies palpitations Physical Exam Vital Signs: Last Vital Signs Pulse 74 05/28/24 14:34 BP 130/76 05/28/24 14:34 Assessment & Plan Assessment & Plan (1) Cardiomegaly: Comment: referred to [facility] for clearance for colonoscopy and is on 02/13/23 chart (done by ) Code(s): I51.7 - Cardiomegaly Category: Medical (2) Diastolic dysfunction: Code(s): I51.89 - Other ill-defined heart diseases Category: Medical Plan Does not appear to be fluid overloaded. Ask facility to please send progress notes and to fax recent lab work to us. Will update echcoardiogram. Orders: Orders CA echo transthoracic complete 05/28/24 I51.7 - Cardiomegaly, I51.89 - Other ill-defined heart diseases Coding Level of Care Code Est Pt Level 3 (62983) Diagnoses Cardiomegaly I51.7 Diastolic dysfunction I51.89
== END 2024-05-28 15:26 | disposition home or self-care (01) ==
PROVIDERS: PCP Hospitalist; Visit Provider Nurse Practitioner
DX: I51.7 Cardiomegaly (principal); I51.89 Other ill-defined heart diseases
CPT/HCPCS: 99213

== ENCOUNTER → 2024-05-28 14:07 | Outpatient (BNVA) | payer MEDICAID, SELFPAY | PROVIDERS: PCP Hospitalist; Visit Provider Nurse Practitioner | DX: I51.7 Cardiomegaly (principal); I51.89 Other ill-defined heart diseases; F03.90 Unspecified dementia, unspecified severity, without behavioral disturbance, psychotic disturbance, mood disturbance, and anxiety | CPT/HCPCS: 99212 ==

== ENCOUNTER → 2024-06-21 07:58 | Outpatient (REF) | payer MEDICAID, SELFPAY ==
--- NOTE | 2024-06-21 08:04 | CA_ITS ---
Transthoracic Echocardiogram Patient (Last, First, Middle): Reza Arnold, Gender: Male Date of : 1960 Age: 63 Procedure Date: 06/21/2024 Procedure Type: Transthoracic Echocardiogram Location: OP Height: 175.26 cm Weight: 68.04 kg BSA: 1.83 m2 Heart Rate: 71 bpm BP: 130 / 72 mmHg Technology Officer: SB Referring MD: Gillian Vera SENIOR INSIGHT MANAGER [employer] Symptoms: I51.89 - Other ill-defined heart diseases Study Quality: Adequate ECG Rhythm: Sinus Conclusions: - The left ventricular systolic function is normal. The visually estimated ejection fraction is between 55-60%. - No obvious valvular pathology seen on this study. Findings Left Ventricle Normal left ventricular cavity size. The left ventricular systolic function is normal. The visually estimated ejection fraction is between 55-60%. There is no evidence of regional wall motion abnormalities. Diastolic function is normal for age. There is mild septal asymmetric hypertrophy. Right Ventricle Normal right ventricular cavity size and systolic function. Atria Both atria are normal in size. Aortic Valve The aortic valve structure and function is likely normal. There is no aortic valve stenosis. There is no aortic valve regurgitation. Mitral Valve The mitral valve appears normal. There is no mitral valve regurgitation. There is no mitral valve stenosis. Pulmonic Valve The pulmonic valve is likely normal. Tricuspid Valve Normal tricuspid valve structure. There is no tricuspid valve regurgitation. Tricuspid regurgitation envelope is inadequate for calculation of right ventricular systolic pressure. Great Vessels The aorta was not well visualized. The aortic annulus is normal in size. Venous The inferior vena cava is normal in size and collapses greater than 50% with inspiration. Pericardium/Pleural There is no evidence of pericardial effusion. Prior Study Comparison No significant change compared to prior study dated: 12/23/2022. Recommendations, Care & Conclusions No obvious valvular pathology seen on this study. Measurements 2D Linear Measurements IVSd: 1.03 0.6-0.9/0.6-1.0 cm LVIDd: 4.08 3.9-5.3/4.2-5.9 cm LVIDd Index: 2.23 2.4-3.2/2.2-3.1 cm/m2 LVIDs: 2.96 2.0-3.6 cm LVPWd: 0.84 0.7-1.1 cm LA Diam: 3.00 2.7-3.8/3.0-4.0 cm LAIDs Index: 1.64 1.5-2.3 cm/m2 LV Mass: 148.00 67-162/88-224 g LV Mass Index: 80.87 43-95/49-115 g/m2 LVOT Diam: 2.40 3.0+(-)1.3 cm 2D Systolic Function EF 4C: 60.10 >55% EF 2C: 63.30 >55% EF BiP: 61.10 >55% Mitral Valve MV Pk E: 0.55 MV PK A: 0.78 MV Decel Time: 276.00 E/A: 0.70 E'Lateral: 10.60 E'Medial: 5.66 E/E' Med: 9.70 E/E' Lat: 5.20 PHT: 81.00 MVA PHT: 2.72 Decel [place]: 1.99 Aortic Valve AoV Pk Eliazar: 0.89 AoV Pk Grad: 3.00 MATEO: 4.00 LVOT LVOT Pk Eliazar: 0.79 LVOT Mn Eliazar: 0.55 LVOT VTI: 0.17 LVOT Pk Grad: 2.00 LVOT Mn Grad: 1.00 LVOT Diam: 2.40 LVOT Area: 4.52 Diastolic Function MV Pk E: 0.55 MV Pk A: 0.78 E/A: 0.70 E'Medial: 5.66 E/E' Med: 9.70 E' Laterial: 10.60 E/E' Lat: 5.20 Right Ventricle TAPSE (mm): 22.60 TVS' Eliazar: 11.50 Tricuspid Valve RA Press: 3.00 Great Vessels Aorta Sinus of Valsalva: 3.60 2.0-3.5 cm Pulmonary Valve PV Pk Eliazar: 0.64 Peak PV Grad: 2.00 Updated in Other Vendor System with Status of Final Fortino Hauser MD electronically signed on 06/21/2024 11:06:24 AM with status of Final
== END ==
LOC: HO.CARD 07:58
PROVIDERS: PCP Hospitalist; Visit Provider Nurse Practitioner
DX: I51.89 Other ill-defined heart diseases (principal); I51.7 Cardiomegaly
CPT/HCPCS: 93306

== ENCOUNTER → 2024-06-21 08:04 | Outpatient (BNV) | payer MEDICAID, SELFPAY | PROVIDERS: PCP Hospitalist; Visit Provider Internal Medicine | DX: I42.2 Other hypertrophic cardiomyopathy (principal) | CPT/HCPCS: 93306 ==

== ENCOUNTER 2024-06-22 07:22 | Outpatient (REF) | payer MEDICAID, SELFPAY ==
--- NOTE | ~2024-06-22 | CT_ITS ---
EXAMINATION: CT CHEST WITHOUT CONTRAST CLINICAL INFORMATION: Follow-up 3 mm peripheral right lower lobe nodule. COMPARISON: Prior chest CT examinations, most recently 01/23/2024; chest radiograph dated 01/27/2024. TECHNIQUE: Multidetector volumetric CT imaging of the chest was done. Axial MIP volume rendering provided. Sagittal and coronal reformatted images were obtained. This CT examination was performed using dose optimization techniques as appropriate, variously including the following: *Automated exposure control *Adjustment of mA and/or kV according to patient size (this includes techniques or standardized protocols for targeted exams where dose is matched to indication/reason for exam; i.e. extremities or head) *Use of iterative reconstruction technique DLP: 199 mGy-cm FINDINGS: DIRECTOR OF HOSPITALITY: The lungs are symmetrically well-expanded and grossly clear. LUNGS: Evaluation is limited due to respiratory motion. There are very mild paraseptal emphysematous changes at the anteromedial right apex. Laterally within the right upper lobe (5:211), a small benign, calcified granuloma is seen. No noncalcified nodule, mass, infiltrate or groundglass opacity is seen. There is mild linear scar/subsegmental atelectasis at the posterior left base, without associated focal airway obstruction. There is bibasilar dependent hypoaeration. There is no generalized small airway thickening. The central airways appear patent. MEDIASTINUM: The mediastinum is normal. CORONARY ARTERY CALCIFICATION: Very mild. PLEURA: There is no pleural effusion. No pleural mass or thickening. AXILLA: No lymphadenopathy. UPPER ABDOMEN: Unremarkable. OSSEOUS STRUCTURES: There is multi-level marked lower cervical and thoracic spondylosis, with an appearance suggesting possible DISH (diffuse idiopathic skeletal hyperostosis). No acute or aggressive osseous finding is noted. CT/CT chest wo IV con IMPRESSION: 1. A small benign, calcified granuloma is seen laterally within the right upper lobe. No noncalcified nodule, mass, infiltrate or groundglass opacity is presently appreciated. 2. There are very mild paraseptal emphysematous changes. 3. There is posterior left base scar/subsegmental atelectasis, without associated focal airway obstruction. 4. No thoracic lymphadenopathy or pleural effusion is seen. 5. Skeletal findings suggest possible DISH. No acute or aggressive osseous finding is seen. Fleischner guidelines were followed.
== END 2024-06-22 07:23 | disposition home or self-care (01) ==
LOC: HO.CT 07:22
PROVIDERS: Visit Provider Hospitalist
DX: R91.1 Solitary pulmonary nodule (principal)
CPT/HCPCS: 71250

== ENCOUNTER 2024-07-19 20:50 | Emergency (ER) | payer MEDICAID, SELFPAY ==
[2024-07-19 20:58] VITALS: BP 130/80; PULSE 80; O2SAT 94
[2024-07-19 21:06] VITALS: BP 139/80; PULSE 65; RESP 18; TEMP 36.7; O2SAT 96
[2024-07-19 21:12] VITALS: BP 139/80; PULSE 68; RESP 16; TEMP 36.4; O2SAT 99; BMI 22.9
--- NOTE | 2024-07-19 21:29 | ED.GENADULT ---
HPI - General Adult General Chief complaint: General Medical Stated complaint: FROM SNF, PULLING OUT G TUBE, NONVERB/DEMENTIA Time Seen by Provider: 07/19/24 21:23 Source: patient and EMS Mode of arrival: EMS Limitations: other (Dementia) History of Present Illness ED Provider: Dr. Liat Kim HPI narrative: Patient comes to the emergency room via ambulance from [facility]. Earlier today, patient accidentally dislodged his G-tube. Patient is nonverbal. Patient does not seem to be in any distress. Related Data Home Medications ?Medication ?Instructions ?Recorded ?Confirmed sodium phosphates 19 gram-7 118 ml AK DAILY PRN Constipation 12/11/22 03/29/24 gram/118 mL enema (Fleet Enema) bisacodyl 10 mg rectal suppository 10 mg AK DAILY PRN Constipation 09/19/23 03/29/24 Previous Rx's ?Medication ?Instructions ?Recorded amlodipine 10 mg tablet 10 mg feeding tube DAILY #30 tabs 02/07/24 divalproex 125 mg capsule,delayed 250 mg (2 x 125 mg) G-tube BID #60 02/07/24 release sprinkle caps lactulose 20 gram/30 mL oral 30 g (45 mL) G-tube DAILY #900 mL 02/07/24 solution levothyroxine 112 mcg tablet 112 mcg G-tube DAILY@0600 #30 tabs 02/07/24 Allergies Allergy/AdvReac Type Severity Reaction Status Date / Time NSAIDS (Non-Steroidal AdvReac Avoid-r/t Verified 07/19/24 21:13 Anti-Inflamma CKD Review of Systems Review of Systems: Yes Unobtainable due to mental condition [facility] Past Medical History Medical History Inadvertent catheterization of artery Acute respiratory failure with hypoxia Central line complication Heart failure Respiratory failure Dehydration Hypernatremia Acute hyperglycemia Pneumonia Acute kidney injury superimposed on CKD COVID Resides in long term facility Constipation GERD (gastroesophageal reflux disease) Cardiomegaly Extrapyramidal and movement disorder Eating disorder Chronic kidney disease Glaucoma Schizophrenia Anemia Hyperlipemia Hypothyroid Seizures Diabetes Dementia Surgical History Hx of colonoscopy Surgical history unknown Social History Social History Household Members: Unknown / Unable to assess Housing: Unknown / Unable to assess Unable to assess alcohol history related to: Unable to respond Alcohol intake: unknown Comment: bilateral wrist restraints/propofol drip Patient Tobacco Use Status: Former Tobacco user Smoked in Last 30 Days: No Use of substances other than those prescribed or required for medical reasons: Unable to respond Advance Directives: Yes Advance Directives on File: Yes Advance Directives Date on File: 04/30/21 Do you have a plan to hurt others: No Plan service: No Physical Exam ED Vital Signs: Vital Signs - 24 hr 07/19/24 21:06 07/19/24 21:12 Temperature 98.0 F 97.5 F Pulse Rate 65 68 Respiratory Rate 18 16 Blood Pressure 139/80 139/80 Pulse Oximetry 96 99 Oxygen Delivery Method Room Air Room Air BMI result Body Mass Index 22.9 Const Other: Appearance: Alert. Oriented X3. No acute distress. Eyes: Pupils equal, round and reactive to light. ENT: Pharynx normal. Neck: Normal inspection. Neck supple. No lymph nodes noted. No crepitus CVS: Normal heart rate and rhythm. Pulses normal. Normal S1 and S2 Respiratory: No respiratory distress. Breath sounds normal. No Wheezing. No rales Abdomen: G-tube foramen present without G-tube Skin: Skin warm and dry. Normal skin color. Normal skin turgor. Extremities: No lower extremity edema. No Lacerations. No Rash Neuro: Oriented X 3. No motor deficit. No sensory deficit. Moving all extremities. No slurred speech. CN 2 through 12 grossly intact Psych: calm, cooperative, normal affect Medical Decision Making Medical Decision Making MDM Narrative: Per previous notes, patient had a 20 Mongolian G-tube. However, the foramen was too small to pass a 20 Mongolian. We had to insert a 16 Mongolian. Discharge Plan Discharge Clinical Impression: Gastrojejunostomy tube dislodgement Patient Disposition: Home, Self-Care Additional Instructions: Please follow-up with your primary care physician tomorrow. If you have any worsening or new symptoms, please return to the emergency room or call 911 Prescriptions: No Action bisacodyl 10 mg Suppository 10 mg AK DAILY PRN (Reason: Constipation) divalproex 125 mg Capsule, Delayed Rel Sprinkle 250 mg G-tube BID Qty: 60 0RF levothyroxine 112 mcg Tablet 112 mcg G-tube DAILY@0600 Qty: 30 0RF lactulose 20 gram/30 mL Solution 30 g G-tube DAILY Qty: 900 0RF amlodipine 10 mg Tablet 10 mg feeding tube DAILY Qty: 30 0RF Fleet Enema 19-7 gram/118 mL enema 118 ml AK DAILY PRN (Reason: Constipation) Rx Instructions: use only if bisacodyl ineffective Print Language: Burundian
--- NOTE | 2024-07-19 22:20 | PC.NURSE ---
Per Dr. Kim, Gtube is 20 Korean
--- NOTE | 2024-07-19 23:10 | PC.NURSE ---
report given to Betina TILLMAN at [facility].
[2024-07-20 00:50] VITALS: BP 139/80; PULSE 68; RESP 16; TEMP 36.4; O2SAT 99
== END 2024-07-20 00:50 | disposition home or self-care (01) ==
PROVIDERS: Emergency Provider Emergency Medicine; PCP Hospitalist
DX: K94.23 Gastrostomy malfunction (principal); Z79.899 Other long term (current) drug therapy; Z87.891 Personal history of nicotine dependence
CPT/HCPCS: 99284

== ENCOUNTER 2025-01-11 07:58 | Emergency (ER) | payer MEDICARE, MEDICAID, SELFPAY ==
[2025-01-11 08:11] VITALS: BP 125/76; PULSE 76; O2SAT 96
[2025-01-11 08:13] VITALS: BP 158/88; PULSE 56; RESP 18; TEMP 36.9; O2SAT 94; BMI 23.7
--- NOTE | 2025-01-11 08:19 | ED_ITS ---
HPI - General Adult General Chief complaint: General Medical Stated complaint: PULLED OUT G-TUBE,FROM [facility] PER EMS Time Seen by Provider: 01/11/25 08:02 Source: patient Mode of arrival: ambulatory Limitations: no limitations History of Present Illness HPI narrative: This is a 64 years old man resident of [facility] [place] presented to the emergency department because he pulled out his G-tube. Patient is unable to give any history. He has history of schizophrenia, type 2 diabetes, essential hypertension anemia chronic kidney disease he has a G-tube Onset (ago): hour(s) (2) Radiation: non-radiation Severity: moderate Pain Consistency: constant Relieving factors: none Exacerbating factors: none Related Data Home Medications ?Medication ?Instructions ?Recorded ?Confirmed sodium phosphates 19 gram-7 118 ml WI DAILY PRN Constipation 12/11/22 03/29/24 gram/118 mL enema (Fleet Enema) bisacodyl 10 mg rectal suppository 10 mg WI DAILY PRN Constipation 09/19/23 03/29/24 Previous Rx's ?Medication ?Instructions ?Recorded amlodipine 10 mg tablet 10 mg feeding tube DAILY #30 tabs 02/07/24 divalproex 125 mg capsule,delayed 250 mg (2 x 125 mg) G-tube BID #60 02/07/24 release sprinkle caps lactulose 20 gram/30 mL oral 30 g (45 mL) G-tube DAILY #900 mL 02/07/24 solution levothyroxine 112 mcg tablet 112 mcg G-tube DAILY@0600 #30 tabs 02/07/24 Allergies Allergy/AdvReac Type Severity Reaction Status Date / Time NSAIDS (Non-Steroidal AdvReac Avoid-r/t Verified 01/11/25 08:18 Anti-Inflamma CKD Review of Systems Review of Systems: Yes Unobtainable due to mental status [facility] Past Medical History [facility] Narrative: Schizophrenia, type 2 diabetes, hypertension, anemia Medical History Inadvertent catheterization of artery Acute respiratory failure with hypoxia Central line complication Heart failure Respiratory failure Dehydration Hypernatremia Acute hyperglycemia Pneumonia Acute kidney injury superimposed on CKD COVID Resides in residential facility Constipation GERD (gastroesophageal reflux disease) Cardiomegaly Extrapyramidal and movement disorder Eating disorder Chronic kidney disease Glaucoma Schizophrenia Anemia Hyperlipemia Hypothyroid Seizures Diabetes Dementia Surgical History Hx of colonoscopy Surgical history unknown Social History Social History Household Members: Unknown / Unable to assess Housing: Unknown / Unable to assess Unable to assess alcohol history related to: Unable to respond Alcohol intake: unknown Comment: bilateral wrist restraints/propofol drip Patient Tobacco Use Status: Former Tobacco user Advance Directives Date on File: 04/30/21 service: No Physical Exam ED Vital Signs: Vital Signs - 24 hr 01/11/25 08:13 Temperature 98.5 F Pulse Rate 56 Respiratory Rate 18 Blood Pressure 158/88 H Pulse Oximetry 94 Oxygen Delivery Method Room Air BMI result Body Mass Index 23.7 No acute distress uncooperative Const General: alert Limitations: no limitations HENMT Head: Yes normal to inspection Ears: hearing grossly normal bilaterally General nose exam: Normal external nose present Face and sinus: Yes normal facial exam Mouth: Normal oral and palatal mucosa present Neck Neck: Yes normal visual inspection and Yes full ROM Chest Chest palpation & inspection: normal inspection of the chest Resp Effort & Inspection: normal respiratory effort Cardio Jugular venous distension: no JVD Rate: regular rate Rhythm: regular rhythm GI Inspection: Yes normal to inspection Percussion: Yes normal to percussion Skin General skin exam: no rashes or lesions noted Neuro Other: At baseline Course Reevaluation(s) Reevaluation #1: G-tube was inserted size 16 Venezuelan Time: 08:28 Reevaluation #2: G Tube flashed well by RN Time: 08:35 Procedures Feeding Tube Replacement Type of Tube: gastrostomy Insertion Site Prior to Procedure: clean Tube Used for Reinsertion: other (MYNOR gastrostomy feeding tube 16 F 5 cc saline inserted in the balloon) Venezuelan Tube Size (F): 16 Balloon size (mL): 5 Verification of Placement: other (flashing well ,this is establish gastrostomy) Patient Tolerated Procedure: well Medical Decision Making Medical Decision Making MDM Narrative: Patient presented to the emergency department with need new gastrostomy feeding tube pulled the prior gastrostomy tube of the [facility] Differential Diagnosis Differential Diagnoses: The differential diagnosis associated with the presentation includes Discharge Plan Discharge Clinical Impression: Encounter for feeding tube placement Patient Disposition: Xfer LTC Instructions: How to Use and Care for Your PEG Tube (ED) Prescriptions: No Action bisacodyl 10 mg Suppository 10 mg WI DAILY PRN (Reason: Constipation) divalproex 125 mg Capsule, Delayed Rel Sprinkle 250 mg G-tube BID Qty: 60 0RF levothyroxine 112 mcg Tablet 112 mcg G-tube DAILY@0600 Qty: 30 0RF lactulose 20 gram/30 mL Solution 30 g G-tube DAILY Qty: 900 0RF amlodipine 10 mg Tablet 10 mg feeding tube DAILY Qty: 30 0RF Fleet Enema 19-7 gram/118 mL enema 118 ml WI DAILY PRN (Reason: Constipation) Rx Instructions: use only if bisacodyl ineffective Print Language: Romanian
--- NOTE | 2025-01-11 08:31 | PC.NURSE ---
MD at bedside changing Gtube, patient tolerated well
[2025-01-11 09:04] VITALS: BP 142/82; PULSE 76; RESP 20; TEMP 36.7; O2SAT 99
--- OUTSIDE RECORDS SUMMARY | 2025-01-11 09:12 | XMS_ITS | Clinical Summary ---
Author Organization [facility] Address [address] [place] [address] [address] [place] [address] Phone Care Team Providers Care Shop Fitter Name Role Phone Celestine Beckman Primary Care Provider [phone] Allergies No known active allergies Medications bisacodyl (DULCOLAX) 5 MG EC tablet Take 1 tablet by mouth Active ferrous sulfate 325 (65 Fe) MG tablet Take 1 tablet by mouth 1 (one) time each day Active amLODIPine-ator vastatin (CADUET) 10-10 MG per tablet Take 1 tablet by mouth 1 (one) time each day Active lactulose (CEPHULAC) 10 g packet Take 10 g by mouth 3 (three) times a day Active levothyroxine (SYNTHROID, LEVOTHROID) 200 MCG tablet Take 150 mcg by mouth 1 (one) time each day Active senna (SENOKOT) 8.6 MG tablet Take 1 tablet by mouth 1 (one) time each day Active polyethylene glycol (GLYCOLAX) 17 g packet Take 17 g by mouth 1 (one) time each day Active cloZAPine (CLOZARIL) 100 MG tablet Take 25 mg by mouth 1 (one) time each day Ans 200 mg Active divalproex (DEPAKOTE) 125 MG EC tablet Take 125 mg by mouth in the morning and 125 mg in the evening. Do not crush, chew, or split.. Active Active Problems Problem Noted Date Diagnosed Date Chronic kidney disease, stage 2 (mild) 4 Type 2 diabetes mellitus wit h diabetic chronic kidney disease 06/06/2022 Acute nontraumatic kidney injury 02/06/2021 Restlessness and agitation 08/05/2019 Seborrheic keratosis 03/31/2019 Essential hypertension 04/21/2018 Osteomyelitis of forefoot 06/30/2017 Onychomycosis 06/04/2016 Hypothyroidism 03/29/2016 Stage 3a chronic kidney disease 01/12/2016 Anemia 12/28/2015 Convulsions 12/28/2015 Gastroesophageal reflux disease 12/28/2015 Hyperlipidemia 12/28/2015 Schizophrenia 12/28/2015 Traumatic or nontraumatic brain injury 6 Type 2 diabetes mellitus 12/28/2015 Immunizations Name Administration Dates Next Due Influenza TIV (IM) 08/29/2016 Influenza, MDCK, Quadrivalent, with preservative 09/18/2018,09/05/2017 Pneumococcal Conjugate 13-Valent 06/04/2019 Pneumococcal Polysaccharide 02/14/2017 Tdap 02/14/2017 Social History Tobacco Use Types Packs/Day Years Used Date Smoking Tobacco: Unknown Comments:Smoking History Inf o:Patient unable to provide definitive answer Sex and Gender Information Value Date Recorded Sex Assigned at Not on file Legal Sex Male 2:03 PM EDT Gender Identity Not on file Sexual Orientation Not on file Last Filed Vital Signs Vital Sign Reading Time Taken Comments Blood Pressure 119/62 03/16/2024 2:19 PM EDT Pulse 96 03/16/2024 2:19 PM EDT Temperature - - Respiratory Rate - - Oxygen Saturation 98% 03/16/2024 2:19 PM EDT Inhaled Oxygen Concentration - - Weight 74.4 kg (164 lb) 05/15/2023 2:36 PM EDT Height - - Body Mass Index - - Plan of Treatment Health Maintenance Due Date Last Done Comments Colorectal Cancer Screening: Annual FOBT 2008 Colorectal Cancer Screening: Colonoscopy 2008 Colorectal Cancer Screening: Sigmoidoscopy 2008 Diabetes: Hemoglobin A1C 01/04/2021 Diabetes: Ophthalmology Exam 01/04/2021 Diabetes: Pedal Pulse Checked 01/04/2021 Diabetes: Sensory Foot Exam 01/04/2021 Diabetes: Visual Foot Exam 01/04/2021 Pneumococcal Vaccine: 65+ Years (3 of 3 - PPSV23 or PCV20) 02/14/2022 06/04/2019, 02/14/2017 Pneumococcal Vaccine: Pediatrics (0 to 5 Years) and At-Risk Patients (6 to 64 Years) (3 of 3 - PPSV23 or PCV20) 02/14/2022 06/04/2019, 02/14/2017 Influenza Vaccine (#1) 2024 8, 09/05/2017, 08/29/2016 Hepatitis B Vaccine Aged Out No longe r eligible based on patient's age to complete this topic [place] Care Teams Shop Fitter Relationship Specialty Start Date End Date Celestine Beckman DO [address] [place] [address] [address] [place], [place] PCP - General 11/20/20
--- OUTSIDE RECORDS SUMMARY | 2025-01-11 09:12 | XMS_ITS | Encounter Summary ---
Author Organization [facility] Address [address] [facility] [address] [place] [address] Phone Care Team Providers Care Fire Investigation Manager Name Role Phone Celestine Beckman DO Primary Care Provider [phone] Encounter Details Date Type Department Care Team (Late st Contact Info) Description 02/06/2021 Orders Only [facility] [address] [place] [phone] Provider, Zara, [address] [place] [id number] Social History Tobacco Use Types Packs/Day Years Used Date Smoking Tobacco: Unknown Comments:Smoking History Inf o:Patient unable to provide definitive answer Sex and Gender Information Value Date Recorded Sex Assigned at Not on file Legal Sex Male 2:03 PM EDT Gender Identity Not on file Sexual Orientation Not on file documented as of this encounter Plan of Treatment Not on file documented as of this encounter Procedures Procedure Name Priority Date/Time Associated Diagnosis Comments EXT RESULT ENTRY Routine 01/02/2021 documented in this encounter Results * EXT RESULT ENTRY (01/02/2021) Historical Provider LAB BLOOD ORDERABLES Kim l Result documented in this encounter Visit Diagnoses Not on filedocumented in this encounter Care Teams Fire Investigation Manager Relationship Specialty Start Date End Date Celestine Beckman DO [address] [place], [place] PCP - General 11/20/20 documented as of this encounter
[2025-01-11 09:46] VITALS: BP 142/82; PULSE 76; RESP 20; TEMP 36.7; O2SAT 99
--- NOTE | 2025-01-11 09:46 | PC.NURSE ---
Report to floor RN at [facility] on patients return
== END 2025-01-11 09:47 ==
PROVIDERS: Emergency Provider Emergency Medicine; PCP Hospitalist
DX: K94.29 Other complications of gastrostomy (principal); Z79.899 Other long term (current) drug therapy
CPT/HCPCS: 43762; 99283; 99284

== ENCOUNTER 2025-01-26 07:29 | Outpatient (REF) | payer MEDICAID, SELFPAY ==
--- NOTE | ~2025-01-26 | CT_ITS ---
EXAMINATION: CT CHEST WITHOUT IV CONTRAST INDICATION: PULMONARY NODULE, F/U COMPARISON: Comparison is made with the prior examination dated 06/22/2024. TECHNIQUE: Helical CT scan of the chest was performed without intravenous contrast. Coronal and sagittal reformatted images were generated and reviewed. This CT exam was performed with one or more of the following dose reduction techniques: automated exposure control, adjustment of the mA and/or kV according to patient size, use of iterative reconstruction technique. DLP: 219 mGy-cm CHEST: THYROID: The thyroid is unremarkable. LUNGS: Again seen is a punctate calcified granuloma in the right upper lobe (series 4, image 50). There is mild dependent atelectasis at the lung bases. No suspicious pulmonary nodules or focal airspace opacities are identified. MEDIASTINUM: There is no mediastinal lymphadenopathy. ELLEN: Evaluation of the hilar regions is limited by lack of intravenous contrast material. CARDIOVASCULATURE: The heart is normal in size. There is no pericardial effusion. There is mild dilatation of the ascending thoracic aorta measuring up to 3.9 cm in diameter. DEGREE OF CORONARY CALCIFICATION: mild PLEURA: There is no pleural effusion. No pneumothorax. MAIN AIRWAYS: The mainstem bronchi and proximal branches are patent. AXILLA: There is no axillary lymphadenopathy. BONES AND SOFT TISSUES: There is degenerative disc disease of the spine. UPPER ABDOMEN: The visualized portions of the liver, spleen, and adrenals have an unremarkable unenhanced appearance. CT/CT chest wo IV con IMPRESSION: Punctate right upper lobe granuloma. No suspicious pulmonary nodules are identified. Electronically signed by: Ad Monroy MD 01/26/2025 08:53 AM EDT
--- OUTSIDE RECORDS SUMMARY | 2025-01-26 07:31 | XMS_ITS | Clinical Summary ---
Author Organization [facility] Address [address] [place] [address] [address] [place] [address] Phone Care Team Providers Care Senior Courtroom Clerk Name Role Phone Celestine Beckman Primary Care Provider [phone] Allergies No known active allergies Medications bisacodyl [...] age to complete this topic [place] Care Teams Senior Courtroom Clerk Relationship Specialty Start Date End Date Celestine Beckman DO [address] [place] [address] [address] [place], [place] PCP - General 11/20/20
--- OUTSIDE RECORDS SUMMARY | 2025-01-26 07:31 | XMS_ITS | Encounter Summary ---
Author Organization [facility] Address [address] [facility] [address] [place] [address] Phone Care Team Providers Care Anchor Operator Name Role Phone Celestine Beckmna DO Primary Care Provider [phone] Encounter Details Date Type Department Care Team (Late st Contact Info) Description 02/06/2021 Orders Only [facility] [address] [place] [phone] Provider, Zara, [address] [place] [id number] Social History Tobacco Use Types Packs/Day [...] on filedocumented in this encounter Care Teams Anchor Operator Relationship Specialty Start Date End Date Celestine Beckman DO [address] [place], [place] PCP - General 11/20/20 documented as of this encounter
== END 2025-01-26 07:30 | disposition home or self-care (01) ==
LOC: HO.CT 07:29
PROVIDERS: PCP Hospitalist; Visit Provider Hospitalist
DX: R91.1 Solitary pulmonary nodule (principal)
CPT/HCPCS: 71250

== ENCOUNTER → 2025-01-26 07:32 | Outpatient (BNV) | payer MEDICAID, SELFPAY | PROVIDERS: PCP Hospitalist; Visit Provider Radiology Diagnostic Radiology | DX: J84.10 Pulmonary fibrosis, unspecified (principal) | CPT/HCPCS: 71250 ==

== ENCOUNTER 2025-09-06 16:46 | Outpatient (REF) | payer MEDICARE, MEDICAID, SELFPAY ==
--- OUTSIDE RECORDS SUMMARY | 2025-09-06 20:15 | XMS_ITS | Clinical Summary ---
Author Organization [facility] Address [address] [place] [address] [address] [place] [address] Phone Care Team Providers Care Manager Environmental Health Name Role Phone Celestine Beckman Primary Care Provider [phone] Allergies No known active allergies Medications bisacodyl [...] 6 Type 2 diabetes mellitus 12/28/2015 Immunizations Immunization Administration Dates Next Due Influenza TIV (IM) [...] Diabetes: Visual Foot Exam 01/04/2021 Pneumococcal Vaccine: 50+ Years (3 of 3 - PCV20 or PCV21) 02/14/2022 06/04/2019, 02/14/2017 Influenza Vaccine (#1) 2025 8, 09/05/2017, 08/29/2016 Pneumococcal Vaccine: Peds ( 0 to 5 Years) and At-Risk Patients (6 to 49 Years) Discontinued 06/04/2019, 02/14/2017 Hepatitis B Vaccine Aged Out No longe r eligible based on patient's age to complete this topic [place] Care Teams Manager Environmental Health Relationship Specialty Start Date End Date Celestine Beckman DO [address] [place], [place] PCP - General 11/20/20
--- OUTSIDE RECORDS SUMMARY | 2025-09-06 20:15 | XMS_ITS | Encounter Summary ---
Author Organization [facility] Address [address] [facility] [address] [place] [address] Phone Care Team Providers Care Citizenship Teacher Name Role Phone Celestine Beckman DO Primary Care Provider [phone] Encounter Details Date Type Department Care Team (Late st Contact Info) Description 02/06/2021 Orders Only [facility] [address] [place] [address] Provider, Zara, Social History Tobacco Use Types Packs/Day Years [...] on filedocumented in this encounter Care Teams Citizenship Teacher Relationship Specialty Start Date End Date Celestine Beckman DO [address] [place] [address] [address] [place], [place] PCP - General 11/20/20 documented as of this encounter
== END 2025-09-06 16:47 | disposition home or self-care (01) ==
LOC: HO.CT 16:46
PROVIDERS: PCP Hospitalist; Visit Provider Hospitalist
DX: Z13.89 Encounter for screening for other disorder (principal)

== ENCOUNTER 2025-10-03 14:02 | Outpatient (AMB) | payer MEDICARE, MEDICAID, SELFPAY ==
[2025-10-03 14:07] VITALS: BP 134/84; PULSE 84; O2SAT 97; BMI 20.4
--- NOTE | 2025-10-03 14:07 | MHC.OFFVIS ---
Vital Signs 10/03/25 14:07 Height 6 ft Weight 150 lb 4 oz BMI 20.4 BP 134/84 Blood Pressure Location Rt brachial Position Sitting Pulse 84 Pulse Source Pulse Oximeter Pulse Oximetry (%) 97 Oxygen Delivery Method Room Air Intake Visit Reasons: colo screen Intake Note: Est pt to discuss cologuard vs. colonoscopy. Pt did not complete the prep for their last scheduled procedure. CC; Spoke to the pt's SN[facility] charge nurse; per the nurse, pt does not have any current GI concerns or sx. Pt did confirm this as well. Last colo was as of 2022 but he did not complete the prep. Manager Of Tires Sales Required: No Accompanied by: Revenue Liaison Allergies NSAIDS (Non-Steroidal Anti-Inflamma Adverse Reaction (Verified 01/11/25 08:18) Avoid-r/t CKD HPI HPI colo screen: Details: LAST VISIT: Screen for colon cancer Patient denies any GI, cardiac or respiratory symptoms.? Denies any issues with anesthesia in the past.? Denies any history of sleep apnea.? No history infectious diseases in the past or present.? Patient is on low-dose aspirin. Patient is a very poor historian. He says no to everything or yes. Staff member from [facility] does not have much information. Patient denies melena, hematochezia, unintentional weight loss or ribbon like stools.? Discussed at length the pre-procedure,? prep, diet & medications as well as what to expect prior, during and after the procedure.?? Stressed the importance of good bowel prep. ?Recommended the use of Vaseline or Calmoseptine OTC & baby wipes with bowel movements to promote comfort.? ?Patient verbalizes understanding and agrees to plan of care.? He was given the opportunity to ask questions and all questions answered.? We will see him after the procedure.? Plan Medications New bisacodyl (Dulcolax (bisacodyl)) take 2 tabs at noon the day before your colonoscopy 10 mg (2 x 5 mg) PO ONCE 2 tabs 0RF 1 day Z12.11 polyethylene glycol 3350 (Miralax) As directed by gastroenterology department at [facility] 238 grams PO ONCE 238 grams 0RF Z12.11 bisacodyl (Dulcolax (bisacodyl)) take 2 tabs at noon the day before your colonoscopy 10 mg (2 x 5 mg) PO ONCE 2 tabs 0RF 1 day Z12.11 polyethylene glycol 3350 (Miralax) As directed by gastroenterology department at [facility] 238 grams PO ONCE 238 grams 0RF Z12.11 TODAY'S VISIT Patient is here today to discuss going for colonoscopy. Patient had attempted colonoscopy once, however patient did not had a good prep I colonoscopy was not performed. Patient is very difficult to follow directions. Currently he is taking senna and MiraLax as well as p.r.n. Fleet enemas. Patient for the most time is nonverbal, however he answers short answers or simple yes or no. Staff reports that patient is not very good with following directions and most likely will not be able to go through with the prep. Patient was admitted last year for aspiration pneumonia and had PEG tube placed for feedings. He has had the PEG tube since January of 2024. Staff reports that he is starting to eat better and they are not using the PEG tube as often. [facility] Medical History Inadvertent catheterization of artery Acute respiratory failure with hypoxia Central line complication Heart failure Respiratory failure Dehydration Hypernatremia Acute hyperglycemia Pneumonia Acute kidney injury superimposed on CKD COVID Resides in [facility] facility Constipation GERD (gastroesophageal reflux disease) Cardiomegaly Extrapyramidal and movement disorder Eating disorder Chronic kidney disease Glaucoma Schizophrenia Anemia Hyperlipemia Hypothyroid Seizures Diabetes Dementia Surgical History Hx of colonoscopy Surgical history unknown Social History Household Members: Unknown / Unable to assess Housing: Unknown / Unable to assess Alcohol intake: unknown Comment: bilateral wrist restraints/propofol drip Patient Tobacco Use Status: Former Tobacco user Advance Directives Date on File: 04/30/21 service: No Review of Systems Const Denies weight gain and Denies weight loss ENT Reports no additional complaints, Denies dysphagia and Denies odynophagia Card Reports no additional complaints Resp Reports no additional complaints GI Denies abdominal pain, Denies belching, Denies melena, Denies bloating, Denies change in bowel habits, Reports constipation (Occasional), Denies dysphagia, Denies excessive flatus, Denies dyspepsia, Denies heartburn, Denies diarrhea, Denies loose stools, Denies nausea, Denies odynophagia and Denies vomiting Reports no additional complaints Musc Reports no additional complaints Neuro Reports no additional complaints Psych Reports no additional complaints Endo Reports no additional complaints Physical Exam Vital Signs: Last Vital Signs Pulse 84 10/03/25 14:07 BP 134/84 10/03/25 14:07 Pulse Ox 97 10/03/25 14:07 Oxygen Delivery Method Room Air 10/03/25 14:07 BMI result Body Mass Index 20.4 Const Other: not communicative verbally, on wheelchair General: comfortable and no acute distress Resp Effort & Inspection: normal respiratory effort GI Other: PEG tube in place Palpation (GI): Soft to palpation, not firm, nontender and no guarding Assessment & Plan Assessment & Plan (1) Dysphagia: Code(s): R13.10 - Dysphagia, unspecified Category: Medical Qualifiers: Dysphagia type: other dysphagia Qualified Code(s): R13.19 - Other dysphagia (2) S/P percutaneous endoscopic gastrostomy (PEG) tube placement: Code(s): Z93.1 - Gastrostomy status Category: Surgical (3) Screen for colon cancer: Code(s): Z12.11 - Encounter for screening for malignant neoplasm of colon Plan Due to patient's comorbidities as well as inability to follow directions with prepping patient will do Cologuard 1st we will see him in 6 months to re-evaluate to make sure that patient is doing well. Continue monitor patient's feeding. Please return to us sooner if he will have any GI concerning symptoms. Staff is agreeable to plan of care and verbalizes understanding of instructions. They were given the opportunity to ask questions and all questions answered. Thank you for allowing me to participate in his care Coding Level of Care Code Est Pt Level 3 (87013) Diagnoses Other dysphagia R13.19 Dysphagia type: other dysphagia S/P percutaneous endoscopic gastrostomy (PEG) tube placement Z93.1 Screen for colon cancer Z12.11 Time Spent (min) 30 Comment 20 minutes spent with patient and additional 10 minutes spent reviewing his records
== END 2025-10-03 14:34 | disposition home or self-care (01) ==
PROVIDERS: PCP Hospitalist; Visit Provider Nurse Practitioner Family
DX: R13.19 Other dysphagia (principal); Z93.1 Gastrostomy status
CPT/HCPCS: 99213

== ENCOUNTER → 2025-10-03 14:02 | Outpatient (BNVA) | payer MEDICARE, MEDICAID, SELFPAY | PROVIDERS: PCP Hospitalist; Visit Provider Nurse Practitioner Family | DX: Z12.11 Encounter for screening for malignant neoplasm of colon (principal); R13.19 Other dysphagia; Z93.1 Gastrostomy status | CPT/HCPCS: 99212 ==